=== PATIENT | male | born 1950 | race Caucasian/White ===

== ENCOUNTER 2018-12-14 21:25 | Emergency (ER) | payer OTHER, SELFPAY ==
[2018-12-14 21:40] VITALS: BP 168/83; PULSE 72; RESP 18; TEMP 35.9; O2SAT 98; BMI 36.2
--- NOTE | 2018-12-14 22:28 | ED_ITS ---
HPI - GI Bleed General Chief complaint: GI Bleed Stated complaint: pancreatitis,diarrhea,black stool Time Seen by Provider: 12/14/18 22:03 Source: patient Mode of arrival: ambulatory Limitations: no limitations History of Present Illness HPI Narrative: patient is a 68-year-old male who presents with left lower quad rant pain and black tarry stool. He was admitted this 5 days ago for 3 days with pancreatitis in [facility]. He was released in return home to [place]. Today he has had 1 episode of black tarry stool and some left lower quadrant. He feels shaky lightheaded and weak. Has no prior history of GI bleeding. He was likely on DVT prophylaxis during admission but is typically not on any anticoagulation or antiplatelet medication. Related Data Home Medications Medication Instructions Recorded Confirmed allopurinol Unknown #0 03/12/17 lisinopril Unknown #0 03/12/17 Allergies Allergy/AdvReac Type Severity Reaction Status Date / Time Sulfa (Sulfonamide Allergy Unknown Verified 12/14/18 21:40 Antibiotics) [SULFA (SULFONAMIDE ANTIBIOTICS)] Review of Systems Review of Systems GENERAL: Denies chills, fatigue, malaise, fever, sweats, travel HEENT: Denies sinus pain, ear pain, sore throat, difficulty swallowing, neck pain RESPIRATORY: Denies dyspnea, cough, wheezing, hemoptysis, sputum. CARDIOVASCULAR: Denies chest pain, palpitations, orthopnea, edema GASTROINTESTINAL: See HPI : Denies dysuria, frequency, incontinence, hematuria, urinary retention, flank pain. MUSCULOSKELETAL: Denies weakness, joint pain, or bony pain SKIN: No rash, no erythema, no pruritus NEUROLOGIC: Denies dizziness, headache, numbness, change in speech, confusion PSYCHIATRIC: No concerning psychosocial issues. 12 point review of systems is negative except for those stated above and HPI PFSH Social History Smoking Status: Never smoker Social History Smoking Status: Never smoker Exam Initial Vital Signs Initial Vital Signs: Vital Signs Temperature 96.6 F L 12/14/18 21:40 Pulse Rate 72 12/14/18 21:40 Respiratory Rate 18 12/14/18 21:40 Blood Pressure 168/83 H 12/14/18 21:40 Pulse Oximetry 98 12/14/18 21:40 GENERAL: overweight alert male no acute distress HEENT: Head atraumatic,EOMI, pupils reactive, CARDIOVASCULAR: Regular rate and rhythm without murmurs, rubs or gallops. RESPIRATORY: Breath sounds equal bilaterally, no wheezes rales or rhonchi. ABDOMEN: Soft, nontender. Normoactive bowel sounds all 4 quadrants. No guarding or rebound. [RECTAL:] guaiac negative on stool green not black : No CVA tenderness RECTAL: green dark stool guaiac negative EXTREMITIES: Normal range of motion, no clubbing or edema. Neurovascularly intact NEUROLOGICAL: Alert and oriented x4.Normal gait and speech. SKIN: Warm, dry, no laceration, no petechiae, no rashes or lesions. Course Orders Ordered: ED Orders 12/14/18 22:49 Complete Blood Count AUTO DIFF Stat Comprehensive Metabolic Panel Stat Lipase Stat Partial Thromboplastin Time Stat Prothrombin Time INR Stat Type and Screen Stat Discontinued Medications Ondansetron HCl (Zofran) 4 mg IV NOW ONE Stop: 12/14/18 22:37 Last Admin: 12/14/18 22:44 Dose: Not Given Ondansetron HCl (Zofran Odt) 4 mg SL NOW ONE Stop: 12/14/18 22:45 Last Admin: 12/14/18 22:45 Dose: 4 mg Pantoprazole Sodium (Protonix) 40 mg IV NOW ONE Stop: 12/14/18 22:37 Last Admin: 12/15/18 00:49 Dose: Not Given Vital Signs - 8 hr 12/14/18 21:40 12/14/18 22:30 12/14/18 23:37 Temperature 96.6 F L Pulse Rate 72 64 72 Respiratory Rate 18 21 18 Blood Pressure 168/83 H Blood Pressure [Right Wrist] 160/79 H 145/79 H Pulse Oximetry 98 97 98 12/15/18 00:39 Temperature Pulse Rate 74 Respiratory Rate 18 Blood Pressure 134/75 Blood Pressure [Right Wrist] Pulse Oximetry 98 MDM - GI Bleed Lab Data Attestation: I reviewed the patient's lab results. Result diagrams: 12/14/18 22:49 12/14/18 22:49 Lab Results 12/14/18 12/14/18 12/14/18 Range/Units 22:49 22:49 22:49 WBC 8.2 (4.5-11.0) X10^3/uL RBC 4.31 L (4.5-5.9) X10^6/uL Hgb 13.5 (13.5-17.5) g/dL Hct 40.0 L (41-53) % MCV 92.9 (80-100) fL MCH 31.4 (26-34) PG MCHC 33.8 (30-36) % RDW 15.1 H (11.6-14.8) % Plt Count 192 (150-400) X10^3/uL Neut % (Auto) 61.0 (50-75) % Lymph % (Auto) 21.9 L (25-40) % [place] % (Auto) 7.3 (3-14) % Eos % (Auto) 9.4 H (2-4) % Baso % (Auto) 0.4 (0-2) % Neut # (Auto) 5000 (9107-7180) /uL Lymph # (Auto) 1800 (7891-4662) /uL [place] # (Auto) 600 (0-900) /uL Eos # (Auto) 800 H (0-450) /uL Baso # (Auto) 0 (0-100) /uL PT 11.5 (10.1-12.7) SECONDS INR 1.0 (0.9-1.3) APTT 29 (26.4-36.2) SECONDS Sodium 138 (137-145) mmol/L Potassium 4.3 (3.4-5.1) mmol/L Chloride 105 (98-107) mmol/L Carbon Dioxide 26 (22-32) mmol/L BUN 20 (9-20) mg/dL Creatinine 1.30 H (0.66-1.25) mg/dL Estimated GFR 54.6 L (>60) mL/min BUN/Creatinine Ratio 15.4 (6-22) Glucose 102 (80-110) mg/dL Calcium 8.8 (8.4-10.2) mg/dL Total Bilirubin 0.7 (0.2-1.3) mg/dL AST 22 (17-59) IU/L ALT 40 (21-72) IU/L Alkaline Phosphatase 71 (38-126) U/L Total Protein 6.3 (6.3-8.2) g/dL Albumin 3.6 (3.5-5.0) g/dL Globulin 2.7 (1.7-4.1) g/dL Albumin/Globulin Ratio 1.3 (1.0-2.8) Lipase 42 (23-300) U/L Blood Type Antibody Screen 12/14/18 Range/Units 22:49 WBC (4.5-11.0) X10^3/uL RBC (4.5-5.9) X10^6/uL Hgb (13.5-17.5) g/dL Hct (41-53) % MCV (80-100) fL MCH (26-34) PG MCHC (30-36) % RDW (11.6-14.8) % Plt Count (150-400) X10^3/uL Neut % (Auto) (50-75) % Lymph % (Auto) (25-40) % [place] % (Auto) (3-14) % Eos % (Auto) (2-4) % Baso % (Auto) (0-2) % Neut # (Auto) (8408-1653) /uL Lymph # (Auto) (9793-6675) /uL [place] # (Auto) (0-900) /uL Eos # (Auto) (0-450) /uL Baso # (Auto) (0-100) /uL PT (10.1-12.7) SECONDS INR (0.9-1.3) APTT (26.4-36.2) SECONDS Sodium (137-145) mmol/L Potassium (3.4-5.1) mmol/L Chloride (98-107) mmol/L Carbon Dioxide (22-32) mmol/L BUN (9-20) mg/dL Creatinine (0.66-1.25) mg/dL Estimated GFR (>60) mL/min BUN/Creatinine Ratio (6-22) Glucose (80-110) mg/dL Calcium (8.4-10.2) mg/dL Total Bilirubin (0.2-1.3) mg/dL AST (17-59) IU/L ALT (21-72) IU/L Alkaline Phosphatase (38-126) U/L Total Protein (6.3-8.2) g/dL Albumin (3.5-5.0) g/dL Globulin (1.7-4.1) g/dL Albumin/Globulin Ratio (1.0-2.8) Lipase (23-300) U/L Blood Type O Positive Antibody Screen Negative [facility] Narrative Medical decision making narrative: patient is an extremely hard IV start. We were able to get blood work. He has mild tenderness in left lower quadrant without of guaiac-positive stool. He has only had 1 episode. His blood work is reassuring. I did discuss with him possibility of diverticulitis as no however he has no fever leukocytosis. At this time I do not want to give him antibiotics without a CT, Confirming diverticulitis. He says they did a CT in [place] he does not really want another 1 at this time. He is trying to set up an appointment with his PCP from his recent hospital visit. He agrees to return to the ED if you should have any new or worsening symptoms. is in the room and agrees with this plan. Discharge Plan Departure Patient Disposition: Home Clinical Impression: Abdominal pain Qualifiers: Abdominal location: left lower quadrant Qualified Code(s): R10.32 - Left lower quadrant pain Discharge Date/Time: 12/15/18 00:41 Interventions: ED Discharge Assessment Last Done: 12/15/18 00:39 Instructions: Diverticulitis, Acute Abdominal Pain Activity Restrictions/Additional Instructions: *You have been diagnosed with left lower quadrant pain *What to do: left lower quadrant pain. At this time your stool is not positive for bleeding all lab work is reassuring. It is possible that you have feedings of diverticulitis. This cannot be confirmed unless you have a CT scan. If your pain gets worse you may require this. *Continue to take medications as directed *Follow up with your primary care provider in 2-3 days *Return to ER if you should have Increasing left lower quadrant pain, persistent black stool or bright red stool dizziness, lightheadedness, passing out or any new, worsening or concerning symptoms Prescriptions: No Action allopurinol 100 MG tablet Unknown Qty: 0 RF: 0 lisinopril 2.5 MG tablet Unknown Qty: 0 RF: 0 Referrals: Sarahy Kebede MD [Non-Staff] -
[2018-12-14 22:30] VITALS: BP 160/79; PULSE 64; RESP 21; O2SAT 97
[2018-12-14] MEDS: ONDANSETRON 4 MG ODT SL (22:45)
[2018-12-14 23:01] LABS: Add Manual Diff / Slide Review NO; Basophils Absolute Auto 0 /uL (0-100); Basophils Percent Auto 0.4 % (0-2); Eosinophils Absolute Auto 800 /uL (0-450); Eosinophils Percent Auto 9.4 % (2-4); Hemoglobin 13.5 g/dL (13.5-17.5); Lymphocytes Absolute Auto 1800 /uL (1100-4500); Lymphocytes Percent Auto 21.9 % (25-40); Mean Corpuscular HGB Conc 33.8 % (30-36); Mean Corpuscular Hemoglobin 31.4 PG (26-34); Mean Corpuscular Volume 92.9 fL (80-100); Monocytes Absolute Auto 600 /uL (0-900); Monocytes Percent Auto 7.3 % (3-14); Neutrophils Absolute Auto 5000 /uL (1500-7000); Platelet Count 192 X10^3/uL (150-400); Red Blood Cell Count 4.31 X10^6/uL (4.5-5.9); Red Cell Distribution Width 15.1 % (11.6-14.8); White Blood Cell Count 8.2 X10^3/uL (4.5-11.0)
[2018-12-14 23:09] LABS: Prothrombin Time 11.5 SECONDS (10.1-12.7)
[2018-12-14 23:12] LABS: PTT Partial Thromboplastin Tim 29 SECONDS (26.4-36.2)
[2018-12-14 23:14] LABS: Alanine Aminotransferase 40 IU/L (21-72); Albumin 3.6 g/dL (3.5-5.0); Albumin Globulin Ratio 1.3 (1.0-2.8); Alkaline Phosphatase 71 U/L (38-126); Aspartate Aminotransferase 22 IU/L (17-59); BUN Creatinine Ratio 15.4 (6-22); Bilirubin Total 0.7 mg/dL (0.2-1.3); Blood Urea Nitrogen 20 mg/dL (9-20); Calcium 8.8 mg/dL (8.4-10.2); Carbon Dioxide 26 mmol/L (22-32); Chloride 105 mmol/L (98-107); Estimated Glomerular Filt Rate 54.6 mL/min (>60); Globulin 2.7 g/dL (1.7-4.1); Glucose 102 mg/dL (80-110); HEMOLYSIS < 15 (0-50); Lipase 42 U/L (23-300); Potassium 4.3 mmol/L (3.4-5.1); Sodium 138 mmol/L (137-145); Total Protein 6.3 g/dL (6.3-8.2)
[2018-12-14 23:37] VITALS: BP 145/79; PULSE 72; RESP 18; O2SAT 98
[2018-12-15 00:39] VITALS: BP 134/75; PULSE 74; RESP 18; O2SAT 98
== END 2018-12-15 00:41 | disposition home or self-care (01) ==
PROVIDERS: Emergency Provider Emergency Medicine
DX: R10.32 Left lower quadrant pain (principal)
CPT/HCPCS: 36415; 80053; 83690; 85025; 85610; 85730; 86850; 86900; 86901; 99282; 99283

== ENCOUNTER 2019-08-15 22:17 | Inpatient (IN) | payer OTHER, SELFPAY ==
[2019-08-15 22:20] VITALS: BP 99/51; PULSE 61; RESP 24; TEMP 36.3; O2SAT 100; BMI 35.6
--- NOTE | 2019-08-15 22:25 | ED_ITS ---
HPI - Abdominal Pain General Chief Complaint: Abdominal Pain Stated Complaint: Lower ABD Pain & Diarrhea Time Seen by Provider: 08/15/19 22:17 Source: patient, family and EMS Mode of arrival: EMS Limitations: no limitations History of Present Illness HPI narrative: Patient is a 68-year-old male who presents with sudden-onset abdominal pain left lower quadrant. He was feeling well earlier in the day however this came on suddenly he had multiple episodes of excessive diarrhea. He denies feeling nauseous, no vomiting. He did not pass out, but is very sweaty and hypotensive according to EMS. He still is having intense abdominal pain. He and his both ate the same thing for dinner she is not having any symptoms. He feel nauseous. No vomiting. MD complaint: abdominal pain Pain Consistency: constant Location: LLQ Severity: severe Quality: cramping Radiation: none Migration to: no migration Relieving factors: nothing Exacerbating factors: nothing Associated symptoms: nausea Related Data Home Medications Medication Instructions Recorded Confirmed allopurinol Unknown #0 03/12/17 lisinopril Unknown #0 03/12/17 duloxetine 60 mg PO BEDTIME 08/16/19 08/16/19 furosemide 20 mg PO DAILY 08/16/19 08/16/19 Allergies Allergy/AdvReac Type Severity Reaction Status Date / Time Sulfa (Sulfonamide Allergy Unknown Verified 08/15/19 22:31 Antibiotics) [SULFA (SULFONAMIDE ANTIBIOTICS)] Review of Systems Review of Systems Narrative: GENERAL: Denies chills, fatigue, malaise, fever, sweats, travel HEENT: Denies sinus pain, ear pain, sore throat, difficulty swallowing, neck pain RESPIRATORY: Denies dyspnea, cough, wheezing, hemoptysis, sputum. CARDIOVASCULAR: Denies chest pain, palpitations, orthopnea, edema GASTROINTESTINAL: See HPI : Denies dysuria, frequency, incontinence, hematuria, urinary retention, flank pain. MUSCULOSKELETAL: Denies weakness, joint pain, or bony pain SKIN: No rash, no erythema, no pruritus NEUROLOGIC: Denies weakness, dizziness, headache, numbness, change in speech, confusion PSYCHIATRIC: No concerning psychosocial issues. 12 point review of systems is negative except for those stated above and HPI Patient History Medical History Hypertension (Acute) Social History Smoking Status: Former smoker Social History household members: spouse Smoking Status: Former smoker alcohol intake frequency: holidays/special occasions only Substance Use Type: does not use Exam Initial Vital Signs Initial Vital Signs: Vital Signs Temperature 97.4 F L 08/15/19 22:20 Pulse Rate 61 08/15/19 22:20 Respiratory Rate 24 08/15/19 22:20 Blood Pressure 99/51 L 08/15/19 22:20 Pulse Oximetry 100 08/15/19 22:20 GENERAL: Alert overweight male, week responsive HEENT: Head atraumatic,EOMI, pupils reactive, face symmetric CARDIOVASCULAR: Regular rate and rhythm without murmurs, rubs or gallops. RESPIRATORY: Breath sounds equal bilaterally, no wheezes rales or rhonchi. ABDOMEN: Soft, obese, tender left lower quadrant ventral hernia noted umbilical hernia noted soft EXTREMITIES: Normal range of motion, no clubbing or edema. Neurovascularly intact NEUROLOGICAL: Alert and oriented x4.Normal gait and speech. Cranial nerves II through XII grossly intact. SKIN: Warm, dry, no laceration, no petechiae, no rashes or lesions. Procedures Central Line Placement Right IJ: Time Out Performed: Yes Patient Placed on Monitor/Pulse Ox: Yes MD Prep: mask, gown and gloves Central Line Prep: Chlorhexidine scrub Local Anesthetic: lidocaine 1% Amount of anesthesia used (mL): 4 Ultrasound Used for Placement: Yes Central Line Lumen Inserted: triple Post Procedure: sutured in place, good blood return, all ports aspirated, flushed, capped and sterile dressing applied Post Procedure X-Ray: tip of catheter in good position and no pneumothorax seen Patient Tolerated Procedure: Well Complications: none Course Orders Ordered: ED Orders 08/15/19 22:29 CT abdomen pelvis w con Stat 08/15/19 23:45 Complete Blood Count AUTO DIFF Stat Comprehensive Metabolic Panel Stat Lactate (Lactic Acid) Stat Lipase Stat 08/16/19 XR chest 1V Stat 08/16/19 02:05 Magnesium Stat 08/16/19 02:17 GI Panel (Film Array) Stat Heparin Sodium (Porcine) (Heparin) 5,000 unit SUBCUT BID MERA Hydromorphone HCl (Dilaudid) 0.5 mg IV Q4HR MERA Sodium Chloride (Normal Saline 0.9%) 1,000 mls @ 1,000 mls/hr IV CONT MERA Last Admin: 08/16/19 02:47 Dose: 1,000 mls/hr Documented by: Infusion: 08/16/19 01:28 Dose: 1,000 mls/hr Documented by: Admin: 08/16/19 00:28 Dose: 1,000 mls/hr Documented by: RODNEY Lactated Ringer's (Lactated Ringers) 1,000 mls @ 1,000 mls/hr IV BOLUS ONE Stop: 08/16/19 04:55 Lactated Ringer's (Lactated Ringers) 1,000 mls @ 150 mls/hr IV CONT MERA Naloxone HCl (Narcan) 0.2 mg IV Q2MIN PRN PRN Reason: Opiate Reversal Pantoprazole Sodium (Protonix) 40 mg IV DAILY MERA Discontinued Medications Hydromorphone HCl (Dilaudid) 1 mg IV NOW ONE Stop: 08/15/19 22:29 Last Admin: 08/16/19 02:51 Dose: Not Given Documented by: RODNEY Hydromorphone HCl (Dilaudid) 1 mg IM NOW ONE Stop: 08/16/19 00:13 Last Admin: 08/16/19 00:15 Dose: 1 mg Documented by: RODNEY Sodium Chloride (Normal Saline 0.9%) 1,000 mls @ 150 mls/hr IV CONT MERA Last Infusion: 08/16/19 03:26 Dose: 150 mls/hr Documented by: Admin: 08/16/19 03:25 Dose: 150 mls/hr Documented by: RODNEY Sodium Chloride (Normal Saline 0.9%) 1,000 mls @ 150 mls/hr IV CONT MERA Ondansetron HCl (Zofran) 4 mg IV NOW ONE Stop: 08/15/19 22:29 Last Admin: 08/16/19 00:29 Dose: 4 mg Documented by: RODNEY Vital Signs Vital signs: Vital Signs - 8 hr 08/15/19 22:20 08/16/19 00:08 08/16/19 01:08 Temperature 97.4 F L Pulse Rate 61 64 54 L Respiratory Rate 24 15 14 Blood Pressure 99/51 L Blood Pressure [Left Arm] 97/55 L 79/49 L Pulse Oximetry 100 98 92 08/16/19 01:56 08/16/19 02:25 08/16/19 02:41 Temperature Pulse Rate 57 L 58 L 62 Respiratory Rate 18 18 20 Blood Pressure Blood Pressure [Left Arm] 92/52 L 93/54 L 107/58 L Pulse Oximetry 92 95 94 MDM - Abdominal Pain Lab Data Attestation: I reviewed the patient's lab results. Result diagrams: 08/15/19 23:45 08/15/19 23:45 Labs: Lab Results 08/15/19 08/15/19 08/15/19 Range/Units 23:45 23:45 23:45 WBC 17.0 H (4.5-11.0) X10^3/uL RBC 4.51 (4.5-5.9) X10^6/uL Hgb 14.2 (13.5-17.5) g/dL Hct 42.5 (41-53) % MCV 94.2 (80-100) fL MCH 31.5 (26-34) PG MCHC 33.5 (30-36) % RDW 14.8 (11.6-14.8) % Plt Count 200 (150-400) X10^3/uL Neut % (Auto) 84.5 H (50-75) % Lymph % (Auto) 6.1 L (25-40) % [place] % (Auto) 8.2 (3-14) % Eos % (Auto) 0.7 L (2-4) % Baso % (Auto) 0.5 (0-2) % Neut # (Auto) 63935 H (5103-4696) /uL Lymph # (Auto) 1000 L (2942-5858) /uL [place] # (Auto) 1400 H (0-900) /uL Eos # (Auto) 100 (0-450) /uL Baso # (Auto) 100 (0-100) /uL Sodium 137 (137-145) mmol/L Potassium 4.7 (3.4-5.1) mmol/L Chloride 103 (98-107) mmol/L Carbon Dioxide 21 L (22-32) mmol/L BUN 31 H (9-20) mg/dL Creatinine 2.00 H (0.66-1.25) mg/dL Estimated GFR 33.2 L (>60) mL/min BUN/Creatinine Ratio 15.5 (6-22) Glucose 146 H (80-110) mg/dL Lactate 2.3 H (0.7-2.1) mmol/L Calcium 8.9 (8.4-10.2) mg/dL Magnesium (1.6-2.3) mg/dL Total Bilirubin 0.8 (0.2-1.3) mg/dL AST 23 (17-59) IU/L ALT 33 (21-72) IU/L Alkaline Phosphatase 87 (38-126) U/L Total Protein 6.8 (6.3-8.2) g/dL Albumin 4.1 (3.5-5.0) g/dL Globulin 2.7 (1.7-4.1) g/dL Albumin/Globulin Ratio 1.5 (1.0-2.8) Lipase 61 (23-300) U/L 08/16/19 08/16/19 Range/Units 02:05 02:05 WBC (4.5-11.0) X10^3/uL RBC (4.5-5.9) X10^6/uL Hgb (13.5-17.5) g/dL Hct (41-53) % MCV (80-100) fL MCH (26-34) PG MCHC (30-36) % RDW (11.6-14.8) % Plt Count (150-400) X10^3/uL Neut % (Auto) (50-75) % Lymph % (Auto) (25-40) % [place] % (Auto) (3-14) % Eos % (Auto) (2-4) % Baso % (Auto) (0-2) % Neut # (Auto) (5601-6676) /uL Lymph # (Auto) (9218-5086) /uL [place] # (Auto) (0-900) /uL Eos # (Auto) (0-450) /uL Baso # (Auto) (0-100) /uL Sodium (137-145) mmol/L Potassium (3.4-5.1) mmol/L Chloride (98-107) mmol/L Carbon Dioxide (22-32) mmol/L BUN (9-20) mg/dL Creatinine (0.66-1.25) mg/dL Estimated GFR (>60) mL/min BUN/Creatinine Ratio (6-22) Glucose (80-110) mg/dL Lactate 2.2 H (0.7-2.1) mmol/L Calcium (8.4-10.2) mg/dL Magnesium 2.3 (1.6-2.3) mg/dL Total Bilirubin (0.2-1.3) mg/dL AST (17-59) IU/L ALT (21-72) IU/L Alkaline Phosphatase (38-126) U/L Total Protein (6.3-8.2) g/dL Albumin (3.5-5.0) g/dL Globulin (1.7-4.1) g/dL Albumin/Globulin Ratio (1.0-2.8) Lipase (23-300) U/L Imaging Data Chest x-ray: Attestation: I personally reviewed and interpreted this imaging study as follows: My impression: Central line placed no pneumothorax CT scan - abdomen: Radiologist's impression: disulfurizer tender report: Mild holding descending colon likely infectious or inflammatory or possibly ischemic MDM Narrative Medical decision making narrative: Upon arrival patient had large bowel movement in the ED. He is extremely hard IV start. The patient did receive Dilaudid IM prior to IV start due to intense pain. I was able to start an IV in the right arm. Unfortunately when patient went to CT the IV blew, contrast did not get used in the CT scan, instead went peripheral. The patient returned back from CT his blood pressure was in the 70 an IV was no longer good. At that time decision for central line placement. Central line was placed by myself. He was started on IV fluids.l blood pressure returned easily. Patient is dehydrated based on increased creatinine and large excessive amounts of diarrhea. Patient does have leukocytosis is initially elevated lactic acid. Kush KOCH updated patient's symptoms test results. Agrees with admission. Critical Care Time Critical Care Time Critical Care Time: Yes Total Critical Care Time: 45 Attestation: The high probability of a clinically significant, sudden or life threatening deterioration of the [cardiovascular] system(s) required my full and direct attention, intervention and personal management. The aggregate critical care time was [45] minutes. This time is in addition to time spent performing reported procedures but includes the following: [x] Data Review and interpretation [x] Patient assessment and monitoring of vital signs [x] Documentation [x] Medication orders and management Discharge Plan Departure Patient Disposition: Admitted As Inpatient Clinical Impression: Acute hypotension, Acute dehydration, Acute kidney injury Discharge Date/Time: 08/16/19 03:10 Admit Date/Time: 08/16/19 02:52 Admit Provider: Bao Currie
--- NOTE | 2019-08-15 22:29 | DI.CT.S_ITS ---
PROCEDURE: CT ABDOMEN PELVIS W CON INDICATIONS: left lower quadrant pain TECHNIQUE: After the administration of intravenous contrast, 5 mm thick sections acquired from the diaphragm to the symphysis. 5 mm coronal and sagittal reformats were acquired. For radiation dose reduction, the following was used: automated exposure control, adjustment of mA and/or kV according to patient size. COMPARISON: None. FINDINGS: Image quality: Excellent. 125 mL of Optiray 320 was administered, and reportedly infiltrated. No contrast enhancement of abdominal structures is noted. ABDOMEN: Lung bases: Lung bases are clear. Heart size is normal. Solid organs: Liver is normal in size. Gallbladder is unremarkable. Biliary system is non dilated. Pancreas enhances normally. Spleen is normal in size. No adrenal nodules. No renal stones or hydronephrosis. Peritoneum and bowel: Moderate gastric distention without evidence of gastric outlet obstruction. Small bowel has normal caliber. There is a small lipoma in the jejunum measuring approximately 8 mm. Small bowel is otherwise unremarkable. Proximal colon is mildly prominent with fluid present within it. There is a short segment of descending colon with mild wall thickening and mild pericolonic stranding in the fat in an area which does not contain visible diverticula. This may potentially represent a focal area of infectious versus inflammatory versus ischemic colitis.. No free fluid or air. No abscess cavity. Nodes and vessels: No retroperitoneal or mesenteric adenopathy by size criteria. Aorta and inferior vena cava are normal in size. Miscellaneous: No ventral hernias. PELVIS: Genitourinary: Diffuse bladder wall thickening. Mild enlargement of the prostate. Miscellaneous: No inguinal hernias or adenopathy. Bones: No suspicious bony lesions. No vertebral body compression fractures. Canal stenosis at L3-4. IMPRESSION: 1. Extravasation of contrast into the arm. No contrast identified in the abdominal structures 2. Small focal area of thickened wall in the descending colon with mild inflammatory change in the adjacent fat. Differential includes focal infectious versus inflammatory versus ischemic colitis. 3. Diffuse thickening of the wall of the bladder. Dictated by: Denis Stewart M.D. on 08/16/2019 at 8:10 Approved by: Denis Stewart M.D. on 08/16/2019 at 8:18
--- NOTE | 2019-08-15 23:57 | PC.NURSE ---
Pt very difficult IV stick. Attempted by three separate nurses for a total of 6 times and attempted by doctor with ultrasound one time, but only got labwork.
[2019-08-16] VITALS (22 sets, daily range): BP systolic 79–129; BP diastolic 41–69; PULSE 54–86; RESP 13–20; TEMP 36.8–37.7; O2SAT 92–98; BMI 35.6
[2019-08-16] LABS: Add Manual Diff / Slide Review NO; Basophils Absolute Auto 100 /uL (0-100); Basophils Percent Auto 0.5 % (0-2); Eosinophils Absolute Auto 100 /uL (0-450); Eosinophils Percent Auto 0.7 % (2-4); Hematocrit 42.5 % (41-53); Hemoglobin 14.2 g/dL (13.5-17.5); Lymphocytes Absolute Auto 1000 /uL (1100-4500); Lymphocytes Percent Auto 6.1 % (25-40); Mean Corpuscular HGB Conc 33.5 % (30-36); Mean Corpuscular Hemoglobin 31.5 PG (26-34); Mean Corpuscular Volume 94.2 fL (80-100); Monocytes Absolute Auto 1400 /uL (0-900); Monocytes Percent Auto 8.2 % (3-14); Neutrophils Absolute Auto 14400 /uL (1500-7000); Neutrophils Percent Auto 84.5 % (50-75); Platelet Count 200 X10^3/uL (150-400); Red Blood Cell Count 4.51 X10^6/uL (4.5-5.9); Red Cell Distribution Width 14.8 % (11.6-14.8)
--- NOTE | 2019-08-16 | DI.RAD.S_ITS ---
PROCEDURE: XR CHEST 1V INDICATIONS: CENTRAL LINE PLACEMENT TECHNIQUE: One view of the chest was acquired. COMPARISON: Lung bases on CT abdomen and pelvis 08/15/2019. FINDINGS: Surgical changes and devices: Right-sided central venous line with the catheter tip at the middle third of the SVC. The tip has a slight angulation and may be directed towards the azygous vein. Lungs and pleura: No consolidation. Bibasilar hazy opacity most compatible with atelectasis. No pleural effusions or pneumothorax. Mediastinum: Mediastinal contours appear normal. Heart size is normal. Bones and chest wall: No suspicious bony lesions. Overlying soft tissues appear unremarkable. IMPRESSION: Right-sided central venous line at the catheter tip at the middle third of the SVC. The tip has slight angulation and may be directed towards the azygous vein. No pneumothorax. This report is concordant with the overnight preliminary interpretation. Dictated by: Bipin Groves M.D. on 08/16/2019 at 7:43 Approved by: Bipin Groves M.D. on 08/16/2019 at 7:46
[2019-08-16 00:07] LABS: Alanine Aminotransferase 33 IU/L (21-72); Albumin 4.1 g/dL (3.5-5.0); Albumin Globulin Ratio 1.5 (1.0-2.8); Alkaline Phosphatase 87 U/L (38-126); Aspartate Aminotransferase 23 IU/L (17-59); BUN Creatinine Ratio 15.5 (6-22); Bilirubin Total 0.8 mg/dL (0.2-1.3); Blood Urea Nitrogen 31 mg/dL (9-20); Calcium 8.9 mg/dL (8.4-10.2); Carbon Dioxide 21 mmol/L (22-32); Chloride 103 mmol/L (98-107); Estimated Glomerular Filt Rate 33.2 mL/min (>60); Globulin 2.7 g/dL (1.7-4.1); Glucose 146 mg/dL (80-110); HEMOLYSIS < 15 (0-50); Lipase 61 U/L (23-300); Potassium 4.7 mmol/L (3.4-5.1); Sodium 137 mmol/L (137-145); Total Protein 6.8 g/dL (6.3-8.2)
[2019-08-16 00:08] LABS: Lactate (Lactic Acid) 2.3 mmol/L (0.7-2.1)
[2019-08-16] MEDS: HYDROMORPHONE 1 MG INJ IM (00:15)
[2019-08-16] MEDS: SODIUM CHLORIDE 0.9% 1,000 ML 1000 ML IV ×2 (00:28→02:47)
[2019-08-16] MEDS: ONDANSETRON 4 MG/2 ML INJ IV (00:29)
[2019-08-16 01:53] LABS: Reflexed Lactate in 2 Hours Y
--- NOTE | 2019-08-16 01:58 | PC.NURSE ---
Addendum entered by Sandy Lopez R.N. 08/16/19 02:12: It is unknown how much iv contrast was infiltrated. Original Note: after ct scan done his r arm iv site appeared swollen,no blood return.He had good blood return and patent iv at that site before iv contrast give,DR Deutsch notified and site was iced per protocol 15 minutes at a time.
[2019-08-16 02:21] LABS: Lactate 2HR (Lactic Acid Rflx) 2.2 mmol/L (0.7-2.1)
[2019-08-16 02:29] LABS: Magnesium 2.3 mg/dL (1.6-2.3)
[2019-08-16] MEDS: SODIUM CHLORIDE 0.9% 1,000 ML 150 ML IV (03:25)
--- NOTE | 2019-08-16 03:27 | PC.NURSE ---
His right upper arm iv infiltrate site has less swelling since ice and elevation applied.his distal cms on right arm is intact.
--- NOTE | 2019-08-16 03:42 | PC.NURSE ---
He had a large liquid brown stool,unknown if it had urine in it,he did not urinate while in the ED.
--- NOTE | 2019-08-16 03:58 | PM.HP.1 ---
History of Present Illness History of Present Illness Date Patient Seen: 08/16/19 Time Patient Seen: 03:28 Chief complaint: Lower ABD Pain & Diarrhea Narrative: Mr. Jhoan Crespo a 68-year-old male patient with history significant for hypertension, gout, pancreatitis and neuropathy who presents to the ER with acute onset of abdominal pain nausea and diarrhea. Patient states he had an acute onset of symptoms at 8:00 p.m. with associated fevers and chills. He reports he felt like he was going to pass out thinks that he may have. There is no radiation of the pain and nothing appears to make it worse or better. He presented with a similar episode of less severity in March 2017. Reports no recent travel no sick contacts and no questionable foods. He ate dinner home tonight with his who ate the same meal and has no symptoms. He describes his abdominal pain is generalized and crampy in character. Per report of EMS the patient was sweaty and hypotensive upon arrival. He had no it antecedent symptoms and felt well today. He has had no headaches or dizziness. He now complains of sore throat. He reports no chest pain at present but has had intermittent episodes of chest pressure for which he has undergone cardiac evaluation. Reports no shortness of breath has had a dry nonproductive cough but no wheezing. He denies difficulty urinating and reports variable bowel habits. Upon arrival in the ER the patient is afebrile with a temperature of 97.4?, heart rate of 61, blood pressure 99/51, respiratory rate of 24 saturating 100% on room air. A CT of the abdomen is obtained which shows mild wall thickening involving the descending colon with pericolonic fat stranding, mild diverticulosis mostly sigmoid, moderate prostate enlargement mild diffuse bladder wall thickening small sliding hiatal hernia mild chronic aspiration posterior lower lobes, substantial L3-4 spinal stenosis. On the exam the contrast media infiltrated limiting the exam. On laboratories the patient has white count of 17.0 hemoglobin 14.2, hematocrit of forty two point five and platelets of two hundred. Electrolytes are within [place] slightly acidotic with a CO2 of twenty one. He has a BUN of thirty one and creatinine of 2.0. His nonfasting glucose is 146. His liver functions are all within normal range, he has an albumin of 4.1, magnesium of 2.3, lipase of 61 and lactic acid initially at 2.3 and on recheck was 2.2. While in the ER the patient became hypotensive pressure is to 79/49 necessitating placement of a central line right IJ. Patient also dropped to saturations are 92%. The patient is admitted to the ICU for sepsis with hypotension responsive to fluid resuscitation, acute dehydration with acute kidney injury. Patient History Medical History (Updated 08/16/19 @ 04:31 by ZEE Bass) Cardiac murmur (Acute) Gout (Acute) Hypertension (Acute) Neuropathy (Acute) Peripheral edema (Acute) Surgical History (Updated 08/16/19 @ 04:31 by ZEE Bass) History of arthroscopy of both knees (Acute) Social History household members: spouse Smoking Status: Former smoker Family & Social History Safety & Behavioral: Feels Safe in Current Yes Environment Tobacco & Substance use: Smoking Status Former smoker alcohol intake frequency holiday/special occasion Substance Use Type does not use Comment: The patient is for 38 years and lives in a single family home. He states his father at age 81 from heart disease, his mother at age 62 from colon cancer. Reports 3 siblings all of whom are on CPAP. He has 3 children who are all in good health. Smoking: The patient denies use of tobacco products. Alcohol: Patient will rarely consume alcohol. Substance use: The patient denies recreational pharmaceuticals herbal or cannabis products. Advanced directives: The patient has a formal living will and requests to be FULL CODE. He designates Leigh Ann to be surrogate decision maker Meds Home Medications and Allergies Home Medications Medication Instructions Recorded Confirmed Type allopurinol Unknown #0 03/12/17 History lisinopril Unknown #0 03/12/17 History duloxetine 60 mg PO BEDTIME 08/16/19 08/16/19 History furosemide 20 mg PO DAILY 08/16/19 08/16/19 History Allergies Allergy/AdvReac Type Severity Reaction Status Date / Time Sulfa (Sulfonamide Allergy Unknown Verified 08/15/19 22:31 Antibiotics) [SULFA (SULFONAMIDE ANTIBIOTICS)] Review of Systems Review of Systems ROS Unobtainable: All systems reviewed & are unremarkable except as noted in HPI and below Exam Vital Signs (past 8 hours): - 08/15/19 22:20 08/16/19 00:08 08/16/19 01:08 Temperature 97.4 F L Pulse Rate 61 64 54 L Respiratory Rate 24 15 14 Blood Pressure 99/51 L Blood Pressure [Left Arm] 97/55 L 79/49 L Pulse Oximetry 100 98 92 08/16/19 01:56 08/16/19 02:25 08/16/19 02:41 Temperature Pulse Rate 57 L 58 L 62 Respiratory Rate 18 18 20 Blood Pressure Blood Pressure [Left Arm] 92/52 L 93/54 L 107/58 L Pulse Oximetry 92 95 94 08/16/19 03:26 Temperature 98.2 F Pulse Rate 62 Respiratory Rate 20 Blood Pressure 110/41 L Blood Pressure [Left Arm] Pulse Oximetry 96 Oxygen Delivery Method Room Air Narrative Exam Narrative: GENERAL APPEARANCE: well developed, obese male with a BMI of 35.6, uncomfortable appearing HEAD: Normocephalic, atraumatic, no scalp lesions. EYES: pupils equal, round, reactive to light and accommodation, sclera non-icteric, extraocular movement intact without nystagmus. EARS: normal external structures, no ear pain NOSE: sinuses non tender to percussion, no rhinorrhea ORAL CAVITY: mucosa dry without lesions or exudate, tongue in midline. THROAT: posterior pharynx without erythema. NECK/THYROID: Short thick neck, supple, right internal jugular triple-lumen catheter, no carotid bruit, no thyromegaly, trachea midline. LYMPH NODES: no cervical or supraclavicular lymphadenopathy. SKIN: warm and dry, no suspicious lesions, no rashes. HEART: regular rate and rhythm, S1-S2 without murmur, no rubs or gallops, brisk capillary refill, no edema LUNGS: Breath sounds diminished in all l[place] without coarseness crackles or wheezing, no cough present CHEST: Symmetrical movement, no accessory muscle use, no pain to AP and lateral compression. ABDOMEN: Distended, round, attempting to percussion, generalized abdominal pain on palpation, no rebound or abdominal pain on heel strike, no organomegaly, no flank tenderness, very hypoactive bowel tones. EXTREMITIES: moves all extremities, strength is 5/5 and symmetrical, no deformities or joint effusions. NEUROLOGIC: AAO x4, no focal neurologic deficits, cranial nerves II-XII grossly intact , neuropathy BLE including feet and ankles PSYCH: alert, cognitive function intact, good eye contact, flat affect Objective Labs Result Diagrams: 08/15/19 23:45 08/15/19 23:45 Labs: Laboratory Results - last 24 hr 08/15/19 08/15/19 08/15/19 23:45 23:45 23:45 WBC 17.0 H RBC 4.51 Hgb 14.2 Hct 42.5 MCV 94.2 MCH 31.5 MCHC 33.5 RDW 14.8 Plt Count 200 Neut % (Auto) 84.5 H Lymph % (Auto) 6.1 L Gaines % (Auto) 8.2 Eos % (Auto) 0.7 L Baso % (Auto) 0.5 Neut # (Auto) 45040 H Lymph # (Auto) 1000 L Gaines # (Auto) 1400 H Eos # (Auto) 100 Baso # (Auto) 100 Sodium 137 Potassium 4.7 Chloride 103 Carbon Dioxide 21 L BUN 31 H Creatinine 2.00 H Estimated GFR 33.2 L BUN/Creatinine Ratio 15.5 Glucose 146 H Lactate 2.3 H Calcium 8.9 Magnesium Total Bilirubin 0.8 AST 23 ALT 33 Alkaline Phosphatase 87 Total Protein 6.8 Albumin 4.1 Globulin 2.7 Albumin/Globulin Ratio 1.5 Lipase 61 08/16/19 08/16/19 02:05 02:05 WBC RBC Hgb Hct MCV MCH MCHC RDW Plt Count Neut % (Auto) Lymph % (Auto) Gaines % (Auto) Eos % (Auto) Baso % (Auto) Neut # (Auto) Lymph # (Auto) Gaines # (Auto) Eos # (Auto) Baso # (Auto) Sodium Potassium Chloride Carbon Dioxide BUN Creatinine Estimated GFR BUN/Creatinine Ratio Glucose Lactate 2.2 H Calcium Magnesium 2.3 Total Bilirubin AST ALT Alkaline Phosphatase Total Protein Albumin Globulin Albumin/Globulin Ratio Lipase Assessment & Plan Assessment & Plan narrative: This is a 68-year-old male patient with an acute onset of abdominal pain at 8:00 p.m. tonight with associated symptoms of near-syncope pump possible syncope, nausea vomiting and diarrhea with hypotension. 1. Sepsis, acute, present on admission, active -patient with hypotension with pressures 79/49, respiratory compromise presenting with elevated respiratory rate at 24 and decrease oxygen saturation on 92% with creatinine of 2.0. -the patient received IV boluses of normal saline in the ER. He is given additional bolus of lactated Ringer's upon arrival in ICU starting 30 mL/kg. -blood cultures ordered stat, Zosyn 3.375 g IV every 8 hours for initial impaired therapy. 2. Hypotension, acute, present on admission, active -patient reported as hypotensive in the field by EMS with nausea, diarrhea and diaphoresis -patient fluid resuscitated with goal of map greater than 65. At time of exam patient's blood pressure is 110/41. -will closely monitor blood pressure. 3. Gastroenteritis, acute, present on admission, active -the patient continues to have general abdominal pain greatest in the left lower quadrant. -abdominal CT with mild wall thickening of the descending colon associated with mild pericolonic fat stranding, no bowel dilatation, mild diverticulosis sigmoid colon -the patient is NPO. -will treated initially empirically with Zosyn 3.375 g every 8 hours. -will follow CBC and procalcitonin. 4. Peripheral edema, chronic, stable. -patient without evidence of peripheral edema on exam. -will hold patient's daily Lasix. 5. Gout, chronic, stable -no complaints of joint pain or evidence of gouty flare. -patient takes allopurinol at home which is held at this time. 6. Obesity, BMI of 35.6, chronic, present on admission, active -will request dietary consult once patient is stabilized. The patient is admitted to the ICU for sepsis with hypotension responsive to fluid resuscitation. He is admitted to the unit for close monitoring and related to potential for complications adverse events. The patient is admitted as an inpatient with expected length stay to be greater than 2 midnights. Scores SOFA PaO2/FIO2: < 400 mmHg Platelets: >= 150 Bilirubin: < 1.2 mg/dL Hypotension: MAP >= 70 mmHg [place] Coma Scale: 15 Renal: Creatinine 2.0-3.4 mg/dL SOFA Score: 3
[2019-08-16] MEDS: HYDROMORPHONE 0.5 MG INJ IV (04:16)
[2019-08-16] MEDS: LACTATED RINGERS 1,000 ML 1000 ML IV (04:16)
[2019-08-16 04:27] LABS: Procalcitonin 0.98 ng/mL (<0.5)
[2019-08-16] MEDS: LACTATED RINGERS 1,000 ML 150 ML IV ×3 (05:30→22:38)
[2019-08-16] MEDS: PIPERACILLIN-TAZO 3.375 GM/50 ML FROZ.PIGGY IV (05:30)
--- NOTE | 2019-08-16 06:35 | PC.ADMIT ---
[id number] Admission Note: The patient,Jhoan Crespo,68 y/o, was given written information regarding hospital policies, unit procedures and contact persons. Patient's smoking status: Former smoker. Vital Signs - 8 hr 08/16/19 00:08 08/16/19 01:08 08/16/19 01:56 Temperature Pulse Rate 64 54 L 57 L Respiratory Rate 15 14 18 Blood Pressure Blood Pressure [Left Arm] 97/55 L 79/49 L 92/52 L Pulse Oximetry 98 92 92 08/16/19 02:25 08/16/19 02:41 08/16/19 03:26 Temperature 98.2 F Pulse Rate 58 L 62 62 Respiratory Rate 18 20 20 Blood Pressure 110/41 L Blood Pressure [Left Arm] 93/54 L 107/58 L Pulse Oximetry 95 94 96 08/16/19 04:01 08/16/19 05:00 08/16/19 06:00 Temperature Pulse Rate 60 58 L 61 Respiratory Rate 15 17 13 Blood Pressure 106/58 L 97/51 L 105/45 L Blood Pressure [Left Arm] Pulse Oximetry 94 92 93 Patient admitted to ICU at 0315, fatigued, oriented x3, forgetful. SB/SR, 1st AVB, BP stable, see vital trends, LR bolus infused, followed by infusion rate of 150ml, Zosyn started after Blood Cultures obtained, CL to Rt external jugular patent. IV Dilaudid given for abdominal pain, abdomen is mildly distended with hypoactive tympanic bowel sounds, intermittent nausea without emesis, no diarrhea or void since admit. Using hospital C-pap, Spo2 92-97%, breath sounds CTA, denies dyspnea. Intermittent ice pack to RUE at IV site where IV contrast infiltrated, firmness and edema, denies pain.
[2019-08-16 07:17] LABS: Add Manual Diff / Slide Review NO; Basophils Absolute Auto 0 /uL (0-100); Basophils Percent Auto 0.3 % (0-2); Eosinophils Absolute Auto 0 /uL (0-450); Eosinophils Percent Auto 0.1 % (2-4); Hematocrit 38.6 % (41-53); Lymphocytes Absolute Auto 500 /uL (1100-4500); Lymphocytes Percent Auto 3.9 % (25-40); Mean Corpuscular HGB Conc 33.6 % (30-36); Mean Corpuscular Hemoglobin 32.1 PG (26-34); Mean Corpuscular Volume 95.4 fL (80-100); Monocytes Absolute Auto 700 /uL (0-900); Monocytes Percent Auto 5.8 % (3-14); Neutrophils Absolute Auto 11000 /uL (1500-7000); Neutrophils Percent Auto 89.9 % (50-75); Platelet Count 185 X10^3/uL (150-400); Red Blood Cell Count 4.05 X10^6/uL (4.5-5.9); White Blood Cell Count 12.3 X10^3/uL (4.5-11.0)
[2019-08-16 07:29] LABS: BUN Creatinine Ratio 15.2 (6-22); Blood Urea Nitrogen 35 mg/dL (9-20); Calcium 8.4 mg/dL (8.4-10.2); Carbon Dioxide 24 mmol/L (22-32); Chloride 104 mmol/L (98-107); Estimated Glomerular Filt Rate 28.3 mL/min (>60); Glucose 153 mg/dL (80-110); HEMOLYSIS < 15 (0-50); Potassium 4.9 mmol/L (3.4-5.1); Sodium 137 mmol/L (137-145)
--- NOTE | 2019-08-16 08:30 | PC.NURSE ---
Spoke with , Chiquita, via telephone with patient's permission. Updated medications with .
--- NOTE | 2019-08-16 09:13 | DI.US.S_ITS ---
PROCEDURE: US RENAL COMPLETE INDICATIONS: ACUTE RENAL FAILURE/ RULE OUT OBSTRUCTION TECHNIQUE: Real-time scanning was performed of the kidneys and bladder, with image documentation. COMPARISON: None. FINDINGS: Kidneys: Kidneys are normal in size. Right kidney measures 12.2 cm long; left kidney measures 11.8 cm long. Right renal cortical thickness is 1.5 cm; left renal cortical thickness is 1.3 cm. Renal cortical echotexture is normal. No hydronephrosis or nephrolithiasis. No suspicious solid mass lesions. Bladder: Pre-void bladder volume is not calculated. Patient had to void. Post-void residual is 359 mL. Pre-void images demonstrate no intraluminal masses or stones. On pre-void images, no ureteral jets are noted with color Doppler interrogation. (Of note, ureteral jets may not be detectable in up to 25% of cases due to insufficient differences in specific gravity between ureteral and bladder urine). Miscellaneous: No free pelvic fluid. IMPRESSION: 1. Normal size kidneys with no evidence of hydronephrosis. 2. Post void residual measures 359 mL Dictated by: Denis Stewart M.D. on 08/16/2019 at 11:09 Approved by: Denis Stewart M.D. on 08/16/2019 at 11:15
[2019-08-16] MEDS: PANTOPRAZOLE 40 MG VIAL IV (10:06)
[2019-08-16 10:12] LABS: Bacteria Urine None Seen; RBC Urine None Seen (0-5/HPF)
[2019-08-16 10:22] LABS: Appearance Urine UA CLEAR; Bilirubin Urine UA NEGATIVE (NEGATIVE); Color Urine UA YELLOW; Glucose Urine UA NEGATIVE (Negative); Ketones Urine UA NEGATIVE (NEGATIVE); Leukocyte Esterase Urine UA TRACE (NEGATIVE); Nitrite Urine UA NEGATIVE (Negative); Occult Blood Urine UA NEGATIVE (Negative); Protein Urine UA TRACE (Negative); Urobilinogen Urine UA 0.2 E.U./dL (0.2)
--- NOTE | 2019-08-16 10:33 | P.EN_ITS ---
Event Note Date Patient Seen: 08/16/19 Event Note: Patient is a 68-year-old male who was admitted to the hospital for acute abdominal pain. Patient was found to be hypotensive in the emergency department. Patient was admitted with sepsis, confirmed by acute renal failure and hypotension. His hypotension responded nicely to IV fluids. He also was found to have acute renal failure. Patient had previously been on lisinopril and furosemide at home which likely contributed to his hypotension and acute kidney injury. His CT scan confirmed colitis. It is unclear whether this is ischemic, infectious, or inflammatory. Patient continues to have significant abdominal pain. He has had some stool which is Oswaldo colored/brown but guaiac positive. He has had no vomiting of blood or black stool. The patient does report a similar episode for which she was evaluated in the emergency department several months ago. He had pancreatitis when he was in [facility] several months ago. He is due for colonoscopy in 1 year. The patient has a strong family history of colorectal cancer. The patient does have some nausea which is related to the Dilaudid. At this time his pain medication will be switched from Dilaudid to morphine. In addition will continue him on antibiotics but switched to IV Levaquin and Flagyl. Will ask General surgery for evaluation. We are awaiting stool cultures and a GI panel as well. His lisinopril and furosemide will be held. Renal ultrasound was obtained which revealed 380 cc of urine in the bladder but no evidence of obstruction.
--- NOTE | 2019-08-16 10:36 | CM.DANOTE ---
DCP: Case received, EMR reviewed and met with patient. Introduced self and role. Was able to obtain baseline history and activity level from patient. DCP assessment/template, completed with information currently available. Patient s a 68 year old male who admitted early this morning to the care of the hospitalist team. PCP: Dr. Kebede. Payer: confirmed: [facility]. Patient came to the hospital via ambulance secondary to abdominal pain. Patient has history of pancreatitis. Patient holds diagnosis of sepsis.hypotension. Met with patient in his room, was laying in his bed. Alert and oriented, lives in [facility] with his , Chiquita. Patient is independent at baseline. He has been driving, and uses no DME supplies. p: DCP to continue to follow closely. Patient should be able to go home when he is medically stable. Christine Greer RN/Solution Coordinator
[2019-08-16] MEDS: MORPHINE 4 MG/ML INJ IV ×3 (10:47→20:12)
[2019-08-16] MEDS: HEPARIN 5,000 UNIT/ML VIAL 5000 UNIT SUBCUT ×2 (10:47→21:31)
[2019-08-16 11:15] LABS: Squamous Epithelial Cell Urine 5-10 /HPF (0-5/HPF); WBC Urine 5-10/HPF (0-5/HPF)
[2019-08-16 11:16] LABS: Culture Indicated Urine Cult Not Indicated
[2019-08-16] MEDS: levoFLOXacin 500 MG/100 ML PIGGYBACK 100 MG IV (11:20)
[2019-08-16 11:42] LABS: Adenovirus F 40/41 Not Detected (Not Detect); Astrovirus Not Detected (Not Detect); Campylobacter Not Detected (Not Detect); Clostridium difficile toxin AB Not Detected (Not Detect); Cryptosporidium Not Detected (Not Detect); Cyclospora cayetanensis Not Detected (Not Detect); Entamoeba histolytica Not Detected (Not Detect); Enteroaggregative E.coli Not Detected (Not Detect); Enteropathogenic E.coli Detected (Not Detect); Enterotoxigenic E.coli It/st Not Detected (Not Detect); Giardia lamblia Not Detected (Not Detect); Norovirus GI/GII Not Detected (Not Detect); Plesiomonsa shigelloides Not Detected (Not Detect); Rotavirus A Not Detected (Not Detect); Salmonella Not Detected (Not Detect); Shiga-like toxin-prod E.coli Not Detected (Not Detect); Shigella/Enteroinvasive E.coli Not Detected (Not Detect); Vibrio Not Detected (Not Detect); Vibrio cholerae Not Detected (Not Detect); Yersinia enterocolitica Not Detected (Not Detect)
[2019-08-16] MEDS: metroNIDAZOLE 500 MG/100 ML PIGGYBACK 100 MG IV ×2 (12:04→18:37)
--- NOTE | 2019-08-16 12:19 | P.CONS_ITS ---
History of Present Illness Consult details Date Patient Seen: 08/16/19 Time Patient Seen: 12:25 Chief complaint: Lower ABD Pain & Diarrhea Narrative: This is a 68-year-old male who presented to the emergency room with left lower quadrant abdominal pain diarrhea and hypotension for [address] abdomen pelvis demonstrates inflammation of the descending and sigmoid colon with diverticulosis no abscess free fluid or free air. Laboratory studies from admission creatinine 2.0, white blood cell count 17, hematocrit 43. He had an episode of hypotension with a systolic of 70 and has been fluid responsive. His currently in the intensive care unit hemodynamically stable, not ventilated not on pressors. He continues to have left lower quadrant pain which is slightly improved from admission and administration of levofloxacin and Flagyl. He has had at least 3 similar episodes of left lower quadrant abdominal pain which resolved with oral antibiotics. His last colonoscopy was 4 years ago and reportedly normal. No history of intestinal malignancy. [facility] Medical History Cardiac murmur (Acute) Gout (Acute) Hypertension (Acute) Neuropathy (Acute) Peripheral edema (Acute) Surgical History History of arthroscopy of both knees (Acute) Social History household members: spouse Smoking Status: Former smoker Social History household members: spouse Smoking Status: Former smoker Meds Home Medications and Allergies Home Medications Medication Instructions Recorded Confirmed Type allopurinol 200 mg PO DAILY #0 03/12/17 08/16/19 History lisinopril 20 mg PO DAILY #0 03/12/17 08/16/19 History aspirin 81 mg PO DAILY 08/16/19 08/16/19 History duloxetine 60 mg PO BEDTIME 08/16/19 08/16/19 History furosemide 20 mg PO DAILY 08/16/19 08/16/19 History Allergies Allergy/AdvReac Type Severity Reaction Status Date / Time Sulfa (Sulfonamide Allergy Unknown Verified 08/15/19 22:31 Antibiotics) [SULFA (SULFONAMIDE ANTIBIOTICS)] Exam Vital Signs (past 8 hours): - 08/16/19 05:00 08/16/19 06:00 08/16/19 07:00 Temperature 99.5 F Pulse Rate 58 L 61 70 Respiratory Rate 17 13 15 Blood Pressure 97/51 L 105/45 L 104/59 L Pulse Oximetry 92 93 93 08/16/19 08:00 08/16/19 09:00 08/16/19 10:00 Temperature Pulse Rate 74 77 86 Respiratory Rate 19 18 16 Blood Pressure 106/59 L 112/63 129/69 Pulse Oximetry 94 94 94 08/16/19 11:00 Temperature 99.4 F Pulse Rate 70 Respiratory Rate 13 Blood Pressure 106/57 L Pulse Oximetry 93 Oxygen Delivery Method Room Air,BiPAP Narrative Exam Narrative: General-no acute distress, well nourished HEENT-moist mucous membranes, no scleral icterus Neck-supple, no lymphadenopathy Chest- non labored respirations, clear to auscultation bilaterally Cardiac-regular rate no peripheral edema Abdomen-Tender LLQ no gaurding Neurological-alert and oriented, no focal deficits Objective Labs Result Diagrams: 08/16/19 06:30 08/16/19 06:30 Labs: Laboratory Results - last 24 hr 08/15/19 08/15/19 08/15/19 23:45 23:45 23:45 WBC 17.0 H RBC 4.51 Hgb 14.2 Hct 42.5 MCV 94.2 MCH 31.5 MCHC 33.5 RDW 14.8 Plt Count 200 Neut % (Auto) 84.5 H Lymph % (Auto) 6.1 L [place] % (Auto) 8.2 Eos % (Auto) 0.7 L Baso % (Auto) 0.5 Neut # (Auto) 26639 H Lymph # (Auto) 1000 L [place] # (Auto) 1400 H Eos # (Auto) 100 Baso # (Auto) 100 Sodium 137 Potassium 4.7 Chloride 103 Carbon Dioxide 21 L BUN 31 H Creatinine 2.00 H Estimated GFR 33.2 L BUN/Creatinine Ratio 15.5 Glucose 146 H Lactate 2.3 H Calcium 8.9 Magnesium Total Bilirubin 0.8 AST 23 ALT 33 Alkaline Phosphatase 87 Total Protein 6.8 Albumin 4.1 Globulin 2.7 Albumin/Globulin Ratio 1.5 Lipase 61 Procalcitonin Urine Color Urine Appearance Urine pH Ur Specific [place] Urine Protein Urine Glucose (UA) Urine Ketones Urine Occult Blood Urine Nitrate Urine Bilirubin Urine Urobilinogen Ur Leukocyte Esterase Urine RBC Urine WBC Ur Squamous Epith Cells Urine Bacteria Ur Culture Indicated? Nasal Screen MRSA (PCR) Stl C. cayetanensis PCR Stool Rotavirus (PCR) Stool Adenovirus (PCR) Stool Astrovirus (PCR) Stool Cryptosporidium PCR Stl E.coli Shiga Tox PCR St Sh/Enteroin Ecoli PCR Stool E coli O157 PCR Stl Enterotoxigenic E PCR Stool EPEC (PCR) Stl E. histolytica PCR Stool Giardia Lamblia PCR Stl P. shigelloides PCR St Y.enterocolitica PCR Stool Vibrio (PCR) Stl Vibrio cholerae PCR Stl Enteroaggr Ecoli PCR Stl Norovirus GI/GII PCR Campylobacter (PCR) C. difficile Tox (PCR) Salmonella (PCR) 08/16/19 08/16/19 08/16/19 02:05 02:05 02:05 WBC RBC Hgb Hct MCV MCH MCHC RDW Plt Count Neut % (Auto) Lymph % (Auto) [place] % (Auto) Eos % (Auto) Baso % (Auto) Neut # (Auto) Lymph # (Auto) [place] # (Auto) Eos # (Auto) Baso # (Auto) Sodium Potassium Chloride Carbon Dioxide BUN Creatinine Estimated GFR BUN/Creatinine Ratio Glucose Lactate 2.2 H Calcium Magnesium 2.3 Total Bilirubin AST ALT Alkaline Phosphatase Total Protein Albumin Globulin Albumin/Globulin Ratio Lipase Procalcitonin 0.98 H Urine Color Urine Appearance Urine pH Ur Specific [place] Urine Protein Urine Glucose (UA) Urine Ketones Urine Occult Blood Urine Nitrate Urine Bilirubin Urine Urobilinogen Ur Leukocyte Esterase Urine RBC Urine WBC Ur Squamous Epith Cells Urine Bacteria Ur Culture Indicated? Nasal Screen MRSA (PCR) Stl C. cayetanensis PCR Stool Rotavirus (PCR) Stool Adenovirus (PCR) Stool Astrovirus (PCR) Stool Cryptosporidium PCR Stl E.coli Shiga Tox PCR St Sh/Enteroin Ecoli PCR Stool E coli O157 PCR Stl Enterotoxigenic E PCR Stool EPEC (PCR) Stl E. histolytica PCR Stool Giardia Lamblia PCR Stl P. shigelloides PCR St Y.enterocolitica PCR Stool Vibrio (PCR) Stl Vibrio cholerae PCR Stl Enteroaggr Ecoli PCR Stl Norovirus GI/GII PCR Campylobacter (PCR) C. difficile Tox (PCR) Salmonella (PCR) 08/16/19 08/16/19 08/16/19 06:30 06:30 07:25 WBC 12.3 H RBC 4.05 L Hgb 13.0 L Hct 38.6 L MCV 95.4 MCH 32.1 MCHC 33.6 RDW 15.0 H Plt Count 185 Neut % (Auto) 89.9 H Lymph % (Auto) 3.9 L [place] % (Auto) 5.8 Eos % (Auto) 0.1 L Baso % (Auto) 0.3 Neut # (Auto) 28009 H Lymph # (Auto) 500 L [place] # (Auto) 700 Eos # (Auto) 0 Baso # (Auto) 0 Sodium 137 Potassium 4.9 Chloride 104 Carbon Dioxide 24 BUN 35 H Creatinine 2.30 H Estimated GFR 28.3 L BUN/Creatinine Ratio 15.2 Glucose 153 H Lactate Calcium 8.4 Magnesium Total Bilirubin AST ALT Alkaline Phosphatase Total Protein Albumin Globulin Albumin/Globulin Ratio Lipase Procalcitonin Urine Color Urine Appearance Urine pH Ur Specific [place] Urine Protein Urine Glucose (UA) Urine Ketones Urine Occult Blood Urine Nitrate Urine Bilirubin Urine Urobilinogen Ur Leukocyte Esterase Urine RBC Urine WBC Ur Squamous Epith Cells Urine Bacteria Ur Culture Indicated? Nasal Screen MRSA (PCR) Negative for mrsa Stl C. cayetanensis PCR Stool Rotavirus (PCR) Stool Adenovirus (PCR) Stool Astrovirus (PCR) Stool Cryptosporidium PCR Stl E.coli Shiga Tox PCR St Sh/Enteroin Ecoli PCR Stool E coli O157 PCR Stl Enterotoxigenic E PCR Stool EPEC (PCR) Stl E. histolytica PCR Stool Giardia Lamblia PCR Stl P. shigelloides PCR St Y.enterocolitica PCR Stool Vibrio (PCR) Stl Vibrio cholerae PCR Stl Enteroaggr Ecoli PCR Stl Norovirus GI/GII PCR Campylobacter (PCR) C. difficile Tox (PCR) Salmonella (PCR) 08/16/19 08/16/19 08/16/19 09:45 09:45 10:10 WBC RBC Hgb Hct MCV MCH MCHC RDW Plt Count Neut % (Auto) Lymph % (Auto) [place] % (Auto) Eos % (Auto) Baso % (Auto) Neut # (Auto) Lymph # (Auto) [place] # (Auto) Eos # (Auto) Baso # (Auto) Sodium Potassium Chloride Carbon Dioxide BUN Creatinine Estimated GFR BUN/Creatinine Ratio Glucose Lactate Calcium Magnesium Total Bilirubin AST ALT Alkaline Phosphatase Total Protein Albumin Globulin Albumin/Globulin Ratio Lipase Procalcitonin Urine Color Yellow Urine Appearance Clear Urine pH 5.0 Ur Specific [place] 1.010 Urine Protein Trace H Urine Glucose (UA) Negative Urine Ketones Negative Urine Occult Blood Negative Urine Nitrate Negative Urine Bilirubin Negative Urine Urobilinogen 0.2 Ur Leukocyte Esterase Trace H Urine RBC None seen Urine WBC 5-10/hpf H Ur Squamous Epith Cells 5-10 /hpf H Urine Bacteria None seen Ur Culture Indicated? Cult not indicated Nasal Screen MRSA (PCR) Stl C. cayetanensis PCR Not detected Stool Rotavirus (PCR) Not detected Stool Adenovirus (PCR) Not detected Stool Astrovirus (PCR) Not detected Stool Cryptosporidium PCR Not detected Stl E.coli Shiga Tox PCR Not detected St Sh/Enteroin Ecoli PCR Not detected Stool E coli O157 PCR Not detected Stl Enterotoxigenic E PCR Not detected Stool EPEC (PCR) Detected H Stl E. histolytica PCR Not detected Stool Giardia Lamblia PCR Not detected Stl P. shigelloides PCR Not detected St Y.enterocolitica PCR Not detected Stool Vibrio (PCR) Not detected Stl Vibrio cholerae PCR Not detected Stl Enteroaggr Ecoli PCR Not detected Stl Norovirus GI/GII PCR Not detected Campylobacter (PCR) Not detected C. difficile Tox (PCR) Not detected Cancelled Salmonella (PCR) Not detected Assessment & Plan Assessment & Plan narrative: 68-year-old male admitted with likely diverticulitis. He presented with left lower quadrant abdominal pain l eukocytosis hypotension and stranding along the descending colon. White count 17 hematocrit 43 creatinine 2.0 on admission responded to antibiotics and IV fluid, white blood cell count 12, Hct 39 this morning. I reviewed his CT which demonstrates some diverticulosis and stranding along the descending/sigmoid colon no abscess free fluid or evidence of perforation. He has had several previous episodes of similar abdominal pain which resolved with p.o. antibiotics. His last colonoscopy was 4 years ago and on have the results as far as he knows that was negative. He continues to be tender to palpation left lower quadrant no peritonitis. -NPO except for ice chips -IV fluid -continue Levaquin and Flagyl
[2019-08-16 13:05] LABS: Lactate (Lactic Acid) 2.4 mmol/L (0.7-2.1)
[2019-08-16 14:46] LABS: Reflexed Lactate in 2 Hours Y
[2019-08-16] MEDS: BENZOCAINE/MENTHOL 1 LOZ PKT 1 EACH PO ×2 (16:56→20:12)
[2019-08-16 17:09] LABS: Lactate 2HR (Lactic Acid Rflx) 1.6 mmol/L (0.7-2.1)
[2019-08-17] VITALS (8 sets, daily range): BP systolic 114–125; BP diastolic 57–74; PULSE 68–97; RESP 11–20; TEMP 36.7–37.8; O2SAT 95–97
[2019-08-17] MEDS: metroNIDAZOLE 500 MG/100 ML PIGGYBACK 100 MG IV ×3 (03:03→19:17)
[2019-08-17] MEDS: MORPHINE 4 MG/ML INJ IV ×4 (05:42→16:05)
[2019-08-17] MEDS: LACTATED RINGERS 1,000 ML 150 ML IV (05:43)
--- NOTE | 2019-08-17 06:58 | PC.NURSE ---
Patient slept throughout night with his own C-pap. SR, 1st AVB, PACs, VSS. IV morphine given once for LLQ pain, no nausea, no stools.
[2019-08-17 08:20] LABS: Add Manual Diff / Slide Review NO; Basophils Absolute Auto 0 /uL (0-100); Basophils Percent Auto 0.3 % (0-2); Eosinophils Absolute Auto 200 /uL (0-450); Eosinophils Percent Auto 1.5 % (2-4); Hematocrit 36.8 % (41-53); Hemoglobin 12.4 g/dL (13.5-17.5); Lymphocytes Absolute Auto 1100 /uL (1100-4500); Lymphocytes Percent Auto 8.9 % (25-40); Mean Corpuscular HGB Conc 33.6 % (30-36); Mean Corpuscular Hemoglobin 31.8 PG (26-34); Mean Corpuscular Volume 94.7 fL (80-100); Monocytes Absolute Auto 800 /uL (0-900); Monocytes Percent Auto 6.5 % (3-14); Neutrophils Absolute Auto 10200 /uL (1500-7000); Neutrophils Percent Auto 82.8 % (50-75); Platelet Count 160 X10^3/uL (150-400); Red Blood Cell Count 3.89 X10^6/uL (4.5-5.9); Red Cell Distribution Width 14.7 % (11.6-14.8); White Blood Cell Count 12.3 X10^3/uL (4.5-11.0)
[2019-08-17 08:25] LABS: BUN Creatinine Ratio 19.4 (6-22); Blood Urea Nitrogen 31 mg/dL (9-20); Calcium 8.3 mg/dL (8.4-10.2); Carbon Dioxide 25 mmol/L (22-32); Chloride 106 mmol/L (98-107); Estimated Glomerular Filt Rate 42.9 mL/min (>60); Glucose 121 mg/dL (80-110); HEMOLYSIS < 15 (0-50); Potassium 4.1 mmol/L (3.4-5.1); Sodium 136 mmol/L (137-145)
--- NOTE | 2019-08-17 08:30 | PM.PN.1 ---
Subjective Subjective Date Patient Seen: 08/17/19 Time Patient Seen: 08:30 Interval history: No acute overnight events. No fever nausea vomiting. Left lower quadrant abdominal pain improved from yesterday. Exam Vital Signs (past 8 hours): - 08/17/19 04:34 08/17/19 07:48 Temperature 98.1 F 98.3 F Pulse Rate 68 72 Respiratory Rate 13 12 Blood Pressure 115/57 L 114/59 L Pulse Oximetry 95 96 Oxygen Delivery Method Room Air,CPAP Oxygen Flow Rate 0 Narrative Exam Narrative: General-adult male no acute distress, well nourished Chest- non labored respirations, clear to auscultation bilaterally Cardiac-regular rate Abdomen-mildly tender LLQ improved from yesterday no peritonitis Extremities-warm, well perfused Objective Labs Result Diagrams: 08/17/19 07:50 08/16/19 06:30 Labs: Laboratory Results - last 24 hr 08/16/19 08/16/19 08/16/19 07:25 09:45 09:45 WBC RBC Hgb Hct MCV MCH MCHC RDW Plt Count Neut % (Auto) Lymph % (Auto) [place] % (Auto) Eos % (Auto) Baso % (Auto) Neut # (Auto) Lymph # (Auto) [place] # (Auto) Eos # (Auto) Baso # (Auto) Lactate Urine Color Yellow Urine Appearance Clear Urine pH 5.0 Ur Specific [place] 1.010 Urine Protein Trace H Urine Glucose (UA) Negative Urine Ketones Negative Urine Occult Blood Negative Urine Nitrate Negative Urine Bilirubin Negative Urine Urobilinogen 0.2 Ur Leukocyte Esterase Trace H Urine RBC None seen Urine WBC 5-10/hpf H Ur Squamous Epith Cells 5-10 /hpf H Urine Bacteria None seen Ur Culture Indicated? Cult not indicated Nasal Screen MRSA (PCR) Negative for mrsa Stl C. cayetanensis PCR Not detected Stool Rotavirus (PCR) Not detected Stool Adenovirus (PCR) Not detected Stool Astrovirus (PCR) Not detected Stool Cryptosporidium PCR Not detected Stl E.coli Shiga Tox PCR Not detected St Sh/Enteroin Ecoli PCR Not detected Stool E coli O157 PCR Not detected Stl Enterotoxigenic E PCR Not detected Stool EPEC (PCR) Detected H Stl E. histolytica PCR Not detected Stool Giardia Lamblia PCR Not detected Stl P. shigelloides PCR Not detected St Y.enterocolitica PCR Not detected Stool Vibrio (PCR) Not detected Stl Vibrio cholerae PCR Not detected Stl Enteroaggr Ecoli PCR Not detected Stl Norovirus GI/GII PCR Not detected Campylobacter (PCR) Not detected C. difficile Tox (PCR) Not detected Salmonella (PCR) Not detected 08/16/19 08/16/19 08/16/19 10:10 12:35 16:50 WBC RBC Hgb Hct MCV MCH MCHC RDW Plt Count Neut % (Auto) Lymph % (Auto) [place] % (Auto) Eos % (Auto) Baso % (Auto) Neut # (Auto) Lymph # (Auto) [place] # (Auto) Eos # (Auto) Baso # (Auto) Lactate 2.4 H 1.6 Urine Color Urine Appearance Urine pH Ur Specific [place] Urine Protein Urine Glucose (UA) Urine Ketones Urine Occult Blood Urine Nitrate Urine Bilirubin Urine Urobilinogen Ur Leukocyte Esterase Urine RBC Urine WBC Ur Squamous Epith Cells Urine Bacteria Ur Culture Indicated? Nasal Screen MRSA (PCR) Stl C. cayetanensis PCR Stool Rotavirus (PCR) Stool Adenovirus (PCR) Stool Astrovirus (PCR) Stool Cryptosporidium PCR Stl E.coli Shiga Tox PCR St Sh/Enteroin Ecoli PCR Stool E coli O157 PCR Stl Enterotoxigenic E PCR Stool EPEC (PCR) Stl E. histolytica PCR Stool Giardia Lamblia PCR Stl P. shigelloides PCR St Y.enterocolitica PCR Stool Vibrio (PCR) Stl Vibrio cholerae PCR Stl Enteroaggr Ecoli PCR Stl Norovirus GI/GII PCR Campylobacter (PCR) C. difficile Tox (PCR) Cancelled Salmonella (PCR) 08/17/19 07:50 WBC 12.3 H RBC 3.89 L Hgb 12.4 L Hct 36.8 L MCV 94.7 MCH 31.8 MCHC 33.6 RDW 14.7 Plt Count 160 Neut % (Auto) 82.8 H Lymph % (Auto) 8.9 L [place] % (Auto) 6.5 Eos % (Auto) 1.5 L Baso % (Auto) 0.3 Neut # (Auto) 71324 H Lymph # (Auto) 1100 [place] # (Auto) 800 Eos # (Auto) 200 Baso # (Auto) 0 Lactate Urine Color Urine Appearance Urine pH Ur Specific [place] Urine Protein Urine Glucose (UA) Urine Ketones Urine Occult Blood Urine Nitrate Urine Bilirubin Urine Urobilinogen Ur Leukocyte Esterase Urine RBC Urine WBC Ur Squamous Epith Cells Urine Bacteria Ur Culture Indicated? Nasal Screen MRSA (PCR) Stl C. cayetanensis PCR Stool Rotavirus (PCR) Stool Adenovirus (PCR) Stool Astrovirus (PCR) Stool Cryptosporidium PCR Stl E.coli Shiga Tox PCR St Sh/Enteroin Ecoli PCR Stool E coli O157 PCR Stl Enterotoxigenic E PCR Stool EPEC (PCR) Stl E. histolytica PCR Stool Giardia Lamblia PCR Stl P. shigelloides PCR St Y.enterocolitica PCR Stool Vibrio (PCR) Stl Vibrio cholerae PCR Stl Enteroaggr Ecoli PCR Stl Norovirus GI/GII PCR Campylobacter (PCR) C. difficile Tox (PCR) Salmonella (PCR) Assessment & Plan Assessment & Plan narrative: This is a 68-year-old male with improving acute uncomplicated diverticulitis. CT demonstrates descending/sigmoid colitis without abscess free fluid or free air. His abdominal pain has improved over the past 24 hours with Levofloxacin and Flagyl. -start clear liquid diet if abdominal pain worsens will need NPO. -continue levofloxacin and Flagyl -will need colonoscopy as an outpatient after complete resolution of diverticulitis in 6 weeks Quality VTE Deep Vein Thrombosis/Pulmonary Embolism Present on Admission: No
[2019-08-17] MEDS: HEPARIN 5,000 UNIT/ML VIAL 5000 UNIT SUBCUT ×2 (09:14→21:28)
[2019-08-17 09:45] LABS: Acinetobacter baumannii Not Detected (Not Detect); Candida albicans Not Detected (Not Detect); Candida glabrata Not Detected (Not Detect); Candida krusei Not Detected (Not Detect); Candida parapsilosis Not Detected (Not Detect); Candida tropicalis Not Detected (Not Detect); E. coli Not Detected (Not Detect); Enterobacter cloacae complex Not Detected (Not Detect); Enterobacteriaceae species Not Detected (Not Detect); Enterococcus species Not Detected (Not Detect); Haemophilus influenzae Not Detected (Not Detect); Listeria monocytogenes Not Detected (Not Detect); Methicillin-resistant gene Not Detected (Not Detect); Neisseria meningitidis Not Detected (Not Detect); Proteus species Not Detected (Not Detect); Pseudomonas aeruginosa Not Detected (Not Detect); Serratia marcescens Not Detected (Not Detect); Staphylococcus species Detected (Not Detect); Streptococcus agalactiae (Gr B Not Detected (Not Detect); Streptococcus pneumonia Not Detected (Not Detect); Streptococcus pyogenes (Gr A) Not Detected (Not Detect); Streptococcus species Not Detected (Not Detect)
[2019-08-17] MEDS: levoFLOXacin 250 MG/50 ML PIGGYBACK 100 MG IV (12:26)
--- NOTE | 2019-08-17 12:35 | PM.PN.1 ---
Subjective Subjective Date Patient Seen: 08/17/19 Interval history: The patient is a 68-year-old male who was admitted to the hospital yesterday for acute diverticulitis. The patient was placed on IV levofloxacin and Flagyl. He has had some improvement in his left lower quadrant pain. He has had no further bloody diarrhea. His diet has been advanced to a clear liquid diet which he is tolerating. Exam Vital Signs (past 8 hours): - 08/17/19 07:48 08/17/19 11:00 08/17/19 12:00 Temperature 98.3 F 98.7 F Pulse Rate 72 83 97 H Respiratory Rate 12 16 18 Blood Pressure 114/59 L 118/57 L Pulse Oximetry 96 97 97 Oxygen Delivery Method Room Air,CPAP Oxygen Flow Rate 0 Narrative Exam Narrative: Pleasant male sitting in a chair in no obvious distress Lungs: Clear to auscultation Cardiac exam: Regular rate and rhythm normal S1-S2 Abdomen: Distended, tender in the left lower quadrant, hypoactive bowel tones no rebound tenderness no board-like rigidity, no palpable masses Extremities: Trace edema Objective Labs Result Diagrams: 08/17/19 07:50 08/17/19 07:50 Labs: Laboratory Results - last 24 hr 08/16/19 08/16/19 08/16/19 04:30 12:35 16:50 WBC RBC Hgb Hct MCV MCH MCHC RDW Plt Count Neut % (Auto) Lymph % (Auto) [place] % (Auto) Eos % (Auto) Baso % (Auto) Neut # (Auto) Lymph # (Auto) [place] # (Auto) Eos # (Auto) Baso # (Auto) Sodium Potassium Chloride Carbon Dioxide BUN Creatinine Estimated GFR BUN/Creatinine Ratio Glucose Lactate 2.4 H 1.6 Calcium A. baumannii (PCR) Not detected Ivana albicans (PCR) Not detected C. glabrata (PCR) Not detected C. krusei (PCR) Not detected C. parapsilosis (PCR) Not detected C. tropicalis (PCR) Not detected Enterobacteriac sp PCR Not detected E. cloacae complex PCR Not detected Enterococcus sp PCR Not detected E. coli (PCR) Not detected H. influenzae (PCR) Not detected Klebsiella oxytoca PCR Not detected Klebsiella pneumoniae Not detected List. monocytogenes PCR Not detected N. meningitidis (PCR) Not detected Proteus species (PCR) Not detected Serratia marcescens PCR Not detected Staphylococcus sp PCR Detected H Staph aureus (PCR) Not detected mecA-Methicil Res Gene Not detected Streptococcus sp PCR Not detected Group A Strep (PCR) Not detected Strep agalactiae (PCR) Not detected Strep pneumoniae (PCR) Not detected P. aeruginosa (PCR) Not detected Valeriano/B-Vanco Res Genes Not Reportable KPC-Carbap Res Gene PCR Not Reportable 08/17/19 08/17/19 07:50 07:50 WBC 12.3 H RBC 3.89 L Hgb 12.4 L Hct 36.8 L MCV 94.7 MCH 31.8 MCHC 33.6 RDW 14.7 Plt Count 160 Neut % (Auto) 82.8 H Lymph % (Auto) 8.9 L [place] % (Auto) 6.5 Eos % (Auto) 1.5 L Baso % (Auto) 0.3 Neut # (Auto) 69781 H Lymph # (Auto) 1100 [place] # (Auto) 800 Eos # (Auto) 200 Baso # (Auto) 0 Sodium 136 L Potassium 4.1 Chloride 106 Carbon Dioxide 25 BUN 31 H Creatinine 1.60 H Estimated GFR 42.9 L BUN/Creatinine Ratio 19.4 Glucose 121 H Lactate Calcium 8.3 L A. baumannii (PCR) Ivana albicans (PCR) C. glabrata (PCR) C. krusei (PCR) C. parapsilosis (PCR) C. tropicalis (PCR) Enterobacteriac sp PCR E. cloacae complex PCR Enterococcus sp PCR E. coli (PCR) H. influenzae (PCR) Klebsiella oxytoca PCR Klebsiella pneumoniae List. monocytogenes PCR N. meningitidis (PCR) Proteus species (PCR) Serratia marcescens PCR Staphylococcus sp PCR Staph aureus (PCR) mecA-Methicil Res Gene Streptococcus sp PCR Group A Strep (PCR) Strep agalactiae (PCR) Strep pneumoniae (PCR) P. aeruginosa (PCR) Valeriano/B-Vanco Res Genes KPC-Carbap Res Gene PCR Assessment & Plan Assessment & Plan narrative: Impression 1. 68-year-old male admitted to the hospital with severe sepsis, this was manifested as hypotension, abdominal infection, and acute renal failure. The patient received early goal-directed therapy, with IV hydration his acute renal failure has improved. His initial procalcitonin was 0.98, initial lactate was 2.3, repeat lactate is now 1.6. 2. Acute diverticulitis, present on admission, patient presented with left lower quadrant pain, CT scan confirmed colitis, patient placed on IV Levaquin and Flagyl with improvement of his symptoms. He did have some bloody diarrhea yesterday which has since resolved. Patient's diet has been advanced to clear liquid and he is improving accordingly. 3. Acute renal failure, present on admission, improving with IV hydration. Creatinine initially 2.3 now down to 1.6. Will continue to hold lisinopril and Lasix, will follow laboratory studies accordingly. Will continue IV hydration. 4. Gout, allopurinol on hold 5. Obesity, Plan continue IV antibiotics until abdominal pain improved. Patient should be able to go home on oral antibiotics within 1-2 days. Quality VTE Deep Vein Thrombosis/Pulmonary Embolism Present on Admission: No
[2019-08-17] MEDS: LACTATED RINGERS 1,000 ML 84 ML IV (15:45)
[2019-08-18] VITALS (13 sets, daily range): BP systolic 109–129; BP diastolic 59–65; PULSE 64–83; RESP 17–22; TEMP 36.4–38.6; O2SAT 94–99
[2019-08-18] MEDS: MORPHINE 4 MG/ML INJ IV ×4 (01:54→17:07)
[2019-08-18] MEDS: ACETAMINOPHEN 325 MG TABLET 650 MG PO ×2 (02:07→18:10)
[2019-08-18] MEDS: metroNIDAZOLE 500 MG/100 ML PIGGYBACK 100 MG IV (03:13)
[2019-08-18] MEDS: LACTATED RINGERS 1,000 ML 84 ML IV ×2 (06:02→18:01)
[2019-08-18 06:21] LABS: Add Manual Diff / Slide Review NO; Basophils Absolute Auto 0 /uL (0-100); Basophils Percent Auto 0.4 % (0-2); Eosinophils Absolute Auto 400 /uL (0-450); Eosinophils Percent Auto 3.2 % (2-4); Hematocrit 33.8 % (41-53); Hemoglobin 11.6 g/dL (13.5-17.5); Lymphocytes Absolute Auto 1300 /uL (1100-4500); Lymphocytes Percent Auto 10.5 % (25-40); Mean Corpuscular HGB Conc 34.3 % (30-36); Mean Corpuscular Hemoglobin 32.2 PG (26-34); Monocytes Absolute Auto 1000 /uL (0-900); Monocytes Percent Auto 7.6 % (3-14); Neutrophils Absolute Auto 9900 /uL (1500-7000); Neutrophils Percent Auto 78.3 % (50-75); Platelet Count 156 X10^3/uL (150-400); White Blood Cell Count 12.6 X10^3/uL (4.5-11.0)
[2019-08-18 06:35] LABS: BUN Creatinine Ratio 16.4 (6-22); Blood Urea Nitrogen 23 mg/dL (9-20); Carbon Dioxide 26 mmol/L (22-32); Chloride 103 mmol/L (98-107); Estimated Glomerular Filt Rate 50.1 mL/min (>60); Glucose 107 mg/dL (80-110); HEMOLYSIS 33 (0-50); Potassium 4.2 mmol/L (3.4-5.1); Sodium 135 mmol/L (137-145)
[2019-08-18 06:50] LABS: Procalcitonin 0.65 ng/mL (<0.5)
--- NOTE | 2019-08-18 09:23 | PM.PN.1 ---
Subjective Subjective Date Patient Seen: 08/18/19 Time Patient Seen: 09:23 Interval history: Began clear liquid diet yesterday and today has worsened left lower quadrant pain. No fever, no emesis. Exam Vital Signs (past 8 hours): - 08/18/19 05:59 08/18/19 08:43 Temperature 98.6 F 97.5 F L Pulse Rate 66 64 Respiratory Rate 17 22 Blood Pressure 109/60 114/59 L Pulse Oximetry 97 99 Oxygen Delivery Method CPAP Oxygen Flow Rate 0 Narrative Exam Narrative: General adult male alert uncomfortable Chest nonlabored respirations Abdomen tender left lower quadrant more so than yesterday, no generalized peritonitis Objective Labs Result Diagrams: 08/18/19 05:55 08/18/19 05:55 Labs: Laboratory Results - last 24 hr 08/16/19 08/18/19 08/18/19 04:30 05:55 05:55 WBC 12.6 H RBC 3.60 L Hgb 11.6 L Hct 33.8 L MCV 94.0 MCH 32.2 MCHC 34.3 RDW 15.0 H Plt Count 156 Neut % (Auto) 78.3 H Lymph % (Auto) 10.5 L [place] % (Auto) 7.6 Eos % (Auto) 3.2 Baso % (Auto) 0.4 Neut # (Auto) 9900 H Lymph # (Auto) 1300 [place] # (Auto) 1000 H Eos # (Auto) 400 Baso # (Auto) 0 Sodium 135 L Potassium 4.2 Chloride 103 Carbon Dioxide 26 BUN 23 H Creatinine 1.40 H Estimated GFR 50.1 L BUN/Creatinine Ratio 16.4 Glucose 107 Calcium 8.0 L Procalcitonin A. baumannii (PCR) Not detected Ivana albicans (PCR) Not detected C. glabrata (PCR) Not detected C. krusei (PCR) Not detected C. parapsilosis (PCR) Not detected C. tropicalis (PCR) Not detected Enterobacteriac sp PCR Not detected E. cloacae complex PCR Not detected Enterococcus sp PCR Not detected E. coli (PCR) Not detected H. influenzae (PCR) Not detected Klebsiella oxytoca PCR Not detected Klebsiella pneumoniae Not detected List. monocytogenes PCR Not detected N. meningitidis (PCR) Not detected Proteus species (PCR) Not detected Serratia marcescens PCR Not detected Staphylococcus sp PCR Detected H Staph aureus (PCR) Not detected mecA-Methicil Res Gene Not detected Streptococcus sp PCR Not detected Group A Strep (PCR) Not detected Strep agalactiae (PCR) Not detected Strep pneumoniae (PCR) Not detected P. aeruginosa (PCR) Not detected Valeriano/B-Vanco Res Genes Not Reportable KPC-Carbap Res Gene PCR Not Reportable 08/18/19 05:55 WBC RBC Hgb Hct MCV MCH MCHC RDW Plt Count Neut % (Auto) Lymph % (Auto) [place] % (Auto) Eos % (Auto) Baso % (Auto) Neut # (Auto) Lymph # (Auto) [place] # (Auto) Eos # (Auto) Baso # (Auto) Sodium Potassium Chloride Carbon Dioxide BUN Creatinine Estimated GFR BUN/Creatinine Ratio Glucose Calcium Procalcitonin 0.65 H A. baumannii (PCR) Ivana albicans (PCR) C. glabrata (PCR) C. krusei (PCR) C. parapsilosis (PCR) C. tropicalis (PCR) Enterobacteriac sp PCR E. cloacae complex PCR Enterococcus sp PCR E. coli (PCR) H. influenzae (PCR) Klebsiella oxytoca PCR Klebsiella pneumoniae List. monocytogenes PCR N. meningitidis (PCR) Proteus species (PCR) Serratia marcescens PCR Staphylococcus sp PCR Staph aureus (PCR) mecA-Methicil Res Gene Streptococcus sp PCR Group A Strep (PCR) Strep agalactiae (PCR) Strep pneumoniae (PCR) P. aeruginosa (PCR) Valeriano/B-Vanco Res Genes KPC-Carbap Res Gene PCR Assessment & Plan Assessment & Plan narrative: 68-year-old male with uncomplicated diverticulitis. Began clear liquid diet yesterday abdominal pain was worse today than yesterday. No fever white count remained stable at 13, neutrophils and procalcitonin down trending from admission. Clinically stable no systemic toxicity. -NPO IV fluids -Continue Levaquin and Flagyl -Restart clear liquid diet with abdominal pain improves Quality VTE Deep Vein Thrombosis/Pulmonary Embolism Present on Admission: No
[2019-08-18] MEDS: HEPARIN 5,000 UNIT/ML VIAL 5000 UNIT SUBCUT ×2 (10:14→21:59)
--- NOTE | 2019-08-18 11:50 | P.PN_ITS ---
Subjective Subjective Date Patient Seen: 08/18/19 Time Patient Seen: 11:50 Interval history: He is seen today to follow-up his diverticulitis, acute kidney injury and gout. His abdominal pain as of this morning seemed to be improving and he was changed to oral antibiotics but as the day went on his abdominal pain worsened. A repeat CT is pending. Surgery is following him. His white blood count is 12.6 with a hemoglobin of 11.6 and a normal BMP with a creatinine of 1.4. Exam Vital Signs (past 8 hours): - 08/18/19 05:59 08/18/19 08:00 08/18/19 08:43 Temperature 98.6 F 97.5 F L Pulse Rate 66 64 Respiratory Rate 17 22 Blood Pressure 109/60 114/59 L Pulse Oximetry 97 94 99 Oxygen Delivery Method Room Air Oxygen Flow Rate 0 Narrative Exam Narrative: He is alert and oriented x3. He appears to be in an at least a moderate level of distress from abdominal pain, mentioning that he had a miserable night last night with pain. Heart is regular rate and rhythm without murmur. Lungs are clear to auscultation bilaterally. Extremities are no ankle edema. Abdomen is soft bowel sounds positive without organomegaly but with significant left lower quadrant tenderness. Objective Labs Result Diagrams: 08/18/19 05:55 08/18/19 05:55 Labs: Laboratory Results - last 24 hr 08/18/19 08/18/19 08/18/19 05:55 05:55 05:55 WBC 12.6 H RBC 3.60 L Hgb 11.6 L Hct 33.8 L MCV 94.0 MCH 32.2 MCHC 34.3 RDW 15.0 H Plt Count 156 Neut % (Auto) 78.3 H Lymph % (Auto) 10.5 L [place] % (Auto) 7.6 Eos % (Auto) 3.2 Baso % (Auto) 0.4 Neut # (Auto) 9900 H Lymph # (Auto) 1300 [place] # (Auto) 1000 H Eos # (Auto) 400 Baso # (Auto) 0 Sodium 135 L Potassium 4.2 Chloride 103 Carbon Dioxide 26 BUN 23 H Creatinine 1.40 H Estimated GFR 50.1 L BUN/Creatinine Ratio 16.4 Glucose 107 Calcium 8.0 L Procalcitonin 0.65 H Assessment & Plan Assessment & Plan narrative: 1. 68-year-old male admitted to the hospital with severe sepsis, this was manifested as hypotension, abdominal infection, and acute renal failure. The patient received early goal-directed therapy, with IV hydration his acute renal failure has improved. His initial procalcitonin was 0.98, initial lactate was 2.3, repeat lactate was down to 1.6. 2. Acute diverticulitis, present on admission, patient presented with left lower quadrant pain, CT scan confirmed colitis, patient placed on IV Levaquin and Flagyl with improvement of his symptoms. He did have some bloody diarrhea which has since resolved. Patient's diet has been advanced to to a soft diet initially this morning and then back to NPO as his pain worsened. He is now pending a repeat CT. Surgery is following. 3. Acute renal failure, present on admission, improving with IV hydration. Creatinine initially 2.3 now down to 1.4. Will continue to hold lisinopril and Lasix, will follow laboratory studies accordingly. Will continue IV hydration. 4. Gout, allopurinol on hold 5. Obesity Quality VTE Deep Vein Thrombosis/Pulmonary Embolism Present on Admission: No
[2019-08-18] MEDS: metroNIDAZOLE 500 MG TABLET PO ×2 (12:36→17:08)
[2019-08-18] MEDS: levoFLOXacin 500 MG TABLET PO (12:38)
--- NOTE | 2019-08-18 17:19 | DI.CT.S_ITS ---
PROCEDURE: CT ABDOMEN PELVIS W CON INDICATIONS: Increased abdominal pain TECHNIQUE: After the administration of intravenous contrast, 5 mm thick sections acquired from the diaphragm to the symphysis. 5 mm coronal and sagittal reformats were acquired. For radiation dose reduction, the following was used: automated exposure control, adjustment of mA and/or kV according to patient size. COMPARISON: [facility], CT, CT ABDOMEN PELVIS W CON, 08/15/2019, 22:41. FINDINGS: Image quality: Excellent. ABDOMEN: Lung bases: Mild atelectasis is present at the bilateral lung bases. There is a trace low-density left pleural effusion. Solid organs: Liver is normal in size and diffusely hypodense suggesting fatty infiltration. Gallbladder is unremarkable. Biliary system is non dilated. Pancreas enhances normally. Spleen is normal in size and enhancement. No adrenal nodules. Kidneys demonstrate normal size and enhancement, without hydronephrosis. Peritoneum and bowel: Bowel loops demonstrate normal wall thickness and caliber. The appendix is not visualized; however there is no discrete right lower quadrant fluid or fat stranding to suggest acute appendicitis. Areas circumferential wall thickening of the descending colon with perienteric fat stranding (series 2, images 21-49). This finding is increased in extent when compared with the prior CT dated 08/15/19. There are scattered sigmoid diverticula. No evidence for diverticulitis. No free fluid or air. Nodes and vessels: No retroperitoneal or mesenteric adenopathy by size criteria. Aorta and inferior vena cava are normal in size. Trace atheromatous calcifications are noted within the abdominal aorta. Miscellaneous: There is a fat containing umbilical hernia. PELVIS: Genitourinary: Bladder wall is circumferentially thickened, as before. Miscellaneous: No inguinal adenopathy. There is a fat containing right inguinal hernia. Bones: No suspicious bony lesions. No vertebral body compression fractures. IMPRESSION: 1. Colitis of the descending colon. These findings have increased in severity when compared with the prior CT dated 08/15/19. Given the lack of atheromatous calcifications throughout the vasculature, infectious or inflammatory etiologies are considered more likely than ischemic colitis. These findings were discussed with Dr. Vitale at 6:16 PM on 08/18/19. 2. Diverticulosis. No acute diverticulitis. 3. Circumferential, moderate bladder wall thickening which may be associated with cystitis. Dictated by: Carrie Courtney M.D. on 08/18/2019 at 18:09 Approved by: Carrie Courtney M.D. on 08/18/2019 at 18:17
[2019-08-18] MEDS: PIPERACILLIN-TAZO 4.5 GM/100 ML FROZ.PIGGY IV ×2 (18:03→23:32)
--- NOTE | 2019-08-18 19:15 | PC.NURSE ---
Addendum entered by Lanny Cooper R.N. 08/18/19 20:50: 2030- Surgeon called to discuss lab result. No surgery planned for tonight. Patient remains NPO. Original Note: 1899- Condition update- Patient has increasing abdominal pain. Medicated per order. Patient abdomen is distended and he has increasing pain to the lower quadrants. Temperature is up to 101.5. Dr. Vitale aware. CT of abdomen was done. Dr. Monk here to see patient. Labs obtained per order and awaiting results. Patient hemodynamically stable. is at bedside.
[2019-08-18 19:17] LABS: Add Manual Diff / Slide Review NO; Basophils Absolute Auto 100 /uL (0-100); Basophils Percent Auto 0.4 % (0-2); Eosinophils Absolute Auto 400 /uL (0-450); Eosinophils Percent Auto 3.1 % (2-4); Hematocrit 34.6 % (41-53); Hemoglobin 11.9 g/dL (13.5-17.5); Lymphocytes Absolute Auto 1000 /uL (1100-4500); Lymphocytes Percent Auto 8.2 % (25-40); Mean Corpuscular HGB Conc 34.3 % (30-36); Mean Corpuscular Hemoglobin 32.2 PG (26-34); Mean Corpuscular Volume 93.7 fL (80-100); Monocytes Absolute Auto 900 /uL (0-900); Monocytes Percent Auto 7.6 % (3-14); Neutrophils Absolute Auto 9800 /uL (1500-7000); Neutrophils Percent Auto 80.7 % (50-75); Platelet Count 159 X10^3/uL (150-400); Red Blood Cell Count 3.69 X10^6/uL (4.5-5.9); Red Cell Distribution Width 14.7 % (11.6-14.8); White Blood Cell Count 12.1 X10^3/uL (4.5-11.0)
[2019-08-18 19:35] LABS: Lactate (Lactic Acid) 0.9 mmol/L (0.7-2.1)
[2019-08-18 19:55] LABS: Procalcitonin 0.48 ng/mL (<0.5)
--- NOTE | 2019-08-18 20:00 | PM.PN.1 ---
Subjective Subjective Date Patient Seen: 08/18/19 Time Patient Seen: 19:30 Interval history: I was called to see this patient because of worsening pain, fever, and worsening CT scan. The patient states that his pain has worsened today. The pain he is having is more severe than his prior episodes. Exam Vital Signs (past 8 hours): - 08/18/19 12:14 08/18/19 15:45 08/18/19 16:00 Temperature 99.6 F 99.0 F Pulse Rate 66 74 Respiratory Rate 18 18 Blood Pressure 117/61 129/63 Pulse Oximetry 99 99 96 08/18/19 18:10 08/18/19 19:20 08/18/19 19:40 Temperature 101.5 F H 100.7 F H 100.7 F H Pulse Rate Respiratory Rate Blood Pressure Pulse Oximetry Oxygen Delivery Method Room Air Oxygen Flow Rate 0 Narrative Exam Narrative: alert, oriented, in mild distress normal respiration, slightly labored abdomen obese, rounded, focal TTP in left mid and lower abdomen Objective Labs Result Diagrams: 08/18/19 19:10 08/18/19 05:55 Labs: Laboratory Results - last 24 hr 08/18/19 08/18/19 08/18/19 05:55 05:55 05:55 WBC 12.6 H RBC 3.60 L Hgb 11.6 L Hct 33.8 L MCV 94.0 MCH 32.2 MCHC 34.3 RDW 15.0 H Plt Count 156 Neut % (Auto) 78.3 H Lymph % (Auto) 10.5 L [place] % (Auto) 7.6 Eos % (Auto) 3.2 Baso % (Auto) 0.4 Neut # (Auto) 9900 H Lymph # (Auto) 1300 [place] # (Auto) 1000 H Eos # (Auto) 400 Baso # (Auto) 0 Sodium 135 L Potassium 4.2 Chloride 103 Carbon Dioxide 26 BUN 23 H Creatinine 1.40 H Estimated GFR 50.1 L BUN/Creatinine Ratio 16.4 Glucose 107 Lactate Calcium 8.0 L Procalcitonin 0.65 H 08/18/19 08/18/19 08/18/19 19:10 19:10 19:10 WBC 12.1 H RBC 3.69 L Hgb 11.9 L Hct 34.6 L MCV 93.7 MCH 32.2 MCHC 34.3 RDW 14.7 Plt Count 159 Neut % (Auto) 80.7 H Lymph % (Auto) 8.2 L [place] % (Auto) 7.6 Eos % (Auto) 3.1 Baso % (Auto) 0.4 Neut # (Auto) 9800 H Lymph # (Auto) 1000 L [place] # (Auto) 900 Eos # (Auto) 400 Baso # (Auto) 100 Sodium Potassium Chloride Carbon Dioxide BUN Creatinine Estimated GFR BUN/Creatinine Ratio Glucose Lactate 0.9 Calcium Procalcitonin 0.48 Assessment & Plan Assessment and plan (1) Colitis: Problem details: I had a long discussion with the patient and his in the presence of Dr. Vitale. I am concerned that his CT scan shows a longer segment of thickened colon, he spiked a fever, and his pain is reportedly worse. We will check CBC, lactate, and procalcitonin. If worsening, we will consider OR emergently tonight. However, it will be quite a difficult and morbid operation given his severe obesity, very thick abdominal wall, and likely need for a colostomy or diverting ileostomy. Continue NPO, IV zosyn, daily labs, close observation Hold Heparin until labs return Stat CBC, lactate, procalcitonin Addendum: labs improving; given risk of high morbidity surgery and improvement of inflammatory/infectious indicators, we will continue IV zosyn, Strict NPO except for ice chips and meds, and follow his clinical signs closely. Current visit: Yes Status: Acute (2) Morbid obesity: Current visit: Yes Status: Acute Quality VTE Deep Vein Thrombosis/Pulmonary Embolism Present on Admission: No
[2019-08-18] MEDS: ONDANSETRON 4 MG/2 ML INJ (23:32)
[2019-08-18] MEDS: HYDROMORPHONE 2 MG INJ IV (23:34)
[2019-08-19] VITALS (12 sets, daily range): BP systolic 100–130; BP diastolic 63–76; PULSE 60–76; RESP 16–20; TEMP 36.4–38.2; O2SAT 93–98
[2019-08-19] MEDS: LACTATED RINGERS 1,000 ML 125 ML IV ×3 (04:06→22:29)
[2019-08-19 05:06] LABS: Add Manual Diff / Slide Review NO; Basophils Absolute Auto 0 /uL (0-100); Basophils Percent Auto 0.5 % (0-2); Eosinophils Absolute Auto 500 /uL (0-450); Eosinophils Percent Auto 4.4 % (2-4); Hematocrit 34.6 % (41-53); Hemoglobin 11.9 g/dL (13.5-17.5); Lymphocytes Absolute Auto 1000 /uL (1100-4500); Lymphocytes Percent Auto 9.4 % (25-40); Mean Corpuscular HGB Conc 34.4 % (30-36); Mean Corpuscular Hemoglobin 32.1 PG (26-34); Mean Corpuscular Volume 93.5 fL (80-100); Monocytes Absolute Auto 800 /uL (0-900); Monocytes Percent Auto 7.8 % (3-14); Neutrophils Absolute Auto 8300 /uL (1500-7000); Neutrophils Percent Auto 77.9 % (50-75); Platelet Count 166 X10^3/uL (150-400); Red Cell Distribution Width 14.7 % (11.6-14.8); White Blood Cell Count 10.7 X10^3/uL (4.5-11.0)
[2019-08-19] MEDS: ONDANSETRON 4 MG/2 ML INJ IV (05:11)
[2019-08-19 05:13] LABS: BUN Creatinine Ratio 13.6 (6-22); Blood Urea Nitrogen 19 mg/dL (9-20); Calcium 8.3 mg/dL (8.4-10.2); Carbon Dioxide 24 mmol/L (22-32); Chloride 103 mmol/L (98-107); Estimated Glomerular Filt Rate 50.1 mL/min (>60); Glucose 114 mg/dL (80-110); HEMOLYSIS < 15 (0-50); Potassium 3.9 mmol/L (3.4-5.1); Sodium 135 mmol/L (137-145)
[2019-08-19] MEDS: PIPERACILLIN-TAZO 4.5 GM/100 ML FROZ.PIGGY IV ×4 (06:28→23:40)
[2019-08-19] MEDS: HEPARIN 5,000 UNIT/ML VIAL 5000 UNIT SUBCUT ×3 (06:29→21:19)
--- NOTE | 2019-08-19 11:23 | P.PN_ITS ---
Subjective <H Roosevelt Vitale MD - Last Filed: 08/19/19 11:37> Subjective Date Patient Seen: 08/19/19 Time Patient Seen: 11:24 Exam <H Roosevelt Vitale MD - Last Filed: 08/19/19 11:37> Vital Signs (past 8 hours): - 08/19/19 04:28 08/19/19 07:40 08/19/19 09:28 Temperature 97.5 F L 97.6 F Pulse Rate 76 60 Respiratory Rate 20 17 Blood Pressure 124/72 100/66 Pulse Oximetry 93 96 96 Oxygen Delivery Method Room Air Oxygen Flow Rate 0 Objective <H Roosevelt Vitale MD - Last Filed: 08/19/19 11:37> Labs Result Diagrams: 08/19/19 04:39 08/19/19 04:39 Labs: Laboratory Results - last 24 hr 08/18/19 08/18/19 08/18/19 19:10 19:10 19:10 WBC 12.1 H RBC 3.69 L Hgb 11.9 L Hct 34.6 L MCV 93.7 MCH 32.2 MCHC 34.3 RDW 14.7 Plt Count 159 Neut % (Auto) 80.7 H Lymph % (Auto) 8.2 L [place] % (Auto) 7.6 Eos % (Auto) 3.1 Baso % (Auto) 0.4 Neut # (Auto) 9800 H Lymph # (Auto) 1000 L [place] # (Auto) 900 Eos # (Auto) 400 Baso # (Auto) 100 Sodium Potassium Chloride Carbon Dioxide BUN Creatinine Estimated GFR BUN/Creatinine Ratio Glucose Lactate 0.9 Calcium Procalcitonin 0.48 08/19/19 08/19/19 04:39 04:39 WBC 10.7 RBC 3.70 L Hgb 11.9 L Hct 34.6 L MCV 93.5 MCH 32.1 MCHC 34.4 RDW 14.7 Plt Count 166 Neut % (Auto) 77.9 H Lymph % (Auto) 9.4 L [place] % (Auto) 7.8 Eos % (Auto) 4.4 H Baso % (Auto) 0.5 Neut # (Auto) 8300 H Lymph # (Auto) 1000 L [place] # (Auto) 800 Eos # (Auto) 500 H Baso # (Auto) 0 Sodium 135 L Potassium 3.9 Chloride 103 Carbon Dioxide 24 BUN 19 Creatinine 1.40 H Estimated GFR 50.1 L BUN/Creatinine Ratio 13.6 Glucose 114 H Lactate Calcium 8.3 L Procalcitonin Assessment & Plan <H Roosevelt Vitale MD - Last Filed: 08/19/19 11:37> Assessment & Plan narrative: 1. 68-year-old male admitted to the hospital with severe sepsis, this was man ifested as hypotension, abdominal infection, and acute renal failure. The patient received early goal-directed therapy, with IV hydration his acute renal failure has improved. His initial procalcitonin was 0.98, initial lactate was 2.3, repeat lactate was down to 1.6. 2. Acute diverticulitis, present on admission, patient presented with left lower quadrant pain, CT scan confirmed colitis, patient placed on IV Levaquin and Flagyl with improvement of his symptoms. He did have some bloody diarrhea which has since resolved. Patient's diet has been advanced to to a soft diet initially this morning and then back to NPO as his pain worsened. He is now pending a repeat CT. Surgery is following. 3. Acute renal failure, present on admission, improving with IV hydration. Creatinine initially 2.3 now down to 1.4. Will continue to hold lisinopril and Lasix, will follow laboratory studies accordingly. Will continue IV hydration. 4. Gout, allopurinol on hold 5. Obesity Quality <H Roosevelt Vitale MD - Last Filed: 08/19/19 11:37> VTE Deep Vein Thrombosis/Pulmonary Embolism Present on Admission: No
--- NOTE | 2019-08-19 14:30 | P.PN_ITS ---
Subjective Subjective Date Patient Seen: 08/19/19 Time Patient Seen: 10:23 Interval history: Patient under treatment for inflammation of left colon. Possible acute diverticulitis versus ischemic colitis. He is presently on a clear liquid diet. He feels a lot of rumbling. He has had a bowel movement and passed some flatus. Exam Vital Signs (past 8 hours): - 08/19/19 07:40 08/19/19 09:28 08/19/19 12:00 Temperature 97.6 F 97.6 F Pulse Rate 60 64 Respiratory Rate 17 16 Blood Pressure 100/66 113/63 Pulse Oximetry 96 96 98 Oxygen Delivery Method Room Air Oxygen Flow Rate 0 Narrative Exam Narrative: Cooperative pleasant gentleman. Appears somewhat ill. Not however in distress from pain. His lungs are clear to auscultation. Decreased in the bases. No rales or rhonchi. Heart regular rate and rhythm without murmur gallop. Abdomen is quite distended and protuberant. Soft. Minimal tenderness left lower quadrant. No guarding. Hyperactive bowel sounds. Objective Labs Result Diagrams: 08/19/19 04:39 08/19/19 04:39 Labs: Laboratory Results - last 24 hr 08/18/19 08/18/19 08/18/19 19:10 19:10 19:10 WBC 12.1 H RBC 3.69 L Hgb 11.9 L Hct 34.6 L MCV 93.7 MCH 32.2 MCHC 34.3 RDW 14.7 Plt Count 159 Neut % (Auto) 80.7 H Lymph % (Auto) 8.2 L [place] % (Auto) 7.6 Eos % (Auto) 3.1 Baso % (Auto) 0.4 Neut # (Auto) 9800 H Lymph # (Auto) 1000 L [place] # (Auto) 900 Eos # (Auto) 400 Baso # (Auto) 100 Sodium Potassium Chloride Carbon Dioxide BUN Creatinine Estimated GFR BUN/Creatinine Ratio Glucose Lactate 0.9 Calcium Procalcitonin 0.48 08/19/19 08/19/19 04:39 04:39 WBC 10.7 RBC 3.70 L Hgb 11.9 L Hct 34.6 L MCV 93.5 MCH 32.1 MCHC 34.4 RDW 14.7 Plt Count 166 Neut % (Auto) 77.9 H Lymph % (Auto) 9.4 L [place] % (Auto) 7.8 Eos % (Auto) 4.4 H Baso % (Auto) 0.5 Neut # (Auto) 8300 H Lymph # (Auto) 1000 L [place] # (Auto) 800 Eos # (Auto) 500 H Baso # (Auto) 0 Sodium 135 L Potassium 3.9 Chloride 103 Carbon Dioxide 24 BUN 19 Creatinine 1.40 H Estimated GFR 50.1 L BUN/Creatinine Ratio 13.6 Glucose 114 H Lactate Calcium 8.3 L Procalcitonin Assessment & Plan Assessment & Plan narrative: Patient with an inflamed colon. Given his history consider ischemic colitis as a probable source. Clinically improving. White blood cell count has come down to 10 but he still has a left shift with 77 segs. I would continue clear liquids for now. This patient is not the best operative candidate for an emergency procedure. He would probably tolerate an elective colon resection quite well but his size would make placing an ostomy (which is highly likely in an emergent setting) quite challenging. It is my impression from his exam that he is clinically improving but I would go very slowly with his diet. Will allow him to have ice chips. Labs in the a.m.. Continue broad- spectrum antibiotics. Quality VTE Deep Vein Thrombosis/Pulmonary Embolism Present on Admission: No
[2019-08-19] MEDS: ACETAMINOPHEN 325 MG TABLET 650 MG PO (15:40)
--- NOTE | 2019-08-19 17:06 | P.PN_ITS ---
Subjective Subjective Date Patient Seen: 08/19/19 Interval history: He is seen today to follow-up his ischemic colitis, renal failure and gout. He is doing considerably better than he was yesterday. Dilaudid really helped him last night and this morning his abdomen is ?barely tender? on my exam. He is smiling more and his voice is stronger. His procalcitonin last night was 0.48 with a lactic acid level of 0.9 and a white count of 10.7. His creatinine is down 1.4 and potassium is 3.9. Surgery is following. Exam Vital Signs (past 8 hours): - 08/19/19 09:28 08/19/19 12:00 08/19/19 15:30 Temperature 97.6 F 100.7 F H Pulse Rate 64 69 Respiratory Rate 16 18 Blood Pressure 113/63 121/70 Pulse Oximetry 96 98 97 08/19/19 15:40 08/19/19 16:57 Temperature 100.7 F H 98.4 F Pulse Rate Respiratory Rate Blood Pressure Pulse Oximetry Oxygen Delivery Method Room Air Oxygen Flow Rate 0 Narrative Exam Narrative: He is alert and oriented, in no apparent distress, feeling better and smiling today. Heart is regular rate and rhythm without murmur. Lungs are clear to auscultation bilaterally Abdomen is soft, left lower quadrant is ?barely tender?. Extremities no ankle edema. Objective Labs Result Diagrams: 08/19/19 04:39 08/19/19 04:39 Labs: Laboratory Results - last 24 hr 08/18/19 08/18/19 08/18/19 19:10 19:10 19:10 WBC 12.1 H RBC 3.69 L Hgb 11.9 L Hct 34.6 L MCV 93.7 MCH 32.2 MCHC 34.3 RDW 14.7 Plt Count 159 Neut % (Auto) 80.7 H Lymph % (Auto) 8.2 L [place] % (Auto) 7.6 Eos % (Auto) 3.1 Baso % (Auto) 0.4 Neut # (Auto) 9800 H Lymph # (Auto) 1000 L [place] # (Auto) 900 Eos # (Auto) 400 Baso # (Auto) 100 Sodium Potassium Chloride Carbon Dioxide BUN Creatinine Estimated GFR BUN/Creatinine Ratio Glucose Lactate 0.9 Calcium Procalcitonin 0.48 10/19/19 10/19/19 04:39 04:39 WBC 10.7 RBC 3.70 L Hgb 11.9 L Hct 34.6 L MCV 93.5 MCH 32.1 MCHC 34.4 RDW 14.7 Plt Count 166 Neut % (Auto) 77.9 H Lymph % (Auto) 9.4 L [place] % (Auto) 7.8 Eos % (Auto) 4.4 H Baso % (Auto) 0.5 Neut # (Auto) 8300 H Lymph # (Auto) 1000 L [place] # (Auto) 800 Eos # (Auto) 500 H Baso # (Auto) 0 Sodium 135 L Potassium 3.9 Chloride 103 Carbon Dioxide 24 BUN 19 Creatinine 1.40 H Estimated GFR 50.1 L BUN/Creatinine Ratio 13.6 Glucose 114 H Lactate Calcium 8.3 L Procalcitonin Assessment & Plan Assessment & Plan narrative: 1. 68-year-old male admitted to the hospital with severe sepsis, this was manifested as hypotension, abdominal infection, and acute renal failure. The patient received early goal-directed therapy, with IV hydration his acute renal failure has improved. His initial procalcitonin was 0.98, initial lactate was 2.3, repeat lactate was down to 1.6 and then 0.9 on 08/18. 2. Acute Ischemic colitis, present on admission, patient presented with left lower quadrant pain, CT scan confirmed colitis, patient placed on IV Levaquin and Flagyl with improvement of his symptoms initially and then a relapse y esterday. He was then changed to Zosyn and repeat CT showed worsening colitis. His laboratory workup however was improving and this morning his physical symptoms seem to have caught up with the laboratory findings. He is on a clear liquid diet being managed by surgery. 3. Acute renal failure, present on admission, improving with IV hydration. Creatinine initially 2.3 now down to 1.4. Will continue to hold lisinopril and Lasix, will follow laboratory studies accordingly. Will continue IV hydration. 4. Gout, allopurinol on hold 5. Obesity Quality VTE Deep Vein Thrombosis/Pulmonary Embolism Present on Admission: No
--- NOTE | 2019-08-19 20:48 | PC.NURSE ---
At 1945 pt stated he had 3 bowel movements in the past two hours - all liquid consistency and brown. Pt also stated there was blood on the toilet paper when he wiped.
--- NOTE | 2019-08-19 23:16 | PC.NURSE ---
RN requested Q6 BS due to pt being NPO. BS was 90 at 1800 on 08/19/19.
[2019-08-19] MEDS: HYDROMORPHONE 2 MG INJ IV (23:45)
[2019-08-20] VITALS (8 sets, daily range): BP systolic 114–128; BP diastolic 68–76; PULSE 60–104; RESP 15–23; TEMP 36.6–37.2; O2SAT 91–99
[2019-08-20] MEDS: HEPARIN 5,000 UNIT/ML VIAL 5000 UNIT SUBCUT ×3 (05:29→21:48)
[2019-08-20] MEDS: PIPERACILLIN-TAZO 4.5 GM/100 ML FROZ.PIGGY IV ×3 (05:30→18:10)
[2019-08-20] MEDS: LACTATED RINGERS 1,000 ML 125 ML IV ×2 (07:45→15:57)
--- NOTE | 2019-08-20 11:50 | PT.IIE ---
Current Diagnoses Sepsis, unspecified organism (08/16/19) Morbid (severe) obesity due to excess calories (08/16/19) Noninfective gastroenteritis and colitis, unspecified (08/16/19) Surgical History (Last Reviewed 08/16/19 @ 12:25 by Norris Byrnes MD) History of arthroscopy of both knees (Acute) Medical History (Last Reviewed 08/16/19 @ 12:25 by Norris Byrnes MD) Cardiac murmur (Acute) Gout (Acute) Hypertension (Acute) Neuropathy (Acute) Peripheral edema (Acute) Physical Therapy Inpatient Evaluation/Re-Eval M1 PT/OT-IP Prior Functional Status Start: 08/20/19 10:26 Freq: NEEDED Status: Active Protocol: Document 08/20/19 11:16 AW (Rec: 08/20/19 11:50 AW [email or web address]) Medical Review Prior Functional Status Medical History Reviewed Yes Diet/Fluid Consistency Regular Communication No known deficits Mobility and Gait Pt uses bilateral supramalleolar orthoses due to neuropathy which affects sensation and dorsiflexion. With SMO's, he was able to walk ~1 block and/or a flight of stairs with a rest break due to poor activity tolerance . He reports sparing use of a SPC. Activities of Daily Living and IADL's Independent Social History Household Members spouse Living Arrangements House Number of Floors (Floors) Two Floors Number of Stairs To Enter/Railing? 0 stairs to enter. Pt is able to live on main level, but does access the basement for activities/hobbies. The basement is accessible via 15- 20 stairs with left rail ascending Home Environment High Toilet,Walk in Shower Home Equipment Straight Cane,Crutches,Hand Held Shower Employment Status Retired Additional Social History Comment Pt lives with spouse who is available 24/05 and has no limitation in her ability to assist. M2 PT-IP Current Condition Start: 08/20/19 10:26 Freq: NEEDED Status: Active Protocol: Document 08/20/19 11:16 AW (Rec: 08/20/19 11:50 AW [email or web address]) Physical Therapy Current Condition Current Condition Evaluation Date 08/20/19 Treatment Diagnosis sepsis, acute colitis, impaired mobility and balance. Precautions Brace bilataral SMO's Weight Bearing Status Weight Bearing Status Full Weight Bearing M3 PT-IP Subjective Start: 08/20/19 10:26 Freq: NEEDED Status: Active Protocol: Document 08/20/19 11:16 AW (Rec: 08/20/19 11:50 AW [email or web address]) Subjective Physical Therapy Visit Type Type Initial Evaluation Visit Start Time 10:36 Visit Stop Time 11:13 Total Visit Minutes 37 Number of LIFE SKILLS COORDINATOR Visits 0 Physical Therapy Visit Comments Patient Comments Pt sitting up in chair, willing to participate in PT Patient Goals Pt hopes to discharge home with spouse assist Therapy Pain Assessment Pain When Pain Assessed During Mobility Pain Present Pain Present Denied Pain M4 PT-IP Mobility and Gait Start: 08/20/19 10:26 Freq: NEEDED Status: Active Protocol: Document 08/20/19 11:16 AW (Rec: 08/20/19 11:50 AW [email or web address]) PT-Bed Mobility Assessment Sit to Supine Sit to Supine Minimal Assistance Scooting Scooting to Edge of Bed Standby Assistance Scooting Up and Down in Bed Standby Assistance PT-Transfer Assessment Sit to and From Stand Sit to and from Stand Contact Guard Assistance Equipment Transfer Assistive Device Gait Belt Orthotic/Prosthetic Devices or Brace: No Transfers Transfer Destination Bed Transfer Technique pt ambulated using FWW Transfer Ability Level of Assist Contact Guard Assistance Comments Mobility Comments Pt did not have SMO's available today. Sit to stand from chair was completed with pt using momentum to propel himself, requiring CGA and no AD. Transfer to bed was completed CGA. Sit to supine transfer required min assist to move the right leg further into the bed due to RLE weakness. Gait Assessment Gait Gait Assistance Required: Contact Guard Assist Distance (Feet) 100 Able to Maintain Weight Bearing Status Yes During Gait Assistive Devices Assistive Device Gait Belt Orthotic/Prosthetic Devices or Brace: No Gait Deviations General Gait Pattern Antalgic,Decreased Stride Length,Decreased Feet Clearance,Wide Based Gait Factors Limiting Gait Function Factors Limiting Gait Function Decreased Activity Tolerance, Decreased Sensation,Decreased Strength,Poor Balance Comments Gait Comments Pt ambulated ~100 feet with support of IV pole CGA. Trialed ambulation without support, but pt was noted to reach for nearby furniture and azar frequently. Pt makes flat foot to forefoot contact with each step, demonstrating poor foot clearance bilaterally (R more affected than left). He is unsteady on his feet with and without support. PT-Balance Assessment Sitting Balance and Reactions Static Sitting Balance Ability Normal Dynamic Sitting Balance Ability Normal Standing Balance and Reactions Static Standing Balance Ability Fair Dynamic Standing Balance Ability Fair Device Used none Comments Other Balance Tests/Deviations/Treatment In static standing, pt was : able to turn his head right and left with minimal increased sway. Head nods provoked pain response and markedly increased sway. M5 PT-IP Objective Assessments Start: 08/20/19 10:26 Freq: NEEDED Status: Active Protocol: Document 08/20/19 11:16 AW (Rec: 08/20/19 11:50 AW [email or web address]) Orientation Orientation/Cognition Level of Alertness Alert Orientation Name,Day of Week,Place, Situation Language Function Ability No Deficits Noted Safety Awareness Decreased Safety Awareness Memory Description No Deficits Noted Comments Pt and spouse seem unconcerned with pt's degree of unsteadiness. Gross Range of Motion Upper Extremity ROM Assessment Within Functional Limits Lower Extremity ROM Assessment Bilaterally Impaired Impairments Pt unable to actively dorsiflex ankle. Possible atrophy of bilateral anterior tib Strength Upper Extremity Strength Assessment Bilaterally Impaired Lower Extremity Strength Assessment Bilaterally Impaired Hip 3/5 Knee 4/5 Ankle 3-/5 Coordination Assessment Gross Coordination Gross Coordination WNL Sensation Assessment Sensation Gross Sensation Right LE Impaired,Left LE Impaired Light Touch Impaired Sensation Description Numbness Comments Sensation Comments Pt presents with history of neuropathy affecting bilateral feet in stocking distribution to distal calf. Pt reports sensation of pressure, but not sensitive to light touch. M6 PT-IP Treatment Start: 08/20/19 10:26 Freq: NEEDED Status: Active Protocol: Document 08/20/19 11:16 AW (Rec: 08/20/19 11:50 AW [email or web address]) Physical Therapy Treatment Education Education Provided Safety Other Treatments Other Treatment Performed Discussed recommendation for assistive device with pt and spouse. They state he is more stable when using his SMO's. Pt is reluctant to use AD, but may be willing to trial. M7 PT-IP Assessment and Plan Start: 08/20/19 10:26 Freq: NEEDED Status: Active Protocol: Document 08/20/19 11:16 AW (Rec: 08/20/19 11:50 AW [email or web address]) PT Summary Assessment and Plan Potential Rehabilitation Potential Good Status of Condition at Evaluation Evolving Summary Impairments ROM,Strength,Balance,Sensation ,Bed Mobility,Transfers,Gait, Activity Tolerance Assessment Summary Kehinde is a 68 yo man with history of neuropathy who was seen for PT eval followint admission on 08/15 with sepsis and acute colitis. PLOF: Pt was limited in his activity tolerance. He sustained a right Achilles injury last summer for which he had PT. He was able to walk without assistive device up to a block or up a flight of stairs but with a rest break care home for either. He uses bilateral SMO' s for foot drop associated with neuropathy. He and his report independence with all ADL's. CLOF: Pt required close CGA for all mobility and min assist for sit to supine transfer due to RLE weakness. Gait was slow and unsteady both with IV pole support and without. He would benefit from use of assistive device which PT will continue to assess and discuss with the pt. He would also benefit from outpatient PT to address balance concerns. PT recommending discharge to home with spouse assist once medically cleared and outpatient PT. Goals Bed Mobility Goal Standby Assistance Transfer Goal Standby Assistance Gait Goal Standby Assistance,Cane,Front Wheel Walker Gait Distance 150 Days to Meet Goals 5 Frequency of Treatment Frequency Of Treatment Once a Day Treatment Plan Physical Therapy Treatment Plan Bed Mobility Training,Transfer Training,Gait Training, Therapeutic Exercise,Balance Retraining,Discharge Planning, Hot or Cold Pack,Neuromuscular Re-ed,Manual Therapy Other Recommendations and Next Treatment trial least restrictive Focus assistive device; to bring SMO's Recommendations To Nursing Amount of Assist Needed 1 Person Assist Discharge Recommendations PT Discharge Recommendations Home with Assistance, Outpatient PT Other Discharge Recommendations possible need for assistive device Equipment Needed for Home Before possible need for assistive Discharge device
--- NOTE | 2019-08-20 12:05 | PM.PN.1 ---
Subjective Subjective Date Patient Seen: 08/20/19 Time Patient Seen: 12:05 Interval history: Patient feeling better. Having small loose stools. Very little flatus. Exam Vital Signs (past 8 hours): - 08/20/19 05:25 08/20/19 08:00 08/20/19 08:15 Temperature 97.9 F 98.3 F Pulse Rate 67 104 H Respiratory Rate 18 16 Blood Pressure 119/70 126/76 Pulse Oximetry 99 91 99 08/20/19 11:53 Temperature 98.9 F Pulse Rate 64 Respiratory Rate 15 Blood Pressure 114/68 Pulse Oximetry 96 Oxygen Delivery Method Room Air,CPAP Oxygen Flow Rate 0 Narrative Exam Narrative: Lungs are clear. No rales or rhonchi. Heart regular rate and rhythm without murmur gallop. Abdomen with hyperactive normal pitched bowel sounds. Distended. Nontender. Objective Labs Result Diagrams: 08/19/19 04:39 08/19/19 04:39 Assessment & Plan Assessment & Plan narrative: Advance his diet to clear liquids in the hopes that I could stimulate is intestine to especially is large intestine to work better. Also ordered a Dulcolax suppository. I would not advance his diet further at this time. Order some plain films of the abdomen for tomorrow morning to see what is gas pattern looks like. Repeat labs as well. Quality VTE Deep Vein Thrombosis/Pulmonary Embolism Present on Admission: No
[2019-08-20] MEDS: BISACODYL 10 MG SUPP PR (12:16)
--- NOTE | 2019-08-20 12:33 | PM.PN.1 ---
Subjective Subjective Date Patient Seen: 08/20/19 Time Patient Seen: 12:34 Interval history: He is seen today to follow-up his ischemic colitis and renal failure/gout. He continues to improve and tolerated ice chips well yesterday. His diet will be advanced again today. Last evening he received 1 dose of Dilaudid and continued to have bloody bowel movements as would be expected from ischemic colitis. Exam Vital Signs (past 8 hours): - 08/20/19 05:25 08/20/19 08:00 08/20/19 08:15 Temperature 97.9 F 98.3 F Pulse Rate 67 104 H Respiratory Rate 18 16 Blood Pressure 119/70 126/76 Pulse Oximetry 99 91 99 08/20/19 11:53 Temperature 98.9 F Pulse Rate 64 Respiratory Rate 15 Blood Pressure 114/68 Pulse Oximetry 96 Oxygen Delivery Method Room Air,CPAP Oxygen Flow Rate 0 Narrative Exam Narrative: He is alert and oriented. No apparent distress. Heart is regular rate and rhythm without murmur. Lungs are clear to auscultation Extremities have no ankle edema Abdomen is mildly tender in the left lower quadrant. Bowel sounds are active. There is no organomegaly. Objective Labs Result Diagrams: 08/19/19 04:39 08/19/19 04:39 Assessment & Plan Assessment & Plan narrative: 1. 68-year-old male admitted to the hospital with ischemic colitis and severe sepsis, this was manifested as hypotension, abdominal infection, and acute renal failure. The patient received early goal-directed therapy, with IV hydration his acute renal failure has improved. His initial procalcitonin was 0.98, initial lactate was 2.3, repeat lactate was down to 1.6 and then 0.9 on 08/18. 2. Acute Ischemic colitis, present on admission, patient presented with left lower quadrant pain, CT scan confirmed colitis, patient placed on IV Levaquin and Flagyl with improvement of his symptoms initially and then a relapse yesterday. He was then changed to Zosyn and repeat CT showed worsening colitis. His diet is being advanced and watch carefully by General surgery. His recent laboratory testing has shown positive improvements and his symptoms are certainly improved. 3. Acute renal failure, present on admission, improving with IV hydration. Creatinine initially 2.3 now down to 1.4. Will continue to hold lisinopril and Lasix, will follow laboratory studies accordingly. Will continue IV hydration. 4. Gout, allopurinol on hold 5. Obesity Quality VTE Deep Vein Thrombosis/Pulmonary Embolism Present on Admission: No
--- NOTE | 2019-08-20 16:04 | CM.DPC ---
DCP: continued: case discussed in Team Rounds. Dr. Vitale noted that pt is advancing to clears today. PT was ordered and Sara is seeing pt today. DCP team will continue to follow: at this point pt is expected to be able to d/c to home setting when stable for same.
[2019-08-21 00:20] VITALS: O2SAT 97
[2019-08-21] MEDS: LACTATED RINGERS 1,000 ML 125 ML IV (00:25)
[2019-08-21] MEDS: PIPERACILLIN-TAZO 4.5 GM/100 ML FROZ.PIGGY IV ×3 (00:25→13:16)
[2019-08-21 03:46] VITALS: BP 130/71; PULSE 71; RESP 18; TEMP 37.6; O2SAT 94
[2019-08-21 04:58] LABS: Add Manual Diff / Slide Review NO; Basophils Absolute Auto 0 /uL (0-100); Basophils Percent Auto 0.5 % (0-2); Eosinophils Absolute Auto 400 /uL (0-450); Eosinophils Percent Auto 6.4 % (2-4); Hematocrit 31.1 % (41-53); Hemoglobin 10.9 g/dL (13.5-17.5); Lymphocytes Absolute Auto 1200 /uL (1100-4500); Lymphocytes Percent Auto 17.8 % (25-40); Mean Corpuscular Hemoglobin 32.6 PG (26-34); Mean Corpuscular Volume 93.2 fL (80-100); Monocytes Absolute Auto 700 /uL (0-900); Monocytes Percent Auto 10.8 % (3-14); Neutrophils Absolute Auto 4400 /uL (1500-7000); Neutrophils Percent Auto 64.5 % (50-75); Platelet Count 179 X10^3/uL (150-400); Red Blood Cell Count 3.34 X10^6/uL (4.5-5.9); Red Cell Distribution Width 14.2 % (11.6-14.8); White Blood Cell Count 6.9 X10^3/uL (4.5-11.0)
[2019-08-21 05:06] LABS: BUN Creatinine Ratio 12.1 (6-22); Blood Urea Nitrogen 17 mg/dL (9-20); Calcium 8.3 mg/dL (8.4-10.2); Carbon Dioxide 27 mmol/L (22-32); Chloride 104 mmol/L (98-107); Estimated Glomerular Filt Rate 50.1 mL/min (>60); Glucose 87 mg/dL (80-110); HEMOLYSIS < 15 (0-50); Potassium 3.7 mmol/L (3.4-5.1); Sodium 136 mmol/L (137-145)
--- NOTE | 2019-08-21 06:09 | DI.RAD.S_ITS ---
PROCEDURE: XR ACUTE ABDOMEN SERIES INDICATIONS: F/u patient with colon inflammation/obstructive symptoms TECHNIQUE: One view chest and two views of the abdomen were acquired. COMPARISON: [facility], CR, XR CHEST 1V, 08/16/2019, 1:35. FINDINGS: Surgical changes and devices: None. Chest: Slight interval decrease in left lung volume with associated left basilar atelectasis. No focal consolidation. No pneumothorax. Heart size is normal. No pleural effusions. No pneumoperitoneum. Abdomen: Bowel gas pattern is nonspecific with moderate gaseous distention of the colon. There is some air noted within the colon. No evidence for small bowel dilatation or differential air fluid levels within small bowel. No suspicious calcifications. Visualized solid organ contours appear normal. Bones: No suspicious bony lesions. IMPRESSION: 1. Distended loops of colon most pronounced in the region of the splenic flexure with some gas noted in the rectum. Otherwise, no small bowel dilatation or differential air-fluid level. 2. Mild left basilar atelectasis. Dictated by: Baldomero Aviles M.D. on 08/21/2019 at 9:11 Approved by: Baldomero Aviles M.D. on 08/21/2019 at 9:18
[2019-08-21] MEDS: HEPARIN 5,000 UNIT/ML VIAL 5000 UNIT SUBCUT ×2 (06:10→13:16)
--- NOTE | 2019-08-21 06:30 | PC.NURSE ---
Patient is tolerating clear liquid diet without abdominal pain or nausea. Continues to receive IV fluids and IV abx as ordered, VSS. Uses own C-pap at night. Ambulates to with SBA.
[2019-08-21 08:00] VITALS: BP 118/65; PULSE 62; RESP 17; TEMP 37.1; O2SAT 96
--- NOTE | 2019-08-21 08:13 | PM.PN.1 ---
Subjective Subjective Date Patient Seen: 08/21/19 Time Patient Seen: 08:13 Interval history: Tolerate clear liquid diet yesterday without nausea of vomiting recurrence of abdominal pain. Left lower quadrant pain is nearly resolved. Passing flatus and stool. Exam Vital Signs (past 8 hours): - 08/21/19 00:20 08/21/19 03:46 Temperature 99.7 F H Pulse Rate 71 Respiratory Rate 18 Blood Pressure 130/71 Pulse Oximetry 97 94 Oxygen Delivery Method Room Air,CPAP Oxygen Flow Rate 0 Narrative Exam Narrative: General adult male alert oriented no acute distress Abdomen soft nontender left lower no peritonitis Objective Labs Result Diagrams: 08/21/19 04:37 08/21/19 04:37 Labs: Laboratory Results - last 24 hr 08/21/19 08/21/19 04:37 04:37 WBC 6.9 RBC 3.34 L Hgb 10.9 L Hct 31.1 L MCV 93.2 MCH 32.6 MCHC 35.0 RDW 14.2 Plt Count 179 Neut % (Auto) 64.5 Lymph % (Auto) 17.8 L [place] % (Auto) 10.8 Eos % (Auto) 6.4 H Baso % (Auto) 0.5 Neut # (Auto) 4400 Lymph # (Auto) 1200 [place] # (Auto) 700 Eos # (Auto) 400 Baso # (Auto) 0 Sodium 136 L Potassium 3.7 Chloride 104 Carbon Dioxide 27 BUN 17 Creatinine 1.40 H Estimated GFR 50.1 L BUN/Creatinine Ratio 12.1 Glucose 87 Calcium 8.3 L Magnesium 2.0 Assessment & Plan Assessment and plan (1) Colitis: Problem details: 68 y.o male with left colitis improving with antibiotic therapy. CT reviewed no evidence of abscess, free fluid or perforation, WBC downtrending, afrebrile, resolution of left abdominal pain tolerating clear liquid diet with return of bowel function. -Regular diet -DC IVF -Transition to Augementin from Zosyn -Will need colonoscopy in 6 weeks from now as outpatient Current visit: Yes Status: Acute Quality VTE Deep Vein Thrombosis/Pulmonary Embolism Present on Admission: No
[2019-08-21 12:30] VITALS: BP 133/76; PULSE 59; RESP 18; TEMP 36.8; O2SAT 99
--- NOTE | 2019-08-21 13:10 | OT.IP.EVAL ---
Current Diagnoses Sepsis, unspecified organism (08/16/19) Morbid (severe) obesity due to excess calories (08/16/19) Noninfective gastroenteritis and colitis, unspecified (08/16/19) Past Medical History (Last Reviewed 08/16/19 @ 12:25 by Norris Byrnes MD) Cardiac murmur (Acute) Gout (Acute) Hypertension (Acute) Neuropathy (Acute) Peripheral edema (Acute) Surgical History (Last Reviewed 08/16/19 @ 12:25 by Norris Byrnes MD) History of arthroscopy of both knees (Acute) Occupational Therapy Inpatient Evaluation/Re-Eval M1 PT/OT-IP Prior Functional Status Start: 08/20/19 10:26 Freq: NEEDED Status: Active Protocol: Document 08/21/19 15:42 CGR (Rec: 08/21/19 15:51 CGR [id number]) Medical Review Prior Functional Status Medical History Reviewed Yes Diet/Fluid Consistency Regular Communication No known deficits Mobility and Gait Pt uses bilateral supramalleolar orthoses due to neuropathy which affects sensation and dorsiflexion. With SMO's, he was able to walk ~1 block and/or a flight of stairs with a rest break due to poor activity tolerance . He reports sparing use of a SPC. Activities of Daily Living and IADL's Independent Social History Household Members spouse Living Arrangements House Number of Floors (Floors) Two Floors Number of Stairs To Enter/Railing? 0 stairs to enter. Pt is able to live on main level, but does access the basement for activities/hobbies. The basement is accessible via 15- 20 stairs with left rail ascending Home Environment High Toilet,Walk in Shower Home Equipment Straight Cane,Crutches,Hand Held Shower Employment Status Retired Additional Social History Comment Pt lives with spouse who is available 24/05 and has no limitation in her ability to assist. M2 OT-IP Current Condition Start: 08/21/19 15:55 Freq: Status: Active Protocol: Document 08/21/19 15:42 CGR (Rec: 08/21/19 15:51 CGR [id number]) Occupational Therapy Current Condition Current Condition Evaluation Date 08/21/19 Treatment Diagnosis acute onset sepsis, acute colitis Diagnosis Onset Date 08/15/19 M3 OT- IP Subjective and Pain Start: 08/21/19 15:55 Freq: Status: Active Protocol: Document 08/21/19 15:42 CGR (Rec: 08/21/19 15:51 CGR [id number]) OT- Subjective Occupational Therapy Visit Type Type Initial Evaluation Visit Start Time 12:47 Visit Stop Time 13:10 Total Visit Minutes 23 Notes Pt's present throughout session. OT Pain Assessment Pain When Pain Assessed At Rest Pain Present Pain Present Denied Pain M4 OT- IP ADL's Start: 08/21/19 15:55 Freq: Status: Active Protocol: Document 08/21/19 15:42 CGR (Rec: 08/21/19 15:51 CGR [id number]) OT [id number] General Evaluation Self-Feeding Ability Independent OT ADL-Grooming General Evaluation Grooming Ability Independent OT ADL-Oral Care General Eval Oral Care Ability Independent OT ADL-Dressing General Eval Upper Body Dressing Ability Independent Lower Body Dressing Ability Independent Areas Needing Assistance Socks OT ADL-Toileting General Evaluation Toileting Ability Independent OT ADL-Bathing Comments OT Bathing Comments Not assessed formally but simulated for shower stall and pt able to perform without assist. M5 OT- IP IADL's Start: 08/21/19 15:55 Freq: Status: Active Protocol: Document 08/21/19 15:42 CGR (Rec: 08/21/19 15:51 CGR [id number]) OT-Instrumental Activities of Daily Living Deficits IADL Deficits Identified No Deficits Home Safety Awareness Awareness of Need for Assistance at Home Good Awareness Ability to Problem Solve Emergency Able to Problem Solve Situations Medication Management Medication Management No Deficits Identified Money Management Money Management No Deficits Identified Meal Preparation Meal Preparation No Deficits Identified Transportation Project Manager Transportation Project Manager No Deficits Identified M6 OT- IP Functional Cognition Start: 08/21/19 15:55 Freq: Status: Active Protocol: Document 08/21/19 15:42 CGR (Rec: 08/21/19 15:51 CGR [id number]) Cognitive Factors Limiting Selfcare Function Cognitive Ability Level of Alertness Alert Patient Orientation Name,Age,Birthday,Month,Date, Year,Day of Week,Place, Situation Attention Span Ability Capable of Focused Attention, Capable of Sustained Attention Ability to Follow Commands Able to Follow Multi-Step Commands Memory Description No Deficits Noted Safety Awareness No Deficits Noted Problem Solving Ability No deficits Noted Executive Function Ability No Deficits Noted Abstract Thinking Ability No Deficits Noted OT- Vision and Hearing OT- Hearing Assessment OT- Hearing Assessment WFL OT- Vision Assessment Visual Acuity WFL Visual Attentiveness WFL Occular Pursuits WFL Visual Convergence WFL Visual [place] WFL Diplopia Absent M7 OT- IP Mobility and Balance Start: 08/21/19 15:55 Freq: Status: Active Protocol: Document 08/21/19 15:42 CGR (Rec: 08/21/19 15:51 CGR [id number]) OT- Bed Mobility Assessment Supine to Sit Supine to Sit Assist Independent Scooting Scooting to Edge of Bed Independent OT-Transfer Assessment Sit to and From Stand Sit to and from Stand Independent Transfers Transfer Ability Independent Technique Transfer Destination Bed,Chair,Toilet Transfer Technique Stand Step Pivot Devices Transfer Assistive Devices None OT- Gait Assessment Gait Gait Assistance Required: Independent Comments Gait Ability Comments Mobility around the room without assist. OT- Balance Assessment Sitting Balance and Reactions Static Sitting Balance Ability Normal Dynamic Sitting Balance Ability Normal Standing Balance and Reactions Static Standing Balance Ability Normal Dynamic Standing Balance Ability Normal M8 OT- IP Objective Assessments Start: 08/21/19 15:55 Freq: Status: Active Protocol: Document 08/21/19 15:42 CGR (Rec: 08/21/19 15:51 CGR [id number]) OT Gross Range of Motion Upper Extremity Range of Motion Assessment Within Functional Limits OT Strength Upper Extremity Strength Assessment Within Functional Limits Comments Strength Comments 5/5 throughout OT- Coordination Assessment Upper Extremity Finger to Nose Test Within Functional Limits Finger Tapping Test Within Functional Limits OT-Muscle Tone Assessment Muscle Tone WNL Yes OT Sensation Assessment Edema Edema Absent M9 OT- IP Assessment and Plan Start: 08/21/19 15:55 Freq: Status: Active Protocol: Document 08/21/19 15:42 CGR (Rec: 08/21/19 15:51 CGR [id number]) OT Summary Assessment and Plan Potential Rehabilitation Potential Excellent Analytic Complexity at Evaluation Low Summary Progress Towards Goals Goals Met Assessment Summary Pt presents as a low complexity evaluation. Pt is IND at time of eval. No further OT needs. Frequency of Treatment Frequency Of Treatment Discharge Discharge Recommendations OT Discharge Recommendations Home
--- NOTE | 2019-08-21 15:39 | PC.NURSE ---
Discharge note 1539 - Patient discharged home with . Went over all discharge instructions and paperwork with patient and including new antibiotic. Given instructions for colits. Patient aware that he is to followup outpatient for colonoscopy. Patient left building with all discharge instructions and belongings. Denies any further questions. Taken out of building in wheelchair by nursing staff.
--- NOTE | 2019-08-22 21:55 | P.DS_ITS ---
History of Present Illness History of Present Illness Date Patient Seen: 08/21/19 Time Patient Seen: 09:00 Chief complaint: Lower ABD Pain & Diarrhea Narrative: As per ZEE Bass: Mr. Jhoan Crespo a 68-year-old male patient with history significant for hypertension, gout, pancreatitis and neuropathy who presents to the ER with acute onset of abdominal pain nausea and diarrhea. Patient states he had an acute onset of symptoms at 8:00 p.m. with associated fevers and chills. He reports he felt like he was going to pass out thinks that he may have. There is no radiation of the pain and nothing appears to make it worse or better. He pr esented with a similar episode of less severity in March 2017. Reports no recent travel no sick contacts and no questionable foods. He ate dinner home tonight with his who ate the same meal and has no symptoms. He describes his abdominal pain is generalized and crampy in character. Per report of EMS the patient was sweaty and hypotensive upon arrival. He had no it antecedent symptoms and felt well today. He has had no headaches or dizziness. He now complains of sore throat. He reports no chest pain at present but has had intermittent episodes of chest pressure for which he has undergone cardiac evaluation. Reports no shortness of breath has had a dry nonproductive cough but no wheezing. He denies difficulty urinating and reports variable bowel habits. Upon arrival in the ER the patient is afebrile with a temperature of 97.4?, heart rate of 61, blood pressure 99/51, respiratory rate of 24 saturating 100% on room air. A CT of the abdomen is obtained which shows mild wall thickening involving the descending colon with pericolonic fat stranding, mild diverticulosis mostly sigmoid, moderate prostate enlargement mild diffuse bladder wall thickening small sliding hiatal hernia mild chronic aspiration posterior lower lobes, substantial L3-4 spinal stenosis. On the exam the contrast media infiltrated limiting the exam. On laboratories the patient has white count of 17.0 hemoglobin 14.2, hematocrit of forty two point five and platelets of two hundred. Electrolytes are within [place] slightly acidotic with a CO2 of twenty one. He has a BUN of thirty one and creatinine of 2.0. His nonfasting glucose is 146. His liver functions are all within normal range, he has an albumin of 4.1, magnesium of 2.3, lipase of 61 and lactic acid initially at 2.3 and on recheck was 2.2. While in the ER the patient became hypotensive pressure is to 79/49 necessitating placement of a central line right IJ. Patient also dropped to saturations are 92%. The patient is admitted to the ICU for sepsis with hypotension responsive to fluid resuscitation, acute dehydration with acute kidney injury. Discharge Providers Provider Date of admission: 08/16/19 02:52 Discharge Date: 08/21/19 Primary care physician: Sarahy Kebede MD Consults: 08/16/19 05:21 Consult to Respiratory Therapy Evaluate & Treat Comment: Sleep apnea, CPAP per protocol Physician Instructions: Evaluate and treat 08/19/19 11:46 Consult to Occupational Therapy Evaluate & Treat Comment: Physician Instructions: Evaluate and treat Consult to Physical Therapy Evaluate & Treat Comment: Physician Instructions: Evaluate and Treat Discharge provider: Bao Ibarra DO Summary Hospital Course Discharge Diagnosis: 1. Sepsis, present on admission, resolved 2. Acute colitis, present on admission, improved 3. Acute renal failure, improved, present on admission 4. gout, chronic 5. Obesity, chronic, BMI 37-38. Hospital Course: 1. 68-year-old male admitted to the hospital with colitis resulting in sepsis, this was manifested as hypotension, abdominal infection, and acute renal failure. The patient received early goal-directed therapy, with IV hydration his acute renal failure has improved. His initial procalcitonin was 0.98, initial lactate was 2.3, repeat lactate was down to 1.6 and then 0.9 on 08/18. His colitis may be secondary to ischemia or possible diverticulitis. He will need a colonoscopy in about 6-8 weeks as an outpatient. 2. Acute colitis, present on admission, patient presented with left lower quadrant pain, CT scan confirmed colitis, patient placed on IV Levaquin and Flagyl with improvement of his symptoms initially and then a relapse. He was then changed to Zosyn and repeat CT showed worsening colitis. With zosyn he improved and he was ultimately able to tolerate a diet and was stable for discharge home. His bowel movements reportedly returned to normal. As per recommendations from his surgeon, he will be discharged with a week of augmentin. It is unclear whther this was secondary to ischemia or possible diverticular disease. He should have an endoscopy as note above. 3. Acute renal failure, present on admission, secondary to above sepsis. Now resolved after fluid resuscitation and antibiotic therapy outlined above. 4. Gout, allopurinol on hold 5. Obesity, chronic, present on admission. BMI 37.4 Patient was discharged home in stable condition. Able to resume his prior medications from home. Exam Vital Signs (past 8 hours): Oxygen Delivery Method Room Air Oxygen Flow Rate 0 Narrative Exam Narrative: NAD, axO x3, obese Abd soft, with mild distension, minimal tenderness in LLQ RRR no m/r/g no edema or cyanosis Objective Labs Result Diagrams: 08/21/19 04:37 08/21/19 04:37 Discharge Plan Discharge Plan Patient Disposition: Home Discharge comment: You were admitted to the hospital for inflammation in your large bowel. It is unclear if this is due to infection or decreased blood flow. The surgeons recommend an outpatient colonoscopy in approximately 6 weeks to help determine the etiology. For now you should continue antibiotics for 7 more days at home. You were tolerating a diet without abdominal pain upon discharge. Discharge Med Rec/Prescriptions Prescriptions: New amoxicillin-pot clavulanate [Augmentin] 875-125 mg tablet 1 tab PO BID 7 Days Qty: 14 RF: 0 Continued allopurinol 100 MG tablet 200 mg PO DAILY Qty: 0 RF: 0 lisinopril 2.5 MG tablet 20 mg PO DAILY Qty: 0 RF: 0 duloxetine 60 mg Capsule,Delayed Release(Dr/Ec) 60 mg PO BEDTIME RF: 0 furosemide 20 mg Tablet 20 mg PO DAILY RF: 0 aspirin 81 mg Tablet,Delayed Release (Dr/Ec) 81 mg PO DAILY RF: 0 Follow up/Referrals: Sarahy Kebede MD [Primary Care Provider] - Provider Discharge Instructions Diet: Diet as Tolerated Activity: As tolerated Visit Report/Discharge Packet Instructions: DI for Colitis, Amoxicillin/Clavulanate Potassium (By mouth) Discharge Data Primary Care Provider: Sarahy Kebede Discharges patient from system. Discharge Date/Time: 08/21/19 15:40 Quality VTE Deep Vein Thrombosis/Pulmonary Embolism Present on Admission: No
== END 2019-08-21 15:40 | disposition home or self-care (01) | DRG 871 ==
LOC: ED 08-16 02:19 → AC 08-16 02:53 → ICU 08-16 08:28
PROVIDERS: Family Medicine; Internal Medicine; Specialist; Surgery; Admitting Provider Nurse Practitioner Adult Health; Emergency Provider Emergency Medicine; Family Provider Family Medicine; PCP Family Medicine; Visit Provider Nurse Practitioner Adult Health
DX: A41.9 Sepsis, unspecified organism (principal); K55.039 Acute (reversible) ischemia of large intestine, extent unspecified; N17.9 Acute kidney failure, unspecified; R65.20 Severe sepsis without septic shock; I95.9 Hypotension, unspecified; E86.0 Dehydration; E66.9 Obesity, unspecified; Z68.35 Body mass index [BMI] 35.0-35.9, adult; M10.9 Gout, unspecified; R60.0 Localized edema; Z87.891 Personal history of nicotine dependence
CPT/HCPCS: 36415; 36592; 71045; 74022; 74177; 76770; 80048; 80053; 81001; 83605; 83690; 83735; 84145; 85025; 87040; 87150; 87205; 87507; 87797; 94660; 94762; 96361; 96374; 96375; 96376; 97162; 97165; 97530; 97535; 99283; 99291; C9113; J1170; J1642; J1644; J1956; J2270; J2405; J2543; Q9967

== ENCOUNTER 2019-10-23 07:41 | Day surgery (SDC) | payer OTHER, SELFPAY ==
[2019-08-16 03:15] VITALS: BMI 35.6
[2019-10-23] MEDS: SODIUM CHLORIDE 0.9% 1,000 ML 200 ML IV (08:00)
[2019-10-23 08:05] VITALS: BP 119/76; PULSE 94; RESP 17; TEMP 36.1; O2SAT 96; BMI 33.3
[2019-10-23] MEDS: FLEETS ENEMA 1 EACH PR (08:18)
--- NOTE | 2019-10-23 08:47 | P.HP_ITS ---
History of Present Illness History of Present Illness Date Patient Seen: 10/23/19 Time Patient Seen: 08:47 Chief complaint: [id number] Narrative: Patient presents for colorectal screening. He had an episode of uncomplicated diverticulosis 2 months ago and last colonoscopy was approximately 5 years and negative. No personal or family history of colon cancer. On further history denies any recent gastrointestinal symptoms. No nausea, vomiting, abdominal pain, loss of appetite, unexplained weight loss, change in bowel habits, diarrhea, constipation, melena, hematochezia, or bright red blood per rectum. Patient History Medical History Cardiac murmur (Acute) Gout (Acute) Hypertension (Acute) Neuropathy (Acute) Peripheral edema (Acute) Surgical History History of arthroscopy of both knees (Acute) Family & Social History Social History: household members spouse Tobacco & Substance use: Smoking Status Former smoker alcohol intake frequency holiday/special occasion Substance Use Type does not use Meds Home Medications and Allergies Home Medications Medication Instructions Recorded Confirmed Type allopurinol 200 mg PO DAILY #0 03/12/17 10/23/19 History lisinopril 20 mg PO DAILY #0 03/12/17 10/23/19 History aspirin 81 mg PO DAILY 08/16/19 10/23/19 History duloxetine 60 mg PO BEDTIME 08/16/19 10/23/19 History furosemide 20 mg PO DAILY 08/16/19 10/23/19 History Allergies Allergy/AdvReac Type Severity Reaction Status Date / Time Sulfa (Sulfonamide Allergy Unknown Rash Verified 10/23/19 08:04 Antibiotics) [SULFA (SULFONAMIDE ANTIBIOTICS)] Review of Systems Review of Systems Narrative: A complete review of systems is negative except as noted in the HPI Exam Vital Signs (past 8 hours): - 10/23/19 08:05 Temperature 97 F L Pulse Rate 94 H Respiratory Rate 17 Blood Pressure 119/76 Pulse Oximetry 96 Oxygen Delivery Method Room Air Narrative Exam Narrative: General-no acute distress, well nourished HEENT-moist mucous membranes, no scleral icterus Neck-supple, no lymphadenopathy Chest- non labored respirations, clear to auscultation bilaterally Cardiac-regular rate no peripheral edema Abdomen-soft, nontender, non distended Extremities-warm, well perfused Neurological-alert and oriented, no focal deficits Assessment & Plan Assessment and plan (1) Screening for colon cancer: Current visit: Yes Status: Acute Assessment & Plan narrative: The patient requires colorectal screening this he had episode of uncomplicated diverticulitis 2 month ago and colonoscopy is recommended. Technical details were discussed. Risks, benefits, alternatives explained. Risks including but not limited to myocardial infarction, aspir ation, bleeding, pain, missed lesion, incomplete examination, need for further radiographic studies, colonic perforation, and need for major abdominal surgery were discussed. All questions were answered to their satisfaction, and they are in agreement with this plan.
[2019-10-23] MEDS: fentaNYL 250 MCG/5 ML INJ IV (08:59)
[2019-10-23] MEDS: MIDAZOLAM 5 MG/5 ML VIAL IV (08:59)
--- NOTE | 2019-10-23 09:25 | PM.OP.ENDO ---
Operative Date/Time/Diagnoses Date of procedure: 10/23/19 Time of procedure: 09:25 Pre-op diagnosis: Screening colonoscopy Post-op diagnosis: same Procedure & Clinicians Study performed: Colonoscopy Same procedure as scheduled: Yes Indications: This is a 68-year-old male with episode of uncomplicated diverticulitis 2 months ago presents for a screening colonoscopy. Surgeon: Norris Byrnes Procedure Notes SCOAP/Timeout: Performed Procedure in detail: Patient placed in left lateral decubitus position. Time out was performed. Procedural sedation was administered with Versed and Fentanyl. A rectal exam demonstrated no external hemorrhoids no internal masses. Colonoscopy scope was placed into the rectum and advanced through the colon to the cecum. The ileocecal valve was identified. The scope was then slowly withdrawn examining colon thoroughly in all directions. The colonoscopy was notable for the following 1. Sigmoid diverticulosis extensive 2. Grade 1 internal hemorrhoids 3. Quality of prep fair Scope withdrawal time: 6 Sedation minutes: 18 Findings: diverticulosis Specimen(s): none sent Complications: none Impression: Is diverticulosis Post-procedure Recommendations: Colonscopy in 10 years Follow up: weeks (2) Disposition: same day surgery
[2019-10-23 09:31] VITALS: PULSE 72; RESP 10; TEMP 35.9; O2SAT 95
[2019-10-23 09:35] VITALS: BP 105/63; PULSE 73; RESP 13; O2SAT 97
[2019-10-23 09:38] VITALS: BP 105/63; PULSE 71; RESP 11; O2SAT 97
[2019-10-23 09:50] VITALS: BP 110/71; PULSE 71; RESP 24; TEMP 35.9; O2SAT 97
== END 2019-10-23 10:02 | disposition home or self-care (01) ==
PROVIDERS: PCP Family Medicine; Visit Provider Surgery
PROC: 0DJD8ZZ Inspection of Lower Intestinal Tract, Via Natural or Artificial Opening Endoscopic (ICD-10-PCS; CPT 45378; principal; 2019-10-23 09:15)
DX: Z12.11 Encounter for screening for malignant neoplasm of colon (principal); I10 Essential (primary) hypertension; K57.30 Diverticulosis of large intestine without perforation or abscess without bleeding; K64.0 First degree hemorrhoids
CPT/HCPCS: G0121; 99152; J2250; J3010

== ENCOUNTER → 2020-04-20 12:48 | Outpatient (ROUT) | payer OTHER, SELFPAY ==
[2019-08-16 03:15] VITALS: BMI 35.6
[2020-04-21 01:14] LABS: COVID19 Sendout Not Detected (Not Detect)
== END ==
PROVIDERS: PCP Family Medicine; Visit Provider Physician Assistant
DX: Z01.812 Encounter for preprocedural laboratory examination (principal)
CPT/HCPCS: 87635

== ENCOUNTER 2020-04-23 06:31 | Inpatient (IN) | payer OTHER, SELFPAY ==
[2019-08-16 03:15] VITALS: BMI 35.6
[2020-04-10 08:06] VITALS: BMI 34.3
[2020-04-23] VITALS (34 sets, daily range): BP systolic 56–145; BP diastolic 26–95; PULSE 60–89; RESP 7–20; TEMP 35.8–37.3; O2SAT 92–99; BMI 33.6
--- NOTE | 2020-04-23 | PATH_ITS ---
[facility] Accession Number: [id number] . 01 Material submitted: . PART A: colon - SIGMOID COLON PART B: anastomosis - ANASTAMOTIC DONUT . 02 Diagnosis: A. Sigmoid Colon, Resection: 1. Diverticulosis. 2. Mild ischemia-type changes along one unoriented margin of the shorter resection segment, including denuded epithelium and mild crypt atrophy. 3. All margins appear viable. 4. Negative for dysplasia and malignancy. . B. Anastomotic Donut: 1. Portion of colon with patchy mild acute ischemia-type changes including crypt atrophy and denuded epithelium. 2. Serositis. 3. Negative for dysplasia and malignancy. [facility] 04/25/2020 1600 Local . 02 Electronically signed: . Andressa Devi MD, Pathologist NPI- [id number] . 01 Gross description: . Specimen A is received in formalin, labeled with patient identification and sigmoid colon. It consists of two previously opened colonic segments. The longest segment is 13.5 cm in length and 2.8 cm in diameter. Both ends are stapled shut and randomly assigned as margin A and margin B. The serosa is pink-avendaño, dull, and grossly unremarkable. Sectioning reveals multiple scattering outpouchings filling with fecalith. The mucosa is otherwise yellow-avendaño with normal folding. No lymph nodes are grossly identified. . The shorter segment is 6.8 cm in length and 2.7 cm in diameter. Both ends are stapled shut and randomly assigned as margin A and margin B. The serosa is pink-avendaño, dull, and grossly unremarkable. Sectioning reveals no grossly identified outpouching and yellow-avendaño mucosa with normal folding. No lymph nodes are grossly identified. . [employer] sections are submitted in nine cassettes. . Summary of sections: A1: Margin A, long segment, two pieces. A2: Margin B, long segment, two pieces. A3-A4: [employer] And [employer] Coach outpouchings, long segment, one piece each. A5: Margin A, short segment, two pieces. A6: Margin B, short segment, one piece. A7-A9: [employer] And [employer] Coach sections of mucosa, short segment, one piece each. . Specimen B is received in formalin, labeled with patient identification and anastomotic donut. It consists of two undesignated rings of wrinkled, yellow-avendaño, and focally hemorrhagic mucosa measuring 1.2 cm in length by 1.7 cm in diameter, and 1.5 cm in length by 1.7 cm in diameter. The sutures are removed and treasury representative sections are submitted with closest sutured surface face faced down. [employer] Coach sections are submitted in two cassettes. . Summary of sections: B1: Smaller ring, one piece. B2: Larger ring, one piece. ([id number]) /MRV 04/24/2020 0958 Local . 02 Pathologist provided ICD-10: K57.92 . 02 CPT . 724498, [id number] Performed at: 01 [facility] [address] [place] [address] [id number] MD Merlin Breen MD Phone: [phone] Performed at: 02 [facility] [address] [place] [address] [id number] MD Andressa Devi MD Phone: [phone]
--- NOTE | 2020-04-23 07:25 | PM.HP.1 ---
History of Present Illness History of Present Illness Date Patient Seen: 04/23/20 Time Patient Seen: 07:25 Chief complaint: [id number] W/SAIGE & [id number] W/KEVTOBY Narrative: Jhoan is a 69-year-old male with numerous episodes of uncomplicated diverticulitis who presents today for elective laparoscopic sigmoid colectomy. Please see the H and P from November 2019 for further detail. There has been no significant interval change in his medical history. He is feeling well today without fever nausea vomiting abdominal pain Patient History Medical History Cardiac murmur (Acute) CKD (chronic kidney disease), stage III (Acute) Diverticulosis (Inactive) GERD (gastroesophageal reflux disease) (Acute) Gout (Acute) Hypertension (Acute) Neuropathy (Acute) GERALD on CPAP (Acute) Peripheral edema (Acute) Sepsis (Acute 08/2019) Tinnitus (Acute) Surgical History History of arthroscopy of both knees (Acute) Hx of bilateral cataract extraction (Acute) Family & Social History Social History: household members spouse Prior Living Arrangements House Safety & Behavioral: Feels Safe in Current Yes Environment Been Physically Hurt or No Threatened By a Person Suicidal Ideation Description None Suicide Plan Description No Plan Tobacco & Substance use: Smoking Status Former smoker alcohol intake current alcohol intake frequency holiday/special occasion Substance Use Type does not use Meds Home Medications and Allergies Home Medications Medication Instructions Recorded Confirmed Type allopurinol 200 mg PO DAILY #0 03/12/17 04/23/20 History aspirin 81 mg PO DAILY 08/16/19 04/23/20 History duloxetine 60 mg PO BEDTIME 08/16/19 04/23/20 History furosemide 20 mg PO DAILY 08/16/19 04/23/20 History erythromycin 500 mg tablet 1,000 mg PO TID #6 tab 11/09/19 04/23/20 Rx neomycin 500 mg tablet 1 gram PO TID #6 tab 11/09/19 04/23/20 Rx loratadine 10 mg PO DAILY PRN 01/16/20 04/23/20 History lisinopril 20 mg PO DAILY 04/23/20 04/23/20 History Allergies Allergy/AdvReac Type Severity Reaction Status Date / Time Sulfa (Sulfonamide Allergy Intermediate Rash Verified 04/23/20 07:19 Antibiotics) [SULFA (SULFONAMIDE ANTIBIOTICS)] Review of Systems Review of Systems Narrative: A 10 point review of systems is negative except as noted in the HPI Exam Narrative Exam Narrative: General-no acute distress, well nourished adult male HEENT-moist mucous membranes, no scleral icterus Neck-supple, no lymphadenopathy Chest- non labored respirations, clear to auscultation bilaterally Cardiac-regular rate no peripheral edema Abdomen-soft, nontender, non distended Extremities-warm, well perfused Neurological-alert and oriented, no focal deficits Assessment & Plan Assessment & Plan narrative: 69-year-old male with recurrent episodes of uncomplicated diverticulitis. He is frustrated by these recurring episodes and their associated hospitalizations and laparoscopic sigmoid colectomy is indicated. I performed a colonoscopy on him in the spring which confirms diagnosis of extensive diverticulosis of the sigmoid colon no evidence of malignancy. I described the technical nature of the operation to him the expected postoperative recovery and we again discussed the operative risks including , myocardial infarction, stroke, anastomotic leak, damage to the surrounding structures including urinary tract, intestine, spleen, pancreas, infection, hemorrhage. His questions have been answered he is in agreement with plan will proceed to the operating room. COVID-19 Result date/Date tested (Pos, Neg/Pending): 04/20/20
[2020-04-23] MEDS: LACTATED RINGERS 1,000 ML 42 ML IV ×2 (07:38→10:08)
--- NOTE | 2020-04-23 07:40 | PM.PREOP ---
Pre-operative Note Interval Note History & Physical reviewed/Exam performed by Physician: Yes Changes to H&P: No
[2020-04-23] MEDS: PIPERACILLIN-TAZO 3.375 GM/50 ML FROZ.PIGGY IV ×3 (07:51→21:02)
--- NOTE | 2020-04-23 09:03 | PM.OP.1 ---
Operative Date/Time/Diagnoses Date of procedure: 04/23/20 Time of procedure: 09:03 Pre-op diagnosis: 1. Recurrent diverticulitis Post-op diagnosis: same Procedure & Clinicians Procedure: 1. Cystoscopy and placement bilateral localizing ureteral stents. Same procedure as scheduled: Yes Indications: 1. Recurrent diverticulitis. Surgeon: Ama Ahmadi Click Yes if Unassisted: Yes Anesthesia Type: General Operative Notes Findings: Urethra-multifocal annular stricture disease, perhaps 6 or 7 in bulbar and proximal penile segment. All were gently dilated with the blunt tip of the 25 Wolof panendoscope upon passage. External sphincter-coapted. Prostate-4+ cm length with moderate obstructing lateral lobes and elevated median bar. Bladder-1 to 2+ trabeculation, normal orifices bilaterally Closure Type: not applicable Specimen(s): none sent Applied: other (Bilateral illuminating ureteral stents.) Estimated Blood Loss (mL): 0 Blood products transfused: none Tourniquet time (min): 0 Procedure in detail: The patient was positioned supine administered general anesthesia. The 25 Wolof panendoscope was gently placed lower urinary tract and advanced with the findings as described above. A 0.35 glide wire was then advanced through the outer sheath of 1 of the illuminating ureteral stents it was then advanced into the left ureteral orifice and then proximally the illuminating ureteral stent sheath was then advanced over the wire and then the wire was backloaded out. The same steps of maneuvers were performed to position a limited ureteral sheath on the right side. Next the panendoscope was backloaded off the illuminating sheath. Now laser fibers were inserted and each of the lumen and advanced proximally. A 16 Wolof Schroeder catheter was inserted into the lower urinary tract, the balloon inflated to 10 cc, and was then attached to gravity drainage. the illuminating ureteral stents were then advanced to 1 another and to the catheter with op site dressings. Complications: none Post-operative Condition: stable Disposition: PACU Plan for aftercare: Admit to acute care per Dr. Byrnes.
--- NOTE | 2020-04-23 09:57 | SUR.OPER ---
Lithotomy on padded OR bed. [place] Pad Positioner under torso. Head on pillow, Right arm padded and tucked at side. Left arm on padded armboard <90 degrees of abduction. Legs secured in padded yellow fins stirrups.
[2020-04-23] MEDS: BUPIVACAINE 0.25% (PF) VIAL 30 ML INJ (10:54)
[2020-04-23] MEDS: MINERAL OIL LIGHT TOPICAL 25 ML 10 ML TOP (10:57)
[2020-04-23] MEDS: LACTATED RINGERS 1,000 ML 999 ML IV ×2 (13:20→14:25)
--- NOTE | 2020-04-23 13:20 | PM.OP.1 ---
Operative Date/Time/Diagnoses Date of procedure: 04/23/20 Time of procedure: 13:21 Pre-op diagnosis: Recurrent diverticulitis Post-op diagnosis: same Procedure & Clinicians Procedure: Laparoscopic assisted sigmoid colectomy Same procedure as scheduled: Yes Indications: 69-year-old male with numerous episodes of recurrence diverticulitis presents for elective sigmoid colectomy Surgeon: Norris Byrnes Assistant Account Manager: Terry Nevarez Anesthesia Type: General Operative Notes Findings: Negative for leak test Specimen(s): other (Sigmoid colon) Estimated Blood Loss (mL): 100 Procedure in detail: The patient was brought to the operating room and placed supine on the table. Bilateral lower extremity compression devices were applied. General anesthesia was induced and they were intubated with an endotracheal tube. They were placed in the lithotomy position and prepped and draped in sterile fashion. A rizzo catheter was placed under sterile condition. Urology placed bilateral ureteral stents, please see their note for further detail. They received 3.375 g of Zosyn prior to skin incision. Time-out was performed. An infraumbilical 1 cm incision was made, the umbilical stalk was elevated, the fascia was sharply incised and the abdomen was entered atraumatically. Pneumoperitoneum was established. The laparoscope was inserted into the abdomen, inspection was made there was no evidence of injury upon entry. 5 mm ports were placed right upper quadrant, left lower quadrant and a 12 mm trocar in the right lower quadrant. There were adhesions between the the sigmoid colon and the left pelvic sidewall and omentum was adherent to the sigmoid colon consistent with a history of multiple episodes of diverticulitis. The attachments between the sigmoid colon and the side wall were taken with electrocautery and dissection was carried along the white line of Toldt towards the splenic flexure. The sigmoid colon was elevated towards the abdominal wall to put the mesocolon on stretch and identify the distal JENNYFER and sigmoidal vessels. The mesocolon to the sigmoid colon was skeletonized and the left ureter with the retroperitoneal structures was swept posteriorly. The ureter was identified in the retroperitoneal structures by its fluorescence with the lighted stent. He had very fatty mesentery the flashing light of the ureteral stent was not able to be visualized however with darkening the lighting the floresence within the stent was observed. The sigmoidal vessels were then divided using electrocautery close to the bowel wall with the ureter swept posteriorly out of harm's way. I made an incision on the abdominal wall in the midline the subcutaneous tissues were divided and the fascia was divided as well. The bowel was grasped and the bowel was then palpated. Identified the point of soft pliable tissue at the proximal sigmoid colon and as well as the fibrotic tissue of the sigmoid colon. The rectosigmoid junction was identified by the convergence of the tenia and it was soft and pliable. A window within the upper rectal mesentery was made in the mesentery was divided using the LigaSure device. The bowel was then transected at the rectosigmoid junction using the BASSEM stapler with blue load 75 mm. The bowel was then transected at the proximal sigmoid colon again with the Endo-BASSEM blue load. The staple line of the proximal colon was then resected and 2 0 Prolene was used to create a pursestring. The 31 mm anvil was selected. The EEA stapler was then advanced through the anus into the rectum. Here the stapler was unable to pass to the full extent of the rectum as there was an internal obstruction here consistent with a stricture. I resected the rectal stump back approximately 4 cm using the BASSEM stapler blue load. Opening of this specimen demonstrated an internal stricture in within the very upper rectum. Now advancing the EEA stapler it passed easily to the end of the staple line without issue. Under direct visualization the spike of the stapler was deployed anterior to the rectal stump staple line and then the anvil and spike were joined together. I ensured that the proximal colon was without torsion and there was no structures between our anastomosis. The stapler was then closed and fired. Retrieval of the stapler demonstrated 2 anastomotic donuts intact. An intraoperative leak test was performed by filling the pelvis with fluid and air was insufflated via the rectum and there was no evidence of leak. The abdomen was then copiously lavaged with several L of sterile saline hemostasis was observed. The fascia was then closed with a looped PDS suture. Subcutaneous tissues were reapproximated using a a 3 0 Vicryl and the skin closed with andrea as well as the port sites. Patient emerged from anesthesia was transferred to recovery room in stable condition. Complications: none Post-operative Condition: stable Disposition: Acute Care
--- NOTE | 2020-04-23 14:13 | SUR.PHASEI ---
late entry - Dr. Elder was aware of BP and medicating patient upon arrival to PACU. medication repeated by her a 1330 with verbal order which she reviewed: For MAP <65, give 100 mcg phenylephrine IV (1ml) & If HR < 60 at the same time, give 10 mg ephedrine q5-10 minutes. Take at least 2 blood pressures between, then ordered BP q2min until stabelized. Pt was given phenylephrine 100 mcg at 1335, 1343, and 1352 Written on anesthesia record and initialed to avoid addition charges (already has been charged for the medication.) 1410 Pt complains of discomfort from the rizzo but denies any other pain. Maintaining adequate sat on room air with cpap 1423 Rx Phenylephrine 100 mcg IV given. 1425 Dr. Byrnes here, asked him to assess patients belly for distension, He feels that it is the patients normal roundness. Dressing remains CDI. Only complaints continues to be from the rizzo. Explained to the patient that once he is awake 1430 Discussed patient status with Dr. Byrnes, nearly 4L IV fluid in, 150 urine output, medicating for BP, no pain med, and pt c/o rizzo discomfort. No orders given. Discussed possibility of putting pt in ICU for BP status.
--- NOTE | 2020-04-23 14:34 | SUR.PHASEI ---
Dr. Elder here, discussed his status. BP cuff changed to long cuff.
--- NOTE | 2020-04-23 15:07 | SUR.PHASEI ---
Addendum entered by Zoila Kebede R.N. 04/23/20 15:07: Lab drawn attempted, they will send someone else Original Note: Notified floor that patient is ready to transfer.
--- NOTE | 2020-04-23 15:17 | SUR.PHASEI ---
Update given to over the phone. Pt continues to deny abdominal pain, on c/o rizzo discomfort.
[2020-04-23 15:40] LABS: Add Manual Diff / Slide Review NO; Basophils Absolute Auto 0 /uL (0-100); Basophils Percent Auto 0.1 % (0-2); Eosinophils Absolute Auto 0 /uL (0-450); Eosinophils Percent Auto 0.1 % (2-4); Hematocrit 38.7 % (41-53); Hemoglobin 13.2 g/dL (13.5-17.5); Lymphocytes Absolute Auto 400 /uL (1100-4500); Lymphocytes Percent Auto 3.3 % (25-40); Mean Corpuscular HGB Conc 34.2 % (30-36); Mean Corpuscular Hemoglobin 32.2 PG (26-34); Mean Corpuscular Volume 94.1 fL (80-100); Monocytes Absolute Auto 700 /uL (0-900); Monocytes Percent Auto 5.5 % (3-14); Neutrophils Absolute Auto 11700 /uL (1500-7000); Platelet Count 181 X10^3/uL (150-400); Red Blood Cell Count 4.11 X10^6/uL (4.5-5.9); Red Cell Distribution Width 14.8 % (11.6-14.8); White Blood Cell Count 12.9 X10^3/uL (4.5-11.0)
--- NOTE | 2020-04-23 15:47 | SUR.PHASEI ---
1533 to room 222, bed down and locked, call light within reach, SCD's and CPAP on. Clothing bag to closet. Urine clearing to clear, watermelon color. Pt awake, oriented, appropriate, states that pain not bad. Abd dressing remains CDI. Abdomen unchanged and shown to RN for baseline. Resp unlabored, even and regular throughout pacu stay. No questions from acute care staff. Stable.
--- NOTE | 2020-04-23 15:52 | SUR.PHASEI ---
1533 delay was in waiting to transfer patient during shift change and waiting for another tapper shank to draw stat labs.
[2020-04-23] MEDS: SODIUM CHLORIDE 0.9% 1,000 ML 100 ML IV (15:58)
[2020-04-23 15:59] LABS: BUN Creatinine Ratio 17.1 (6-22); Blood Urea Nitrogen 26 mg/dL (9-20); Calcium 8.2 mg/dL (8.4-10.2); Carbon Dioxide 24 mmol/L (22-32); Chloride 102 mmol/L (98-107); Estimated Glomerular Filt Rate 45.4 mL/min (>60); Glucose 156 mg/dL (80-110); HEMOLYSIS < 15 (0-50); Potassium 4.5 mmol/L (3.4-5.1); Sodium 134 mmol/L (137-145)
[2020-04-23] MEDS: DULOXETINE 30 MG CAPSULE 60 MG PO (20:37)
[2020-04-23] MEDS: OXYCODONE IR 10 MG TABLET PO (23:54)
[2020-04-24] VITALS (12 sets, daily range): BP systolic 99–140; BP diastolic 52–73; PULSE 73–97; RESP 12–20; TEMP 36.3–38; O2SAT 94–99
[2020-04-24] MEDS: SODIUM CHLORIDE 0.9% 1,000 ML 100 ML IV (03:02)
[2020-04-24] MEDS: MORPHINE 4 MG/ML INJ IV (03:02)
--- NOTE | 2020-04-24 03:08 | PC.NURSE ---
Pt. reported the pill you gave me earlier not helping much @ all, I can't get any sleep. Pain level now up to 7/10, 4 mg. of Morphine IVP admin. Will cont. POC & monitor.
[2020-04-24] MEDS: PIPERACILLIN-TAZO 3.375 GM/50 ML FROZ.PIGGY IV ×3 (05:43→21:52)
[2020-04-24 06:01] LABS: Magnesium 2.3 mg/dL (1.6-2.3); Phosphorous 2.9 mg/dL (2.3-3.7)
[2020-04-24 06:02] LABS: Alanine Aminotransferase 26 IU/L (<50); Albumin 3.4 g/dL (3.5-5.0); Albumin Globulin Ratio 1.4 (1.0-2.8); Alkaline Phosphatase 61 U/L (38-126); Aspartate Aminotransferase 37 IU/L (17-59); BUN Creatinine Ratio 18.6 (6-22); Bilirubin Total 0.6 mg/dL (0.2-1.3); Blood Urea Nitrogen 26 mg/dL (9-20); Calcium 8.1 mg/dL (8.4-10.2); Carbon Dioxide 22 mmol/L (22-32); Chloride 103 mmol/L (98-107); Globulin 2.4 g/dL (1.7-4.1); Glucose 156 mg/dL (80-110); HEMOLYSIS < 15 (0-50); Potassium 4.4 mmol/L (3.4-5.1); Sodium 133 mmol/L (137-145); Total Protein 5.8 g/dL (6.3-8.2)
--- NOTE | 2020-04-24 08:28 | PM.PNPO.1 ---
Subjective Subjective Date Patient Seen: 04/24/20 Time Patient Seen: 08:28 Interval history: Postop day 1 status post lap sigmoid colectomy. Doing well no acute overnight events. Mild abdominal pain discomfort with the Schroeder catheter. Tolerated full liquids yesterday without nausea or vomiting. Feels moderately distended is burping no flatus. Exam Vital Signs (past 8 hours): - 04/24/20 00:46 04/24/20 01:18 04/24/20 03:11 Temperature 100.4 F H 99.3 F Pulse Rate 90 Respiratory Rate 20 Blood Pressure 140/70 Pulse Oximetry 99 98 04/24/20 05:00 04/24/20 07:50 Temperature 99.5 F 97.6 F Pulse Rate 73 88 Respiratory Rate 18 16 Blood Pressure 107/60 110/63 Pulse Oximetry 97 97 Oxygen Delivery Method CPAP Oxygen Flow Rate 0 Narrative Exam Narrative: General adult male alert oriented no acute distress Chest nonlabored respirations Abdomen and appropriately tender to palpation dressings clean dry intact. Mildly distended. Objective Labs Result Diagrams: 04/23/20 15:30 04/24/20 05:05 Labs: Laboratory Results - last 24 hr 04/23/20 04/23/20 04/24/20 15:30 15:30 05:05 WBC 12.9 H RBC 4.11 L Hgb 13.2 L Hct 38.7 L MCV 94.1 MCH 32.2 MCHC 34.2 RDW 14.8 Plt Count 181 Neut % (Auto) 91.0 H Lymph % (Auto) 3.3 L [place] % (Auto) 5.5 Eos % (Auto) 0.1 L Baso % (Auto) 0.1 Neut # (Auto) 07519 H Lymph # (Auto) 400 L [place] # (Auto) 700 Eos # (Auto) 0 Baso # (Auto) 0 Sodium 134 L Potassium 4.5 Chloride 102 Carbon Dioxide 24 BUN 26 H Creatinine 1.52 H Estimated GFR 45.4 L BUN/Creatinine Ratio 17.1 Glucose 156 H Calcium 8.2 L Phosphorus 2.9 Magnesium 2.3 Total Bilirubin AST ALT Alkaline Phosphatase Total Protein Albumin Globulin Albumin/Globulin Ratio 04/24/20 05:05 WBC RBC Hgb Hct MCV MCH MCHC RDW Plt Count Neut % (Auto) Lymph % (Auto) [place] % (Auto) Eos % (Auto) Baso % (Auto) Neut # (Auto) Lymph # (Auto) [place] # (Auto) Eos # (Auto) Baso # (Auto) Sodium 133 L Potassium 4.4 Chloride 103 Carbon Dioxide 22 BUN 26 H Creatinine 1.40 H Estimated GFR 50.0 L BUN/Creatinine Ratio 18.6 Glucose 156 H Calcium 8.1 L Phosphorus Magnesium Total Bilirubin 0.6 AST 37 ALT 26 Alkaline Phosphatase 61 Total Protein 5.8 L Albumin 3.4 L Globulin 2.4 Albumin/Globulin Ratio 1.4 Assessment & Plan Post-op Postoperative Procedures: Procedures Operation Date: 04/23/20 07:45 Actual Procedures Side Surgeon p Laparoscopically Assisted Colectomy poss. open Not Applicable Norris Byrnes MD s Cystoscopy w/ Procedure Placement of Ureteral Stent Bilateral Ama Ahmadi MD Postoperative status narrative: 69-year-old male postoperative day 1 status post laparoscopic assisted sigmoid colectomy with ureteral stent placement. Doing well. -continue full liquid diet wait to advanced until flatus and less distended. -decrease IV fluids to 50 mL/hr -remove Schroeder catheter -out of bed to chair ambulate -PT consult -SCDs and subcutaneous heparin for VT prophylaxis
[2020-04-24] MEDS: HEPARIN 5,000 UNIT/ML VIAL 5000 UNIT SUBCUT ×2 (08:31→21:53)
[2020-04-24] MEDS: lisinopriL 20 MG TABLET PO (08:32)
--- NOTE | 2020-04-24 10:22 | PC.NURSE ---
Addendum entered by Aster Miller R.N. 04/24/20 14:35: Patient voided 25cc of yellow urine at 1430, he is using the urinal at bedside and sitting up in the chair. His is visit, patient is steady on his feet and is going to take him for another walk. Addendum entered by Aster Miller R.N. 04/24/20 11:16: Patients rizzo catheter taken out at 1115, he tolerated well. Working with physical therapy now. Original Note: Patient states that he is having a mild amount of pain but does not want any pain medication at this time. He did have some oxycodone earlier on adapted physical education specialist and some iv morphine but states that it didnt really help him. is aware and is going to work on patients pain management. Jhoan has a bulky dressing to his lower abdomen, and his bt are hypoactive x4. He is burping but not passing gas at this time. Patients rizzo catheter is going to be taken out shortly and he will work with physical therapy.
--- NOTE | 2020-04-24 10:40 | PT.IIE ---
Current Diagnoses Diverticulitis of intestine, part unspecified, without perforation or abscess without bleeding (04/23/20) Surgery Performed Operation Date: 04/23/20 07:45 Actual Procedures p Laparoscopically Assisted Colectomy poss. open(Not Applicable) - Norris Byrnes MD s Cystoscopy w/ Procedure Placement of Ureteral Stent(Bilateral) - Ama Ahmadi MD Surgical History (Last Reviewed 04/23/20 @ 07:25 by Norris Byrnes MD) History of arthroscopy of both knees (Acute) Hx of bilateral cataract extraction (Acute) Medical History (Last Updated 04/23/20 @ 07:35 by Zoila Kebede RN) Cardiac murmur (Acute) CKD (chronic kidney disease), stage III (Acute) Constipation (Acute) Diverticulosis (Inactive) GERD (gastroesophageal reflux disease) (Acute) Gout (Acute) Hypertension (Acute) Neuropathy (Acute) GERALD on CPAP (Acute) Peripheral edema (Acute) Sepsis (Acute 08/2019) Tinnitus (Acute) Physical Therapy Inpatient Evaluation/Re-Eval M1 PT/OT-IP Prior Functional Status Start: 04/24/20 11:32 Freq: NEEDED Status: Active Protocol: Document 04/24/20 10:40 AB (Rec: 04/24/20 11:53 AB [id number]) Medical Review Prior Functional Status Medical History Reviewed Yes Communication able to make needs known Mobility and Gait pt stated that he is independent with all mobilities and ambulation without AD but occasionally uses SPC for uneven surfaces; pt also uses bilateral AFOs but able to ambulate short distances without AFO Social History Household Members spouse Living Arrangements House Number of Floors (Floors) Two Floors Number of Stairs To Enter/Railing? no steps to enter; pt stays on main floor Home Environment High Toilet,Walk in Shower Employment Status Retired M2 PT-IP Current Condition Start: 04/24/20 11:32 Freq: NEEDED Status: Active Protocol: Document 04/24/20 10:40 AB (Rec: 04/24/20 11:53 AB [id number]) Physical Therapy Current Condition Current Condition Evaluation Date 04/24/20 Treatment Diagnosis diverticulitis s/p colectomy; difficulty in walking Onset Date 04/23/20 Precautions Abdominal Surgery Precautions Log Roll,Lifting Restrictions, Gait Belt above Incisional Area M3 PT-IP Subjective Start: 04/24/20 11:32 Freq: NEEDED Status: Active Protocol: Document 04/24/20 10:40 AB (Rec: 04/24/20 11:53 AB [id number]) Subjective Physical Therapy Visit Type Type Initial Evaluation Visit Start Time 10:40 Visit Stop Time 11:20 Total Visit Minutes 40 Number of DIVISION CONTROLLER Visits 0 Physical Therapy Visit Comments Patient Comments pt agreeable to do PT Therapy Pain Assessment Pain When Pain Assessed At Rest Pain Present Pain Present Pain Reported Location penis/bladder Intensity 6 Scale Used Numeric (0 - 10) Pain Management Techniques Timing of Activity with Medications M4 PT-IP Mobility and Gait Start: 04/24/20 11:32 Freq: NEEDED Status: Active Protocol: Document 04/24/20 10:40 AB (Rec: 04/24/20 11:53 AB [id number]) PT-Bed Mobility Assessment Rolling Type of Rolling Log Rolling Level of Assist Minimal Assistance Supine to Sit Supine to Sit Minimal Assistance PT-Transfer Assessment Sit to and From Stand Sit to and from Stand Minimal Assistance,1 Person Assistance,Use of Upper Extremities Equipment Transfer Assistive Device Front Wheeled Walker Orthotic/Prosthetic Devices or Brace: No Transfers Transfer Destination Chair Transfer Technique ambulated using FWW Transfer Ability Level of Assist Minimal Assistance,1 Person Assistance,Use of Upper Extremities Comments Mobility Comments educated on abdominal precautions and log roll bed mobility. pt completed supine to sit min A and cues. pt was able to sit on EOB SBA. BP: 133/78. completed sit to stand min A and ambulated in room ~ 30 ft using FWW min A. pt agreed to sit up on chair. call light and table placed within reach. informed pt regarding getting a FWW and agreed to get one from the hospital when appropriate. Pt will need a tall walker. Gait Assessment Gait Gait Assistance Required: Minimum Assistance,1 Person Assist Distance (Feet) 30 Able to Maintain Weight Bearing Status Yes During Gait Assistive Devices Assistive Device Gait Belt,Front Wheeled Walker Orthotic/Prosthetic Devices or Brace: No Gait Deviations General Gait Pattern Decreased Stride Length, Decreased Feet Clearance Factors Limiting Gait Function Factors Limiting Gait Function Decreased Activity Tolerance, Decreased Sensation,Decreased Strength,Limited Range of Motion,Pain,Poor Balance PT-Balance Assessment Sitting Balance and Reactions Static Sitting Balance Ability Good Dynamic Sitting Balance Ability Good Standing Balance and Reactions Static Standing Balance Ability Fair Dynamic Standing Balance Ability Fair Device Used FWW M5 PT-IP Objective Assessments Start: 06/24/20 11:32 Freq: NEEDED Status: Active Protocol: Document 04/24/20 10:40 AB (Rec: 04/24/20 11:53 AB [id number]) Orientation Orientation/Cognition Level of Alertness Alert Orientation Name,Age,Birthday,Month,Date, Year,Day of Week,Place, Situation Language Function Ability No Deficits Noted Safety Awareness Understands Safety Issues Memory Description No Deficits Noted Gross Range of Motion Lower Extremity ROM Assessment Within Functional Limits Strength Lower Extremity Strength Assessment Left Impaired Hip 4-/5 Knee 3+/5 Coordination Assessment Gross Coordination Gross Coordination WNL Sensation Assessment Sensation Gross Sensation Right LE Impaired,Left LE Impaired Light Touch Impaired Proprioception (Position) Impaired Sensation Description Numbness Comments Sensation Comments numbness from midcalf down to B feet M6 PT-IP Treatment Start: 04/24/20 11:32 Freq: NEEDED Status: Active Protocol: Document 04/24/20 10:40 AB (Rec: 04/24/20 11:53 AB [id number]) Physical Therapy Treatment Education Education Provided Precautions,Weight Bearing Status,Post-Op Packet,Safety M7 PT-IP Assessment and Plan Start: 04/24/20 11:32 Freq: NEEDED Status: Active Protocol: Document 04/24/20 10:40 AB (Rec: 04/24/20 11:53 AB [id number]) PT Summary Assessment and Plan Potential Rehabilitation Potential Good Status of Condition at Evaluation Stable Summary Impairments Pain,ROM,Strength,Balance, Sensation,Bed Mobility, Transfers,Gait,Activity Tolerance Assessment Summary pt requiring min A with mobility and ambulation using FWW. pt plans to go home and spouse to assist him. at this time, pt will need a FWW for home use and will ask for MD order and dispense on to pt on d/c. Goals Bed Mobility Goal Independent Transfer Goal Independent,Front Wheeled Walker Gait Goal Independent,Front Wheel Walker Gait Distance 200 Other Goals ambulation without AD 150 ft SBA Days to Meet Goals 10 Frequency of Treatment Frequency Of Treatment Once a Day Treatment Plan Physical Therapy Treatment Plan Bed Mobility Training,Transfer Training,Gait Training, Therapeutic Exercise,Balance Retraining,Post Op Education, Discharge Planning,Hot or Cold Pack,Neuromuscular Re-ed, Coordination Retraining,Manual Therapy Other Recommendations and Next Treatment bed mobility, ambulation Focus Recommendations To Nursing Amount of Assist Needed 1 Person Assist Discharge Recommendations PT Discharge Recommendations Home with Assistance Equipment Needed for Home Before FWW Discharge Transportation Needs at Discharge Private Vehicle
--- NOTE | 2020-04-24 11:45 | PM.PN.1 ---
Subjective Subjective Date Patient Seen: 04/24/20 Time Patient Seen: 11:45 Interval history: He is visiting with his and reports feeling overall improved since removal of the Schroeder catheter earlier this a.m. He had several questions pertaining to the catheter. I explained the intraoperative findings of elevated prostates median lobe and multiple annular urethral strictures. I discussed with them the rationale for follow-up at [facility] with PSA and PVR. Exam Vital Signs (past 8 hours): - 04/24/20 05:00 04/24/20 07:50 04/24/20 10:21 Temperature 99.5 F 97.6 F Pulse Rate 73 88 Respiratory Rate 18 16 Blood Pressure 107/60 110/63 Pulse Oximetry 97 97 94 Oxygen Delivery Method Room Air Oxygen Flow Rate 0 Objective Labs Result Diagrams: 04/23/20 15:30 04/24/20 05:05 Labs: Laboratory Results - last 24 hr 04/23/20 04/23/20 04/24/20 15:30 15:30 05:05 WBC 12.9 H RBC 4.11 L Hgb 13.2 L Hct 38.7 L MCV 94.1 MCH 32.2 MCHC 34.2 RDW 14.8 Plt Count 181 Neut % (Auto) 91.0 H Lymph % (Auto) 3.3 L [place] % (Auto) 5.5 Eos % (Auto) 0.1 L Baso % (Auto) 0.1 Neut # (Auto) 00278 H Lymph # (Auto) 400 L [place] # (Auto) 700 Eos # (Auto) 0 Baso # (Auto) 0 Sodium 134 L Potassium 4.5 Chloride 102 Carbon Dioxide 24 BUN 26 H Creatinine 1.52 H Estimated GFR 45.4 L BUN/Creatinine Ratio 17.1 Glucose 156 H Calcium 8.2 L Phosphorus 2.9 Magnesium 2.3 Total Bilirubin AST ALT Alkaline Phosphatase Total Protein Albumin Globulin Albumin/Globulin Ratio 04/24/20 05:05 WBC RBC Hgb Hct MCV MCH MCHC RDW Plt Count Neut % (Auto) Lymph % (Auto) [place] % (Auto) Eos % (Auto) Baso % (Auto) Neut # (Auto) Lymph # (Auto) [place] # (Auto) Eos # (Auto) Baso # (Auto) Sodium 133 L Potassium 4.4 Chloride 103 Carbon Dioxide 22 BUN 26 H Creatinine 1.40 H Estimated GFR 50.0 L BUN/Creatinine Ratio 18.6 Glucose 156 H Calcium 8.1 L Phosphorus Magnesium Total Bilirubin 0.6 AST 37 ALT 26 Alkaline Phosphatase 61 Total Protein 5.8 L Albumin 3.4 L Globulin 2.4 Albumin/Globulin Ratio 1.4 Assessment & Plan Assessment & Plan narrative: Assessment: 1. Stable postoperative day 1. Status post laparoscopic assisted sigmoid colectomy. 2. BPH and multiple annular urethral strictures. Plan: 1. Please schedule outpatient follow-up visit in 6-8 weeks with PSA and PVR at [facility].
--- NOTE | 2020-04-24 11:47 | CM.DANOTE ---
DCP: Case received, EMR reviewed and met with patient. , Chiquita, was also present. Introduced self and role. Was able to meet with patient and obtain information regarding his baseline activity level prior to his surgery. DCP assessment completed with information currently available. Patient is a 69 year old male who admitted yesterday morning to the care of the surgical team. PCP: Dr. Kebede. Payer: confirmed: [facility]. Patient came to the hospital for surgical procedures. He had laparoscopic sigmoid colectomy, and bilateral uretal stents. His rizzo was removed this morning. Patient has history of diverticulitis. According to patient, he had episodes of syncope in the past secondary to loose stools. He had been here in August for diverticulitis symptoms. Met with patient in his room, and , who was present. He had worked with P.T. He has used no DME supplies at baseline, but he mentioned that P.T. may want him to go home with a walker. Have not yet seen therapy notes. They have a one level home with a daylight basement, so patient and are not concerned. He mentioned that he was just a little weaker after having surgery. Patient resides in [place], [place] with his spouse. P: DCP to be available for any needs. He should be able to go home when he is medically stable. Christine Greer RN/[employer]
[2020-04-24] MEDS: OXYCODONE IR 10 MG TABLET PO ×2 (12:01→18:08)
[2020-04-24] MEDS: LORATADINE 10 MG TABLET PO (14:44)
[2020-04-24] MEDS: SODIUM CHLORIDE 0.9% 1,000 ML 50 ML IV (18:01)
[2020-04-24] MEDS: DULOXETINE 30 MG CAPSULE 60 MG PO (21:52)
[2020-04-25] VITALS (9 sets, daily range): BP systolic 94–112; BP diastolic 55–61; PULSE 64–76; RESP 12–20; TEMP 36.3–36.5; O2SAT 95–98
[2020-04-25] MEDS: OXYCODONE IR 10 MG TABLET PO ×3 (01:21→20:22)
[2020-04-25 05:25] LABS: Add Manual Diff / Slide Review NO; Basophils Absolute Auto 0 /uL (0-100); Basophils Percent Auto 0.3 % (0-2); Eosinophils Absolute Auto 400 /uL (0-450); Eosinophils Percent Auto 4.1 % (2-4); Hematocrit 32.7 % (41-53); Hemoglobin 11.4 g/dL (13.5-17.5); Lymphocytes Absolute Auto 1200 /uL (1100-4500); Lymphocytes Percent Auto 13.1 % (25-40); Mean Corpuscular HGB Conc 34.9 % (30-36); Mean Corpuscular Volume 94.5 fL (80-100); Monocytes Absolute Auto 700 /uL (0-900); Monocytes Percent Auto 7.1 % (3-14); Neutrophils Absolute Auto 7100 /uL (1500-7000); Neutrophils Percent Auto 75.4 % (50-75); Platelet Count 167 X10^3/uL (150-400); Red Blood Cell Count 3.46 X10^6/uL (4.5-5.9); Red Cell Distribution Width 14.8 % (11.6-14.8); White Blood Cell Count 9.4 X10^3/uL (4.5-11.0)
[2020-04-25] MEDS: PIPERACILLIN-TAZO 3.375 GM/50 ML FROZ.PIGGY IV (05:27)
[2020-04-25 05:34] LABS: Blood Urea Nitrogen 27 mg/dL (9-20); Carbon Dioxide 25 mmol/L (22-32); Chloride 103 mmol/L (98-107); Estimated Glomerular Filt Rate 49.1 mL/min (>60); Glucose 110 mg/dL (80-110); HEMOLYSIS < 15 (0-50); Magnesium 2.7 mg/dL (1.6-2.3); Phosphorous 3.1 mg/dL (2.3-3.7); Potassium 4.1 mmol/L (3.4-5.1); Sodium 132 mmol/L (137-145)
--- NOTE | 2020-04-25 09:38 | PT.IPTN ---
Current Diagnoses Diverticulitis of intestine, part unspecified, without perforation or abscess without bleeding (04/23/20) Surgery Performed Operation Date: 04/23/20 07:45 Actual Procedures p Laparoscopically Assisted Colectomy poss. open(Not Applicable) - Norris Byrnes MD s Cystoscopy w/ Procedure Placement of Ureteral Stent(Bilateral) - Ama Ahmadi MD Physical Therapy Treatment Note M2 PT-IP Current Condition Start: 04/24/20 11:32 Freq: NEEDED Status: Active Protocol: Document 04/24/20 10:40 AB (Rec: 04/24/20 11:53 AB [id number]) Physical Therapy Current Condition Current Condition Evaluation Date 04/24/20 Treatment Diagnosis diverticulitis s/p colectomy; difficulty in walking Onset Date 04/23/20 Precautions Abdominal Surgery Precautions Log Roll,Lifting Restrictions, Gait Belt above Incisional Area M3 PT-IP Subjective Start: 04/24/20 11:32 Freq: NEEDED Status: Active Protocol: Document 04/25/20 09:38 AB (Rec: 04/25/20 10:41 AB [id number]) Subjective Physical Therapy Visit Type Type Treatment Note Visit Start Time 09:38 Visit Stop Time 10:03 Total Visit Minutes 25 Number of [employer] ANALYST Visits 0 Physical Therapy Visit Comments Patient Comments seen pt ambulating by himself in the hallway pushing IV pole . M4 PT-IP Mobility and Gait Start: 04/24/20 11:32 Freq: NEEDED Status: Active Protocol: Document 04/25/20 09:38 AB (Rec: 04/25/20 10:41 AB [id number]) PT-Bed Mobility Assessment Rolling Type of Rolling Log Rolling Level of Assist Standby Assistance Supine to Sit Supine to Sit Standby Assistance Sit to Supine Sit to Supine Standby Assistance PT-Transfer Assessment Sit to and From Stand Sit to and from Stand Standby Assistance Equipment Transfer Assistive Device None,Gait Belt,Front Wheeled Walker Transfers Transfer Destination Bed,Chair Transfer Technique Stand Step Pivot Transfer Ability Level of Assist Standby Assistance Comments Mobility Comments pt seen ambulating in the hallway pushing IV pole by himself. pt agreed to do PT. ambulated pt in hallway without AD. pt presents with unsteady gait with LOB requiring min A. pt stated that he is tentative with his walking. ambulated pt back to his room. educated on safety and use of FWW. pt agreed. informed nurse and NAC that pt is not independent with ambulation and recommended to use a FWW for safety. pt completed ambulation using FWW SBA ~ 200 ft. (+) SOB . O2 sat at room air 97%. pt also completed bed mobility supine <>sit log roll SBA. pt wants to stay up on chair. completed trnasfer using FWW SBA. positioned pt on chair. call light and table placed within reach. Gait Assessment Gait Gait Assistance Required: Standby Assistance,Contact Guard Assist Distance (Feet) 200 Able to Maintain Weight Bearing Status Yes During Gait Assistive Devices Assistive Device None,Gait Belt,Front Wheeled Walker Orthotic/Prosthetic Devices or Brace: No Gait Deviations General Gait Pattern Decreased Stride Length, Decreased Feet Clearance Factors Limiting Gait Function Factors Limiting Gait Function Decreased Activity Tolerance, Decreased Strength,Poor Balance,Poor Safety Awareness M5 PT-IP Objective Assessments Start: 04/24/20 11:32 Freq: NEEDED Status: Active Protocol: Document 04/24/20 10:40 AB (Rec: 04/24/20 11:53 AB [id number]) Orientation Orientation/Cognition Level of Alertness Alert Orientation Name,Age,Birthday,Month,Date, Year,Day of Week,Place, Situation Language Function Ability No Deficits Noted Safety Awareness Understands Safety Issues Memory Description No Deficits Noted Gross Range of Motion Lower Extremity ROM Assessment Within Functional Limits Strength Lower Extremity Strength Assessment Left Impaired Hip 4-/5 Knee 3+/5 Coordination Assessment Gross Coordination Gross Coordination WNL Sensation Assessment Sensation Gross Sensation Right LE Impaired,Left LE Impaired Light Touch Impaired Proprioception (Position) Impaired Sensation Description Numbness Comments Sensation Comments numbness from midcalf down to B feet M6 PT-IP Treatment Start: 04/24/20 11:32 Freq: NEEDED Status: Active Protocol: Document 04/25/20 09:38 AB (Rec: 04/25/20 10:41 AB [id number]) Physical Therapy Treatment Education Education Provided Precautions,Safety M7 PT-IP Assessment and Plan Start: 04/24/20 11:32 Freq: NEEDED Status: Active Protocol: Document 04/25/20 09:38 AB (Rec: 04/25/20 10:41 AB [id number]) PT Summary Assessment and Plan Potential Rehabilitation Potential Good Summary Impairments Pain,ROM,Strength,Balance, Coordination,Sensation,Tone, Cognition,Bed Mobility, Transfers,Gait,Activity Tolerance Progress Towards Goals Progressing Toward Goals Assessment Summary pt is progressing with mobility requiring SBA to CGA. pt with LOB with ambulation without AD with long distance ambulation. recommending use of FWW for ambulation at this time for safety. pt agreed. will dispense FWW on d/c. Goals Bed Mobility Goal Independent Transfer Goal Independent,Front Wheeled Walker Gait Goal Independent,Front Wheel Walker Gait Distance 200 Other Goals ambulation without AD 150 ft SBA Days to Meet Goals 10 Frequency of Treatment Frequency Of Treatment Once a Day Treatment Plan Physical Therapy Treatment Plan Bed Mobility Training,Transfer Training,Gait Training, Therapeutic Exercise,Balance Retraining,Post Op Education, Discharge Planning,Hot or Cold Pack,Neuromuscular Re-ed, Coordination Retraining,Manual Therapy Other Recommendations and Next Treatment bed mobility, ambulation Focus Recommendations To Nursing Amount of Assist Needed 1 Person Assist Discharge Recommendations PT Discharge Recommendations Home with Assistance Equipment Needed for Home Before FWW Discharge Transportation Needs at Discharge Private Vehicle
[2020-04-25] MEDS: lisinopriL 20 MG TABLET PO (09:46)
[2020-04-25] MEDS: HEPARIN 5,000 UNIT/ML VIAL 5000 UNIT SUBCUT ×2 (09:46→20:22)
[2020-04-25] MEDS: FUROSEMIDE 20 MG TABLET PO ×2 (09:50)
--- NOTE | 2020-04-25 10:52 | PM.PNPO.1 ---
Subjective Subjective Date Patient Seen: 04/25/20 Time Patient Seen: 10:52 Interval history: No acute overnight events. Schroeder catheter was removed yesterday is voiding spontaneously without issue. Tolerating full liquid diet no nausea vomiting feels less distended than yesterday his pain is just at the incision. He worked with physical therapy he has been ambulating around the unit without assistance. Exam Vital Signs (past 8 hours): - 04/25/20 03:31 04/25/20 04:00 04/25/20 07:25 Temperature 97.4 F L 97.6 F Pulse Rate 67 65 Respiratory Rate 12 18 Blood Pressure 97/55 L 94/59 L Pulse Oximetry 98 98 98 Oxygen Delivery Method CPAP Oxygen Flow Rate 0 Narrative Exam Narrative: General adult male alert oriented no acute distress Chest nonlabored respirations Abdomen I had the distended compressible appropriately to palpation incisions clean dry intact. Objective Labs Result Diagrams: 04/25/20 04:50 04/25/20 04:50 Labs: Laboratory Results - last 24 hr 04/25/20 04/25/20 04:50 04:50 WBC 9.4 RBC 3.46 L Hgb 11.4 L Hct 32.7 L MCV 94.5 MCH 33.0 MCHC 34.9 RDW 14.8 Plt Count 167 Neut % (Auto) 75.4 H Lymph % (Auto) 13.1 L [place] % (Auto) 7.1 Eos % (Auto) 4.1 H Baso % (Auto) 0.3 Neut # (Auto) 7100 H Lymph # (Auto) 1200 [place] # (Auto) 700 Eos # (Auto) 400 Baso # (Auto) 0 Sodium 132 L Potassium 4.1 Chloride 103 Carbon Dioxide 25 BUN 27 H Creatinine 1.42 H Estimated GFR 49.1 L BUN/Creatinine Ratio 19.0 Glucose 110 Calcium 8.0 L Phosphorus 3.1 Magnesium 2.7 H Assessment & Plan Post-op Postoperative Procedures: Procedures Operation Date: 04/23/20 07:45 Actual Procedures Side Surgeon p Laparoscopically Assisted Colectomy poss. open Not Applicable Norris Byrnes MD s Cystoscopy w/ Procedure Placement of Ureteral Stent Bilateral Ama Ahmadi MD Postoperative status narrative: 69-year-old male postoperative day 2 status post laparoscopic sigmoid colectomy doing well. He is recovering from the operation appropriately without issue. -regular diet -DC IV fluids -resume home Lasix -out of bed ambulating -SCDs and subcutaneous heparin for DVT prophylaxis -potentially discharge home tomorrow.
[2020-04-25] MEDS: LORATADINE 10 MG TABLET PO (11:22)
[2020-04-25] MEDS: DULOXETINE 30 MG CAPSULE 60 MG PO (20:22)
[2020-04-26] VITALS: BP 106/54; PULSE 75; RESP 18; TEMP 37.4; O2SAT 96
[2020-04-26 01:00] VITALS: O2SAT 96
[2020-04-26 04:00] VITALS: BP 118/68; PULSE 79; RESP 20; TEMP 37; O2SAT 98
[2020-04-26 05:00] VITALS: O2SAT 98
[2020-04-26 05:26] LABS: Add Manual Diff / Slide Review NO; Basophils Absolute Auto 0 /uL (0-100); Basophils Percent Auto 0.5 % (0-2); Eosinophils Absolute Auto 600 /uL (0-450); Eosinophils Percent Auto 7.1 % (2-4); Hematocrit 34.1 % (41-53); Hemoglobin 11.8 g/dL (13.5-17.5); Lymphocytes Absolute Auto 1700 /uL (1100-4500); Lymphocytes Percent Auto 21.2 % (25-40); Mean Corpuscular HGB Conc 34.5 % (30-36); Mean Corpuscular Hemoglobin 32.6 PG (26-34); Mean Corpuscular Volume 94.4 fL (80-100); Monocytes Absolute Auto 600 /uL (0-900); Monocytes Percent Auto 7.3 % (3-14); Neutrophils Absolute Auto 5000 /uL (1500-7000); Neutrophils Percent Auto 63.9 % (50-75); Platelet Count 175 X10^3/uL (150-400); Red Blood Cell Count 3.62 X10^6/uL (4.5-5.9); Red Cell Distribution Width 14.9 % (11.6-14.8); White Blood Cell Count 7.9 X10^3/uL (4.5-11.0)
[2020-04-26 05:41] LABS: BUN Creatinine Ratio 20.9 (6-22); Blood Urea Nitrogen 29 mg/dL (9-20); Calcium 8.3 mg/dL (8.4-10.2); Carbon Dioxide 25 mmol/L (22-32); Chloride 104 mmol/L (98-107); Estimated Glomerular Filt Rate 50.4 mL/min (>60); Glucose 96 mg/dL (80-110); HEMOLYSIS < 15 (0-50); Magnesium 2.6 mg/dL (1.6-2.3); Phosphorous 2.8 mg/dL (2.3-3.7); Sodium 135 mmol/L (137-145)
[2020-04-26 07:45] VITALS: O2SAT 99
[2020-04-26] MEDS: HEPARIN 5,000 UNIT/ML VIAL 5000 UNIT SUBCUT (08:43)
[2020-04-26] MEDS: FUROSEMIDE 20 MG TABLET PO (08:43)
[2020-04-26] MEDS: lisinopriL 20 MG TABLET PO (08:43)
[2020-04-26] MEDS: SODIUM CHLORIDE 0.9% FLUSH 10 ML IV (08:44)
[2020-04-26 09:52] VITALS: BP 122/65; PULSE 77; RESP 16; TEMP 36.4; O2SAT 96
--- NOTE | 2020-04-26 11:21 | PM.DS.1 ---
History of Present Illness History of Present Illness Date Patient Seen: 04/26/20 Time Patient Seen: 15:00 Chief complaint: [id number] W/SAIGE & [id number] W/KEVWITCH Narrative: This is a patient with history of sigmoid diverticulitis who had a laparoscopic assisted sigmoid colectomy on April 23. Discharge Providers Provider Date of admission: 04/23/20 06:31 Discharge Date: 04/26/20 Primary care physician: Sarahy Kebede MD Consults: 04/23/20 07:33 Consult to Respiratory Therapy Evaluate & Treat Comment: Physician Instructions: Evaluate and treat 04/24/20 08:26 Consult to Physical Therapy Evaluate & Treat Comment: Physician Instructions: Evaluate and Treat 04/25/20 12:47 Consult to Physical Therapy Evaluate & Treat Comment: Physician Instructions: Tall FWW For Home Use Discharge provider: Sherri Monk MD Summary Hospital Course Discharge Diagnosis: Sigmoid diverticulitis status post colectomy Hospital Course: Patient had sigmoid colectomy on the , he had gradual return of bowel function and advancement of his diet. He passed a bowel movement last evening, and is tolerating regular diet today. His pain is controlled with p.o. pain medication, and his labs and exam are consistent with appropriate postop recovery. Status at Discharge Cognitive/behavioral status at discharge: at baseline, oriented Functional status at discharge: uses cane/walker Overall status at discharge: patient is progressing back to baseline Time Spent with Patient Time spent: Greater than 30 minutes Exam Vital Signs (past 8 hours): - 04/26/20 04:00 04/26/20 05:00 04/26/20 07:45 Temperature 98.6 F Pulse Rate 79 Respiratory Rate 20 Blood Pressure 118/68 Pulse Oximetry 98 98 99 04/26/20 09:52 Temperature 97.6 F Pulse Rate 77 Respiratory Rate 16 Blood Pressure 122/65 Pulse Oximetry 96 Oxygen Delivery Method Room Air Oxygen Flow Rate 0 Narrative Exam Narrative: GENERAL: Alert, comfortable CARDIOVASCULAR: Regular rate. No pedal edema. RESPIRATORY: Non-tachypneic, breathing comfortably on room air. GASTROINTESTINAL: Abdomen soft, obese; incisions, clean dry and intact, without erythema or drainage, dressings removed replaced during exam GENITALURINARY: No flank tenderness. MUSCULOSKELETAL: Equal tone and mass bilaterally. SKIN: Warm, dry, soft, appropriate color for ethnicity. No other lesions, rashes, or wounds. Objective Labs Result Diagrams: 04/26/20 05:00 04/26/20 05:00 Labs: Laboratory Results - last 24 hr 04/26/20 04/26/20 05:00 05:00 WBC 7.9 RBC 3.62 L Hgb 11.8 L Hct 34.1 L MCV 94.4 MCH 32.6 MCHC 34.5 RDW 14.9 H Plt Count 175 Neut % (Auto) 63.9 Lymph % (Auto) 21.2 L [place] % (Auto) 7.3 Eos % (Auto) 7.1 H Baso % (Auto) 0.5 Neut # (Auto) 5000 Lymph # (Auto) 1700 [place] # (Auto) 600 Eos # (Auto) 600 H Baso # (Auto) 0 Sodium 135 L Potassium 4.0 Chloride 104 Carbon Dioxide 25 BUN 29 H Creatinine 1.39 H Estimated GFR 50.4 L BUN/Creatinine Ratio 20.9 Glucose 96 Calcium 8.3 L Phosphorus 2.8 Magnesium 2.6 H Discharge Plan Discharge Plan Patient Disposition: Home Discharge orders & Medications Prescriptions: New oxycodone 5 mg tablet 5 mg PO Q4-6H PRN (Reason: post operative pain) Qty: 30 RF: 0 Continued allopurinol 100 MG tablet 200 mg PO DAILY Qty: 0 RF: 0 neomycin 500 mg tablet 1 gram PO TID Qty: 6 RF: 0 erythromycin 500 mg tablet 1,000 mg PO TID Qty: 6 RF: 0 duloxetine 60 mg Capsule,Delayed Release(Dr/Ec) 60 mg PO BEDTIME RF: 0 furosemide 20 mg Tablet 20 mg PO DAILY RF: 0 aspirin 81 mg Tablet,Delayed Release (Dr/Ec) 81 mg PO DAILY RF: 0 loratadine 10 mg Capsule 10 mg PO DAILY PRN (Reason: Seasonal allergies, itching) RF: 0 lisinopril 20 mg Tablet 20 mg PO DAILY RF: 0 Follow up/Referrals: Sarahy Kebede MD [Primary Care Provider] - Norris Byrnes MD [Physician] - (Call on Wednesday to make a follow up appointment to be seen about two weeks after the date of your surgery. ) Diet/Activity/Treatments Diet: Diet as Tolerated Activity: Avoid lifting/pushing/pulling more than 10 lbs for six weeks; avoid straining Skin/Wound/Dressing Care Report to your healthcare provider any signs of infection, such as:: chills, fever, night sweats, increased pain, unusual drainage and unusual redness Visit Report/Discharge Packet Instructions: DI for Cystoscopy, DI for Colectomy, DI for Laparoscopy, DI for Prescription Opioid Use, [facility]: Wound Care Stand Alone Forms: Surgery Discharge Visit Report Forms: Patient Portal/API, Stroke Signs & Symptoms Discharge Data Primary Care Provider: Sarahy Kebede Discharges patient from system. Discharge Date/Time: 04/26/20 13:50 Quality VTE Deep Vein Thrombosis/Pulmonary Embolism Present on Admission: No
--- NOTE | 2020-04-26 12:01 | PT.IPTN ---
Current Diagnoses Diverticulitis of intestine, part unspecified, without perforation or abscess without bleeding (04/23/20) Acquired absence of other specified parts of digestive tract (04/23/20) Surgery Performed Operation Date: 04/23/20 07:45 Actual Procedures p Laparoscopically Assisted Colectomy poss. open(Not Applicable) - Norris Byrnes MD s Cystoscopy w/ Procedure Placement of Ureteral Stent(Bilateral) - Ama Ahmadi MD Physical Therapy Treatment Note M2 PT-IP Current Condition Start: 04/24/20 11:32 Freq: NEEDED Status: Active Protocol: Document 04/24/20 10:40 AB (Rec: 04/24/20 11:53 AB [id number]) Physical Therapy Current Condition Current Condition Evaluation Date 04/24/20 Treatment Diagnosis diverticulitis s/p colectomy; difficulty in walking Onset Date 04/23/20 Precautions Abdominal Surgery Precautions Log Roll,Lifting Restrictions, Gait Belt above Incisional Area M3 PT-IP Subjective Start: 04/24/20 11:32 Freq: NEEDED Status: Active Protocol: Document 04/26/20 11:43 KS (Rec: 04/26/20 14:03 KS [id number]) Subjective Physical Therapy Visit Type Type Treatment Note Visit Start Time 11:43 Visit Stop Time 12:01 Total Visit Minutes 18 Number of [employer] Visits 1 Physical Therapy Visit Comments Patient Comments Pt agreeable to work w/ therapy. M4 PT-IP Mobility and Gait Start: 04/24/20 11:32 Freq: NEEDED Status: Active Protocol: Document 04/26/20 11:43 KS (Rec: 04/26/20 14:03 KS [id number]) PT-Bed Mobility Assessment Rolling Type of Rolling Log Rolling Level of Assist Standby Assistance Supine to Sit Supine to Sit Standby Assistance Sit to Supine Sit to Supine Standby Assistance Scooting Scooting to Edge of Bed Standby Assistance PT-Transfer Assessment Sit to and From Stand Sit to and from Stand Standby Assistance Equipment Transfer Assistive Device None,Gait Belt,Front Wheeled Walker Transfers Transfer Destination Bed Transfer Technique Pt ambulated w/ FWW Transfer Ability Level of Assist Standby Assistance Comments Mobility Comments Pt was exiting bathroom upon arrival from therapy w/ FWW(nursing notified of bowel movement.) Pt performed stand<>sit and logroll into and out of bed SBA, w/ no cues needed. Pt demonstrated good logroll technique and was able to maintain alignment. Pt then SBA for scooting to EOB and sit<>stand. Pt then ambulated ~210 ft w/ FWW and SBA to CGA. Pts arrived during ambulation. FWW dispensed for at home use. Pt left in room w/ all needs in reach. Gait Assessment Gait Gait Assistance Required: Standby Assistance,Contact Guard Assist Distance (Feet) 210 Able to Maintain Weight Bearing Status Yes During Gait Assistive Devices Assistive Device None,Gait Belt,Front Wheeled Walker Orthotic/Prosthetic Devices or Brace: No Gait Deviations General Gait Pattern Decreased Stride Length, Decreased Feet Clearance Factors Limiting Gait Function Factors Limiting Gait Function Decreased Activity Tolerance, Decreased Strength,Poor Balance,Poor Safety Awareness Comments Gait Comments Pt ambulated ~210 ft w/ FWW and SBA to CGA. Pt demonstrated proper use of FWW and stated he will wear AFOs when ambulating at home. PT-Balance Assessment Sitting Balance and Reactions Static Sitting Balance Ability Good Dynamic Sitting Balance Ability Good Standing Balance and Reactions Static Standing Balance Ability Good Dynamic Standing Balance Ability Good Device Used FWW M5 PT-IP Objective Assessments Start: 04/24/20 11:32 Freq: NEEDED Status: Active Protocol: Document 04/24/20 10:40 AB (Rec: 04/24/20 11:53 AB [id number]) Orientation Orientation/Cognition Level of Alertness Alert Orientation Name,Age,Birthday,Month,Date, Year,Day of Week,Place, Situation Language Function Ability No Deficits Noted Safety Awareness Understands Safety Issues Memory Description No Deficits Noted Gross Range of Motion Lower Extremity ROM Assessment Within Functional Limits Strength Lower Extremity Strength Assessment Left Impaired Hip 4-/5 Knee 3+/5 Coordination Assessment Gross Coordination Gross Coordination WNL Sensation Assessment Sensation Gross Sensation Right LE Impaired,Left LE Impaired Light Touch Impaired Proprioception (Position) Impaired Sensation Description Numbness Comments Sensation Comments numbness from midcalf down to B feet M6 PT-IP Treatment Start: 04/24/20 11:32 Freq: NEEDED Status: Active Protocol: Document 04/26/20 11:43 KS (Rec: 04/26/20 14:03 KS [id number]) Physical Therapy Treatment Education Education Provided Precautions,Safety M7 PT-IP Assessment and Plan Start: 04/24/20 11:32 Freq: NEEDED Status: Active Protocol: Document 04/26/20 11:43 KS (Rec: 04/26/20 14:03 KS [id number]) PT Summary Assessment and Plan Potential Rehabilitation Potential Good Summary Impairments Pain,ROM,Strength,Balance, Coordination,Sensation,Tone, Cognition,Bed Mobility, Transfers,Gait,Activity Tolerance Progress Towards Goals Progressing Toward Goals Assessment Summary Pt SBA for all bed mobility, does not require cues for logroll or use of FWW. Pt ambulated ~210 ft w/ FWW and SBA to CGA. FWW dispensed for pt at home use. Pt agrees to use FWW and AFOs when ambulating at home. Goals Bed Mobility Goal Independent Transfer Goal Independent,Front Wheeled Walker Gait Goal Independent,Front Wheel Walker Gait Distance 200 Other Goals ambulation without AD 150 ft SBA Days to Meet Goals 10 Frequency of Treatment Frequency Of Treatment Once a Day Treatment Plan Physical Therapy Treatment Plan Bed Mobility Training,Transfer Training,Gait Training, Therapeutic Exercise,Balance Retraining,Post Op Education, Discharge Planning,Hot or Cold Pack,Neuromuscular Re-ed, Coordination Retraining,Manual Therapy Other Recommendations and Next Treatment bed mobility, ambulation Focus Recommendations To Nursing Amount of Assist Needed 1 Person Assist Discharge Recommendations PT Discharge Recommendations Home with Assistance Equipment Needed for Home Before FWW Discharge Transportation Needs at Discharge Private Vehicle
[2020-04-26] MEDS: OXYCODONE IR 10 MG TABLET PO (13:37)
--- NOTE | 2020-04-26 14:04 | PC.NURSE ---
Discharge: Pt feels ready to d/c home. MD here and gave d/c instructions and changed dressing, wound care instructions given. Spouse present at time of teaching. Reviewed d/c instruction packet. Given rx, questions answered. Pt d/c home via auto w/spouse.
--- NOTE | 2020-04-26 14:35 | CM.DPC ---
DCP: continued: Case received and discussed in Team Rounds. DC today was expected. A check in now shows that pt did d/c to home this afternoon with his spouse. An order for a FWW to be dispensed at d/c was obtained by [facility] yesterday and do see that PT did issue this from their consignment closet as per their process.
== END 2020-04-26 13:50 | disposition home or self-care (01) | DRG 331 ==
PROVIDERS: Specialist; Admitting Provider Surgery; PCP Family Medicine; Referring Provider Surgery; Visit Provider Surgery
PROC: 0DTE0ZZ Resection of Large Intestine, Open Approach (ICD-10-PCS; principal; 2020-04-23 07:45)
PROC: 0T9880Z Drainage of Bilateral Ureters with Drainage Device, Via Natural or Artificial Opening Endoscopic (ICD-10-PCS; 2020-04-23 07:45)
DX: K57.32 Diverticulitis of large intestine without perforation or abscess without bleeding (principal); K62.4 Stenosis of anus and rectum; N35.919 Unspecified urethral stricture, male, unspecified site; I12.9 Hypertensive chronic kidney disease with stage 1 through stage 4 chronic kidney disease, or unspecified chronic kidney disease; N18.3 Chronic kidney disease, stage 3 (moderate); N40.1 Benign prostatic hyperplasia with lower urinary tract symptoms; G47.33 Obstructive sleep apnea (adult) (pediatric); M10.9 Gout, unspecified; G62.9 Polyneuropathy, unspecified; Z87.891 Personal history of nicotine dependence; Z01.812 Encounter for preprocedural laboratory examination; Z11.59 Encounter for screening for other viral diseases
CPT/HCPCS: 36415; 44204; 52332; 80048; 80053; 83735; 84100; 85025; 87635; 94762; 97116; 97161; 97530; 99213; J0330; J1170; J1644; J2250; J2270; J2543; J2704; J3010

== ENCOUNTER 2021-09-08 11:52 | Emergency (ER) | payer OTHER, SELFPAY ==
[2020-04-23 16:00] VITALS: BMI 33.6
[2021-09-08 12:14] VITALS: BP 141/81; PULSE 104; RESP 18; TEMP 36.8; O2SAT 96; BMI 34.9
[2021-09-08 12:27] LABS: Bilirubin Urine UA NEGATIVE (NEGATIVE); Color Urine UA YELLOW; Glucose Urine UA NEGATIVE (Negative); Ketones Urine UA NEGATIVE (NEGATIVE); Leukocyte Esterase Urine UA TRACE (NEGATIVE); Nitrite Urine UA NEGATIVE (Negative); Occult Blood Urine UA 3+ (Negative); Protein Urine UA NEGATIVE (Negative); Specific Gravity Urine UA 1.015 (1.000-1.035); Urobilinogen Urine UA 0.2 E.U./dL (0.2)
[2021-09-08 12:37] LABS: Appearance Urine UA Slightly Cloudy; RBC Urine 30-100/HPF (0-5/HPF); WBC Urine 1-5/HPF (0-5/HPF)
[2021-09-08 12:38] LABS: Bacteria Urine Occasional (0-1); Culture Indicated Urine Specimen Cultured; Squamous Epithelial Cell Urine 5-10 /HPF (0-5/HPF)
--- NOTE | 2021-09-08 13:09 | ED.MALEGU ---
HPI - Male Genitourinary General Chief complaint: Urogenital-Male Stated complaint: Pain and Blood with Urination Time Seen by Provider: 09/08/21 12:57 Source: patient Mode of arrival: Ambulatory Limitations: no limitations History of Present Illness HPI Narrative: The patient presents with hematuria. He complains of pain at the tip of his penis. He has had his penis felt abnormal at that time, the discomfort is now resolved. He had no significant pain with hematuria, he has no testicular pain. He denies back pain or abdominal pain. He has no history of kidney stones. He has previously undergone CT evaluation here, this covering diverticulitis. He has since then undergone resection of his distal colon. He has no GI symptoms with the complaints of hematuria. He denies fever chills. When the patient underwent bowel resection, he apparently needed a Schroeder. The urologist told him he had scar tissue and should be seen in follow-up. He has not been seen in follow-up. Related Data Home Medications Medication Instructions Recorded Confirmed allopurinol 100 mg tablet 200 mg PO DAILY #0 03/12/17 05/22/20 aspirin 81 mg tablet,delayed 81 mg PO DAILY 08/16/19 05/22/20 release duloxetine 60 mg capsule,delayed 60 mg PO BEDTIME 08/16/19 05/22/20 release furosemide 20 mg tablet 20 mg PO DAILY 08/16/19 05/22/20 loratadine 10 mg capsule 10 mg PO DAILY PRN 01/16/20 05/22/20 lisinopril 20 mg tablet 20 mg PO DAILY 04/23/20 05/22/20 Previous Rx's Medication Instructions Recorded erythromycin 500 mg tablet 1,000 mg PO TID #6 tab 11/09/19 neomycin 500 mg tablet 1 gram PO TID #6 tab 11/09/19 oxycodone 5 mg tablet 5 mg PO Q4-6H PRN #30 tab 04/26/20 Allergies Allergy/AdvReac Type Severity Reaction Status Date / Time Sulfa (Sulfonamide Allergy Intermediate Rash Verified 05/22/20 09:02 Antibiotics) [SULFA (SULFONAMIDE ANTIBIOTICS)] Review of Systems Constitutional Constitutional: Denies body ache(s), Denies chills, Denies fever(s) and Denies headache(s) ENT Ears, Nose, Mouth, and Throat: Denies headache(s) Cardiovascular Cardiovascular: Denies chest pain, Denies rapid heart rate and Denies dyspnea Respiratory Respiratory: Denies cough and Denies dyspnea Gastrointestinal Gastrointestinal: Denies abdominal pain, Denies constipation and Denies nausea Genitourinary Genitourinary: Reports as per HPI, Reports hematuria, Denies dysuria, Denies genital lesions, Reports genital pain, Denies penile discharge and Denies testicular pain Musculoskeletal Musculoskeletal: Denies back pain Neurologic Neurologic: Denies headache(s) Patient History Medical History Cardiac murmur CKD (chronic kidney disease), stage III Constipation Diverticulosis GERD (gastroesophageal reflux disease) Gout Hypertension Neuropathy GERALD on CPAP Peripheral edema Sepsis (08/2019) Tinnitus Surgical History History of arthroscopy of both knees Hx of bilateral cataract extraction Social History household members: spouse Smoking Status: Former smoker alcohol intake: current Smoking Status: Former smoker alcohol intake frequency: holidays/special occasions only Substance Use Type: does not use Exam Initial Vital Signs Initial Vital Signs: Vital Signs Temperature 98.3 F 09/08/21 12:14 Pulse Rate 104 H 09/08/21 12:14 Respiratory Rate 18 09/08/21 12:14 Blood Pressure 141/81 H 09/08/21 12:14 Pulse Oximetry 96 09/08/21 12:14 Const General: cooperative, healthy appearing and comfortable [facility] Head: normocephalic and atraumatic Resp Auscultation: clear to auscultation bilaterally Cardio Rate: regular rate Rhythm: regular rhythm Heart Sounds: S1 normal, S2 normal and no murmurs GI Palpation: soft, No mass and No tender Auscultation: normal bowel sounds Scrotum: scrotum normal Other: There appears to be scar tissue at the meatus. His phallus is otherwise normal. Course Course Course Narrative: The patient has painless hematuria, other than the penile discomfort is noted HPI. KUB CT is normal. He is directed to follow up with Urology for ongoing evaluation. I think there is a bit of scar tissue at the urethral meatus that may be part of his issue. Orders Ordered: ED Orders 09/08/21 12:22 Urinalysis and Microscopic Stat Urine Culture Stat 09/08/21 13:14 CT kidney ureter bladder (KUB) Stat Vital Signs Vital signs: Vital Signs - 8 hr 09/08/21 12:14 09/08/21 14:07 Temperature 98.3 F Pulse Rate 104 H 88 Respiratory Rate 18 Blood Pressure 141/81 H 130/77 Pulse Oximetry 96 96 MDM - Male Genitourinary Lab Data Labs: Lab Results 09/08/21 Range/Units 12:22 Urine Color Yellow Urine Appearance Slightly cloudy Urine pH 5.0 (4.5-8.0) Ur Specific [place] 1.015 (1.000-1.035) Urine Protein Negative (Negative) Urine Glucose (UA) Negative (Negative) g/dL Urine Ketones Negative (NEGATIVE) Urine Occult Blood 3+ H (Negative) Urine Nitrate Negative (Negative) Urine Bilirubin Negative (NEGATIVE) Urine Urobilinogen 0.2 (0.2) E.U./dL Ur Leukocyte Esterase Trace H (NEGATIVE) Urine RBC 30-100/hpf H (0-5/HPF) Urine WBC 1-5/hpf (0-5/HPF) Ur Squamous Epith Cells 5-10 /hpf H (0-5/HPF) Urine Bacteria Occasional (0-1) (None) Ur Culture Indicated? Specimen cultured Imaging Data KUB CT:: Radiologist's Impression: No obvious etiology for hematuria. Discharge Plan Departure Patient Disposition: Home Clinical Impression: Hematuria Qualifiers: Hematuria type: gross Qualified Code(s): R31.0 - Gross hematuria Instructions: DI for Hematuria Activity Restrictions/Additional Instructions: Be sure you are drinking plenty of fluids. No clear etiology still blood was noted on the CT. The problem may be in your penis, from your presentation. Follow-up with Urology, I will give you contact information for Dr. Ahmadi. He is a urologist at this hospital. Prescriptions: No Action allopurinol 100 MG tablet 200 mg PO DAILY Qty: 0 RF: 0 neomycin 500 mg tablet 1 gram PO TID Qty: 6 RF: 0 erythromycin 500 mg tablet 1,000 mg PO TID Qty: 6 RF: 0 duloxetine 60 mg Capsule,Delayed Release(Dr/Ec) 60 mg PO BEDTIME RF: 0 furosemide 20 mg Tablet 20 mg PO DAILY RF: 0 aspirin 81 mg Tablet,Delayed Release (Dr/Ec) 81 mg PO DAILY RF: 0 loratadine 10 mg Capsule 10 mg PO DAILY PRN (Reason: Seasonal allergies, itching) RF: 0 lisinopril 20 mg Tablet 20 mg PO DAILY RF: 0 oxycodone 5 mg tablet 5 mg PO Q4-6H PRN (Reason: post operative pain) Qty: 30 RF: 0 Referrals: Sarahy Kebede MD [Primary Care Provider] - Ama Ahmadi MD [Physician] -
--- NOTE | 2021-09-08 13:14 | DI.CT.S_ITS ---
PROCEDURE: CT KIDNEY URETER BLADDER (KUB) INDICATIONS: Hematuria TECHNIQUE: Axial sections were acquired from the lung bases to the pubic symphysis. Coronal and sagittal reformats were performed. For radiation dose reduction, the following was used: automated exposure control, adjustment of mA and/or kV according to patient size. COMPARISON: [facility], CT, CT ABDOMEN PELVIS W CON, 08/18/2019, 17:34. FINDINGS: Image quality: Excellent. Lung bases: Clear. Small hiatal hernia. Heart: No significant findings. URINARY: Right Kidney: No stones or hydronephrosis.There is perinephric stranding. Right Ureter: No hydroureter. Left Kidney: No stones or hydronephrosis.There is perinephric stranding. Left Ureter: No hydroureter. Bladder: Normal wall thickness. No stones. Prostate is enlarged. ABDOMEN: Liver: Normal in size. Hepatic steatosis. Gallbladder: Unremarkable. Biliary ducts: Unremarkable. Pancreas: Unremarkable. Spleen: Unremarkable. Adrenal Glands: Unremarkable. Stomach and Bowel: Stomach, small bowel loops, and colon are normal in caliber. There are postsurgical changes in sigmoid colon. Moderate amount of stool in colon. Peritoneum: No abnormal intraperitoneal fluid. No free air. Ventral Wall: Small fat containing periumbilical hernia. Abdominal Nodes: No enlarged retroperitoneal or mesenteric lymph nodes. Vessels: Aorta and inferior vena cava are normal in size. PELVIS: Pelvic Organs: Unremarkable. Pelvic Nodes: Unremarkable. Miscellaneous: No inguinal hernias are seen. Bones: Degenerative changes in lower lumbar spine. There is moderate central canal stenosis at L3-L4 and mild central canal stenosis at L4-L5 and L5-S1. IMPRESSION: 1. No renal stones or hydronephrosis. There is bilateral perinephric stranding. A cause for hematuria is not identified. 2. Enlarged prostate. 3. Hepatic steatosis. Dictated by: Jose L Steve M.D. on 09/08/2021 at 13:31 Approved by: Jose L Steve M.D. on 09/08/2021 at 13:50
[2021-09-08 14:07] VITALS: BP 130/77; PULSE 88; O2SAT 96
== END 2021-09-08 14:37 | disposition home or self-care (01) ==
PROVIDERS: Emergency Provider Emergency Medicine; PCP Family Medicine
DX: R31.0 Gross hematuria (principal); N48.89 Other specified disorders of penis
CPT/HCPCS: 74176; 81001; 87086; 99283; 99284

== ENCOUNTER 2021-10-10 10:13 | Emergency (ER) | payer OTHER, SELFPAY ==
[2020-04-23 16:00] VITALS: BMI 33.6
[2021-10-10 10:25] VITALS: BP 147/70; PULSE 82; RESP 18; TEMP 36.4; O2SAT 98; BMI 322.4
--- NOTE | 2021-10-10 11:12 | ED_ITS ---
HPI - Male Genitourinary General Chief complaint: Urogenital-Male Stated complaint: pain in kidney/bladder area Time Seen by Provider: 10/10/21 11:02 Source: patient and family Mode of arrival: Ambulatory History of Present Illness HPI Narrative: The patient developed right flank pain radiating to his right lower back while walking through a store yesterday. Pain persists. He has no associated abdominal pain, no genitalia pain. He denies dysuria hematuria. He was seen here September 2020 with hematuria. He required a Schroeder during prior abdominal operation for colon resection. CT September 2020 revealed stranding, no obvious acute urologic process. There is no evidence of kidney stones. With his current pain he denies fever chills. He has no numbness or weakness in the lower extremities. He denies incontinence. There is no obvious, acute injury. Related Data Home Medications Medication Instructions Recorded Confirmed allopurinol 100 mg tablet 200 mg PO DAILY #0 03/12/17 05/22/20 aspirin 81 mg tablet,delayed 81 mg PO DAILY 08/16/19 05/22/20 release duloxetine 60 mg capsule,delayed 60 mg PO BEDTIME 08/16/19 05/22/20 release furosemide 20 mg tablet 20 mg PO DAILY 08/16/19 05/22/20 loratadine 10 mg capsule 10 mg PO DAILY PRN 01/16/20 05/22/20 lisinopril 20 mg tablet 20 mg PO DAILY 04/23/20 05/22/20 Previous Rx's Medication Instructions Recorded erythromycin 500 mg tablet 1,000 mg PO TID #6 tab 11/09/19 neomycin 500 mg tablet 1 gram PO TID #6 tab 11/09/19 oxycodone 5 mg tablet 5 mg PO Q4-6H PRN #30 tab 04/26/20 methocarbamol 750 mg tablet 750 mg PO Q6H PRN #40 tab 10/10/21 Allergies Allergy/AdvReac Type Severity Reaction Status Date / Time Sulfa (Sulfonamide Allergy Intermediate Rash Verified 05/22/20 09:02 Antibiotics) [SULFA (SULFONAMIDE ANTIBIOTICS)] Review of Systems Constitutional Constitutional: Reports as per HPI, Denies chills, Denies fatigue and Denies fever(s) ENT Ears, Nose, Mouth, and Throat: Denies vertigo and Denies dizziness Cardiovascular Cardiovascular: Denies chest pain, Denies rapid heart rate, Denies pedal edema and Denies dyspnea Respiratory Respiratory: Denies chest congestion, Denies cough and Denies dyspnea Gastrointestinal Gastrointestinal: Denies abdominal pain, Denies change in bowel habits, Denies cramping and Denies nausea Genitourinary Genitourinary: Denies hematuria, Denies dysuria, Denies dysuria, Reports flank pain and Denies testicular pain Musculoskeletal Musculoskeletal: Denies arthralgias, Denies deformity and Denies arthralgias Integumentary/Breasts Skin/Breast: Denies lesions and Denies rash Neurologic Neurologic: Denies confusion, Denies vertigo and Denies dizziness Psychiatric Psychiatric: Denies anxiety and Denies confusion Endocrine Endocrine: Denies fatigue Hematologic/Lymphatic On Anticoagulants: No Patient History Medical History Cardiac murmur CKD (chronic kidney disease), stage III Constipation Diverticulosis GERD (gastroesophageal reflux disease) Gout Hypertension Neuropathy GERALD on CPAP Peripheral edema Sepsis (08/2019) Tinnitus Surgical History History of arthroscopy of both knees Hx of bilateral cataract extraction Social History household members: spouse Smoking Status: Former smoker alcohol intake: current Smoking Status: Former smoker alcohol intake frequency: holidays/special occasions only Substance Use Type: does not use Exam Initial Vital Signs Initial Vital Signs: Vital Signs Temperature 97.5 F L 10/10/21 10:25 Pulse Rate 82 10/10/21 10:25 Respiratory Rate 18 10/10/21 10:25 Blood Pressure 147/70 H 10/10/21 10:25 Pulse Oximetry 98 10/10/21 10:25 Const General: cooperative, healthy appearing and comfortable [facility] Head: normocephalic and atraumatic Resp Auscultation: clear to auscultation bilaterally Cardio Rate: regular rate Rhythm: regular rhythm Heart Sounds: S1 normal, S2 normal and no murmurs GI Palpation: soft, No mass and No tender Auscultation: normal bowel sounds Back/Spine/Pelvis Other: No tenderness along the thoracic or lumbar spine. Pelvic tenderness in the right paralumbar region, radiating to the right lower back. No SI tenderness. Spasm is present. Skin General: no rashes or lesions noted Neuro General: patient alert, patient awake, patient oriented x3 and no focal motor deficits Extrem General: full ROM and no pedal edema Psych Mental Status: mental status grossly normal Course Course Course Narrative: The urine sample reveals no hematuria. Labs are otherwise reassuring. He is worried about urologic etiologies to his back pain. His past medical records reviewed. He appears to have musculoskeletal low back pain. Orders Ordered: ED Orders 10/10/21 11:36 CBC Auto Diff [Complete Blood Count AUTO DIFF] Stat CMP [Comprehensive Metabolic Panel] Stat Discontinued Medications Acetaminophen (Acetaminophen 325 Mg Tablet) 650 mg PO NOW ONE Stop: 10/10/21 11:15 Last Admin: 10/10/21 11:25 Dose: 650 mg Documented by: SHAYLA Methocarbamol (Methocarbamol 500 Mg Tablet) 750 mg PO NOW ONE Stop: 10/10/21 11:15 Last Admin: 10/10/21 11:25 Dose: 750 mg Documented by: SHAYLA Vital Signs Vital signs: Vital Signs - 8 hr 10/10/21 10:25 10/10/21 12:00 Temperature 97.5 F L Pulse Rate 82 72 Respiratory Rate 18 18 Blood Pressure 147/70 H 125/62 Pulse Oximetry 98 98 MDM - Male Genitourinary Lab Data Result diagrams: 10/10/21 11:36 10/10/21 11:36 Labs: Lab Results 10/10/21 10/10/21 Range/Units 11:36 11:36 WBC 6.6 (4.5-11.0) X10^3/uL RBC 4.31 L (4.5-5.9) X10^6/uL Hgb 13.9 (13.5-17.5) g/dL Hct 40.3 L (41-53) % MCV 93.6 (80-100) fL MCH 32.3 (26-34) PG MCHC 34.5 (30-36) % RDW 14.9 H (11.6-14.8) % Plt Count 217 (150-400) X10^3/uL Neut % (Auto) 62.4 (50-75) % Lymph % (Auto) 22.2 L (25-40) % [place] % (Auto) 9.0 (3-14) % Eos % (Auto) 4.9 H (2-4) % Baso % (Auto) 1.5 (0-2) % Neut # (Auto) 4100 (4709-9768) /uL Lymph # (Auto) 1500 (5856-2353) /uL [place] # (Auto) 600 (0-900) /uL Eos # (Auto) 300 (0-450) /uL Baso # (Auto) 100 (0-100) /uL Sodium 137 (137-145) mmol/L Potassium 4.2 (3.4-5.1) mmol/L Chloride 104 (98-107) mmol/L Carbon Dioxide 23 (22-32) mmol/L BUN 25 H (9-20) mg/dL Creatinine 1.39 H (0.66-1.25) mg/dL Estimated GFR 50.2 L (>60) mL/min BUN/Creatinine Ratio 18.0 (6-22) Glucose 127 H (80-110) mg/dL Calcium 9.2 (8.4-10.2) mg/dL Total Bilirubin 0.4 (0.2-1.3) mg/dL AST 23 (17-59) IU/L ALT 23 (<50) IU/L Alkaline Phosphatase 82 (38-126) U/L Total Protein 6.9 (6.3-8.2) g/dL Albumin 4.2 (3.5-5.0) g/dL Globulin 2.7 (1.7-4.1) g/dL Albumin/Globulin Ratio 1.6 (1.0-2.8) Urine Dip Bedside Urine Glucose Negative Bedside Urine Bilirubin - Negative Bedside Urine Ketone - Negative Urine Specific [place] 1.020 Bedside Urine Occult Blood - Negative Bedside Urine pH 6 Bedside Urine Protein - Negative Bedside Urine Urobilinogen - Negative Bedside Urine Nitrite - Negative Bedside Urine Leukocytes - Negative Esterase Discharge Plan Departure Patient Disposition: Home Clinical Impression: Acute lumbar myofascial strain Instructions: DI for Low Back Pain Activity Restrictions/Additional Instructions: Advil 3 tablets every 6 hours as needed for back pain. Robaxin 750 mg every 6 hours for spasm. I recommend taking the medications at the same time. The prescription has been electronically forwarded to [facility]. Walk and stretch frequently. Follow-up with your doctor if not improved within 1 week. If you develop significant increase in pain, or if you develop a rash at the scene, return to the ER. Prescriptions: New methocarbamol 750 mg tablet 750 mg PO Q6H PRN (Reason: spasms) Qty: 40 0RF No Action allopurinol 100 MG tablet 200 mg PO DAILY Qty: 0 0RF neomycin 500 mg tablet 1 gram PO TID Qty: 6 0RF Rx Instructions: administer at 2 PM, 4 PM, and 10 PM the day prior to surgery erythromycin 500 mg tablet 1,000 mg PO TID Qty: 6 0RF Rx Instructions: Take 2 tablets by mouth at 2 pm, 4 pm, 10pm day prior to surgery duloxetine 60 mg Capsule,Delayed Release(Dr/Ec) 60 mg PO BEDTIME 0RF furosemide 20 mg Tablet 20 mg PO DAILY 0RF aspirin 81 mg Tablet,Delayed Release (Dr/Ec) 81 mg PO DAILY 0RF loratadine 10 mg Capsule 10 mg PO DAILY PRN (Reason: Seasonal allergies, itching) 0RF lisinopril 20 mg Tablet 20 mg PO DAILY 0RF oxycodone 5 mg tablet 5 mg PO Q4-6H PRN (Reason: post operative pain) Qty: 30 0RF Rx Instructions: wean off within 1-2 weeks after surgery Referrals: Sarahy Kebede MD [Primary Care Provider] -
[2021-10-10] MEDS: methocarbamoL 500 MG TABLET 750 MG PO (11:25)
[2021-10-10] MEDS: ACETAMINOPHEN 325 MG TABLET 650 MG PO (11:25)
[2021-10-10 11:43] LABS: Add Manual Diff / Slide Review NO; Basophils Absolute Auto 100 /uL (0-100); Basophils Percent Auto 1.5 % (0-2); Eosinophils Absolute Auto 300 /uL (0-450); Eosinophils Percent Auto 4.9 % (2-4); Hematocrit 40.3 % (41-53); Hemoglobin 13.9 g/dL (13.5-17.5); Lymphocytes Absolute Auto 1500 /uL (1100-4500); Lymphocytes Percent Auto 22.2 % (25-40); Mean Corpuscular HGB Conc 34.5 % (30-36); Mean Corpuscular Hemoglobin 32.3 PG (26-34); Mean Corpuscular Volume 93.6 fL (80-100); Monocytes Absolute Auto 600 /uL (0-900); Neutrophils Absolute Auto 4100 /uL (1500-7000); Neutrophils Percent Auto 62.4 % (50-75); Platelet Count 217 X10^3/uL (150-400); Red Blood Cell Count 4.31 X10^6/uL (4.5-5.9); Red Cell Distribution Width 14.9 % (11.6-14.8); White Blood Cell Count 6.6 X10^3/uL (4.5-11.0)
[2021-10-10 11:51] LABS: Alanine Aminotransferase 23 IU/L (<50); Albumin 4.2 g/dL (3.5-5.0); Albumin Globulin Ratio 1.6 (1.0-2.8); Alkaline Phosphatase 82 U/L (38-126); Aspartate Aminotransferase 23 IU/L (17-59); Bilirubin Total 0.4 mg/dL (0.2-1.3); Blood Urea Nitrogen 25 mg/dL (9-20); Calcium 9.2 mg/dL (8.4-10.2); Carbon Dioxide 23 mmol/L (22-32); Chloride 104 mmol/L (98-107); Estimated Glomerular Filt Rate 50.2 mL/min (>60); Globulin 2.7 g/dL (1.7-4.1); Glucose 127 mg/dL (80-110); HEMOLYSIS < 15 (0-50); Potassium 4.2 mmol/L (3.4-5.1); Sodium 137 mmol/L (137-145); Total Protein 6.9 g/dL (6.3-8.2)
[2021-10-10 12:00] VITALS: BP 125/62; PULSE 72; RESP 18; O2SAT 98
== END 2021-10-10 12:55 | disposition home or self-care (01) ==
PROVIDERS: Emergency Provider Emergency Medicine; PCP Family Medicine
DX: S39.012A Strain of muscle, fascia and tendon of lower back, initial encounter (principal); Z87.891 Personal history of nicotine dependence; X58.XXXA Exposure to other specified factors, initial encounter; Y93.01 Activity, walking, marching and hiking; Y92.512 Supermarket, store or market as the place of occurrence of the external cause
CPT/HCPCS: 80053; 81003; 85025; 99283

== ENCOUNTER → 2021-12-17 06:53 | Outpatient (CLI) | payer OTHER, SELFPAY ==
[2020-04-23 16:00] VITALS: BMI 33.6
[2021-12-17 09:44] LABS: BUN Creatinine Ratio 17.1 (6-22); Blood Urea Nitrogen 24 mg/dL (9-20); Calcium 9.1 mg/dL (8.4-10.2); Carbon Dioxide 23 mmol/L (22-32); Chloride 106 mmol/L (98-107); Estimated Glomerular Filt Rate 49.7 mL/min (>60); Glucose 106 mg/dL (80-110); HEMOLYSIS < 15 (0-50); Potassium 4.2 mmol/L (3.4-5.1); Sodium 137 mmol/L (137-145)
[2021-12-17 10:08] LABS: Prostate Specific Antigen 2.22 ng/mL (0.10-4.00)
== END ==
PROVIDERS: PCP Family Medicine; Referring Provider Specialist; Visit Provider Specialist
DX: R97.20 Elevated prostate specific antigen [PSA] (principal); Z01.812 Encounter for preprocedural laboratory examination
CPT/HCPCS: 36415; 80048; 84153

== ENCOUNTER → 2023-01-20 09:39 | Outpatient (CLI) | payer OTHER, SELFPAY ==
[2020-04-23 16:00] VITALS: BMI 33.6
[2023-01-20 11:01] LABS: Prostate Specific Antigen 2.66 ng/mL (0.10-4.00)
== END ==
PROVIDERS: PCP Family Medicine; Referring Provider Specialist; Visit Provider Specialist
DX: N40.1 Benign prostatic hyperplasia with lower urinary tract symptoms (principal); N13.8 Other obstructive and reflux uropathy
CPT/HCPCS: 36415; 84153

== ENCOUNTER 2023-05-09 18:14 | Inpatient (IN) | payer OTHER, SELFPAY ==
[2020-04-23 16:00] VITALS: BMI 33.6
[2023-05-09] VITALS (202 sets, daily range): BP systolic 71–149; BP diastolic 39–104; PULSE 61–127; RESP 13–34; TEMP 36.3–36.6; O2SAT 75–100
--- NOTE | 2023-05-09 18:19 | DI.CT.S_ITS ---
PROCEDURE: CT ABDOMEN PELVIS W CON INDICATIONS: Generalized abdominal pain TECHNIQUE: After the administration of IV contrast, axial sections were acquired from the lung bases to the pubic symphysis. Coronal and sagittal reformats were performed. For radiation dose reduction, the following was used: automated exposure control, adjustment of mA and/or kV according to patient size. COMPARISON: [facility], CT, CT KIDNEY URETER BLADDER (KUB), 09/08/2021, 1:16. [facility], CT, CT ABDOMEN PELVIS W CON, 08/18/2019, 17:34. FINDINGS: Image quality: Excellent. Lung bases: There is mild dependent atelectasis bilaterally. Heart: Heart is normal in size. There is a small hiatal hernia. ABDOMEN: Liver: There is diffuse hypoattenuation of the liver consistent with fatty infiltration. Gallbladder: Within normal limits without calcified gallstones. Biliary ducts: No biliary ductal dilatation. Pancreas: Unremarkable. Spleen: Normal in size. Adrenal Glands: No adrenal nodules. Kidneys and Ureters: No hydronephrosis. Stomach and Bowel: Stomach and small bowel are normal in caliber and wall thickness. There is a thick-walled distended blind ending tubular structure extending inferomedially from the cecum measuring up to 2.1 cm in overall diameter. The findings are suggestive of a markedly enlarged and thick-walled appendix. There are postsurgical changes consistent with prior partial sigmoid colon resection with an end to side anastomosis. Mild segmental wall thickening is demonstrated within the descending colon as well as within the rectum with mild pericolonic fat stranding consistent with an infectious or inflammatory colitis. Peritoneum: No abnormal intraperitoneal fluid. No free air. Ventral Wall: No hernia. Abdominal Nodes: No retroperitoneal or mesenteric adenopathy by size criteria. Vessels: Aorta and inferior vena cava are normal in size. PELVIS: Pelvic Organs: There is mild enlargement of the prostate. Bladder: Unremarkable. Pelvic Nodes: No enlarged lymph nodes. Miscellaneous: No inguinal hernias are seen. Bones: Visualized osseous structures demonstrate no suspicious focal lesions. IMPRESSION: 1. Mild segmental wall thickening of the descending colon as well as the rectum with associated mild fat stranding consistent with a colitis. 2. Thick-walled blind-ending tubular structure arising from the cecum is suggestive of a markedly thick-walled appendix. Although there is enhancement, there is a paucity of associated fat stranding and fluid. The findings may reflect appendicitis but an appendiceal mass cannot be excluded. Consider follow-up evaluation with oral contrast. The findings discussed with Dr. Castillo on 05/09/2023 at 10:02 p.m.. Dictated by: Merlin Cedeño M.D. on 05/09/2023 at 21:58 Approved by: Merlin Cedeño M.D. on 05/09/2023 at 22:10
[2023-05-09] MEDS: SODIUM CHLORIDE 0.9% 1,000 ML 1000 ML IV (18:23)
--- NOTE | 2023-05-09 18:25 | ED.GENADULT ---
HPI - General Adult General Chief complaint: Syncope Stated complaint: Syncopal episode Time Seen by Provider: 05/09/23 18:17 Source: patient and EMS Mode of arrival: EMS Limitations: no limitations History of Present Illness HPI narrative: 72-year-old male. History of diverticulitis with a bowel resection. That was 2 years ago. Is also on Lovenox for a DVT which was just started within the past week or so. Was brought in by EMS for evaluation of a syncopal episode. Patient is somewhat unsure as to what happened. Per EMS report he was sitting on the toilet having a bowel movement when he passed out. The patient states that he does not remember the event. He does not remember the events leading up to passing out. His complete here in the emergency department is that he is having quite a bit of abdominal pain. He was covered with vomitus. He denies headache. No chest pain. No shortness of breath. He denies any urinary symptoms. No fevers. EMS reports that he had a systolic blood pressure of 40 upon their arrival they have started an IV. Patient was given fluids. Upon arrival his systolic blood pressure was 70. Related Data Home Medications Medication Instructions Recorded Confirmed allopurinol 100 mg tablet 200 mg PO DAILY ##0 03/12/17 01/26/23 aspirin 81 mg tablet,delayed 81 mg PO DAILY 08/16/19 01/26/23 release duloxetine 60 mg capsule,delayed 60 mg PO BEDTIME 08/16/19 01/26/23 release furosemide 20 mg tablet 20 mg PO DAILY 08/16/19 01/26/23 loratadine 10 mg capsule 10 mg PO DAILY PRN Seasonal 01/16/20 01/26/23 allergies, itching lisinopril 20 mg tablet 20 mg PO DAILY 04/23/20 01/26/23 Previous Rx's Medication Instructions Recorded methocarbamol 750 mg tablet 750 mg PO Q6H PRN spasms #40 tabs 10/10/21 tamsulosin 0.4 mg capsule See Rx Instructions .Route 10/21/22 .COMPLEX #90 caps Allergies Allergy/AdvReac Type Severity Reaction Status Date / Time Sulfa (Sulfonamide Allergy Intermediate Rash Verified 01/26/23 07:50 Antibiotics) [SULFA (SULFONAMIDE ANTIBIOTICS)] Review of Systems Review of Systems ROS Unobtainable: All systems reviewed & are unremarkable except as noted in HPI and below Patient History Medical History BPH w urinary obs/LUTS Cardiac murmur CKD (chronic kidney disease), stage III Constipation Diverticulosis GERD (gastroesophageal reflux disease) Gout Hypertension Neuropathy GERALD on CPAP Peripheral edema Sepsis (08/2019) Tinnitus Urethral stricture in male Surgical History History of arthroscopy of both knees Hx of bilateral cataract extraction Social History household members: spouse Smoking Status: Former smoker alcohol intake: current Smoking Status: Former smoker alcohol intake frequency: holidays/special occasions only Substance Use Type: does not use Exam Initial Vital Signs Initial Vital Signs: Vital Signs Pulse Rate 81 05/09/23 18:13 Respiratory Rate 20 05/09/23 18:13 Blood Pressure 75/45 L 05/09/23 18:13 Pulse Oximetry 96 05/09/23 18:13 Oxygen Delivery Method Room Air 05/09/23 18:13 Const General: cooperative, acute distress and ill appearing [facility] Head: normal to inspection and normocephalic Face and sinus: normal facial exam Mouth: moist mucous membranes Chest Chest: No crepitus and No tenderness Resp Effort & Inspection: normal respiratory effort and tachypneic Auscultation: clear to auscultation bilaterally Cardio Rate: regular rate Rhythm: regular rhythm GI Inspection: non-distended Palpation: No guarding, No rigid and tender Skin General: no rashes or lesions noted Neuro General: patient alert, patient awake and moves all extremities Speech: speech normal Extrem General: capillary refill normal and No edema Psych Appearance: grossly normal Procedures Central Line Placement Right IJ: Time Out Performed: Yes Patient Placed on Monitor/Pulse Ox: Yes MD Prep: gown and gloves Central Line Prep: Povidone-Iodine 1% Local Anesthetic: lidocaine 1% Amount of anesthesia used (mL): 10 Ultrasound Used for Placement: Yes Central Line Lumen Inserted: triple Post Procedure: good blood return, sterile dressing applied and line stabilization device Post Procedure X-Ray: tip of catheter in good position Patient Tolerated Procedure: Well Scores GCS Koppel coma scale eye opening: Spontaneous Koppel coma scale verbal response: Orientated John coma scale motor response: Obey commands Koppel coma scale total score: 15 Course Orders Ordered: ED Orders 05/09/23 18:19 CT abdomen pelvis w con Stat EKG-12 Lead Stat 05/09/23 18:59 Chest [XR chest 1V] Stat 05/09/23 19:19 Complete Blood Count AUTO DIFF Stat Comprehensive Metabolic Panel Stat Lactate (Lactic Acid) Stat Lipase Stat PTT Partial Thromboplastin Sammy Stat Procalcitonin Stat Prothrombin Time INR Stat 05/09/23 19:20 Blood Culture Stat 05/09/23 19:34 GI Panel (Film Array) Stat 05/09/23 21:11 Urinalysis and Microscopic Stat Urine Culture Stat 05/09/23 21:31 Basic Metabolic Panel Stat Complete Blood Count AUTO DIFF Stat Lactate (Lactic Acid) Stat 05/09/23 22:42 Consult to General Surgery Stat 05/09/23 23:21 Education, smoking cessation ONGOING Acetaminophen (Acetaminophen 325 Mg Tablet) 650 mg PO Q6H PRN PRN Reason: Fever/Mild Pain (1-3) Sodium Chloride (Normal Saline 0.9%) 1,000 mls @ 150 mls/hr IV CONT MERA Last Admin: 05/09/23 19:35 Dose: 150 mls/hr Documented By: Infusion: 05/09/23 19:28 Dose: 0 mls/hr Documented By: Infusion: 05/09/23 19:00 Dose: 1,000 mls/hr Documented By: Admin: 05/09/23 18:40 Dose: 150 mls/hr Documented By: NOREPINEPHRINE BITARTRATE/D5W (Levophed) 4 mg in 250 mls @ 48.478 mls/hr IV TITRATE MERA; Protocol Last Titration: 05/09/23 22:58 Dose: 0.03 mcg/kg/min, 15 mls/hr Documented By: Titration: 05/09/23 21:25 Dose: 0.04 mcg/kg/min, 19.391 mls/hr Documented By: Titration: 05/09/23 19:57 Dose: 0.06 mcg/kg/min, 30 mls/hr Documented By: Admin: 05/09/23 19:24 Dose: 0.1 mcg/kg/min, 48.478 mls/hr Documented By: Sodium Chloride (Normal Saline 0.9%) 1,000 mls @ 150 mls/hr IV CONT MERA Last Admin: 05/09/23 21:04 Dose: Not Given Documented By: Piperacillin Sod/Tazobactam (Sod 3.375 gm/ Sodium Chloride) 100 mls @ 25 mls/hr IV Q8H MERA Last Admin: 05/10/23 00:44 Dose: 25 mls/hr Documented By: MS Sodium Chloride (Normal Saline 0.9%) 1,000 mls @ 100 mls/hr IV CONT MERA Morphine Sulfate (Morphine 4 Mg/Ml Inj) 3 mg IV Q4HR PRN PRN Reason: Pain, Severe (7-10) Naloxone HCl (Naloxone 0.4 Mg/Ml Vial) 0.2 mg IV Q2MIN PRN PRN Reason: Opiate Reversal Ondansetron HCl (Ondansetron 4 Mg/2 Ml Inj) 4 mg IV Q4HR PRN PRN Reason: Nausea And Vomiting Last Admin: 05/10/23 00:12 Dose: 4 mg Documented By: MS Oxycodone HCl (Oxycodone Ir 5 Mg Tablet) 5 mg PO Q3H PRN PRN Reason: Pain, Moderate (4-6) Pantoprazole Sodium (Pantoprazole 40 Mg Vial) 20 mg IV BID MERA Discontinued Medications Sodium Chloride (Normal Saline 0.9%) 1,000 mls @ 1,000 mls/hr IV BOLUS ONE Stop: 05/09/23 19:17 Last Infusion: 05/09/23 18:46 Dose: 0 mls/hr Documented By: Admin: 05/09/23 18:23 Dose: 1,000 mls/hr Documented By: ST Ceftriaxone Sodium 1,000 mg/ (Sodium Chloride) 100 mls @ 200 mls/hr IV NOW ONE Stop: 05/09/23 19:42 Last Infusion: 05/09/23 21:05 Dose: 0 mls/hr Documented By: Admin: 05/09/23 20:10 Dose: 200 mls/hr Documented By: Morphine Sulfate (Morphine 4 Mg/Ml Inj) 4 mg IV NOW ONE Stop: 05/09/23 18:45 Last Admin: 05/09/23 18:47 Dose: 4 mg Documented By: ST Morphine Sulfate (Morphine 4 Mg/Ml Inj) 4 mg IV NOW ONE Stop: 05/09/23 21:56 Last Admin: 05/09/23 22:00 Dose: 4 mg Documented By: Ondansetron HCl (Ondansetron 4 Mg/2 Ml Inj) 4 mg IV NOW ONE Stop: 05/09/23 18:19 Last Admin: 05/09/23 18:37 Dose: 4 mg Documented By: ST Ondansetron HCl (Ondansetron 4 Mg/2 Ml Inj) 4 mg IV NOW ONE Stop: 05/09/23 21:36 Last Admin: 05/09/23 21:37 Dose: 4 mg Documented By: Pantoprazole Sodium (Pantoprazole 40 Mg Vial) 40 mg IV NOW ONE Stop: 05/09/23 20:03 Last Admin: 05/09/23 20:10 Dose: 40 mg Documented By: Vital Signs Vital signs: Vital Signs - 8 hr 05/09/23 18:18 05/09/23 18:23 05/09/23 18:23 Temperature Pulse Rate 80 77 Respiratory Rate 20 18 Blood Pressure 71/46 L Pulse Oximetry 90 L 95 Oxygen Delivery Method Oxygen Flow Rate 05/09/23 18:24 05/09/23 18:24 05/09/23 18:27 Temperature Pulse Rate 78 73 Respiratory Rate 19 17 Blood Pressure 71/48 L Pulse Oximetry 96 97 Oxygen Delivery Method Oxygen Flow Rate 05/09/23 18:27 05/09/23 18:30 05/09/23 18:30 Temperature Pulse Rate 74 Respiratory Rate 26 H Blood Pressure 77/50 L 88/54 L Pulse Oximetry 97 Oxygen Delivery Method Oxygen Flow Rate 05/09/23 18:41 05/09/23 18:41 05/09/23 18:42 Temperature Pulse Rate 69 Respiratory Rate 20 Blood Pressure 103/58 L 97/54 L Pulse Oximetry 99 Oxygen Delivery Method Oxygen Flow Rate 05/09/23 18:42 05/09/23 18:45 05/09/23 18:45 Temperature Pulse Rate 65 63 Respiratory Rate 18 18 Blood Pressure 100/53 L Pulse Oximetry 99 99 Oxygen Delivery Method Oxygen Flow Rate 05/09/23 18:15 05/09/23 18:46 05/09/23 18:48 Temperature Pulse Rate 81 63 Respiratory Rate 20 18 Blood Pressure 75/45 L 93/54 L Pulse Oximetry 100 Oxygen Delivery Method Oxygen Flow Rate 05/09/23 18:48 05/09/23 18:20 05/09/23 18:25 Temperature Pulse Rate 61 77 Respiratory Rate 22 22 Blood Pressure 74/39 L 71/48 L Pulse Oximetry 95 96 Oxygen Delivery Method Room Air Room Air Oxygen Flow Rate 05/09/23 18:35 05/09/23 18:52 05/09/23 18:50 Temperature Pulse Rate 75 74 62 Respiratory Rate 18 20 20 Blood Pressure 88/54 L 103/58 L Pulse Oximetry 96 98 Oxygen Delivery Method Room Air Oxygen Flow Rate 05/09/23 18:51 05/09/23 18:51 05/09/23 18:52 Temperature Pulse Rate 63 61 Respiratory Rate 22 19 Blood Pressure 93/51 L Pulse Oximetry 95 96 Oxygen Delivery Method Oxygen Flow Rate 05/09/23 18:53 05/09/23 18:54 05/09/23 18:54 Temperature Pulse Rate 62 63 Respiratory Rate 19 18 Blood Pressure 96/52 L Pulse Oximetry 93 93 Oxygen Delivery Method Oxygen Flow Rate 05/09/23 18:56 05/09/23 18:57 05/09/23 18:57 Temperature Pulse Rate 63 64 Respiratory Rate 17 19 Blood Pressure 98/53 L Pulse Oximetry 94 95 Oxygen Delivery Method Oxygen Flow Rate 05/09/23 18:58 05/09/23 19:00 05/09/23 19:02 Temperature Pulse Rate 65 64 62 Respiratory Rate 21 17 14 Blood Pressure Pulse Oximetry 90 L 94 97 Oxygen Delivery Method Oxygen Flow Rate 05/09/23 19:04 05/09/23 19:04 05/09/23 19:06 Temperature Pulse Rate 66 Respiratory Rate 19 Blood Pressure 94/51 L 78/43 L Pulse Oximetry 98 Oxygen Delivery Method Oxygen Flow Rate 05/09/23 19:06 05/09/23 19:08 05/09/23 19:08 Temperature Pulse Rate 65 62 Respiratory Rate 20 20 Blood Pressure 87/52 L Pulse Oximetry 94 90 L Oxygen Delivery Method Oxygen Flow Rate 05/09/23 19:09 05/09/23 19:09 05/09/23 19:10 Temperature Pulse Rate 64 64 Respiratory Rate 20 20 Blood Pressure 100/53 L Pulse Oximetry 97 96 Oxygen Delivery Method Oxygen Flow Rate 05/09/23 19:12 05/09/23 19:12 05/09/23 19:14 Temperature Pulse Rate 63 64 Respiratory Rate 21 17 Blood Pressure 120/51 L Pulse Oximetry 96 98 Oxygen Delivery Method Oxygen Flow Rate 05/09/23 19:15 05/09/23 19:15 05/09/23 19:16 Temperature Pulse Rate 64 66 Respiratory Rate 16 17 Blood Pressure 100/55 L Pulse Oximetry 94 96 Oxygen Delivery Method Oxygen Flow Rate 05/09/23 19:18 05/09/23 19:18 05/09/23 19:20 Temperature Pulse Rate 66 68 Respiratory Rate 20 21 Blood Pressure 92/50 L Pulse Oximetry Oxygen Delivery Method Oxygen Flow Rate 05/09/23 19:21 05/09/23 19:21 05/09/23 19:22 Temperature 97.4 F L Pulse Rate 70 68 Respiratory Rate 21 18 Blood Pressure 96/54 L Pulse Oximetry 94 99 Oxygen Delivery Method Oxygen Flow Rate 05/09/23 19:24 05/09/23 19:24 05/09/23 19:26 Temperature Pulse Rate 68 69 Respiratory Rate 17 18 Blood Pressure 97/53 L Pulse Oximetry 77 L 83 L Oxygen Delivery Method Oxygen Flow Rate 05/09/23 19:27 05/09/23 19:27 05/09/23 19:28 Temperature Pulse Rate 69 69 Respiratory Rate 17 16 Blood Pressure 87/52 L Pulse Oximetry 78 L 83 L Oxygen Delivery Method Oxygen Flow Rate 05/09/23 19:30 05/09/23 19:30 05/09/23 19:32 Temperature Pulse Rate 67 70 Respiratory Rate 18 23 Blood Pressure 103/56 L Pulse Oximetry 75 L 100 Oxygen Delivery Method Oxygen Flow Rate 05/09/23 19:33 05/09/23 19:33 05/09/23 19:34 Temperature Pulse Rate 71 71 Respiratory Rate 24 23 Blood Pressure 114/59 L Pulse Oximetry 100 100 Oxygen Delivery Method Oxygen Flow Rate 05/09/23 19:36 05/09/23 19:36 05/09/23 19:38 Temperature Pulse Rate 72 71 Respiratory Rate 22 27 H Blood Pressure 120/59 L Pulse Oximetry 100 97 Oxygen Delivery Method Oxygen Flow Rate 05/09/23 19:39 05/09/23 19:39 05/09/23 19:40 Temperature Pulse Rate 70 70 Respiratory Rate 27 H 25 H Blood Pressure 124/63 Pulse Oximetry 98 97 Oxygen Delivery Method Nasal Cannula Oxygen Flow Rate 2 05/09/23 19:42 05/09/23 19:42 05/09/23 19:44 Temperature Pulse Rate 73 74 Respiratory Rate 24 22 Blood Pressure 129/76 Pulse Oximetry 100 100 Oxygen Delivery Method Oxygen Flow Rate 05/09/23 19:46 05/09/23 19:46 05/09/23 19:48 Temperature Pulse Rate 73 71 Respiratory Rate 27 H 24 Blood Pressure 117/76 Pulse Oximetry 98 100 Oxygen Delivery Method Oxygen Flow Rate 05/09/23 19:50 05/09/23 19:52 05/09/23 19:52 Temperature Pulse Rate 79 82 Respiratory Rate 29 H 28 H Blood Pressure 134/104 H Pulse Oximetry 97 99 Oxygen Delivery Method Oxygen Flow Rate 05/09/23 19:54 05/09/23 19:55 05/09/23 19:55 Temperature Pulse Rate 77 74 Respiratory Rate 26 H 25 H Blood Pressure 141/63 H Pulse Oximetry 100 100 Oxygen Delivery Method Oxygen Flow Rate 05/09/23 19:56 05/09/23 19:57 05/09/23 19:57 Temperature Pulse Rate 113 H 75 Respiratory Rate 27 H 20 Blood Pressure 115/56 L Pulse Oximetry 100 100 Oxygen Delivery Method Oxygen Flow Rate 05/09/23 19:58 05/09/23 19:30 05/09/23 21:03 Temperature 97.4 F L 98 F Pulse Rate 95 H Respiratory Rate 28 H Blood Pressure Pulse Oximetry 100 Oxygen Delivery Method Oxygen Flow Rate 05/09/23 20:00 05/09/23 20:02 05/09/23 20:03 Temperature Pulse Rate 127 H 76 72 Respiratory Rate 26 H 25 H 25 H Blood Pressure Pulse Oximetry 100 99 99 Oxygen Delivery Method Nasal Cannula Oxygen Flow Rate 2 05/09/23 20:03 05/09/23 20:04 05/09/23 20:06 Temperature Pulse Rate 72 Respiratory Rate 21 Blood Pressure 125/60 129/56 L Pulse Oximetry 100 Oxygen Delivery Method Oxygen Flow Rate 05/09/23 20:06 05/09/23 20:08 05/09/23 20:09 Temperature Pulse Rate 73 79 74 Respiratory Rate 16 34 H 24 Blood Pressure Pulse Oximetry 100 96 98 Oxygen Delivery Method Oxygen Flow Rate 05/09/23 20:09 05/09/23 20:10 05/09/23 20:12 Temperature Pulse Rate 73 71 Respiratory Rate 22 15 Blood Pressure 138/62 Pulse Oximetry 99 98 Oxygen Delivery Method Oxygen Flow Rate 05/09/23 20:13 05/09/23 20:13 05/09/23 20:14 Temperature Pulse Rate 72 72 Respiratory Rate 23 21 Blood Pressure 118/58 L Pulse Oximetry 98 98 Oxygen Delivery Method Oxygen Flow Rate 05/09/23 20:16 05/09/23 20:16 05/09/23 20:18 Temperature Pulse Rate 72 Respiratory Rate 20 Blood Pressure 123/57 L 106/57 L Pulse Oximetry 98 Oxygen Delivery Method Oxygen Flow Rate 05/09/23 20:18 05/09/23 20:20 05/09/23 20:21 Temperature Pulse Rate 71 71 Respiratory Rate 18 19 Blood Pressure 115/58 L Pulse Oximetry 98 98 Oxygen Delivery Method Oxygen Flow Rate 05/09/23 20:21 05/09/23 20:22 05/09/23 20:24 Temperature Pulse Rate 71 70 Respiratory Rate 17 14 Blood Pressure 115/59 L Pulse Oximetry 99 100 Oxygen Delivery Method Oxygen Flow Rate 05/09/23 20:24 05/09/23 20:26 05/09/23 20:27 Temperature Pulse Rate 70 70 71 Respiratory Rate 16 19 18 Blood Pressure Pulse Oximetry 99 100 100 Oxygen Delivery Method Oxygen Flow Rate 05/09/23 20:27 05/09/23 20:28 05/09/23 20:30 Temperature Pulse Rate 74 72 Respiratory Rate 16 27 H Blood Pressure 115/57 L Pulse Oximetry 99 93 Oxygen Delivery Method Oxygen Flow Rate 05/09/23 20:34 05/09/23 20:36 05/09/23 20:38 Temperature Pulse Rate 74 75 75 Respiratory Rate 20 Blood Pressure Pulse Oximetry 100 100 Oxygen Delivery Method Oxygen Flow Rate 05/09/23 20:40 05/09/23 20:42 05/09/23 20:44 Temperature Pulse Rate 75 74 74 Respiratory Rate 19 16 17 Blood Pressure Pulse Oximetry 95 95 95 Oxygen Delivery Method Oxygen Flow Rate 05/09/23 20:46 05/09/23 20:48 05/09/23 20:50 Temperature Pulse Rate 73 79 82 Respiratory Rate 16 18 18 Blood Pressure Pulse Oximetry 94 91 89 L Oxygen Delivery Method Oxygen Flow Rate 05/09/23 20:52 05/09/23 20:53 05/09/23 20:53 Temperature Pulse Rate 81 81 Respiratory Rate 21 21 Blood Pressure 116/58 L Pulse Oximetry Oxygen Delivery Method Oxygen Flow Rate 05/09/23 20:54 05/09/23 20:54 05/09/23 20:55 Temperature Pulse Rate 82 Respiratory Rate 20 Blood Pressure 116/58 L 121/53 L Pulse Oximetry Oxygen Delivery Method Oxygen Flow Rate 05/09/23 20:55 05/09/23 20:56 05/09/23 20:58 Temperature Pulse Rate 82 82 80 Respiratory Rate 17 19 19 Blood Pressure Pulse Oximetry Oxygen Delivery Method Oxygen Flow Rate 05/09/23 21:00 05/09/23 21:00 05/09/23 21:02 Temperature Pulse Rate 79 79 Respiratory Rate 20 13 Blood Pressure 124/58 L Pulse Oximetry 99 99 Oxygen Delivery Method Oxygen Flow Rate 05/09/23 21:04 05/09/23 21:05 05/09/23 21:05 Temperature Pulse Rate 77 77 Respiratory Rate 16 17 Blood Pressure 117/56 L Pulse Oximetry 99 99 Oxygen Delivery Method Oxygen Flow Rate 05/09/23 21:06 05/09/23 21:08 05/09/23 21:10 Temperature Pulse Rate 77 78 Respiratory Rate 17 22 Blood Pressure 115/57 L Pulse Oximetry 99 99 Oxygen Delivery Method Oxygen Flow Rate 05/09/23 21:10 05/09/23 21:12 05/09/23 21:14 Temperature Pulse Rate 80 79 77 Respiratory Rate 19 18 17 Blood Pressure Pulse Oximetry 99 100 100 Oxygen Delivery Method Nasal Cannula Oxygen Flow Rate 2 05/09/23 21:15 05/09/23 21:15 05/09/23 21:16 Temperature Pulse Rate 77 76 Respiratory Rate 19 19 Blood Pressure 126/60 Pulse Oximetry 100 99 Oxygen Delivery Method Oxygen Flow Rate 05/09/23 21:18 05/09/23 21:20 05/09/23 21:20 Temperature Pulse Rate 75 75 Respiratory Rate 19 18 Blood Pressure 124/58 L Pulse Oximetry 100 100 Oxygen Delivery Method Oxygen Flow Rate 05/09/23 21:22 05/09/23 21:24 05/09/23 21:25 Temperature Pulse Rate 77 77 Respiratory Rate 19 17 Blood Pressure 121/59 L Pulse Oximetry 100 100 Oxygen Delivery Method Oxygen Flow Rate 05/09/23 21:25 05/09/23 21:26 05/09/23 21:28 Temperature Pulse Rate 76 78 96 H Respiratory Rate 19 17 22 Blood Pressure Pulse Oximetry 100 100 99 Oxygen Delivery Method Oxygen Flow Rate 05/09/23 21:30 05/09/23 21:30 05/09/23 21:32 Temperature Pulse Rate 97 H 92 H Respiratory Rate 20 20 Blood Pressure 149/68 H Pulse Oximetry 100 100 Oxygen Delivery Method Oxygen Flow Rate 05/09/23 21:34 05/09/23 21:35 05/09/23 21:35 Temperature Pulse Rate 90 87 Respiratory Rate 22 20 Blood Pressure 134/66 Pulse Oximetry 100 100 Oxygen Delivery Method Oxygen Flow Rate 05/09/23 21:36 05/09/23 21:38 05/09/23 21:40 Temperature Pulse Rate 85 83 Respiratory Rate 20 20 Blood Pressure 105/55 L Pulse Oximetry 100 100 Oxygen Delivery Method Oxygen Flow Rate 05/09/23 21:40 05/09/23 21:42 05/09/23 21:44 Temperature Pulse Rate 80 79 77 Respiratory Rate 20 18 18 Blood Pressure Pulse Oximetry 100 100 100 Oxygen Delivery Method Oxygen Flow Rate 05/09/23 21:45 05/09/23 21:45 05/09/23 21:46 Temperature Pulse Rate 76 76 Respiratory Rate 19 18 Blood Pressure 103/56 L Pulse Oximetry 100 100 Oxygen Delivery Method Oxygen Flow Rate 05/09/23 21:48 05/09/23 21:50 05/09/23 21:51 Temperature Pulse Rate 74 77 77 Respiratory Rate 18 23 26 H Blood Pressure Pulse Oximetry 99 100 100 Oxygen Delivery Method Oxygen Flow Rate 05/09/23 21:51 05/09/23 21:52 05/09/23 21:54 Temperature Pulse Rate 80 80 Respiratory Rate 19 17 Blood Pressure 102/57 L Pulse Oximetry 100 100 Oxygen Delivery Method Nasal Cannula Oxygen Flow Rate 2 05/09/23 21:55 05/09/23 22:00 05/09/23 21:55 Temperature 98 F Pulse Rate 80 Respiratory Rate 16 Blood Pressure 99/54 L Pulse Oximetry 100 Oxygen Delivery Method Oxygen Flow Rate 05/09/23 21:56 05/09/23 21:58 05/09/23 22:00 Temperature Pulse Rate 81 80 Respiratory Rate 19 22 Blood Pressure 106/56 L Pulse Oximetry 100 100 Oxygen Delivery Method Oxygen Flow Rate 05/09/23 22:00 05/09/23 22:02 05/09/23 22:04 Temperature Pulse Rate 80 76 75 Respiratory Rate 16 14 14 Blood Pressure Pulse Oximetry 100 100 100 Oxygen Delivery Method Oxygen Flow Rate 05/09/23 22:05 05/09/23 22:05 05/09/23 22:06 Temperature Pulse Rate 74 76 Respiratory Rate Blood Pressure 89/50 L Pulse Oximetry 100 100 Oxygen Delivery Method Oxygen Flow Rate 05/09/23 22:08 05/09/23 22:09 05/09/23 22:10 Temperature Pulse Rate 76 77 Respiratory Rate 14 13 Blood Pressure 90/55 L Pulse Oximetry 100 100 Oxygen Delivery Method Nasal Cannula Oxygen Flow Rate 2 05/09/23 22:10 05/09/23 22:12 05/09/23 22:14 Temperature Pulse Rate 76 79 77 Respiratory Rate 18 22 Blood Pressure Pulse Oximetry 100 100 100 Oxygen Delivery Method Oxygen Flow Rate 05/09/23 22:15 05/09/23 22:15 05/09/23 22:16 Temperature Pulse Rate 78 78 Respiratory Rate Blood Pressure 94/50 L Pulse Oximetry 100 100 Oxygen Delivery Method Oxygen Flow Rate 05/09/23 22:18 05/09/23 22:19 05/09/23 22:20 Temperature Pulse Rate 79 79 Respiratory Rate 17 15 Blood Pressure 90/54 L Pulse Oximetry 100 100 Oxygen Delivery Method Oxygen Flow Rate 05/09/23 22:20 05/09/23 22:22 05/09/23 22:24 Temperature Pulse Rate 79 79 76 Respiratory Rate 18 18 19 Blood Pressure Pulse Oximetry 100 100 100 Oxygen Delivery Method Oxygen Flow Rate 05/09/23 22:25 05/09/23 22:25 05/09/23 22:26 Temperature Pulse Rate 76 76 Respiratory Rate 17 18 Blood Pressure 95/50 L Pulse Oximetry 100 100 Oxygen Delivery Method Oxygen Flow Rate 05/09/23 22:28 05/09/23 22:30 05/09/23 22:30 Temperature Pulse Rate 76 77 Respiratory Rate 15 20 Blood Pressure 99/51 L Pulse Oximetry 100 100 Oxygen Delivery Method Oxygen Flow Rate 05/09/23 22:32 05/09/23 22:34 05/09/23 22:35 Temperature Pulse Rate 77 77 76 Respiratory Rate 18 17 15 Blood Pressure Pulse Oximetry 100 100 100 Oxygen Delivery Method Oxygen Flow Rate 05/09/23 22:35 05/09/23 22:36 05/09/23 22:38 Temperature Pulse Rate 76 77 Respiratory Rate 20 21 Blood Pressure 100/57 L Pulse Oximetry 100 100 Oxygen Delivery Method Oxygen Flow Rate 05/09/23 22:40 05/09/23 22:40 05/09/23 22:42 Temperature Pulse Rate 78 74 Respiratory Rate Blood Pressure 104/59 L Pulse Oximetry 97 98 Oxygen Delivery Method Nasal Cannula Oxygen Flow Rate 2 05/09/23 22:44 05/09/23 22:45 05/09/23 22:45 Temperature Pulse Rate 74 73 Respiratory Rate 21 21 Blood Pressure 106/56 L Pulse Oximetry 98 98 Oxygen Delivery Method Oxygen Flow Rate 05/09/23 22:46 05/09/23 22:49 05/09/23 22:50 Temperature Pulse Rate 75 80 Respiratory Rate 22 24 Blood Pressure 115/54 L Pulse Oximetry 98 99 Oxygen Delivery Method Oxygen Flow Rate 05/09/23 22:50 05/09/23 22:52 05/09/23 22:54 Temperature Pulse Rate 77 75 76 Respiratory Rate 19 20 21 Blood Pressure Pulse Oximetry 98 99 99 Oxygen Delivery Method Oxygen Flow Rate 05/09/23 22:55 05/09/23 22:55 05/09/23 22:56 Temperature Pulse Rate 75 75 Respiratory Rate 20 21 Blood Pressure 121/59 L Pulse Oximetry 99 99 Oxygen Delivery Method Oxygen Flow Rate 05/09/23 22:58 05/09/23 23:00 05/09/23 23:00 Temperature Pulse Rate 77 77 Respiratory Rate 21 21 Blood Pressure 107/56 L Pulse Oximetry 99 99 Oxygen Delivery Method Oxygen Flow Rate 05/09/23 23:02 05/09/23 23:04 05/09/23 23:05 Temperature Pulse Rate 77 78 Respiratory Rate 21 21 Blood Pressure 114/57 L Pulse Oximetry 99 99 Oxygen Delivery Method Nasal Cannula Oxygen Flow Rate 2 05/09/23 23:05 05/09/23 23:06 05/09/23 23:08 Temperature Pulse Rate 79 79 79 Respiratory Rate 21 21 15 Blood Pressure Pulse Oximetry 99 100 100 Oxygen Delivery Method Oxygen Flow Rate 05/09/23 23:10 05/09/23 23:10 05/09/23 23:12 Temperature Pulse Rate 78 78 Respiratory Rate 22 23 Blood Pressure 108/53 L Pulse Oximetry 100 100 Oxygen Delivery Method Oxygen Flow Rate 05/09/23 23:14 05/09/23 23:15 05/09/23 23:15 Temperature Pulse Rate 77 79 Respiratory Rate 22 21 Blood Pressure 112/53 L Pulse Oximetry 100 100 Oxygen Delivery Method Oxygen Flow Rate 05/09/23 23:16 05/09/23 23:18 05/09/23 23:20 Temperature Pulse Rate 79 79 Respiratory Rate 14 Blood Pressure 117/56 L Pulse Oximetry 100 100 Oxygen Delivery Method Nasal Cannula Oxygen Flow Rate 2 05/09/23 23:20 05/09/23 23:22 Temperature Pulse Rate 80 83 Respiratory Rate Blood Pressure Pulse Oximetry 100 98 Oxygen Delivery Method Oxygen Flow Rate Medical Decision Making Medical Records Medical records reviewed: Yes I reviewed the patient's medical records. Lab Data Lab results reviewed: Yes I reviewed the patient's lab results. 05/10/23 01:44 05/09/23 21:31 Labs: Lab Results 05/09/23 05/09/23 05/09/23 Range/Units 19:19 19:19 19:19 WBC 18.0 H (4.5-11.0) X10^3/uL RBC 4.12 L (4.5-5.9) X10^6/uL Hgb 12.7 L (13.5-17.5) g/dL Hct 38.8 L (41-53) % MCV 94.2 (80-100) fL MCH 30.9 (26-34) PG MCHC 32.8 (30-36) % RDW 15.2 H (11.6-14.8) % Plt Count 164 (150-400) X10^3/uL Neut % (Auto) 85.5 H (50-75) % Lymph % (Auto) 8.0 L (25-40) % Dickinson % (Auto) 4.7 (3-14) % Eos % (Auto) 1.3 L (2-4) % Baso % (Auto) 0.5 (0-2) % Neut # (Auto) 49988 H (2744-2151) /uL Lymph # (Auto) 1400 (2464-3464) /uL Dickinson # (Auto) 900 (0-900) /uL Eos # (Auto) 200 (0-450) /uL Baso # (Auto) 100 (0-100) /uL PT (10.1-12.7) SECONDS INR (0.9-1.3) APTT (26-36) SECONDS Sodium 138 (137-145) mmol/L Potassium 3.7 (3.4-5.1) mmol/L Chloride 109 H (98-107) mmol/L Carbon Dioxide 20 L (22-32) mmol/L BUN 29 H (9-20) mg/dL Creatinine 1.72 H (0.66-1.25) mg/dL Estimated GFR 41 L (>60) mL/min BUN/Creatinine Ratio 16.9 (6-22) Glucose 122 H (80-110) mg/dL Lactate 3.0 H (0.7-2.1) mmol/L Calcium 8.0 L (8.4-10.2) mg/dL Magnesium (1.6-2.3) mg/dL Total Bilirubin 0.7 (0.2-1.3) mg/dL AST 22 (17-59) IU/L ALT 25 (<50) IU/L Alkaline Phosphatase 114 (38-126) U/L C-Reactive Protein (<1.0) mg/dL Total Protein 5.8 L (6.3-8.2) g/dL Albumin 3.3 L (3.5-5.0) g/dL Globulin 2.5 (1.7-4.1) g/dL Albumin/Globulin Ratio 1.3 (1.0-2.8) Lipase 749 H (23-300) U/L Procalcitonin (<0.5) ng/mL Urine Color Urine Appearance Urine pH (4.5-8.0) Ur Specific [place] (1.000-1.035) Urine Protein (Negative) Urine Glucose (UA) (Negative) g/dL Urine Ketones (NEGATIVE) Urine Occult Blood (Negative) Urine Nitrate (Negative) Urine Bilirubin (NEGATIVE) Urine Urobilinogen (0.2) E.U./dL Ur Leukocyte Esterase (NEGATIVE) Urine RBC (0-5/HPF) Urine WBC (0-5/HPF) Ur Squamous Epith Cells (0-5/HPF) Ur Transition Epith Cell (0-5/HPF) Urine Bacteria (None) Hyaline Casts (None) Urine Mucus (Negative) Urine Sperm Stl C. cayetanensis PCR (Not Detect) Stool Rotavirus (PCR) (Not Detect) Stool Adenovirus (PCR) (Not Detect) Stool Astrovirus (PCR) (Not Detect) Stool Cryptosporidium PCR (Not Detect) Stl E.coli Shiga Tox PCR (Not Detect) St Sh/Enteroin Ecoli PCR (Not Detect) Stool E coli O157 PCR Stl Enterotoxigenic E PCR (Not Detect) Stool EPEC (PCR) (Not Detect) Stl E. histolytica PCR (Not Detect) Stool Giardia Lamblia PCR (Not Detect) Stool Sapovirus (PCR) (Not Detect) Stl P. shigelloides PCR (Not Detect) St Y.enterocolitica PCR (Not Detect) Stool Vibrio (PCR) (Not Detect) Stl Vibrio cholerae PCR (Not Detect) Stl Enteroaggr Ecoli PCR (Not Detect) Stl Norovirus GI/GII PCR (Not Detect) Campylobacter (PCR) (Not Detect) C. difficile Tox (PCR) (Not Detect) Salmonella (PCR) (Not Detect) 05/09/23 05/09/23 05/09/23 Range/Units 19:19 19:19 19:34 WBC (4.5-11.0) X10^3/uL RBC (4.5-5.9) X10^6/uL Hgb (13.5-17.5) g/dL Hct (41-53) % MCV (80-100) fL MCH (26-34) PG MCHC (30-36) % RDW (11.6-14.8) % Plt Count (150-400) X10^3/uL Neut % (Auto) (50-75) % Lymph % (Auto) (25-40) % Dickinson % (Auto) (3-14) % Eos % (Auto) (2-4) % Baso % (Auto) (0-2) % Neut # (Auto) (5808-4449) /uL Lymph # (Auto) (9318-5089) /uL Dickinson # (Auto) (0-900) /uL Eos # (Auto) (0-450) /uL Baso # (Auto) (0-100) /uL PT 12.0 (10.1-12.7) SECONDS INR 1.0 (0.9-1.3) APTT 27 (26-36) SECONDS Sodium (137-145) mmol/L Potassium (3.4-5.1) mmol/L Chloride (98-107) mmol/L Carbon Dioxide (22-32) mmol/L BUN (9-20) mg/dL Creatinine (0.66-1.25) mg/dL Estimated GFR (>60) mL/min BUN/Creatinine Ratio (6-22) Glucose (80-110) mg/dL Lactate (0.7-2.1) mmol/L Calcium (8.4-10.2) mg/dL Magnesium (1.6-2.3) mg/dL Total Bilirubin (0.2-1.3) mg/dL AST (17-59) IU/L ALT (<50) IU/L Alkaline Phosphatase (38-126) U/L C-Reactive Protein (<1.0) mg/dL Total Protein (6.3-8.2) g/dL Albumin (3.5-5.0) g/dL Globulin (1.7-4.1) g/dL Albumin/Globulin Ratio (1.0-2.8) Lipase (23-300) U/L Procalcitonin 0.16 (<0.5) ng/mL Urine Color Urine Appearance Urine pH (4.5-8.0) Ur Specific [place] (1.000-1.035) Urine Protein (Negative) Urine Glucose (UA) (Negative) g/dL Urine Ketones (NEGATIVE) Urine Occult Blood (Negative) Urine Nitrate (Negative) Urine Bilirubin (NEGATIVE) Urine Urobilinogen (0.2) E.U./dL Ur Leukocyte Esterase (NEGATIVE) Urine RBC (0-5/HPF) Urine WBC (0-5/HPF) Ur Squamous Epith Cells (0-5/HPF) Ur Transition Epith Cell (0-5/HPF) Urine Bacteria (None) Hyaline Casts (None) Urine Mucus (Negative) Urine Sperm Stl C. cayetanensis PCR Not detected (Not Detect) Stool Rotavirus (PCR) Not detected (Not Detect) Stool Adenovirus (PCR) Not detected (Not Detect) Stool Astrovirus (PCR) Not detected (Not Detect) Stool Cryptosporidium PCR Not detected (Not Detect) Stl E.coli Shiga Tox PCR Not detected (Not Detect) St Sh/Enteroin Ecoli PCR Not detected (Not Detect) Stool E coli O157 PCR Not Reportable Stl Enterotoxigenic E PCR Not detected (Not Detect) Stool EPEC (PCR) Not detected (Not Detect) Stl E. histolytica PCR Not detected (Not Detect) Stool Giardia Lamblia PCR Not detected (Not Detect) Stool Sapovirus (PCR) Not detected (Not Detect) Stl P. shigelloides PCR Not detected (Not Detect) St Y.enterocolitica PCR Not detected (Not Detect) Stool Vibrio (PCR) Not detected (Not Detect) Stl Vibrio cholerae PCR Not detected (Not Detect) Stl Enteroaggr Ecoli PCR Not detected (Not Detect) Stl Norovirus GI/GII PCR Not detected (Not Detect) Campylobacter (PCR) Not detected (Not Detect) C. difficile Tox (PCR) Not detected (Not Detect) Salmonella (PCR) Not detected (Not Detect) 05/09/23 05/09/23 05/09/23 Range/Units 21:11 21:31 21:31 WBC 17.1 H (4.5-11.0) X10^3/uL RBC 4.03 L (4.5-5.9) X10^6/uL Hgb 12.8 L (13.5-17.5) g/dL Hct 38.0 L (41-53) % MCV 94.3 (80-100) fL MCH 31.8 (26-34) PG MCHC 33.7 (30-36) % RDW 15.1 H (11.6-14.8) % Plt Count 185 (150-400) X10^3/uL Neut % (Auto) 88.6 H (50-75) % Lymph % (Auto) 5.0 L (25-40) % Dickinson % (Auto) 5.8 (3-14) % Eos % (Auto) 0.2 L (2-4) % Baso % (Auto) 0.4 (0-2) % Neut # (Auto) 06308 H (4597-8198) /uL Lymph # (Auto) 900 L (9928-3819) /uL Dickinson # (Auto) 1000 H (0-900) /uL Eos # (Auto) 0 (0-450) /uL Baso # (Auto) 100 (0-100) /uL PT (10.1-12.7) SECONDS INR (0.9-1.3) APTT (26-36) SECONDS Sodium 137 (137-145) mmol/L Potassium 4.1 (3.4-5.1) mmol/L Chloride 107 (98-107) mmol/L Carbon Dioxide 21 L (22-32) mmol/L BUN 31 H (9-20) mg/dL Creatinine 1.73 H (0.66-1.25) mg/dL Estimated GFR 41 L (>60) mL/min BUN/Creatinine Ratio 17.9 (6-22) Glucose 157 H (80-110) mg/dL Lactate (0.7-2.1) mmol/L Calcium 7.9 L (8.4-10.2) mg/dL Magnesium (1.6-2.3) mg/dL Total Bilirubin (0.2-1.3) mg/dL AST (17-59) IU/L ALT (<50) IU/L Alkaline Phosphatase (38-126) U/L C-Reactive Protein (<1.0) mg/dL Total Protein (6.3-8.2) g/dL Albumin (3.5-5.0) g/dL Globulin (1.7-4.1) g/dL Albumin/Globulin Ratio (1.0-2.8) Lipase (23-300) U/L Procalcitonin (<0.5) ng/mL Urine Color Yellow Urine Appearance Clear Urine pH 5.5 (4.5-8.0) Ur Specific [place] 1.010 (1.000-1.035) Urine Protein 1+ H (Negative) Urine Glucose (UA) Negative (Negative) g/dL Urine Ketones Negative (NEGATIVE) Urine Occult Blood Negative (Negative) Urine Nitrate Negative (Negative) Urine Bilirubin Negative (NEGATIVE) Urine Urobilinogen 1.0 (0.2) E.U./dL Ur Leukocyte Esterase Negative (NEGATIVE) Urine RBC 0-1/hpf D (0-5/HPF) Urine WBC None seen (0-5/HPF) Ur Squamous Epith Cells 0-1 /hpf (0-5/HPF) Ur Transition Epith Cell 1-5/hpf (0-5/HPF) Urine Bacteria None seen (None) Hyaline Casts 1-5/lpf (None) Urine Mucus 1+ H (Negative) Urine Sperm . Stl C. cayetanensis PCR (Not Detect) Stool Rotavirus (PCR) (Not Detect) Stool Adenovirus (PCR) (Not Detect) Stool Astrovirus (PCR) (Not Detect) Stool Cryptosporidium PCR (Not Detect) Stl E.coli Shiga Tox PCR (Not Detect) St Sh/Enteroin Ecoli PCR (Not Detect) Stool E coli O157 PCR Stl Enterotoxigenic E PCR (Not Detect) Stool EPEC (PCR) (Not Detect) Stl E. histolytica PCR (Not Detect) Stool Giardia Lamblia PCR (Not Detect) Stool Sapovirus (PCR) (Not Detect) Stl P. shigelloides PCR (Not Detect) St Y.enterocolitica PCR (Not Detect) Stool Vibrio (PCR) (Not Detect) Stl Vibrio cholerae PCR (Not Detect) Stl Enteroaggr Ecoli PCR (Not Detect) Stl Norovirus GI/GII PCR (Not Detect) Campylobacter (PCR) (Not Detect) C. difficile Tox (PCR) (Not Detect) Salmonella (PCR) (Not Detect) 05/09/23 05/09/23 05/09/23 Range/Units 21:31 21:31 21:31 WBC (4.5-11.0) X10^3/uL RBC (4.5-5.9) X10^6/uL Hgb (13.5-17.5) g/dL Hct (41-53) % MCV (80-100) fL MCH (26-34) PG MCHC (30-36) % RDW (11.6-14.8) % Plt Count (150-400) X10^3/uL Neut % (Auto) (50-75) % Lymph % (Auto) (25-40) % Dickinson % (Auto) (3-14) % Eos % (Auto) (2-4) % Baso % (Auto) (0-2) % Neut # (Auto) (6753-2739) /uL Lymph # (Auto) (0390-9607) /uL Dickinson # (Auto) (0-900) /uL Eos # (Auto) (0-450) /uL Baso # (Auto) (0-100) /uL PT (10.1-12.7) SECONDS INR (0.9-1.3) APTT (26-36) SECONDS Sodium (137-145) mmol/L Potassium (3.4-5.1) mmol/L Chloride (98-107) mmol/L Carbon Dioxide (22-32) mmol/L BUN (9-20) mg/dL Creatinine (0.66-1.25) mg/dL Estimated GFR (>60) mL/min BUN/Creatinine Ratio (6-22) Glucose (80-110) mg/dL Lactate 2.5 H (0.7-2.1) mmol/L Calcium (8.4-10.2) mg/dL Magnesium 2.1 (1.6-2.3) mg/dL Total Bilirubin (0.2-1.3) mg/dL AST (17-59) IU/L ALT (<50) IU/L Alkaline Phosphatase (38-126) U/L C-Reactive Protein 1.1 H (<1.0) mg/dL Total Protein (6.3-8.2) g/dL Albumin (3.5-5.0) g/dL Globulin (1.7-4.1) g/dL Albumin/Globulin Ratio (1.0-2.8) Lipase (23-300) U/L Procalcitonin (<0.5) ng/mL Urine Color Urine Appearance Urine pH (4.5-8.0) Ur Specific [place] (1.000-1.035) Urine Protein (Negative) Urine Glucose (UA) (Negative) g/dL Urine Ketones (NEGATIVE) Urine Occult Blood (Negative) Urine Nitrate (Negative) Urine Bilirubin (NEGATIVE) Urine Urobilinogen (0.2) E.U./dL Ur Leukocyte Esterase (NEGATIVE) Urine RBC (0-5/HPF) Urine WBC (0-5/HPF) Ur Squamous Epith Cells (0-5/HPF) Ur Transition Epith Cell (0-5/HPF) Urine Bacteria (None) Hyaline Casts (None) Urine Mucus (Negative) Urine Sperm Stl C. cayetanensis PCR (Not Detect) Stool Rotavirus (PCR) (Not Detect) Stool Adenovirus (PCR) (Not Detect) Stool Astrovirus (PCR) (Not Detect) Stool Cryptosporidium PCR (Not Detect) Stl E.coli Shiga Tox PCR (Not Detect) St Sh/Enteroin Ecoli PCR (Not Detect) Stool E coli O157 PCR Stl Enterotoxigenic E PCR (Not Detect) Stool EPEC (PCR) (Not Detect) Stl E. histolytica PCR (Not Detect) Stool Giardia Lamblia PCR (Not Detect) Stool Sapovirus (PCR) (Not Detect) Stl P. shigelloides PCR (Not Detect) St Y.enterocolitica PCR (Not Detect) Stool Vibrio (PCR) (Not Detect) Stl Vibrio cholerae PCR (Not Detect) Stl Enteroaggr Ecoli PCR (Not Detect) Stl Norovirus GI/GII PCR (Not Detect) Campylobacter (PCR) (Not Detect) C. difficile Tox (PCR) (Not Detect) Salmonella (PCR) (Not Detect) Point of Care Testing Stool Occult Blood Positive Point of care testing: Point of Care Testing Stool Occult Blood Positive Imaging Data CT scan - abdomen/pelvis: Radiologist's Impression: PROCEDURE:? CT ABDOMEN PELVIS W CON ? INDICATIONS:? Generalized abdominal pain ? TECHNIQUE:? After the administration of IV contrast, axial sections were acquired from the lung bases to the pubic symphysis.? Coronal and sagittal reformats were performed.? For radiation dose reduction, the following was used:? automated exposure control, adjustment of mA and/or kV according to patient size. ? COMPARISON:? Merged With [facility], CT, CT KIDNEY URETER BLADDER (KUB), 09/08/2021, 1:16.? Merged With [facility], CT, CT ABDOMEN PELVIS W CON, 08/18/2019, 17:34. ? FINDINGS:? Image quality:? Excellent.? ? Lung bases:? There is mild dependent atelectasis bilaterally.? ? Heart:? Heart is normal in size.? There is a small hiatal hernia. ? ? ABDOMEN: Liver:? There is diffuse hypoattenuation of the liver consistent with fatty infiltration. Gallbladder:? Within normal limits without calcified gallstones.? ? Biliary ducts:? No biliary ductal dilatation.? ? Pancreas:? Unremarkable.? ? Spleen:? Normal in size.? ? Adrenal Glands:? No adrenal nodules.? ? Kidneys and Ureters:? No hydronephrosis.? ? ? Stomach and Bowel:? Stomach and small bowel are normal in caliber and wall thickness.? There is a thick-walled distended blind ending tubular structure extending inferomedially from the cecum measuring up to 2.1 cm in overall diameter.? The findings are suggestive of a markedly enlarged and thick-walled appendix.? There are postsurgical changes consistent with prior partial sigmoid colon resection with an end to side anastomosis.? Mild segmental wall thickening is demonstrated within the descending colon as well as within the rectum with mild pericolonic fat stranding consistent with an infectious or inflammatory colitis. Peritoneum:? No abnormal intraperitoneal fluid.? No free air.? ? Ventral Wall: ? No hernia.? Abdominal Nodes:? No retroperitoneal or mesenteric adenopathy by size criteria.? Vessels:? Aorta and inferior vena cava are normal in size.? ? PELVIS: Pelvic Organs:? There is mild enlargement of the prostate.? ? Bladder:? Unremarkable.? ? Pelvic Nodes: No enlarged lymph nodes.? Miscellaneous: No inguinal hernias are seen. ? ? ? Bones:? Visualized osseous structures demonstrate no suspicious focal lesions. ? IMPRESSION:? ? 1. Mild segmental wall thickening of the descending colon as well as the rectum with associated mild fat stranding consistent with a colitis. ? 2. Thick-walled blind-ending tubular structure arising from the cecum is suggestive of a markedly thick-walled appendix.? Although there is enhancement, there is a paucity of associated fat stranding and fluid.? The findings may reflect appendicitis but an appendiceal mass cannot be excluded.? Consider follow-up evaluation with oral contrast. ? The findings discussed with Dr. Castillo on 05/09/2023 at 10:02 p.m.. Chest x-ray: Radiologist's Impression: PROCEDURE:? XR CHEST 1V ? INDICATIONS:? post central line ? TECHNIQUE:? One view of the chest was acquired.? ? COMPARISON:? Merged With [facility], , XR CHEST 1V, 08/16/2019, 1:35. ? FINDINGS:? ? Surgical changes and devices:? Right central line is well positioned with the tip in the upper SVC. ? Lungs and pleura:? Lungs are clear.? No pleural effusions or pneumothorax.? ? Mediastinum:? Mediastinal contours appear normal.? Heart size is normal.? ? Bones and chest wall:? No suspicious bony lesions.? Overlying soft tissues appear unremarkable.? ? IMPRESSION:? Interval placement of a right central line with the tip in the upper SVC. ECG Data Attestation: I personally reviewed and interpreted this ECG as follows: Interpretation: Sinus rhythm Ventricular rate 83 Normal axis Normal QRS Occasional PACs Normal QTC No ST T wave changes MDM Narrative Medical decision making narrative: Patient has been alert oriented since arrival here to the emergency department. He has had multiple loose bowel movements that are Hemoccult positive. He is generalized abdominal tenderness. Has colitis on the CT scan and some findings concerning for either acute appendicitis or a mass around the appendix. This was discussed with Dr. Mckinney on-call for General surgery who evaluated the patient here in the emergency department. She recommended admission to the hospital for continued observation and no emergent surgical interventions. Upon arrival patient continued to be hypotensive despite fluids. A right IJ was placed. Patient was started on Levophed we were able to wean this somewhat however unable to completely remove him from the blood pressure support. Initial blood work shows a leukocytosis. Shows kidney disease that is stable for him. Lactate of 3.0. Blood cultures were obtained. Patient was given antibiotics. Repeat labs showed no change in his H&H. His lactate is improving. Kidney function is remaining stable. GI panel was negative. Discussed the case with SAPNA Cottrell the night hospitalist who will admit for further evaluation and treatment. Critical Care Time Critical Care Time Critical Care Time: Yes Total Critical Care Time: 45 Attestation: The high probability of a clinically significant, sudden or life threatening deterioration of the [hemodynamic gastrointestinal] system(s) required my full and direct attention, intervention and personal management. The aggregate critical care time was [45] minutes. This time is in addition to time spent performing reported procedures but includes the following: [x] Data Review and interpretation [x] Patient assessment and monitoring of vital signs [x] Documentation [x] Medication orders and management Discharge Plan Departure Patient Disposition: Admitted As Inpatient Clinical Impression: Colitis, Melena, Hypotension, Abdominal pain Admit Date/Time: 05/09/23 23:23 Admit Provider: Rin Cottrell
[2023-05-09] MEDS: ONDANSETRON 4 MG/2 ML INJ IV ×2 (18:37→21:37)
[2023-05-09] MEDS: SODIUM CHLORIDE 0.9% 1,000 ML 150 ML IV ×2 (18:40→19:35)
[2023-05-09] MEDS: MORPHINE 4 MG/ML INJ IV ×2 (18:47→22:00)
--- NOTE | 2023-05-09 18:59 | DI.RAD.S_ITS ---
PROCEDURE: XR CHEST 1V INDICATIONS: post central line TECHNIQUE: One view of the chest was acquired. COMPARISON: [facility], CR, XR CHEST 1V, 08/16/2019, 1:35. FINDINGS: Surgical changes and devices: Right central line is well positioned with the tip in the upper SVC. Lungs and pleura: Lungs are clear. No pleural effusions or pneumothorax. Mediastinum: Mediastinal contours appear normal. Heart size is normal. Bones and chest wall: No suspicious bony lesions. Overlying soft tissues appear unremarkable. IMPRESSION: Interval placement of a right central line with the tip in the upper SVC. Dictated by: Denis Wilcox M.D. on 05/09/2023 at 18:16 Approved by: Denis Wilcox M.D. on 05/09/2023 at 18:16
--- NOTE | 2023-05-09 19:00 | PC.NURSE ---
NS rate increased to 1000 ml/hr per Jonathan EVANS verbal at bedside
[2023-05-09] MEDS: NOREPINEPHRINE BITARTRATE/D5W 4 MG/250 ML PLAST..BAG 48.478 MG IV (19:24)
[2023-05-09 19:34] LABS: Add Manual Diff / Slide Review NO; Basophils Absolute Auto 100 /uL (0-100); Basophils Percent Auto 0.5 % (0-2); Eosinophils Absolute Auto 200 /uL (0-450); Eosinophils Percent Auto 1.3 % (2-4); Hematocrit 38.8 % (41-53); Hemoglobin 12.7 g/dL (13.5-17.5); Lymphocytes Absolute Auto 1400 /uL (1100-4500); Mean Corpuscular HGB Conc 32.8 % (30-36); Mean Corpuscular Hemoglobin 30.9 PG (26-34); Mean Corpuscular Volume 94.2 fL (80-100); Monocytes Absolute Auto 900 /uL (0-900); Monocytes Percent Auto 4.7 % (3-14); Neutrophils Absolute Auto 15400 /uL (1500-7000); Neutrophils Percent Auto 85.5 % (50-75); Platelet Count 164 X10^3/uL (150-400); Red Blood Cell Count 4.12 X10^6/uL (4.5-5.9); Red Cell Distribution Width 15.2 % (11.6-14.8)
[2023-05-09 19:41] LABS: PTT Partial Thromboplastin Tim 27 SECONDS (26-36)
[2023-05-09 20:03] LABS: Procalcitonin 0.16 ng/mL (<0.5)
[2023-05-09] MEDS: PANTOPRAZOLE 40 MG VIAL IV (20:10)
[2023-05-09] MEDS: cefTRIAXone 1,000 MG in SODIUM CHLORIDE 0.9% 100 ML 200 MG IV (20:10)
[2023-05-09 20:20] LABS: Alanine Aminotransferase 25 IU/L (<50); Albumin 3.3 g/dL (3.5-5.0); Albumin Globulin Ratio 1.3 (1.0-2.8); Alkaline Phosphatase 114 U/L (38-126); Aspartate Aminotransferase 22 IU/L (17-59); BUN Creatinine Ratio 16.9 (6-22); Bilirubin Total 0.7 mg/dL (0.2-1.3); Blood Urea Nitrogen 29 mg/dL (9-20); Carbon Dioxide 20 mmol/L (22-32); Chloride 109 mmol/L (98-107); Estimated Glomerular Filt Rate 41 mL/min (>60); Globulin 2.5 g/dL (1.7-4.1); Glucose 122 mg/dL (80-110); HEMOLYSIS < 15 (0-50); Lipase 749 U/L (23-300); Potassium 3.7 mmol/L (3.4-5.1); Sodium 138 mmol/L (137-145); Total Protein 5.8 g/dL (6.3-8.2)
[2023-05-09 21:15] LABS: Adenovirus F 40/41 Not Detected (Not Detect); Astrovirus Not Detected (Not Detect); Clostridium difficile toxin AB Not Detected (Not Detect); Cryptosporidium Not Detected (Not Detect); Cyclospora cayetanensis Not Detected (Not Detect); Entamoeba histolytica Not Detected (Not Detect); Enteroaggregative E.coli Not Detected (Not Detect); Enteropathogenic E.coli Not Detected (Not Detect); Enterotoxigenic E.coli It/st Not Detected (Not Detect); Giardia lamblia Not Detected (Not Detect); Norovirus GI/GII Not Detected (Not Detect); Plesiomonsa shigelloides Not Detected (Not Detect); Rotavirus A Not Detected (Not Detect); Salmonella Not Detected (Not Detect); Sapovirus Not Detected (Not Detect); Shiga-like toxin-prod E.coli Not Detected (Not Detect); Shigella/Enteroinvasive E.coli Not Detected (Not Detect); Vibrio Not Detected (Not Detect); Vibrio cholerae Not Detected (Not Detect); Yersinia enterocolitica Not Detected (Not Detect)
[2023-05-09 21:28] LABS: Appearance Urine UA CLEAR; Bilirubin Urine UA NEGATIVE (NEGATIVE); Color Urine UA YELLOW; Glucose Urine UA NEGATIVE (Negative); Ketones Urine UA NEGATIVE (NEGATIVE); Leukocyte Esterase Urine UA NEGATIVE (NEGATIVE); Nitrite Urine UA NEGATIVE (Negative); Occult Blood Urine UA NEGATIVE (Negative); Protein Urine UA 1+ (Negative); pH Urine UA 5.5 (4.5-8.0)
[2023-05-09 21:30] LABS: Reflexed Lactate in 2 Hours Y
[2023-05-09 21:38] LABS: Bacteria Urine None Seen; RBC Urine 0-1/HPF (0-5/HPF); Squamous Epithelial Cell Urine 0-1 /HPF (0-5/HPF); Transitional Epi Cells Urine 1-5/HPF (0-5/HPF); WBC Urine None Seen (0-5/HPF)
[2023-05-09 21:39] LABS: Hyaline Casts Urine 1-5/LPF; Mucus Urine 1+ (Negative)
[2023-05-09 21:59] LABS: Add Manual Diff / Slide Review NO; Basophils Absolute Auto 100 /uL (0-100); Basophils Percent Auto 0.4 % (0-2); Eosinophils Absolute Auto 0 /uL (0-450); Eosinophils Percent Auto 0.2 % (2-4); Hemoglobin 12.8 g/dL (13.5-17.5); Lymphocytes Absolute Auto 900 /uL (1100-4500); Mean Corpuscular HGB Conc 33.7 % (30-36); Mean Corpuscular Hemoglobin 31.8 PG (26-34); Mean Corpuscular Volume 94.3 fL (80-100); Monocytes Absolute Auto 1000 /uL (0-900); Monocytes Percent Auto 5.8 % (3-14); Neutrophils Absolute Auto 15200 /uL (1500-7000); Neutrophils Percent Auto 88.6 % (50-75); Platelet Count 185 X10^3/uL (150-400); Red Blood Cell Count 4.03 X10^6/uL (4.5-5.9); Red Cell Distribution Width 15.1 % (11.6-14.8); White Blood Cell Count 17.1 X10^3/uL (4.5-11.0)
[2023-05-09 22:05] LABS: BUN Creatinine Ratio 17.9 (6-22); Blood Urea Nitrogen 31 mg/dL (9-20); Calcium 7.9 mg/dL (8.4-10.2); Carbon Dioxide 21 mmol/L (22-32); Chloride 107 mmol/L (98-107); Estimated Glomerular Filt Rate 41 mL/min (>60); Glucose 157 mg/dL (80-110); HEMOLYSIS 17 (0-50); Potassium 4.1 mmol/L (3.4-5.1); Sodium 137 mmol/L (137-145)
[2023-05-09 22:06] LABS: Lactate (Lactic Acid) 2.5 mmol/L (0.7-2.1)
[2023-05-09 22:07] LABS: Campylobacter Not Detected (Not Detect)
--- NOTE | 2023-05-09 22:55 | PM.CN ---
History of Present Illness Consult details Date Patient Seen: 05/09/23 Time Patient Seen: 22:55 Chief complaint: Syncopal episode Reason for consult: GI bleed/appendiceal mass Requesting provider: Thomas Castillo Narrative: Mr. Crespo is a patient known to Dr. Byrnes who underwent a lap assisted sigmoid colectomy few years ago. He presented to the emergency room today after a syncopal episode which was sustained in the restroom. The patient does not remember much of even entering the restroom or thereafter. He really is not aware of any prodromal symptoms. He was found to be hypotensive in the emergency room and had some abdominal tenderness on exam. Therefore a CT scan was obtained and his stool was noted to be loose and diarrheal and had the appearance of a GI bleed. In addition it was Hemoccult positive. 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 There was also colitis in the descending colon and rectum. There is evidence of normal postsurgical anastomosis. The patient states that he has had a colonoscopy in the past but can not remember the last time he certainly has not had any colonoscopy since his surgery. Additionally his hemoglobin is 12.8 which is down from baseline of 14 and his creatinine today is 1.73 from a baseline previous level of 1.4. Lactic acid is 2.5 Meds Home Medications and Allergies Home Medications Medication Instructions Recorded Confirmed Type allopurinol 100 mg tablet 200 mg PO DAILY ##0 03/12/17 01/26/23 History aspirin 81 mg tablet,delayed 81 mg PO DAILY 08/16/19 01/26/23 History release duloxetine 60 mg capsule,delayed 60 mg PO BEDTIME 08/16/19 01/26/23 History release furosemide 20 mg tablet 20 mg PO DAILY 08/16/19 01/26/23 History loratadine 10 mg capsule 10 mg PO DAILY PRN Seasonal 01/16/20 01/26/23 History allergies, itching lisinopril 20 mg tablet 20 mg PO DAILY 04/23/20 01/26/23 History methocarbamol 750 mg tablet 750 mg PO Q6H PRN spasms #40 tabs 10/10/21 01/26/23 Rx tamsulosin 0.4 mg capsule See Rx Instructions .Route 10/21/22 01/26/23 Rx .COMPLEX #90 caps Allergies Allergy/AdvReac Type Severity Reaction Status Date / Time Sulfa (Sulfonamide Allergy Intermediate Rash Verified 01/26/23 07:50 Antibiotics) [SULFA (SULFONAMIDE ANTIBIOTICS)] Exam Vital Signs (past 8 hours): - 05/09/23 18:13 05/09/23 18:18 05/09/23 18:23 Temperature Pulse Rate 81 80 Respiratory Rate 20 20 Blood Pressure 75/45 L 71/46 L Pulse Oximetry 96 90 L Oxygen Delivery Method Room Air Oxygen Flow Rate 05/09/23 18:23 05/09/23 18:24 05/09/23 18:24 Temperature Pulse Rate 77 78 Respiratory Rate 18 19 Blood Pressure 71/48 L Pulse Oximetry 95 96 Oxygen Delivery Method Oxygen Flow Rate 05/09/23 18:27 05/09/23 18:27 05/09/23 18:30 Temperature Pulse Rate 73 Respiratory Rate 17 Blood Pressure 77/50 L 88/54 L Pulse Oximetry 97 Oxygen Delivery Method Oxygen Flow Rate 05/09/23 18:30 05/09/23 18:41 05/09/23 18:41 Temperature Pulse Rate 74 69 Respiratory Rate 26 H 20 Blood Pressure 103/58 L Pulse Oximetry 97 99 Oxygen Delivery Method Oxygen Flow Rate 05/09/23 18:42 05/09/23 18:42 05/09/23 18:45 Temperature Pulse Rate 65 Respiratory Rate 18 Blood Pressure 97/54 L 100/53 L Pulse Oximetry 99 Oxygen Delivery Method Oxygen Flow Rate 05/09/23 18:45 05/09/23 18:15 05/09/23 18:46 Temperature Pulse Rate 63 81 63 Respiratory Rate 18 20 18 Blood Pressure 75/45 L Pulse Oximetry 99 100 Oxygen Delivery Method Oxygen Flow Rate 05/09/23 18:48 05/09/23 18:48 05/09/23 18:20 Temperature Pulse Rate 61 Respiratory Rate 22 Blood Pressure 93/54 L 74/39 L Pulse Oximetry 95 Oxygen Delivery Method Room Air Oxygen Flow Rate 05/09/23 18:25 05/09/23 18:35 05/09/23 18:52 Temperature Pulse Rate 77 75 74 Respiratory Rate 22 18 20 Blood Pressure 71/48 L 88/54 L 103/58 L Pulse Oximetry 96 96 Oxygen Delivery Method Room Air Room Air Oxygen Flow Rate 05/09/23 18:50 05/09/23 18:51 05/09/23 18:51 Temperature Pulse Rate 62 63 Respiratory Rate 20 22 Blood Pressure 93/51 L Pulse Oximetry 98 95 Oxygen Delivery Method Oxygen Flow Rate 05/09/23 18:52 05/09/23 18:53 05/09/23 18:54 Temperature Pulse Rate 61 62 Respiratory Rate 19 19 Blood Pressure 96/52 L Pulse Oximetry 96 93 Oxygen Delivery Method Oxygen Flow Rate 05/09/23 18:54 05/09/23 18:56 05/09/23 18:57 Temperature Pulse Rate 63 63 64 Respiratory Rate 18 17 19 Blood Pressure Pulse Oximetry 93 94 95 Oxygen Delivery Method Oxygen Flow Rate 05/09/23 18:57 05/09/23 18:58 05/09/23 19:00 Temperature Pulse Rate 65 64 Respiratory Rate 21 17 Blood Pressure 98/53 L Pulse Oximetry 90 L 94 Oxygen Delivery Method Oxygen Flow Rate 05/09/23 19:02 05/09/23 19:04 05/09/23 19:04 Temperature Pulse Rate 62 66 Respiratory Rate 14 19 Blood Pressure 94/51 L Pulse Oximetry 97 98 Oxygen Delivery Method Oxygen Flow Rate 05/09/23 19:06 05/09/23 19:06 05/09/23 19:08 Temperature Pulse Rate 65 Respiratory Rate 20 Blood Pressure 78/43 L 87/52 L Pulse Oximetry 94 Oxygen Delivery Method Oxygen Flow Rate 05/09/23 19:08 05/09/23 19:09 05/09/23 19:09 Temperature Pulse Rate 62 64 Respiratory Rate 20 20 Blood Pressure 100/53 L Pulse Oximetry 90 L 97 Oxygen Delivery Method Oxygen Flow Rate 05/09/23 19:10 05/09/23 19:12 05/09/23 19:12 Temperature Pulse Rate 64 63 Respiratory Rate 20 21 Blood Pressure 120/51 L Pulse Oximetry 96 96 Oxygen Delivery Method Oxygen Flow Rate 05/09/23 19:14 05/09/23 19:15 05/09/23 19:15 Temperature Pulse Rate 64 64 Respiratory Rate 17 16 Blood Pressure 100/55 L Pulse Oximetry 98 94 Oxygen Delivery Method Oxygen Flow Rate 05/09/23 19:16 05/09/23 19:18 05/09/23 19:18 Temperature Pulse Rate 66 66 Respiratory Rate 17 20 Blood Pressure 92/50 L Pulse Oximetry 96 Oxygen Delivery Method Oxygen Flow Rate 05/09/23 19:20 05/09/23 19:21 05/09/23 19:21 Temperature 97.4 F L Pulse Rate 68 70 Respiratory Rate 21 21 Blood Pressure 96/54 L Pulse Oximetry 94 Oxygen Delivery Method Oxygen Flow Rate 05/09/23 19:22 05/09/23 19:24 05/09/23 19:24 Temperature Pulse Rate 68 68 Respiratory Rate 18 17 Blood Pressure 97/53 L Pulse Oximetry 99 77 L Oxygen Delivery Method Oxygen Flow Rate 05/09/23 19:26 05/09/23 19:27 05/09/23 19:27 Temperature Pulse Rate 69 69 Respiratory Rate 18 17 Blood Pressure 87/52 L Pulse Oximetry 83 L 78 L Oxygen Delivery Method Oxygen Flow Rate 05/09/23 19:28 05/09/23 19:30 05/09/23 19:30 Temperature Pulse Rate 69 67 Respiratory Rate 16 18 Blood Pressure 103/56 L Pulse Oximetry 83 L 75 L Oxygen Delivery Method Oxygen Flow Rate 05/09/23 19:32 05/09/23 19:33 05/09/23 19:33 Temperature Pulse Rate 70 71 Respiratory Rate 23 24 Blood Pressure 114/59 L Pulse Oximetry 100 100 Oxygen Delivery Method Oxygen Flow Rate 05/09/23 19:34 05/09/23 19:36 05/09/23 19:36 Temperature Pulse Rate 71 72 Respiratory Rate 23 22 Blood Pressure 120/59 L Pulse Oximetry 100 100 Oxygen Delivery Method Oxygen Flow Rate 05/09/23 19:38 05/09/23 19:39 05/09/23 19:39 Temperature Pulse Rate 71 70 Respiratory Rate 27 H 27 H Blood Pressure 124/63 Pulse Oximetry 97 98 Oxygen Delivery Method Oxygen Flow Rate 05/09/23 19:40 05/09/23 19:42 05/09/23 19:42 Temperature Pulse Rate 70 73 Respiratory Rate 25 H 24 Blood Pressure 129/76 Pulse Oximetry 97 100 Oxygen Delivery Method Nasal Cannula Oxygen Flow Rate 2 05/09/23 19:44 05/09/23 19:46 05/09/23 19:46 Temperature Pulse Rate 74 73 Respiratory Rate 22 27 H Blood Pressure 117/76 Pulse Oximetry 100 98 Oxygen Delivery Method Oxygen Flow Rate 05/09/23 19:48 05/09/23 19:50 05/09/23 19:52 Temperature Pulse Rate 71 79 Respiratory Rate 24 29 H Blood Pressure 134/104 H Pulse Oximetry 100 97 Oxygen Delivery Method Oxygen Flow Rate 05/09/23 19:52 05/09/23 19:54 05/09/23 19:55 Temperature Pulse Rate 82 77 74 Respiratory Rate 28 H 26 H 25 H Blood Pressure Pulse Oximetry 99 100 100 Oxygen Delivery Method Oxygen Flow Rate 05/09/23 19:55 05/09/23 19:56 05/09/23 19:57 Temperature Pulse Rate 113 H Respiratory Rate 27 H Blood Pressure 141/63 H 115/56 L Pulse Oximetry 100 Oxygen Delivery Method Oxygen Flow Rate 05/09/23 19:57 05/09/23 19:58 05/09/23 19:30 Temperature 97.4 F L Pulse Rate 75 95 H Respiratory Rate 20 28 H Blood Pressure Pulse Oximetry 100 100 Oxygen Delivery Method Oxygen Flow Rate 05/09/23 21:03 05/09/23 20:00 05/09/23 20:02 Temperature 98 F Pulse Rate 127 H 76 Respiratory Rate 26 H 25 H Blood Pressure Pulse Oximetry 100 99 Oxygen Delivery Method Oxygen Flow Rate 05/09/23 20:03 05/09/23 20:03 05/09/23 20:04 Temperature Pulse Rate 72 72 Respiratory Rate 25 H 21 Blood Pressure 125/60 Pulse Oximetry 99 100 Oxygen Delivery Method Nasal Cannula Oxygen Flow Rate 2 05/09/23 20:06 05/09/23 20:06 05/09/23 20:08 Temperature Pulse Rate 73 79 Respiratory Rate 16 34 H Blood Pressure 129/56 L Pulse Oximetry 100 96 Oxygen Delivery Method Oxygen Flow Rate 05/09/23 20:09 05/09/23 20:09 05/09/23 20:10 Temperature Pulse Rate 74 73 Respiratory Rate 24 22 Blood Pressure 138/62 Pulse Oximetry 98 99 Oxygen Delivery Method Oxygen Flow Rate 05/09/23 20:12 05/09/23 20:13 05/09/23 20:13 Temperature Pulse Rate 71 72 Respiratory Rate 15 23 Blood Pressure 118/58 L Pulse Oximetry 98 98 Oxygen Delivery Method Oxygen Flow Rate 05/09/23 20:14 05/09/23 20:16 05/09/23 20:16 Temperature Pulse Rate 72 72 Respiratory Rate 21 20 Blood Pressure 123/57 L Pulse Oximetry 98 98 Oxygen Delivery Method Oxygen Flow Rate 05/09/23 20:18 05/09/23 20:18 05/09/23 20:20 Temperature Pulse Rate 71 71 Respiratory Rate 18 19 Blood Pressure 106/57 L Pulse Oximetry 98 98 Oxygen Delivery Method Oxygen Flow Rate 05/09/23 20:21 05/09/23 20:21 05/09/23 20:22 Temperature Pulse Rate 71 70 Respiratory Rate 17 14 Blood Pressure 115/58 L Pulse Oximetry 99 100 Oxygen Delivery Method Oxygen Flow Rate 05/09/23 20:24 05/09/23 20:24 05/09/23 20:26 Temperature Pulse Rate 70 70 Respiratory Rate 16 19 Blood Pressure 115/59 L Pulse Oximetry 99 100 Oxygen Delivery Method Oxygen Flow Rate 05/09/23 20:27 05/09/23 20:27 05/09/23 20:28 Temperature Pulse Rate 71 74 Respiratory Rate 18 16 Blood Pressure 115/57 L Pulse Oximetry 100 99 Oxygen Delivery Method Oxygen Flow Rate 05/09/23 20:30 05/09/23 20:34 05/09/23 20:36 Temperature Pulse Rate 72 74 75 Respiratory Rate 27 H Blood Pressure Pulse Oximetry 93 100 100 Oxygen Delivery Method Oxygen Flow Rate 05/09/23 20:38 05/09/23 20:40 05/09/23 20:42 Temperature Pulse Rate 75 75 74 Respiratory Rate 20 19 16 Blood Pressure Pulse Oximetry 95 95 Oxygen Delivery Method Oxygen Flow Rate 05/09/23 20:44 05/09/23 20:46 05/09/23 20:48 Temperature Pulse Rate 74 73 79 Respiratory Rate 17 16 18 Blood Pressure Pulse Oximetry 95 94 91 Oxygen Delivery Method Oxygen Flow Rate 05/09/23 20:50 05/09/23 20:52 05/09/23 20:53 Temperature Pulse Rate 82 81 81 Respiratory Rate 18 21 21 Blood Pressure Pulse Oximetry 89 L Oxygen Delivery Method Oxygen Flow Rate 05/09/23 20:53 05/09/23 20:54 05/09/23 20:54 Temperature Pulse Rate 82 Respiratory Rate 20 Blood Pressure 116/58 L 116/58 L Pulse Oximetry Oxygen Delivery Method Oxygen Flow Rate 05/09/23 20:55 05/09/23 20:55 05/09/23 20:56 Temperature Pulse Rate 82 82 Respiratory Rate 17 19 Blood Pressure 121/53 L Pulse Oximetry Oxygen Delivery Method Oxygen Flow Rate 05/09/23 20:58 05/09/23 21:00 05/09/23 21:00 Temperature Pulse Rate 80 79 Respiratory Rate 19 20 Blood Pressure 124/58 L Pulse Oximetry 99 Oxygen Delivery Method Oxygen Flow Rate 05/09/23 21:02 05/09/23 21:04 05/09/23 21:05 Temperature Pulse Rate 79 77 77 Respiratory Rate 13 16 17 Blood Pressure Pulse Oximetry 99 99 99 Oxygen Delivery Method Oxygen Flow Rate 05/09/23 21:05 05/09/23 21:06 05/09/23 21:08 Temperature Pulse Rate 77 78 Respiratory Rate 17 22 Blood Pressure 117/56 L Pulse Oximetry 99 99 Oxygen Delivery Method Oxygen Flow Rate 05/09/23 21:10 05/09/23 21:10 05/09/23 21:12 Temperature Pulse Rate 80 79 Respiratory Rate 19 18 Blood Pressure 115/57 L Pulse Oximetry 99 100 Oxygen Delivery Method Oxygen Flow Rate 05/09/23 21:14 05/09/23 21:15 05/09/23 21:15 Temperature Pulse Rate 77 77 Respiratory Rate 17 19 Blood Pressure 126/60 Pulse Oximetry 100 100 Oxygen Delivery Method Nasal Cannula Oxygen Flow Rate 2 05/09/23 21:16 05/09/23 21:18 05/09/23 21:20 Temperature Pulse Rate 76 75 Respiratory Rate 19 19 Blood Pressure 124/58 L Pulse Oximetry 99 100 Oxygen Delivery Method Oxygen Flow Rate 05/09/23 21:20 05/09/23 21:22 05/09/23 21:24 Temperature Pulse Rate 75 77 77 Respiratory Rate 18 19 17 Blood Pressure Pulse Oximetry 100 100 100 Oxygen Delivery Method Oxygen Flow Rate 05/09/23 21:25 05/09/23 21:25 05/09/23 21:26 Temperature Pulse Rate 76 78 Respiratory Rate 19 17 Blood Pressure 121/59 L Pulse Oximetry 100 100 Oxygen Delivery Method Oxygen Flow Rate 05/09/23 21:28 05/09/23 21:30 05/09/23 21:30 Temperature Pulse Rate 96 H 97 H Respiratory Rate 22 20 Blood Pressure 149/68 H Pulse Oximetry 99 100 Oxygen Delivery Method Oxygen Flow Rate 05/09/23 21:32 05/09/23 21:34 05/09/23 21:35 Temperature Pulse Rate 92 H 90 Respiratory Rate 20 22 Blood Pressure 134/66 Pulse Oximetry 100 100 Oxygen Delivery Method Oxygen Flow Rate 05/09/23 21:35 05/09/23 21:36 05/09/23 21:38 Temperature Pulse Rate 87 85 83 Respiratory Rate 20 20 20 Blood Pressure Pulse Oximetry 100 100 100 Oxygen Delivery Method Oxygen Flow Rate 05/09/23 21:40 05/09/23 21:40 05/09/23 21:42 Temperature Pulse Rate 80 79 Respiratory Rate 20 18 Blood Pressure 105/55 L Pulse Oximetry 100 100 Oxygen Delivery Method Oxygen Flow Rate 05/09/23 21:44 05/09/23 21:45 05/09/23 21:45 Temperature Pulse Rate 77 76 Respiratory Rate 18 19 Blood Pressure 103/56 L Pulse Oximetry 100 100 Oxygen Delivery Method Oxygen Flow Rate 05/09/23 21:46 05/09/23 21:48 05/09/23 21:50 Temperature Pulse Rate 76 74 77 Respiratory Rate 18 18 23 Blood Pressure Pulse Oximetry 100 99 100 Oxygen Delivery Method Oxygen Flow Rate 05/09/23 21:51 05/09/23 21:51 05/09/23 21:52 Temperature Pulse Rate 77 80 Respiratory Rate 26 H 19 Blood Pressure 102/57 L Pulse Oximetry 100 100 Oxygen Delivery Method Oxygen Flow Rate 05/09/23 21:54 05/09/23 21:55 05/09/23 22:00 Temperature 98 F Pulse Rate 80 Respiratory Rate 17 Blood Pressure 99/54 L Pulse Oximetry 100 Oxygen Delivery Method Nasal Cannula Oxygen Flow Rate 2 05/09/23 21:55 05/09/23 21:56 05/09/23 21:58 Temperature Pulse Rate 80 81 80 Respiratory Rate 16 19 22 Blood Pressure Pulse Oximetry 100 100 100 Oxygen Delivery Method Oxygen Flow Rate 05/09/23 22:00 05/09/23 22:00 05/09/23 22:02 Temperature Pulse Rate 80 76 Respiratory Rate 16 14 Blood Pressure 106/56 L Pulse Oximetry 100 100 Oxygen Delivery Method Oxygen Flow Rate 05/09/23 22:04 05/09/23 22:05 05/09/23 22:05 Temperature Pulse Rate 75 74 Respiratory Rate 14 Blood Pressure 89/50 L Pulse Oximetry 100 100 Oxygen Delivery Method Oxygen Flow Rate 05/09/23 22:06 05/09/23 22:08 05/09/23 22:09 Temperature Pulse Rate 76 76 77 Respiratory Rate 14 13 Blood Pressure Pulse Oximetry 100 100 100 Oxygen Delivery Method Nasal Cannula Oxygen Flow Rate 2 05/09/23 22:10 05/09/23 22:10 05/09/23 22:12 Temperature Pulse Rate 76 79 Respiratory Rate 18 22 Blood Pressure 90/55 L Pulse Oximetry 100 100 Oxygen Delivery Method Oxygen Flow Rate 05/09/23 22:14 05/09/23 22:15 05/09/23 22:15 Temperature Pulse Rate 77 78 Respiratory Rate Blood Pressure 94/50 L Pulse Oximetry 100 100 Oxygen Delivery Method Oxygen Flow Rate 05/09/23 22:16 05/09/23 22:18 05/09/23 22:19 Temperature Pulse Rate 78 79 79 Respiratory Rate 17 15 Blood Pressure Pulse Oximetry 100 100 100 Oxygen Delivery Method Oxygen Flow Rate 05/09/23 22:20 05/09/23 22:20 05/09/23 22:22 Temperature Pulse Rate 79 79 Respiratory Rate 18 18 Blood Pressure 90/54 L Pulse Oximetry 100 100 Oxygen Delivery Method Oxygen Flow Rate 05/09/23 22:24 05/09/23 22:25 05/09/23 22:25 Temperature Pulse Rate 76 76 Respiratory Rate 19 17 Blood Pressure 95/50 L Pulse Oximetry 100 100 Oxygen Delivery Method Oxygen Flow Rate 05/09/23 22:26 05/09/23 22:28 05/09/23 22:30 Temperature Pulse Rate 76 76 Respiratory Rate 18 15 Blood Pressure 99/51 L Pulse Oximetry 100 100 Oxygen Delivery Method Oxygen Flow Rate 05/09/23 22:30 05/09/23 22:32 05/09/23 22:34 Temperature Pulse Rate 77 77 77 Respiratory Rate 20 18 17 Blood Pressure Pulse Oximetry 100 100 100 Oxygen Delivery Method Oxygen Flow Rate 05/09/23 22:35 05/09/23 22:35 05/09/23 22:36 Temperature Pulse Rate 76 76 Respiratory Rate 15 20 Blood Pressure 100/57 L Pulse Oximetry 100 100 Oxygen Delivery Method Oxygen Flow Rate 05/09/23 22:38 05/09/23 22:40 05/09/23 22:40 Temperature Pulse Rate 77 78 Respiratory Rate 21 Blood Pressure 104/59 L Pulse Oximetry 100 97 Oxygen Delivery Method Oxygen Flow Rate 05/09/23 22:42 Temperature Pulse Rate 74 Respiratory Rate Blood Pressure Pulse Oximetry 98 Oxygen Delivery Method Nasal Cannula Oxygen Flow Rate 2 Oxygen Delivery Method Nasal Cannula Oxygen Flow Rate 2 Const General: cooperative, No acute distress and lethargic Nutritional Appearance: obese Orientation: awake, oriented to person, oriented to place and oriented to time HENMT Mouth: mucous membranes abnormal (Dry) Eyes General: appearance normal, both eyes and all related structures Resp Effort & Inspection: normal respiratory effort and able to speak in complete sentences GI Palpation: soft, hernia (Small umbilical hernia located above the surgical incision below) and tender (Mild tenderness bilateral lower quadrants and suprapubic. No peritoneal si) Extrem Other: Bilateral lower extremities with mild bilateral edema no tenderness. Objective Labs 05/09/23 21:31 05/09/23 21:31 Labs: Laboratory Results - last 24 hr 05/09/23 05/09/23 05/09/23 19:19 19:19 19:19 WBC 18.0 H RBC 4.12 L Hgb 12.7 L Hct 38.8 L MCV 94.2 MCH 30.9 MCHC 32.8 RDW 15.2 H Plt Count 164 Neut % (Auto) 85.5 H Lymph % (Auto) 8.0 L [place] % (Auto) 4.7 Eos % (Auto) 1.3 L Baso % (Auto) 0.5 Neut # (Auto) 11246 H Lymph # (Auto) 1400 [place] # (Auto) 900 Eos # (Auto) 200 Baso # (Auto) 100 PT INR APTT Sodium 138 Potassium 3.7 Chloride 109 H Carbon Dioxide 20 L BUN 29 H Creatinine 1.72 H Estimated GFR 41 L BUN/Creatinine Ratio 16.9 Glucose 122 H Lactate 3.0 H Calcium 8.0 L Total Bilirubin 0.7 AST 22 ALT 25 Alkaline Phosphatase 114 Total Protein 5.8 L Albumin 3.3 L Globulin 2.5 Albumin/Globulin Ratio 1.3 Lipase 749 H Procalcitonin Urine Color Urine Appearance Urine pH Ur Specific [place] Urine Protein Urine Glucose (UA) Urine Ketones Urine Occult Blood Urine Nitrate Urine Bilirubin Urine Urobilinogen Ur Leukocyte Esterase Urine RBC Urine WBC Ur Squamous Epith Cells Ur Transition Epith Cell Urine Bacteria Hyaline Casts Urine Mucus Urine Sperm Stl C. cayetanensis PCR Stool Rotavirus (PCR) Stool Adenovirus (PCR) Stool Astrovirus (PCR) Stool Cryptosporidium PCR Stl E.coli Shiga Tox PCR St Sh/Enteroin Ecoli PCR Stool E coli O157 PCR Stl Enterotoxigenic E PCR Stool EPEC (PCR) Stl E. histolytica PCR Stool Giardia Lamblia PCR Stool Sapovirus (PCR) Stl P. shigelloides PCR St Y.enterocolitica PCR Stool Vibrio (PCR) Stl Vibrio cholerae PCR Stl Enteroaggr Ecoli PCR Stl Norovirus GI/GII PCR Campylobacter (PCR) C. difficile Tox (PCR) Salmonella (PCR) 05/09/23 05/09/23 05/09/23 19:19 19:19 19:34 WBC RBC Hgb Hct MCV MCH MCHC RDW Plt Count Neut % (Auto) Lymph % (Auto) [place] % (Auto) Eos % (Auto) Baso % (Auto) Neut # (Auto) Lymph # (Auto) [place] # (Auto) Eos # (Auto) Baso # (Auto) PT 12.0 INR 1.0 APTT 27 Sodium Potassium Chloride Carbon Dioxide BUN Creatinine Estimated GFR BUN/Creatinine Ratio Glucose Lactate Calcium Total Bilirubin AST ALT Alkaline Phosphatase Total Protein Albumin Globulin Albumin/Globulin Ratio Lipase Procalcitonin 0.16 Urine Color Urine Appearance Urine pH Ur Specific [place] Urine Protein Urine Glucose (UA) Urine Ketones Urine Occult Blood Urine Nitrate Urine Bilirubin Urine Urobilinogen Ur Leukocyte Esterase Urine RBC Urine WBC Ur Squamous Epith Cells Ur Transition Epith Cell Urine Bacteria Hyaline Casts Urine Mucus Urine Sperm Stl C. cayetanensis PCR Not detected Stool Rotavirus (PCR) Not detected Stool Adenovirus (PCR) Not detected Stool Astrovirus (PCR) Not detected Stool Cryptosporidium PCR Not detected Stl E.coli Shiga Tox PCR Not detected St Sh/Enteroin Ecoli PCR Not detected Stool E coli O157 PCR Not Reportable Stl Enterotoxigenic E PCR Not detected Stool EPEC (PCR) Not detected Stl E. histolytica PCR Not detected Stool Giardia Lamblia PCR Not detected Stool Sapovirus (PCR) Not detected Stl P. shigelloides PCR Not detected St Y.enterocolitica PCR Not detected Stool Vibrio (PCR) Not detected Stl Vibrio cholerae PCR Not detected Stl Enteroaggr Ecoli PCR Not detected Stl Norovirus GI/GII PCR Not detected Campylobacter (PCR) Not detected C. difficile Tox (PCR) Not detected Salmonella (PCR) Not detected 05/09/23 05/09/23 05/09/23 21:11 21:31 21:31 WBC 17.1 H RBC 4.03 L Hgb 12.8 L Hct 38.0 L MCV 94.3 MCH 31.8 MCHC 33.7 RDW 15.1 H Plt Count 185 Neut % (Auto) 88.6 H Lymph % (Auto) 5.0 L [place] % (Auto) 5.8 Eos % (Auto) 0.2 L Baso % (Auto) 0.4 Neut # (Auto) 50433 H Lymph # (Auto) 900 L [place] # (Auto) 1000 H Eos # (Auto) 0 Baso # (Auto) 100 PT INR APTT Sodium 137 Potassium 4.1 Chloride 107 Carbon Dioxide 21 L BUN 31 H Creatinine 1.73 H Estimated GFR 41 L BUN/Creatinine Ratio 17.9 Glucose 157 H Lactate Calcium 7.9 L Total Bilirubin AST ALT Alkaline Phosphatase Total Protein Albumin Globulin Albumin/Globulin Ratio Lipase Procalcitonin Urine Color Yellow Urine Appearance Clear Urine pH 5.5 Ur Specific [place] 1.010 Urine Protein 1+ H Urine Glucose (UA) Negative Urine Ketones Negative Urine Occult Blood Negative Urine Nitrate Negative Urine Bilirubin Negative Urine Urobilinogen 1.0 Ur Leukocyte Esterase Negative Urine RBC 0-1/hpf D Urine WBC None seen Ur Squamous Epith Cells 0-1 /hpf Ur Transition Epith Cell 1-5/hpf Urine Bacteria None seen Hyaline Casts 1-5/lpf Urine Mucus 1+ H Urine Sperm . Stl C. cayetanensis PCR Stool Rotavirus (PCR) Stool Adenovirus (PCR) Stool Astrovirus (PCR) Stool Cryptosporidium PCR Stl E.coli Shiga Tox PCR St Sh/Enteroin Ecoli PCR Stool E coli O157 PCR Stl Enterotoxigenic E PCR Stool EPEC (PCR) Stl E. histolytica PCR Stool Giardia Lamblia PCR Stool Sapovirus (PCR) Stl P. shigelloides PCR St Y.enterocolitica PCR Stool Vibrio (PCR) Stl Vibrio cholerae PCR Stl Enteroaggr Ecoli PCR Stl Norovirus GI/GII PCR Campylobacter (PCR) C. difficile Tox (PCR) Salmonella (PCR) 05/09/23 21:31 WBC RBC Hgb Hct MCV MCH MCHC RDW Plt Count Neut % (Auto) Lymph % (Auto) [place] % (Auto) Eos % (Auto) Baso % (Auto) Neut # (Auto) Lymph # (Auto) [place] # (Auto) Eos # (Auto) Baso # (Auto) PT INR APTT Sodium Potassium Chloride Carbon Dioxide BUN Creatinine Estimated GFR BUN/Creatinine Ratio Glucose Lactate 2.5 H Calcium Total Bilirubin AST ALT Alkaline Phosphatase Total Protein Albumin Globulin Albumin/Globulin Ratio Lipase Procalcitonin Urine Color Urine Appearance Urine pH Ur Specific [place] Urine Protein Urine Glucose (UA) Urine Ketones Urine Occult Blood Urine Nitrate Urine Bilirubin Urine Urobilinogen Ur Leukocyte Esterase Urine RBC Urine WBC Ur Squamous Epith Cells Ur Transition Epith Cell Urine Bacteria Hyaline Casts Urine Mucus Urine Sperm Stl C. cayetanensis PCR Stool Rotavirus (PCR) Stool Adenovirus (PCR) Stool Astrovirus (PCR) Stool Cryptosporidium PCR Stl E.coli Shiga Tox PCR St Sh/Enteroin Ecoli PCR Stool E coli O157 PCR Stl Enterotoxigenic E PCR Stool EPEC (PCR) Stl E. histolytica PCR Stool Giardia Lamblia PCR Stool Sapovirus (PCR) Stl P. shigelloides PCR St Y.enterocolitica PCR Stool Vibrio (PCR) Stl Vibrio cholerae PCR Stl Enteroaggr Ecoli PCR Stl Norovirus GI/GII PCR Campylobacter (PCR) C. difficile Tox (PCR) Salmonella (PCR) [facility] Medical History (Updated 05/09/23 @ 23:40 by Rhonda Mckinney MD) BPH w urinary obs/LUTS Cardiac murmur CKD (chronic kidney disease), stage III Constipation Diverticulosis GERD (gastroesophageal reflux disease) Gout Hypertension Neuropathy GERALD on CPAP Peripheral edema Sepsis (08/2019) Tinnitus Urethral stricture in male Surgical History History of arthroscopy of both knees Hx of bilateral cataract extraction Social History household members: spouse Tobacco & Substance Use Smoking Status: Former smoker alcohol intake: current Assessment & Plan Assessment and plan (1) Melena: Status: Acute (2) Hypotension: Status: Acute (3) Abdominal pain: Status: Acute (4) Mass of appendix: Status: Acute Assessment & Plan narrative: This patient has colitis and a suspicious mass in his appendix. He should have a colonoscopy. When he is able to tolerate a prep I think we can add him to schedule generally I find it to be difficult to do an unprepped colonoscopy in the setting of GI bleeding. Something about this presentation seems little bit atypical and I am not sure if that appendiceal mass does represent colon cancer perhaps he has an inflammatory bowel disease that puts him at risk such as ulcerative colitis? In either case the surgical services happy to follow along please do not hesitate to call us with any questions or concerns otherwise we will help with arranging a colonoscopy when the time seems right.
--- NOTE | 2023-05-09 23:43 | P.HP_ITS ---
History of Present Illness History of Present Illness Date Patient Seen: 05/09/23 Time Patient Seen: 23:43 Chief complaint: Sepsis w/shock, upper GI Bleed, Colitis Narrative: Jhoan Ch is a 72-year-old male with a past medical history HTN, gout, pancreatitis, CKD stage 3, GERALD with CPAP, neuropathy, peripheral edema, BPH with lower tract involvement and multiple vulvar urethral strictures, history of diverticulitis and colon resection, DVT x2 1-2 weeks ago on Lovenox. Patient brought into the ED today via EMS following a syncopal episode while on the commode. Patient had no recall of the events prior to arrival. Patient was hypotensive in the field systolics in the 40s, in ED systolics in the 70s, temp 97.4?, HR 70, 21, 94% on 2L NC. B/P did not improve with fluid resuscitation patient was subsequently placed on Levophed via Central line placed. Patient had multiple large melena bowel movements in ED, hemoccult was positive, on- going Nausea & vomiting,complains of generalized abdominal tenderness on exam. He denies any prodromal symptoms. CT scan was obtained and his stool was noted to be loose and diarrheal and had the appearance of a GI bleed, relatively large 2.1 cm blind ending pouch coming off the cecum at the location where you would expect the appendix.? There was also colitis in the descending colon and rectum.? There is evidence of normal postsurgical anastomosis. Dr. Mckinney general surgery was called to consult in ED. On admit patient reports that he was DX with DVT x2 at [facility] in [place] proximally 1- 2 weeks ago and is currently on Lovenox 120 mg b.i.d.. He has also had WISEMAN on & off for the past 2 weeks His hematuria, nausea vomiting and melena with diarrhea started today he is unable to recall how many large bloody bowel movements he is had. At the time of admit he had a 100cc bright red bloody BM, his diffuse abd pain with distention continues, sensative to very mild palpation. He is alert & orientated x3. He denies chest pain, shortness in breath, changes in vision, difficulty swallowing, speech impairment, weakness, numbness, tingling, difficulty with ambulation, recent falls, head injury, feve r, body aches, chills, cough, recent exposure to illness, urinary incontinence/retention, dysuria, frequency, urgency, hematuria, rashes, recent changes to medication, illness, injury, or trauma. Initial vitals at time of admit: Temp 98?, 107/56 Levophed 4 mcg, 77, 21, 99% on 2 L. initial labs prior to fluid resuscitation & levaphed: WBC 18,neut 15,400, H&H 12/38 lactate 3, chloride 109, CO2 20, BUN 29, creatinine 1.72, GFR 41. CXR: Negative for acute process, central line in place. I personally reviewed imaging and EKG: NS at a rate of 83 with PACs, low-voltage QRS. Patient admitted with sepsis with septic shock secondary to blood loss from GI bleed, colitis. [facility] Medical History BPH w urinary obs/LUTS Cardiac murmur CKD (chronic kidney disease), stage III Constipation Diverticulosis GERD (gastroesophageal reflux disease) Gout Hypertension Neuropathy GERALD on CPAP Peripheral edema Sepsis (08/2019) Tinnitus Urethral stricture in male Surgical History History of arthroscopy of both knees Hx of bilateral cataract extraction Social History household members: spouse Smoking Status: Former smoker alcohol intake: current Meds Home Medications and Allergies Home Medications Medication Instructions Recorded Confirmed Type allopurinol 100 mg tablet 200 mg PO DAILY ##0 03/12/17 05/10/23 History duloxetine 60 mg capsule,delayed 60 mg PO BEDTIME 08/16/19 05/10/23 History release furosemide 20 mg tablet 20 mg PO DAILY 08/16/19 05/10/23 History loratadine 10 mg capsule 10 mg PO DAILY PRN Seasonal 01/16/20 05/10/23 History allergies, itching lisinopril 20 mg tablet 20 mg PO DAILY 04/23/20 05/10/23 History methocarbamol 750 mg tablet 750 mg PO Q6H PRN spasms #40 tabs 10/10/21 05/10/23 Rx tamsulosin 0.4 mg capsule See Rx Instructions .Route 10/21/22 05/10/23 Rx .COMPLEX #90 caps Allergies Allergy/AdvReac Type Severity Reaction Status Date / Time Sulfa (Sulfonamide Allergy Intermediate Rash Verified 01/26/23 07:50 Antibiotics) [SULFA (SULFONAMIDE ANTIBIOTICS)] Review of Systems Review of Systems Narrative: All 12 point systems reviewed with the patient and are negative except otherwise documented. Exam Vital Signs (past 8 hours): - 05/09/23 18:13 05/09/23 18:18 05/09/23 18:23 Temperature Pulse Rate 81 80 Respiratory Rate 20 20 Blood Pressure 75/45 L 71/46 L Pulse Oximetry 96 90 L Oxygen Delivery Method Room Air Oxygen Flow Rate 05/09/23 18:23 05/09/23 18:24 05/09/23 18:24 Temperature Pulse Rate 77 78 Respiratory Rate 18 19 Blood Pressure 71/48 L Pulse Oximetry 95 96 Oxygen Delivery Method Oxygen Flow Rate 05/09/23 18:27 05/09/23 18:27 05/09/23 18:30 Temperature Pulse Rate 73 Respiratory Rate 17 Blood Pressure 77/50 L 88/54 L Pulse Oximetry 97 Oxygen Delivery Method Oxygen Flow Rate 05/09/23 18:30 05/09/23 18:41 05/09/23 18:41 Temperature Pulse Rate 74 69 Respiratory Rate 26 H 20 Blood Pressure 103/58 L Pulse Oximetry 97 99 Oxygen Delivery Method Oxygen Flow Rate 05/09/23 18:42 05/09/23 18:42 05/09/23 18:45 Temperature Pulse Rate 65 Respiratory Rate 18 Blood Pressure 97/54 L 100/53 L Pulse Oximetry 99 Oxygen Delivery Method Oxygen Flow Rate 05/09/23 18:45 05/09/23 18:15 05/09/23 18:46 Temperature Pulse Rate 63 81 63 Respiratory Rate 18 20 18 Blood Pressure 75/45 L Pulse Oximetry 99 100 Oxygen Delivery Method Oxygen Flow Rate 05/09/23 18:48 05/09/23 18:48 05/09/23 18:20 Temperature Pulse Rate 61 Respiratory Rate 22 Blood Pressure 93/54 L 74/39 L Pulse Oximetry 95 Oxygen Delivery Method Room Air Oxygen Flow Rate 05/09/23 18:25 05/09/23 18:35 05/09/23 18:52 Temperature Pulse Rate 77 75 74 Respiratory Rate 22 18 20 Blood Pressure 71/48 L 88/54 L 103/58 L Pulse Oximetry 96 96 Oxygen Delivery Method Room Air Room Air Oxygen Flow Rate 05/09/23 18:50 05/09/23 18:51 05/09/23 18:51 Temperature Pulse Rate 62 63 Respiratory Rate 20 22 Blood Pressure 93/51 L Pulse Oximetry 98 95 Oxygen Delivery Method Oxygen Flow Rate 05/09/23 18:52 05/09/23 18:53 05/09/23 18:54 Temperature Pulse Rate 61 62 Respiratory Rate 19 19 Blood Pressure 96/52 L Pulse Oximetry 96 93 Oxygen Delivery Method Oxygen Flow Rate 05/09/23 18:54 05/09/23 18:56 05/09/23 18:57 Temperature Pulse Rate 63 63 64 Respiratory Rate 18 17 19 Blood Pressure Pulse Oximetry 93 94 95 Oxygen Delivery Method Oxygen Flow Rate 05/09/23 18:57 05/09/23 18:58 05/09/23 19:00 Temperature Pulse Rate 65 64 Respiratory Rate 21 17 Blood Pressure 98/53 L Pulse Oximetry 90 L 94 Oxygen Delivery Method Oxygen Flow Rate 05/09/23 19:02 05/09/23 19:04 05/09/23 19:04 Temperature Pulse Rate 62 66 Respiratory Rate 14 19 Blood Pressure 94/51 L Pulse Oximetry 97 98 Oxygen Delivery Method Oxygen Flow Rate 05/09/23 19:06 05/09/23 19:06 05/09/23 19:08 Temperature Pulse Rate 65 Respiratory Rate 20 Blood Pressure 78/43 L 87/52 L Pulse Oximetry 94 Oxygen Delivery Method Oxygen Flow Rate 05/09/23 19:08 05/09/23 19:09 05/09/23 19:09 Temperature Pulse Rate 62 64 Respiratory Rate 20 20 Blood Pressure 100/53 L Pulse Oximetry 90 L 97 Oxygen Delivery Method Oxygen Flow Rate 05/09/23 19:10 05/09/23 19:12 05/09/23 19:12 Temperature Pulse Rate 64 63 Respiratory Rate 20 21 Blood Pressure 120/51 L Pulse Oximetry 96 96 Oxygen Delivery Method Oxygen Flow Rate 05/09/23 19:14 05/09/23 19:15 05/09/23 19:15 Temperature Pulse Rate 64 64 Respiratory Rate 17 16 Blood Pressure 100/55 L Pulse Oximetry 98 94 Oxygen Delivery Method Oxygen Flow Rate 05/09/23 19:16 05/09/23 19:18 05/09/23 19:18 Temperature Pulse Rate 66 66 Respiratory Rate 17 20 Blood Pressure 92/50 L Pulse Oximetry 96 Oxygen Delivery Method Oxygen Flow Rate 05/09/23 19:20 05/09/23 19:21 05/09/23 19:21 Temperature 97.4 F L Pulse Rate 68 70 Respiratory Rate 21 21 Blood Pressure 96/54 L Pulse Oximetry 94 Oxygen Delivery Method Oxygen Flow Rate 05/09/23 19:22 05/09/23 19:24 05/09/23 19:24 Temperature Pulse Rate 68 68 Respiratory Rate 18 17 Blood Pressure 97/53 L Pulse Oximetry 99 77 L Oxygen Delivery Method Oxygen Flow Rate 05/09/23 19:26 05/09/23 19:27 05/09/23 19:27 Temperature Pulse Rate 69 69 Respiratory Rate 18 17 Blood Pressure 87/52 L Pulse Oximetry 83 L 78 L Oxygen Delivery Method Oxygen Flow Rate 05/09/23 19:28 05/09/23 19:30 05/09/23 19:30 Temperature Pulse Rate 69 67 Respiratory Rate 16 18 Blood Pressure 103/56 L Pulse Oximetry 83 L 75 L Oxygen Delivery Method Oxygen Flow Rate 05/09/23 19:32 05/09/23 19:33 05/09/23 19:33 Temperature Pulse Rate 70 71 Respiratory Rate 23 24 Blood Pressure 114/59 L Pulse Oximetry 100 100 Oxygen Delivery Method Oxygen Flow Rate 05/09/23 19:34 05/09/23 19:36 05/09/23 19:36 Temperature Pulse Rate 71 72 Respiratory Rate 23 22 Blood Pressure 120/59 L Pulse Oximetry 100 100 Oxygen Delivery Method Oxygen Flow Rate 05/09/23 19:38 05/09/23 19:39 05/09/23 19:39 Temperature Pulse Rate 71 70 Respiratory Rate 27 H 27 H Blood Pressure 124/63 Pulse Oximetry 97 98 Oxygen Delivery Method Oxygen Flow Rate 05/09/23 19:40 05/09/23 19:42 05/09/23 19:42 Temperature Pulse Rate 70 73 Respiratory Rate 25 H 24 Blood Pressure 129/76 Pulse Oximetry 97 100 Oxygen Delivery Method Nasal Cannula Oxygen Flow Rate 2 05/09/23 19:44 05/09/23 19:46 05/09/23 19:46 Temperature Pulse Rate 74 73 Respiratory Rate 22 27 H Blood Pressure 117/76 Pulse Oximetry 100 98 Oxygen Delivery Method Oxygen Flow Rate 05/09/23 19:48 05/09/23 19:50 05/09/23 19:52 Temperature Pulse Rate 71 79 Respiratory Rate 24 29 H Blood Pressure 134/104 H Pulse Oximetry 100 97 Oxygen Delivery Method Oxygen Flow Rate 05/09/23 19:52 05/09/23 19:54 05/09/23 19:55 Temperature Pulse Rate 82 77 74 Respiratory Rate 28 H 26 H 25 H Blood Pressure Pulse Oximetry 99 100 100 Oxygen Delivery Method Oxygen Flow Rate 05/09/23 19:55 05/09/23 19:56 05/09/23 19:57 Temperature Pulse Rate 113 H Respiratory Rate 27 H Blood Pressure 141/63 H 115/56 L Pulse Oximetry 100 Oxygen Delivery Method Oxygen Flow Rate 05/09/23 19:57 05/09/23 19:58 05/09/23 19:30 Temperature 97.4 F L Pulse Rate 75 95 H Respiratory Rate 20 28 H Blood Pressure Pulse Oximetry 100 100 Oxygen Delivery Method Oxygen Flow Rate 05/09/23 21:03 05/09/23 20:00 05/09/23 20:02 Temperature 98 F Pulse Rate 127 H 76 Respiratory Rate 26 H 25 H Blood Pressure Pulse Oximetry 100 99 Oxygen Delivery Method Oxygen Flow Rate 05/09/23 20:03 05/09/23 20:03 05/09/23 20:04 Temperature Pulse Rate 72 72 Respiratory Rate 25 H 21 Blood Pressure 125/60 Pulse Oximetry 99 100 Oxygen Delivery Method Nasal Cannula Oxygen Flow Rate 2 05/09/23 20:06 05/09/23 20:06 05/09/23 20:08 Temperature Pulse Rate 73 79 Respiratory Rate 16 34 H Blood Pressure 129/56 L Pulse Oximetry 100 96 Oxygen Delivery Method Oxygen Flow Rate 05/09/23 20:09 05/09/23 20:09 05/09/23 20:10 Temperature Pulse Rate 74 73 Respiratory Rate 24 22 Blood Pressure 138/62 Pulse Oximetry 98 99 Oxygen Delivery Method Oxygen Flow Rate 05/09/23 20:12 05/09/23 20:13 05/09/23 20:13 Temperature Pulse Rate 71 72 Respiratory Rate 15 23 Blood Pressure 118/58 L Pulse Oximetry 98 98 Oxygen Delivery Method Oxygen Flow Rate 05/09/23 20:14 05/09/23 20:16 05/09/23 20:16 Temperature Pulse Rate 72 72 Respiratory Rate 21 20 Blood Pressure 123/57 L Pulse Oximetry 98 98 Oxygen Delivery Method Oxygen Flow Rate 05/09/23 20:18 05/09/23 20:18 05/09/23 20:20 Temperature Pulse Rate 71 71 Respiratory Rate 18 19 Blood Pressure 106/57 L Pulse Oximetry 98 98 Oxygen Delivery Method Oxygen Flow Rate 05/09/23 20:21 05/09/23 20:21 05/09/23 20:22 Temperature Pulse Rate 71 70 Respiratory Rate 17 14 Blood Pressure 115/58 L Pulse Oximetry 99 100 Oxygen Delivery Method Oxygen Flow Rate 05/09/23 20:24 05/09/23 20:24 05/09/23 20:26 Temperature Pulse Rate 70 70 Respiratory Rate 16 19 Blood Pressure 115/59 L Pulse Oximetry 99 100 Oxygen Delivery Method Oxygen Flow Rate 05/09/23 20:27 05/09/23 20:27 05/09/23 20:28 Temperature Pulse Rate 71 74 Respiratory Rate 18 16 Blood Pressure 115/57 L Pulse Oximetry 100 99 Oxygen Delivery Method Oxygen Flow Rate 05/09/23 20:30 05/09/23 20:34 05/09/23 20:36 Temperature Pulse Rate 72 74 75 Respiratory Rate 27 H Blood Pressure Pulse Oximetry 93 100 100 Oxygen Delivery Method Oxygen Flow Rate 05/09/23 20:38 05/09/23 20:40 05/09/23 20:42 Temperature Pulse Rate 75 75 74 Respiratory Rate 20 19 16 Blood Pressure Pulse Oximetry 95 95 Oxygen Delivery Method Oxygen Flow Rate 05/09/23 20:44 05/09/23 20:46 05/09/23 20:48 Temperature Pulse Rate 74 73 79 Respiratory Rate 17 16 18 Blood Pressure Pulse Oximetry 95 94 91 Oxygen Delivery Method Oxygen Flow Rate 05/09/23 20:50 05/09/23 20:52 05/09/23 20:53 Temperature Pulse Rate 82 81 81 Respiratory Rate 18 21 21 Blood Pressure Pulse Oximetry 89 L Oxygen Delivery Method Oxygen Flow Rate 05/09/23 20:53 05/09/23 20:54 05/09/23 20:54 Temperature Pulse Rate 82 Respiratory Rate 20 Blood Pressure 116/58 L 116/58 L Pulse Oximetry Oxygen Delivery Method Oxygen Flow Rate 05/09/23 20:55 05/09/23 20:55 05/09/23 20:56 Temperature Pulse Rate 82 82 Respiratory Rate 17 19 Blood Pressure 121/53 L Pulse Oximetry Oxygen Delivery Method Oxygen Flow Rate 05/09/23 20:58 05/09/23 21:00 05/09/23 21:00 Temperature Pulse Rate 80 79 Respiratory Rate 19 20 Blood Pressure 124/58 L Pulse Oximetry 99 Oxygen Delivery Method Oxygen Flow Rate 05/09/23 21:02 05/09/23 21:04 05/09/23 21:05 Temperature Pulse Rate 79 77 77 Respiratory Rate 13 16 17 Blood Pressure Pulse Oximetry 99 99 99 Oxygen Delivery Method Oxygen Flow Rate 05/09/23 21:05 05/09/23 21:06 05/09/23 21:08 Temperature Pulse Rate 77 78 Respiratory Rate 17 22 Blood Pressure 117/56 L Pulse Oximetry 99 99 Oxygen Delivery Method Oxygen Flow Rate 05/09/23 21:10 05/09/23 21:10 05/09/23 21:12 Temperature Pulse Rate 80 79 Respiratory Rate 19 18 Blood Pressure 115/57 L Pulse Oximetry 99 100 Oxygen Delivery Method Oxygen Flow Rate 05/09/23 21:14 05/09/23 21:15 05/09/23 21:15 Temperature Pulse Rate 77 77 Respiratory Rate 17 19 Blood Pressure 126/60 Pulse Oximetry 100 100 Oxygen Delivery Method Nasal Cannula Oxygen Flow Rate 2 05/09/23 21:16 05/09/23 21:18 05/09/23 21:20 Temperature Pulse Rate 76 75 Respiratory Rate 19 19 Blood Pressure 124/58 L Pulse Oximetry 99 100 Oxygen Delivery Method Oxygen Flow Rate 05/09/23 21:20 05/09/23 21:22 05/09/23 21:24 Temperature Pulse Rate 75 77 77 Respiratory Rate 18 19 17 Blood Pressure Pulse Oximetry 100 100 100 Oxygen Delivery Method Oxygen Flow Rate 05/09/23 21:25 05/09/23 21:25 05/09/23 21:26 Temperature Pulse Rate 76 78 Respiratory Rate 19 17 Blood Pressure 121/59 L Pulse Oximetry 100 100 Oxygen Delivery Method Oxygen Flow Rate 05/09/23 21:28 05/09/23 21:30 05/09/23 21:30 Temperature Pulse Rate 96 H 97 H Respiratory Rate 22 20 Blood Pressure 149/68 H Pulse Oximetry 99 100 Oxygen Delivery Method Oxygen Flow Rate 05/09/23 21:32 05/09/23 21:34 05/09/23 21:35 Temperature Pulse Rate 92 H 90 Respiratory Rate 20 22 Blood Pressure 134/66 Pulse Oximetry 100 100 Oxygen Delivery Method Oxygen Flow Rate 05/09/23 21:35 05/09/23 21:36 05/09/23 21:38 Temperature Pulse Rate 87 85 83 Respiratory Rate 20 20 20 Blood Pressure Pulse Oximetry 100 100 100 Oxygen Delivery Method Oxygen Flow Rate 05/09/23 21:40 05/09/23 21:40 05/09/23 21:42 Temperature Pulse Rate 80 79 Respiratory Rate 20 18 Blood Pressure 105/55 L Pulse Oximetry 100 100 Oxygen Delivery Method Oxygen Flow Rate 05/09/23 21:44 05/09/23 21:45 05/09/23 21:45 Temperature Pulse Rate 77 76 Respiratory Rate 18 19 Blood Pressure 103/56 L Pulse Oximetry 100 100 Oxygen Delivery Method Oxygen Flow Rate 05/09/23 21:46 05/09/23 21:48 05/09/23 21:50 Temperature Pulse Rate 76 74 77 Respiratory Rate 18 18 23 Blood Pressure Pulse Oximetry 100 99 100 Oxygen Delivery Method Oxygen Flow Rate 05/09/23 21:51 05/09/23 21:51 05/09/23 21:52 Temperature Pulse Rate 77 80 Respiratory Rate 26 H 19 Blood Pressure 102/57 L Pulse Oximetry 100 100 Oxygen Delivery Method Oxygen Flow Rate 05/09/23 21:54 05/09/23 21:55 05/09/23 22:00 Temperature 98 F Pulse Rate 80 Respiratory Rate 17 Blood Pressure 99/54 L Pulse Oximetry 100 Oxygen Delivery Method Nasal Cannula Oxygen Flow Rate 05/09/23 21:55 05/09/23 21:56 05/09/23 21:58 Temperature Pulse Rate 80 81 80 Respiratory Rate 16 19 22 Blood Pressure Pulse Oximetry 100 100 100 Oxygen Delivery Method Oxygen Flow Rate 05/09/23 22:00 05/09/23 22:00 05/09/23 22:02 Temperature Pulse Rate 80 76 Respiratory Rate 16 14 Blood Pressure 106/56 L Pulse Oximetry 100 100 Oxygen Delivery Method Oxygen Flow Rate 05/09/23 22:04 05/09/23 22:05 05/09/23 22:05 Temperature Pulse Rate 75 74 Respiratory Rate 14 Blood Pressure 89/50 L Pulse Oximetry 100 100 Oxygen Delivery Method Oxygen Flow Rate 05/09/23 22:06 05/09/23 22:08 05/09/23 22:09 Temperature Pulse Rate 76 76 77 Respiratory Rate 14 13 Blood Pressure Pulse Oximetry 100 100 100 Oxygen Delivery Method Nasal Cannula Oxygen Flow Rate 2 05/09/23 22:10 05/09/23 22:10 05/09/23 22:12 Temperature Pulse Rate 76 79 Respiratory Rate 18 22 Blood Pressure 90/55 L Pulse Oximetry 100 100 Oxygen Delivery Method Oxygen Flow Rate 05/09/23 22:14 05/09/23 22:15 05/09/23 22:15 Temperature Pulse Rate 77 78 Respiratory Rate Blood Pressure 94/50 L Pulse Oximetry 100 100 Oxygen Delivery Method Oxygen Flow Rate 05/09/23 22:16 05/09/23 22:18 05/09/23 22:19 Temperature Pulse Rate 78 79 79 Respiratory Rate 17 15 Blood Pressure Pulse Oximetry 100 100 100 Oxygen Delivery Method Oxygen Flow Rate 05/09/23 22:20 05/09/23 22:20 05/09/23 22:22 Temperature Pulse Rate 79 79 Respiratory Rate 18 18 Blood Pressure 90/54 L Pulse Oximetry 100 100 Oxygen Delivery Method Oxygen Flow Rate 05/09/23 22:24 05/09/23 22:25 05/09/23 22:25 Temperature Pulse Rate 76 76 Respiratory Rate 19 17 Blood Pressure 95/50 L Pulse Oximetry 100 100 Oxygen Delivery Method Oxygen Flow Rate 05/09/23 22:26 05/09/23 22:28 05/09/23 22:30 Temperature Pulse Rate 76 76 Respiratory Rate 18 15 Blood Pressure 99/51 L Pulse Oximetry 100 100 Oxygen Delivery Method Oxygen Flow Rate 05/09/23 22:30 05/09/23 22:32 05/09/23 22:34 Temperature Pulse Rate 77 77 77 Respiratory Rate 20 18 17 Blood Pressure Pulse Oximetry 100 100 100 Oxygen Delivery Method Oxygen Flow Rate 05/09/23 22:35 05/09/23 22:35 05/09/23 22:36 Temperature Pulse Rate 76 76 Respiratory Rate 15 20 Blood Pressure 100/57 L Pulse Oximetry 100 100 Oxygen Delivery Method Oxygen Flow Rate 05/09/23 22:38 05/09/23 22:40 05/09/23 22:40 Temperature Pulse Rate 77 78 Respiratory Rate 21 Blood Pressure 104/59 L Pulse Oximetry 100 97 Oxygen Delivery Method Oxygen Flow Rate 05/09/23 22:42 05/09/23 22:44 05/09/23 22:45 Temperature Pulse Rate 74 74 73 Respiratory Rate 21 21 Blood Pressure Pulse Oximetry 98 98 98 Oxygen Delivery Method Nasal Cannula Oxygen Flow Rate 2 05/09/23 22:45 05/09/23 22:46 05/09/23 22:49 Temperature Pulse Rate 75 80 Respiratory Rate 22 24 Blood Pressure 106/56 L Pulse Oximetry 98 99 Oxygen Delivery Method Oxygen Flow Rate 05/09/23 22:50 05/09/23 22:50 05/09/23 22:52 Temperature Pulse Rate 77 75 Respiratory Rate 19 20 Blood Pressure 115/54 L Pulse Oximetry 98 99 Oxygen Delivery Method Oxygen Flow Rate 05/09/23 22:54 05/09/23 22:55 05/09/23 22:55 Temperature Pulse Rate 76 75 Respiratory Rate 21 20 Blood Pressure 121/59 L Pulse Oximetry 99 99 Oxygen Delivery Method Oxygen Flow Rate 05/09/23 22:56 05/09/23 22:58 05/09/23 23:00 Temperature Pulse Rate 75 77 Respiratory Rate 21 21 Blood Pressure 107/56 L Pulse Oximetry 99 99 Oxygen Delivery Method Oxygen Flow Rate 05/09/23 23:00 05/09/23 23:02 05/09/23 23:04 Temperature Pulse Rate 77 77 78 Respiratory Rate 21 21 21 Blood Pressure Pulse Oximetry 99 99 99 Oxygen Delivery Method Nasal Cannula Oxygen Flow Rate 2 05/09/23 23:05 05/09/23 23:05 05/09/23 23:06 Temperature Pulse Rate 79 79 Respiratory Rate 21 21 Blood Pressure 114/57 L Pulse Oximetry 99 100 Oxygen Delivery Method Oxygen Flow Rate 05/09/23 23:08 05/09/23 23:10 05/09/23 23:10 Temperature Pulse Rate 79 78 Respiratory Rate 15 22 Blood Pressure 108/53 L Pulse Oximetry 100 100 Oxygen Delivery Method Oxygen Flow Rate 05/09/23 23:12 05/09/23 23:14 05/09/23 23:15 Temperature Pulse Rate 78 77 Respiratory Rate 23 22 Blood Pressure 112/53 L Pulse Oximetry 100 100 Oxygen Delivery Method Oxygen Flow Rate 05/09/23 23:15 05/09/23 23:16 05/09/23 23:18 Temperature Pulse Rate 79 79 79 Respiratory Rate 21 14 Blood Pressure Pulse Oximetry 100 100 100 Oxygen Delivery Method Nasal Cannula Oxygen Flow Rate 2 05/09/23 23:20 05/09/23 23:20 05/09/23 23:22 Temperature Pulse Rate 80 83 Respiratory Rate Blood Pressure 117/56 L Pulse Oximetry 100 98 Oxygen Delivery Method Oxygen Flow Rate 05/09/23 23:24 05/09/23 23:25 05/09/23 23:25 Temperature Pulse Rate 92 H 93 H Respiratory Rate Blood Pressure 111/53 L Pulse Oximetry 100 100 Oxygen Delivery Method Oxygen Flow Rate 05/09/23 23:26 05/09/23 23:28 05/09/23 23:30 Temperature Pulse Rate 91 H 92 H Respiratory Rate Blood Pressure 100/56 L Pulse Oximetry 100 100 Oxygen Delivery Method Oxygen Flow Rate 05/09/23 23:30 05/09/23 23:32 Temperature Pulse Rate 93 H 87 Respiratory Rate Blood Pressure Pulse Oximetry 100 100 Oxygen Delivery Method Nasal Cannula Oxygen Flow Rate 2 Oxygen Delivery Method Nasal Cannula Oxygen Flow Rate 2 Narrative Exam Narrative: General: Patient is a well-developed, well-nourished male in mild discomfort, but in no acute distress at this time. HEENT: Normocephalic, atraumatic, extraocular muscles intact, oral pharynx is clear and mucous membranes are moist. Neck is supple and symmetric, trachea is midline, no adenopathy, no thyroid enlargement, nontender, no masses palpated. Negative for JVD Chest: Equal chest rise without nasal flaring, retractions, tachypneic or labored breathing. Lungs: Auscultation of all lung loredo are clear without adventitious sounds, wheezes, rhonchi, or rales. Cardio: regular rate and rhythm without murmur, rubs, or gallops, no carotid bruit, no cardiac pulsations present. Abdomen: Soft diffuse tenderness to even mild palpation, distended. Bowel sounds are present in all 4 quadrants without guarding or rebound, no CVA tenderness. Musculoskeletal: Muscle strength and tone are equal, no deformity, crepitus, effusions, cyanosis, clubbing or present. Trace right ankle nonpitting edema. Full range of motion intact radial and pedal pulses are normal. Skin: Patient appears slightly pale, Warm dry and intact without rashes, ulcerations or petechiae. Neuro: Alert and orientated x3, moves all extremities, sensation to touch intact, no gross deficits noted of cranial nerves. Psych: Patient has a well-kept appearance, appropriate affect, mental status attitude thought context and judgment are appropriate for age. Objective Labs 05/09/23 21:31 05/09/23 21:31 Labs: Laboratory Results - last 24 hr 05/09/23 05/09/23 05/09/23 19:19 19:19 19:19 WBC 18.0 H RBC 4.12 L Hgb 12.7 L Hct 38.8 L MCV 94.2 MCH 30.9 MCHC 32.8 RDW 15.2 H Plt Count 164 Neut % (Auto) 85.5 H Lymph % (Auto) 8.0 L [place] % (Auto) 4.7 Eos % (Auto) 1.3 L Baso % (Auto) 0.5 Neut # (Auto) 73389 H Lymph # (Auto) 1400 [place] # (Auto) 900 Eos # (Auto) 200 Baso # (Auto) 100 PT INR APTT Sodium 138 Potassium 3.7 Chloride 109 H Carbon Dioxide 20 L BUN 29 H Creatinine 1.72 H Estimated GFR 41 L BUN/Creatinine Ratio 16.9 Glucose 122 H Lactate 3.0 H Calcium 8.0 L Total Bilirubin 0.7 AST 22 ALT 25 Alkaline Phosphatase 114 Total Protein 5.8 L Albumin 3.3 L Globulin 2.5 Albumin/Globulin Ratio 1.3 Lipase 749 H Procalcitonin Urine Color Urine Appearance Urine pH Ur Specific [place] Urine Protein Urine Glucose (UA) Urine Ketones Urine Occult Blood Urine Nitrate Urine Bilirubin Urine Urobilinogen Ur Leukocyte Esterase Urine RBC Urine WBC Ur Squamous Epith Cells Ur Transition Epith Cell Urine Bacteria Hyaline Casts Urine Mucus Urine Sperm Stl C. cayetanensis PCR Stool Rotavirus (PCR) Stool Adenovirus (PCR) Stool Astrovirus (PCR) Stool Cryptosporidium PCR Stl E.coli Shiga Tox PCR St Sh/Enteroin Ecoli PCR Stool E coli O157 PCR Stl Enterotoxigenic E PCR Stool EPEC (PCR) Stl E. histolytica PCR Stool Giardia Lamblia PCR Stool Sapovirus (PCR) Stl P. shigelloides PCR St Y.enterocolitica PCR Stool Vibrio (PCR) Stl Vibrio cholerae PCR Stl Enteroaggr Ecoli PCR Stl Norovirus GI/GII PCR Campylobacter (PCR) C. difficile Tox (PCR) Salmonella (PCR) 05/09/23 05/09/23 05/09/23 19:19 19:19 19:34 WBC RBC Hgb Hct MCV MCH MCHC RDW Plt Count Neut % (Auto) Lymph % (Auto) [place] % (Auto) Eos % (Auto) Baso % (Auto) Neut # (Auto) Lymph # (Auto) [place] # (Auto) Eos # (Auto) Baso # (Auto) PT 12.0 INR 1.0 APTT 27 Sodium Potassium Chloride Carbon Dioxide BUN Creatinine Estimated GFR BUN/Creatinine Ratio Glucose Lactate Calcium Total Bilirubin AST ALT Alkaline Phosphatase Total Protein Albumin Globulin Albumin/Globulin Ratio Lipase Procalcitonin 0.16 Urine Color Urine Appearance Urine pH Ur Specific [place] Urine Protein Urine Glucose (UA) Urine Ketones Urine Occult Blood Urine Nitrate Urine Bilirubin Urine Urobilinogen Ur Leukocyte Esterase Urine RBC Urine WBC Ur Squamous Epith Cells Ur Transition Epith Cell Urine Bacteria Hyaline Casts Urine Mucus Urine Sperm Stl C. cayetanensis PCR Not detected Stool Rotavirus (PCR) Not detected Stool Adenovirus (PCR) Not detected Stool Astrovirus (PCR) Not detected Stool Cryptosporidium PCR Not detected Stl E.coli Shiga Tox PCR Not detected St Sh/Enteroin Ecoli PCR Not detected Stool E coli O157 PCR Not Reportable Stl Enterotoxigenic E PCR Not detected Stool EPEC (PCR) Not detected Stl E. histolytica PCR Not detected Stool Giardia Lamblia PCR Not detected Stool Sapovirus (PCR) Not detected Stl P. shigelloides PCR Not detected St Y.enterocolitica PCR Not detected Stool Vibrio (PCR) Not detected Stl Vibrio cholerae PCR Not detected Stl Enteroaggr Ecoli PCR Not detected Stl Norovirus GI/GII PCR Not detected Campylobacter (PCR) Not detected C. difficile Tox (PCR) Not detected Salmonella (PCR) Not detected 05/09/23 05/09/23 05/09/23 21:11 21:31 21:31 WBC 17.1 H RBC 4.03 L Hgb 12.8 L Hct 38.0 L MCV 94.3 MCH 31.8 MCHC 33.7 RDW 15.1 H Plt Count 185 Neut % (Auto) 88.6 H Lymph % (Auto) 5.0 L [place] % (Auto) 5.8 Eos % (Auto) 0.2 L Baso % (Auto) 0.4 Neut # (Auto) 97610 H Lymph # (Auto) 900 L [place] # (Auto) 1000 H Eos # (Auto) 0 Baso # (Auto) 100 PT INR APTT Sodium 137 Potassium 4.1 Chloride 107 Carbon Dioxide 21 L BUN 31 H Creatinine 1.73 H Estimated GFR 41 L BUN/Creatinine Ratio 17.9 Glucose 157 H Lactate Calcium 7.9 L Total Bilirubin AST ALT Alkaline Phosphatase Total Protein Albumin Globulin Albumin/Globulin Ratio Lipase Procalcitonin Urine Color Yellow Urine Appearance Clear Urine pH 5.5 Ur Specific [place] 1.010 Urine Protein 1+ H Urine Glucose (UA) Negative Urine Ketones Negative Urine Occult Blood Negative Urine Nitrate Negative Urine Bilirubin Negative Urine Urobilinogen 1.0 Ur Leukocyte Esterase Negative Urine RBC 0-1/hpf D Urine WBC None seen Ur Squamous Epith Cells 0-1 /hpf Ur Transition Epith Cell 1-5/hpf Urine Bacteria None seen Hyaline Casts 1-5/lpf Urine Mucus 1+ H Urine Sperm . Stl C. cayetanensis PCR Stool Rotavirus (PCR) Stool Adenovirus (PCR) Stool Astrovirus (PCR) Stool Cryptosporidium PCR Stl E.coli Shiga Tox PCR St Sh/Enteroin Ecoli PCR Stool E coli O157 PCR Stl Enterotoxigenic E PCR Stool EPEC (PCR) Stl E. histolytica PCR Stool Giardia Lamblia PCR Stool Sapovirus (PCR) Stl P. shigelloides PCR St Y.enterocolitica PCR Stool Vibrio (PCR) Stl Vibrio cholerae PCR Stl Enteroaggr Ecoli PCR Stl Norovirus GI/GII PCR Campylobacter (PCR) C. difficile Tox (PCR) Salmonella (PCR) 05/09/23 21:31 WBC RBC Hgb Hct MCV MCH MCHC RDW Plt Count Neut % (Auto) Lymph % (Auto) [place] % (Auto) Eos % (Auto) Baso % (Auto) Neut # (Auto) Lymph # (Auto) [place] # (Auto) Eos # (Auto) Baso # (Auto) PT INR APTT Sodium Potassium Chloride Carbon Dioxide BUN Creatinine Estimated GFR BUN/Creatinine Ratio Glucose Lactate 2.5 H Calcium Total Bilirubin AST ALT Alkaline Phosphatase Total Protein Albumin Globulin Albumin/Globulin Ratio Lipase Procalcitonin Urine Color Urine Appearance Urine pH Ur Specific [place] Urine Protein Urine Glucose (UA) Urine Ketones Urine Occult Blood Urine Nitrate Urine Bilirubin Urine Urobilinogen Ur Leukocyte Esterase Urine RBC Urine WBC Ur Squamous Epith Cells Ur Transition Epith Cell Urine Bacteria Hyaline Casts Urine Mucus Urine Sperm Stl C. cayetanensis PCR Stool Rotavirus (PCR) Stool Adenovirus (PCR) Stool Astrovirus (PCR) Stool Cryptosporidium PCR Stl E.coli Shiga Tox PCR St Sh/Enteroin Ecoli PCR Stool E coli O157 PCR Stl Enterotoxigenic E PCR Stool EPEC (PCR) Stl E. histolytica PCR Stool Giardia Lamblia PCR Stool Sapovirus (PCR) Stl P. shigelloides PCR St Y.enterocolitica PCR Stool Vibrio (PCR) Stl Vibrio cholerae PCR Stl Enteroaggr Ecoli PCR Stl Norovirus GI/GII PCR Campylobacter (PCR) C. difficile Tox (PCR) Salmonella (PCR) Assessment & Plan Assessment & Plan narrative: Jhoan Ch is a 72-year-old male with a past medical history HTN, gout, pancre atitis, CKD stage 3, GERALD with CPAP, neuropathy, peripheral edema, BPH with lower tract involvement and multiple vulvar urethral strictures, history of diverticulitis and colon resection, recent diagnosis of DVT right leg on Lovenox. Patient brought into the ED today via EMS following a syncopal episode while on the commode associated with GI bleed. Patient admitted with sepsis with septic shock secondary to blood loss from GI bleed, colitis. Patient admitted to the ICU on Levophed drip for hypotensive septic shock secondary to blood loss from GI bleed colitis, Dr. Mckinney will follow the patient's case determine when to perform EGD/Colon, continue IV fluid rehydration, IV antibiotics, abdominal ultrasound for further evaluation appendix mass, and possible chronic pancreatitis, and colitis. Sepsis with septic shock, (Hypotension) due to blood loss secondary to Upper GI bleed/Colitis, acute, present on admission * SOFA:3 admit: Temp 98?, 107/56 Levophed 4 mcg, 77, 21, 99% on 2 L. 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 * History of pancreatitis, diverticulitis, colon resection * Admitted to ICU- on Levaphed drip 4mcg MAP GOAL>65 * Zosyn, NS at 100 cc/HR * Patient NPO except for ice chips and sips with medication, may advance as tolerated. Upper GI bleed, acute, with ABD Pain, diffuse, acute, present on admission * History of pancreatitis * CT scan was obtained and his stool was noted to be loose and diarrheal and had the appearance of a GI bleed. * H&H /, MCV 94, MCH 31, PLT 185-Stable will continue to trend * Following large bloody bowel movement on admit: H&H: stable, replace as needed * Monitor for bleeding * Patient not to be up without assistance, use bedside commode * Dr. Mckinney general surgery consult-very generously offered to follow case. She inferred in her note that she did not wish to take the patient to the OR at this time for EGD, to be determined. * Protonix 40 mg given in ED, 20 mg IV b.i.d. Colitis, acute, present on admission * History of diverticulitis/colon resection * History of pancreatitis * CT scan: There was also colitis in the descending colon and rectum.? There is evidence of normal postsurgical anastomosis * Dr. Mckinney is to determine when pt to go to OR for scopes * Rocephin in ED * Initiated Zosyn * NS at 100 cc/HR * Abdominal ultrasound Lactic acidosis, with neutrophilic leukocytosis, acute, present on admission * Initial lactate 3, repeat 2.5-will continue to trend * WBC 18, repeat 17, neutrophils 1500, mono 1000 * CRP 1.1, procalcitonin normal Elevated lipase, acute, present on admission * Lipase 749 * Ordered abdominal ultrasound Mass, appendix, acute, present on admission * CT scan: relatively large 2.1 cm blind ending pouch coming off the cecum at the location where you would expect the appendix. * Abdominal ultrasound DVT, right leg, on Lovenox, acute, present on admission * Diagnosis 2 weeks ago Henrry Tristan * Patient was prescribed Lovenox 120 mg b.i.d.-holding in the face of acute upper GI bleed * Patient has no shortness of breath, stable and asymptomatic for PE. BRIANNE on CKD stage 3, acute, present on admission * chloride 109, CO2 20, BUN 29, creatinine 1.72, GFR 41 * Post fluid resuscitation:CO2 21, BUN 31, creatinine 1.73, GFR 41, blood sugar 127, * last ABRASIVE SAWYER 1.4 /GFR 49 * Continue to trend Hypertension, essential, present on admission * Hold while hypotensive- then Continue lisinopril BPH with lower urinary tract symptoms, multiple vulvar urethral strictures * Hold tamsulosin until patient is no longer hypotensive. Neuropathy, chronic, present on admission * Continue duloxetine as needed Code status:Full Surrogate decision maker: Chiquita Ch DVT/VTE prophylaxis: Holding prophylactic medication, SCDs only Disposition: Patient admitted to the ICU for septic shock secondary to blood loss from upper GI bleed, expected length of stay to exceed 2 midnights. I have utilized all available immediate resources to obtain, update, or review the patient's current medications. I confirmed that the patient's advanced care plan is present, Code status is documented and/or surrogate decision maker is listed in the patient's medical record. I have personally reviewed patient's chart notes from PCP, specialists, diagnostic imaging, and laboratory results.
[2023-05-09 23:51] LABS: Reflexed Lactate in 2 Hours Y
[2023-05-10] VITALS (60 sets, daily range): BP systolic 84–152; BP diastolic 50–67; PULSE 68–104; RESP 11–28; TEMP 36.2–37.8; O2SAT 98–100; BMI 35.6
[2023-05-10 00:06] LABS: C-Reactive Protein Quant 1.1 mg/dL (<1.0)
[2023-05-10] MEDS: ONDANSETRON 4 MG/2 ML INJ IV ×3 (00:12→16:42)
[2023-05-10 00:14] LABS: Magnesium 2.1 mg/dL (1.6-2.3)
[2023-05-10] MEDS: PIPERACILLIN/TAZO 3.375 GM in SODIUM CHLORIDE 0.9% 100 ML IV ×4 (00:44→23:32)
[2023-05-10 01:41] LABS: MRSA (Nasal) PCR Not Detected (Not Detect)
[2023-05-10 01:51] LABS: Hematocrit 36.9 % (41-53); Hemoglobin 12.5 g/dL (13.5-17.5)
[2023-05-10 02:03] LABS: Lactate 2HR (Lactic Acid Rflx) 1.9 mmol/L (0.7-2.1)
[2023-05-10] MEDS: SODIUM CHLORIDE 0.9% 1,000 ML 100 ML IV ×3 (03:39→23:20)
[2023-05-10 05:17] LABS: Add Manual Diff / Slide Review NO; Basophils Absolute Auto 0 /uL (0-100); Basophils Percent Auto 0.1 % (0-2); Eosinophils Absolute Auto 0 /uL (0-450); Hematocrit 37.5 % (41-53); Hemoglobin 12.7 g/dL (13.5-17.5); Lymphocytes Absolute Auto 500 /uL (1100-4500); Lymphocytes Percent Auto 2.7 % (25-40); Mean Corpuscular HGB Conc 33.8 % (30-36); Mean Corpuscular Volume 94.5 fL (80-100); Monocytes Absolute Auto 1100 /uL (0-900); Monocytes Percent Auto 6.5 % (3-14); Neutrophils Absolute Auto 15000 /uL (1500-7000); Neutrophils Percent Auto 90.7 % (50-75); Platelet Count 175 X10^3/uL (150-400); Red Blood Cell Count 3.96 X10^6/uL (4.5-5.9); Red Cell Distribution Width 15.2 % (11.6-14.8); White Blood Cell Count 16.6 X10^3/uL (4.5-11.0)
[2023-05-10 05:28] LABS: Alanine Aminotransferase 30 IU/L (<50); Albumin 3.3 g/dL (3.5-5.0); Albumin Globulin Ratio 1.3 (1.0-2.8); Alkaline Phosphatase 84 U/L (38-126); Aspartate Aminotransferase 24 IU/L (17-59); BUN Creatinine Ratio 16.4 (6-22); Bilirubin Total 0.8 mg/dL (0.2-1.3); Blood Urea Nitrogen 29 mg/dL (9-20); Calcium 7.7 mg/dL (8.4-10.2); Carbon Dioxide 19 mmol/L (22-32); Chloride 109 mmol/L (98-107); Estimated Glomerular Filt Rate 40 mL/min (>60); Globulin 2.5 g/dL (1.7-4.1); Glucose 172 mg/dL (80-110); HEMOLYSIS < 15 (0-50); Lactate (Lactic Acid) 2.8 mmol/L (0.7-2.1); Potassium 4.2 mmol/L (3.4-5.1); Sodium 137 mmol/L (137-145); Total Protein 5.8 g/dL (6.3-8.2)
[2023-05-10 05:37] LABS: NT-proBNP (BNP-Adult 18+) 59 pg/mL (<125)
--- NOTE | 2023-05-10 06:41 | PC.NURSE ---
Admit/Night Note-Patient brought to ICU room 228 at 0030, A/Ox4, fatigued but able to transfer to bed and BSC with walker and 2 person SBA, denies dizziness. N/V with 50ml bile emesis upon arrival, IV Zofran given-effective. Had 2 moderately large maroon stools, hematuria. Abdominal tenderness to Rt mid side. Levophed at 0.03mcg/kg/min, decreased to 0.02mcg/kg/min at 0600. Wore hospital C-pap, otherwise on RA with SpO2 100%
[2023-05-10 07:14] LABS: Reflexed Lactate in 2 Hours Y
--- NOTE | 2023-05-10 07:48 | PC.NURSE ---
0745: Rec'd call from US ovi Montemayor-- advised that US would not be recommended imaging due to patient habitus as well as already having a CT scan. Spoke to Dr Ibarra who is in agreement. Verbal order to DC abd . Albina made aware.
--- NOTE | 2023-05-10 08:56 | PC.NURSE ---
Levophed paused for BP maintaining 130's systolic on 0.015 mcg/kg/min (2ml/hr). Pt AAOx3. OOB to commode with 1 assist. Pt with moderate amount of dark red watery stool. about 400ml dark jim urine.
[2023-05-10] MEDS: PANTOPRAZOLE 40 MG VIAL 20 MG IV (09:05)
[2023-05-10 09:30] LABS: Lactate 2HR (Lactic Acid Rflx) 2.1 mmol/L (0.7-2.1)
[2023-05-10] MEDS: MORPHINE 4 MG/ML INJ 3 MG IV ×2 (11:24→17:11)
--- NOTE | 2023-05-10 12:24 | PM.CN.EICU ---
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 Pt was been weaned of pressors, imaging was also suggestive of ? appendiceal mass. his stay has been complicated by brbpr and bloody stools PFSH Medical History BPH w urinary obs/LUTS Cardiac murmur CKD (chronic kidney disease), stage III Constipation Diverticulosis GERD (gastroesophageal reflux disease) Gout Hypertension Neuropathy GERALD on CPAP Peripheral edema Sepsis (08/2019) Tinnitus Urethral stricture in male Surgical History History of arthroscopy of both knees Hx of bilateral cataract extraction Social History household members: spouse Smoking Status: Former smoker alcohol intake: current Current Medications Current Medications Medications: Home Medications allopurinol 100 mg tablet 200 mg PO DAILY ##0 03/12/17 [History Confirmed 05/10/23] duloxetine 60 mg capsule,delayed release 60 mg PO BEDTIME 08/16/19 [History Confirmed 05/10/23] furosemide 20 mg tablet 20 mg PO DAILY 08/16/19 [History Confirmed 05/10/23] loratadine 10 mg capsule 10 mg PO DAILY PRN Seasonal allergies, itching 01/16/20 [History Confirmed 05/10/23] lisinopril 20 mg tablet 20 mg PO DAILY 04/23/20 [History Confirmed 05/10/23] methocarbamol 750 mg tablet 750 mg PO Q6H PRN spasms #40 tabs 10/10/21 [Rx Confirmed 05/10/23] tamsulosin 0.4 mg capsule See Rx Instructions .Route .COMPLEX #90 caps 10/21/22 [Rx Confirmed 05/10/23] Visit Medications (administered) Generic Name Dose Route Start Last Admin Trade Name Freq PRN Reason Stop Dose Admin NOREPINEPHRINE BITARTRATE/D5W 4 mg in 250 mls @ 48.478 mls/hr 05/09/23 19:08 05/10/23 08:55 Levophed IV 0 mcg/kg/min TITRATE MERA 0 mls/hr Titration Protocol 0.1 MCG/KG/MIN Piperacillin Sod/Tazobactam 100 mls @ 25 mls/hr 05/09/23 23:30 05/10/23 08:04 Sod 3.375 gm/ Sodium Chloride IV 25 mls/hr Q8H MERA Administration Sodium Chloride 1,000 mls @ 100 mls/hr 05/09/23 23:45 05/10/23 03:39 Normal Saline 0.9% IV 100 mls/hr CONT MERA Administration Morphine Sulfate 3 mg 05/09/23 23:37 05/10/23 11:24 Morphine 4 Mg/Ml Inj IV 3 mg Q4HR PRN Administration Pain, Severe (7-10) Ondansetron HCl 4 mg 05/09/23 23:37 05/10/23 11:25 Ondansetron 4 Mg/2 Ml Inj IV 4 mg Q4HR PRN Administration Nausea And Vomiting Pantoprazole Sodium 20 mg 05/10/23 09:00 05/10/23 09:05 Pantoprazole 40 Mg Vial IV 20 mg BID MERA Administration Exam Vital Signs (past 8 hours): - 05/10/23 04:30 05/10/23 04:30 05/10/23 05:00 Temperature Pulse Rate 92 H Respiratory Rate 19 Blood Pressure 121/63 126/59 L Pulse Oximetry 98 Oxygen Delivery Method Oxygen Flow Rate 05/10/23 05:00 05/10/23 05:00 05/10/23 05:30 Temperature Pulse Rate 93 H Respiratory Rate 21 Blood Pressure 122/58 L Pulse Oximetry 100 Oxygen Delivery Method Room Air CPAP Oxygen Flow Rate 0 05/10/23 05:30 05/10/23 06:00 05/10/23 06:00 Temperature Pulse Rate 90 89 Respiratory Rate 21 20 Blood Pressure 123/62 Pulse Oximetry 100 100 Oxygen Delivery Method Oxygen Flow Rate 0 05/10/23 07:00 05/10/23 07:00 05/10/23 07:30 Temperature Pulse Rate 88 Respiratory Rate 21 Blood Pressure 115/58 L 119/59 L Pulse Oximetry 99 Oxygen Delivery Method Oxygen Flow Rate 05/10/23 07:30 05/10/23 08:00 05/10/23 06:30 Temperature Pulse Rate 88 91 H Respiratory Rate 21 21 Blood Pressure 120/61 Pulse Oximetry 99 100 Oxygen Delivery Method Oxygen Flow Rate 05/10/23 06:30 05/10/23 08:36 05/10/23 08:00 Temperature Pulse Rate 88 Respiratory Rate 21 Blood Pressure 130/63 Pulse Oximetry 99 Oxygen Delivery Method Room Air CPAP Oxygen Flow Rate 05/10/23 08:30 05/10/23 08:30 05/10/23 09:00 Temperature Pulse Rate 89 Respiratory Rate 22 Blood Pressure 132/62 128/59 L Pulse Oximetry 100 Oxygen Delivery Method Oxygen Flow Rate 05/10/23 09:00 05/10/23 09:14 05/10/23 09:30 Temperature 97.1 F L Pulse Rate 96 H Respiratory Rate 28 H Blood Pressure 113/61 Pulse Oximetry 100 Oxygen Delivery Method Oxygen Flow Rate 05/10/23 09:30 05/10/23 10:00 05/10/23 10:00 Temperature Pulse Rate 86 87 Respiratory Rate 26 H 23 Blood Pressure 106/58 L Pulse Oximetry 100 100 Oxygen Delivery Method Oxygen Flow Rate 05/10/23 10:30 05/10/23 10:30 05/10/23 11:00 Temperature Pulse Rate 82 Respiratory Rate 21 Blood Pressure 113/59 L 125/56 L Pulse Oximetry 100 Oxygen Delivery Method Oxygen Flow Rate 05/10/23 11:00 05/10/23 11:30 05/10/23 11:30 Temperature 98.4 F Pulse Rate 84 83 Respiratory Rate 18 16 Blood Pressure 104/56 L Pulse Oximetry 100 99 Oxygen Delivery Method Oxygen Flow Rate 05/10/23 12:00 05/10/23 12:00 05/10/23 12:00 Temperature Pulse Rate 80 Respiratory Rate 15 Blood Pressure 95/51 L Pulse Oximetry 100 Oxygen Delivery Method Room Air CPAP Oxygen Flow Rate Oxygen Delivery Method Room Air,CPAP Oxygen Flow Rate 0 Narrative Exam Narrative: surrogate for full exam is priumary team otheresie pt is awake and conversive Resp Other: normal, unlabored GI Other: +ttp Objective Labs 05/10/23 05:05 05/10/23 05:05 Labs: Laboratory Results - last 24 hr 05/09/23 05/09/23 05/09/23 19:19 19:19 19:19 WBC 18.0 H RBC 4.12 L Hgb 12.7 L Hct 38.8 L MCV 94.2 MCH 30.9 MCHC 32.8 RDW 15.2 H Plt Count 164 Neut % (Auto) 85.5 H Lymph % (Auto) 8.0 L [place] % (Auto) 4.7 Eos % (Auto) 1.3 L Baso % (Auto) 0.5 Neut # (Auto) 29753 H Lymph # (Auto) 1400 [place] # (Auto) 900 Eos # (Auto) 200 Baso # (Auto) 100 PT INR APTT Sodium 138 Potassium 3.7 Chloride 109 H Carbon Dioxide 20 L BUN 29 H Creatinine 1.72 H Estimated GFR 41 L BUN/Creatinine Ratio 16.9 Glucose 122 H Lactate 3.0 H Calcium 8.0 L Magnesium Total Bilirubin 0.7 AST 22 ALT 25 Alkaline Phosphatase 114 C-Reactive Protein NT-Pro-B Natriuret Pep Total Protein 5.8 L Albumin 3.3 L Globulin 2.5 Albumin/Globulin Ratio 1.3 Lipase 749 H Procalcitonin Urine Color Urine Appearance Urine pH Ur Specific [place] Urine Protein Urine Glucose (UA) Urine Ketones Urine Occult Blood Urine Nitrate Urine Bilirubin Urine Urobilinogen Ur Leukocyte Esterase Urine RBC Urine WBC Ur Squamous Epith Cells Ur Transition Epith Cell Urine Bacteria Hyaline Casts Urine Mucus Urine Sperm Nasal Screen MRSA (PCR) Stl C. cayetanensis PCR Stool Rotavirus (PCR) Stool Adenovirus (PCR) Stool Astrovirus (PCR) Stool Cryptosporidium PCR Stl E.coli Shiga Tox PCR St Sh/Enteroin Ecoli PCR Stool E coli O157 PCR Stl Enterotoxigenic E PCR Stool EPEC (PCR) Stl E. histolytica PCR Stool Giardia Lamblia PCR Stool Sapovirus (PCR) Stl P. shigelloides PCR St Y.enterocolitica PCR Stool Vibrio (PCR) Stl Vibrio cholerae PCR Stl Enteroaggr Ecoli PCR Stl Norovirus GI/GII PCR Campylobacter (PCR) C. difficile Tox (PCR) Salmonella (PCR) 05/09/23 05/09/23 05/09/23 19:19 19:19 19:34 WBC RBC Hgb Hct MCV MCH MCHC RDW Plt Count Neut % (Auto) Lymph % (Auto) [place] % (Auto) Eos % (Auto) Baso % (Auto) Neut # (Auto) Lymph # (Auto) [place] # (Auto) Eos # (Auto) Baso # (Auto) PT 12.0 INR 1.0 APTT 27 Sodium Potassium Chloride Carbon Dioxide BUN Creatinine Estimated GFR BUN/Creatinine Ratio Glucose Lactate Calcium Magnesium Total Bilirubin AST ALT Alkaline Phosphatase C-Reactive Protein NT-Pro-B Natriuret Pep Total Protein Albumin Globulin Albumin/Globulin Ratio Lipase Procalcitonin 0.16 Urine Color Urine Appearance Urine pH Ur Specific [place] Urine Protein Urine Glucose (UA) Urine Ketones Urine Occult Blood Urine Nitrate Urine Bilirubin Urine Urobilinogen Ur Leukocyte Esterase Urine RBC Urine WBC Ur Squamous Epith Cells Ur Transition Epith Cell Urine Bacteria Hyaline Casts Urine Mucus Urine Sperm Nasal Screen MRSA (PCR) Stl C. cayetanensis PCR Not detected Stool Rotavirus (PCR) Not detected Stool Adenovirus (PCR) Not detected Stool Astrovirus (PCR) Not detected Stool Cryptosporidium PCR Not detected Stl E.coli Shiga Tox PCR Not detected St Sh/Enteroin Ecoli PCR Not detected Stool E coli O157 PCR Not Reportable Stl Enterotoxigenic E PCR Not detected Stool EPEC (PCR) Not detected Stl E. histolytica PCR Not detected Stool Giardia Lamblia PCR Not detected Stool Sapovirus (PCR) Not detected Stl P. shigelloides PCR Not detected St Y.enterocolitica PCR Not detected Stool Vibrio (PCR) Not detected Stl Vibrio cholerae PCR Not detected Stl Enteroaggr Ecoli PCR Not detected Stl Norovirus GI/GII PCR Not detected Campylobacter (PCR) Not detected C. difficile Tox (PCR) Not detected Salmonella (PCR) Not detected 05/09/23 05/09/23 05/09/23 21:11 21:31 21:31 WBC 17.1 H RBC 4.03 L Hgb 12.8 L Hct 38.0 L MCV 94.3 MCH 31.8 MCHC 33.7 RDW 15.1 H Plt Count 185 Neut % (Auto) 88.6 H Lymph % (Auto) 5.0 L [place] % (Auto) 5.8 Eos % (Auto) 0.2 L Baso % (Auto) 0.4 Neut # (Auto) 79447 H Lymph # (Auto) 900 L [place] # (Auto) 1000 H Eos # (Auto) 0 Baso # (Auto) 100 PT INR APTT Sodium 137 Potassium 4.1 Chloride 107 Carbon Dioxide 21 L BUN 31 H Creatinine 1.73 H Estimated GFR 41 L BUN/Creatinine Ratio 17.9 Glucose 157 H Lactate Calcium 7.9 L Magnesium Total Bilirubin AST ALT Alkaline Phosphatase C-Reactive Protein NT-Pro-B Natriuret Pep Total Protein Albumin Globulin Albumin/Globulin Ratio Lipase Procalcitonin Urine Color Yellow Urine Appearance Clear Urine pH 5.5 Ur Specific [place] 1.010 Urine Protein 1+ H Urine Glucose (UA) Negative Urine Ketones Negative Urine Occult Blood Negative Urine Nitrate Negative Urine Bilirubin Negative Urine Urobilinogen 1.0 Ur Leukocyte Esterase Negative Urine RBC 0-1/hpf D Urine WBC None seen Ur Squamous Epith Cells 0-1 /hpf Ur Transition Epith Cell 1-5/hpf Urine Bacteria None seen Hyaline Casts 1-5/lpf Urine Mucus 1+ H Urine Sperm . Nasal Screen MRSA (PCR) Stl C. cayetanensis PCR Stool Rotavirus (PCR) Stool Adenovirus (PCR) Stool Astrovirus (PCR) Stool Cryptosporidium PCR Stl E.coli Shiga Tox PCR St Sh/Enteroin Ecoli PCR Stool E coli O157 PCR Stl Enterotoxigenic E PCR Stool EPEC (PCR) Stl E. histolytica PCR Stool Giardia Lamblia PCR Stool Sapovirus (PCR) Stl P. shigelloides PCR St Y.enterocolitica PCR Stool Vibrio (PCR) Stl Vibrio cholerae PCR Stl Enteroaggr Ecoli PCR Stl Norovirus GI/GII PCR Campylobacter (PCR) C. difficile Tox (PCR) Salmonella (PCR) 05/09/23 05/09/23 05/09/23 21:31 21:31 21:31 WBC RBC Hgb Hct MCV MCH MCHC RDW Plt Count Neut % (Auto) Lymph % (Auto) [place] % (Auto) Eos % (Auto) Baso % (Auto) Neut # (Auto) Lymph # (Auto) [place] # (Auto) Eos # (Auto) Baso # (Auto) PT INR APTT Sodium Potassium Chloride Carbon Dioxide BUN Creatinine Estimated GFR BUN/Creatinine Ratio Glucose Lactate 2.5 H Calcium Magnesium 2.1 Total Bilirubin AST ALT Alkaline Phosphatase C-Reactive Protein 1.1 H NT-Pro-B Natriuret Pep Total Protein Albumin Globulin Albumin/Globulin Ratio Lipase Procalcitonin Urine Color Urine Appearance Urine pH Ur Specific [place] Urine Protein Urine Glucose (UA) Urine Ketones Urine Occult Blood Urine Nitrate Urine Bilirubin Urine Urobilinogen Ur Leukocyte Esterase Urine RBC Urine WBC Ur Squamous Epith Cells Ur Transition Epith Cell Urine Bacteria Hyaline Casts Urine Mucus Urine Sperm Nasal Screen MRSA (PCR) Stl C. cayetanensis PCR Stool Rotavirus (PCR) Stool Adenovirus (PCR) Stool Astrovirus (PCR) Stool Cryptosporidium PCR Stl E.coli Shiga Tox PCR St Sh/Enteroin Ecoli PCR Stool E coli O157 PCR Stl Enterotoxigenic E PCR Stool EPEC (PCR) Stl E. histolytica PCR Stool Giardia Lamblia PCR Stool Sapovirus (PCR) Stl P. shigelloides PCR St Y.enterocolitica PCR Stool Vibrio (PCR) Stl Vibrio cholerae PCR Stl Enteroaggr Ecoli PCR Stl Norovirus GI/GII PCR Campylobacter (PCR) C. difficile Tox (PCR) Salmonella (PCR) 05/10/23 05/10/23 05/10/23 00:05 01:44 01:44 WBC RBC Hgb 12.5 L Hct 36.9 L MCV MCH MCHC RDW Plt Count Neut % (Auto) Lymph % (Auto) [place] % (Auto) Eos % (Auto) Baso % (Auto) Neut # (Auto) Lymph # (Auto) [place] # (Auto) Eos # (Auto) Baso # (Auto) PT INR APTT Sodium Potassium Chloride Carbon Dioxide BUN Creatinine Estimated GFR BUN/Creatinine Ratio Glucose Lactate 1.9 Calcium Magnesium Total Bilirubin AST ALT Alkaline Phosphatase C-Reactive Protein NT-Pro-B Natriuret Pep Total Protein Albumin Globulin Albumin/Globulin Ratio Lipase Procalcitonin Urine Color Urine Appearance Urine pH Ur Specific [place] Urine Protein Urine Glucose (UA) Urine Ketones Urine Occult Blood Urine Nitrate Urine Bilirubin Urine Urobilinogen Ur Leukocyte Esterase Urine RBC Urine WBC Ur Squamous Epith Cells Ur Transition Epith Cell Urine Bacteria Hyaline Casts Urine Mucus Urine Sperm Nasal Screen MRSA (PCR) Not detected Stl C. cayetanensis PCR Stool Rotavirus (PCR) Stool Adenovirus (PCR) Stool Astrovirus (PCR) Stool Cryptosporidium PCR Stl E.coli Shiga Tox PCR St Sh/Enteroin Ecoli PCR Stool E coli O157 PCR Stl Enterotoxigenic E PCR Stool EPEC (PCR) Stl E. histolytica PCR Stool Giardia Lamblia PCR Stool Sapovirus (PCR) Stl P. shigelloides PCR St Y.enterocolitica PCR Stool Vibrio (PCR) Stl Vibrio cholerae PCR Stl Enteroaggr Ecoli PCR Stl Norovirus GI/GII PCR Campylobacter (PCR) C. difficile Tox (PCR) Salmonella (PCR) 05/10/23 05/10/23 05/10/23 05:05 05:05 05:05 WBC 16.6 H RBC 3.96 L Hgb 12.7 L Hct 37.5 L MCV 94.5 MCH 32.0 MCHC 33.8 RDW 15.2 H Plt Count 175 Neut % (Auto) 90.7 H Lymph % (Auto) 2.7 L [place] % (Auto) 6.5 Eos % (Auto) 0.0 L Baso % (Auto) 0.1 Neut # (Auto) 22441 H Lymph # (Auto) 500 L [place] # (Auto) 1100 H Eos # (Auto) 0 Baso # (Auto) 0 PT INR APTT Sodium 137 Potassium 4.2 Chloride 109 H Carbon Dioxide 19 L BUN 29 H Creatinine 1.77 H Estimated GFR 40 L BUN/Creatinine Ratio 16.4 Glucose 172 H Lactate 2.8 H Calcium 7.7 L Magnesium Total Bilirubin 0.8 AST 24 ALT 30 Alkaline Phosphatase 84 C-Reactive Protein NT-Pro-B Natriuret Pep 59 Total Protein 5.8 L Albumin 3.3 L Globulin 2.5 Albumin/Globulin Ratio 1.3 Lipase Procalcitonin Urine Color Urine Appearance Urine pH Ur Specific [place] Urine Protein Urine Glucose (UA) Urine Ketones Urine Occult Blood Urine Nitrate Urine Bilirubin Urine Urobilinogen Ur Leukocyte Esterase Urine RBC Urine WBC Ur Squamous Epith Cells Ur Transition Epith Cell Urine Bacteria Hyaline Casts Urine Mucus Urine Sperm Nasal Screen MRSA (PCR) Stl C. cayetanensis PCR Stool Rotavirus (PCR) Stool Adenovirus (PCR) Stool Astrovirus (PCR) Stool Cryptosporidium PCR Stl E.coli Shiga Tox PCR St Sh/Enteroin Ecoli PCR Stool E coli O157 PCR Stl Enterotoxigenic E PCR Stool EPEC (PCR) Stl E. histolytica PCR Stool Giardia Lamblia PCR Stool Sapovirus (PCR) Stl P. shigelloides PCR St Y.enterocolitica PCR Stool Vibrio (PCR) Stl Vibrio cholerae PCR Stl Enteroaggr Ecoli PCR Stl Norovirus GI/GII PCR Campylobacter (PCR) C. difficile Tox (PCR) Salmonella (PCR) 05/10/23 08:16 WBC RBC Hgb Hct MCV MCH MCHC RDW Plt Count Neut % (Auto) Lymph % (Auto) [place] % (Auto) Eos % (Auto) Baso % (Auto) Neut # (Auto) Lymph # (Auto) [place] # (Auto) Eos # (Auto) Baso # (Auto) PT INR APTT Sodium Potassium Chloride Carbon Dioxide BUN Creatinine Estimated GFR BUN/Creatinine Ratio Glucose Lactate 2.1 Calcium Magnesium Total Bilirubin AST ALT Alkaline Phosphatase C-Reactive Protein NT-Pro-B Natriuret Pep Total Protein Albumin Globulin Albumin/Globulin Ratio Lipase Procalcitonin Urine Color Urine Appearance Urine pH Ur Specific [place] Urine Protein Urine Glucose (UA) Urine Ketones Urine Occult Blood Urine Nitrate Urine Bilirubin Urine Urobilinogen Ur Leukocyte Esterase Urine RBC Urine WBC Ur Squamous Epith Cells Ur Transition Epith Cell Urine Bacteria Hyaline Casts Urine Mucus Urine Sperm Nasal Screen MRSA (PCR) Stl C. cayetanensis PCR Stool Rotavirus (PCR) Stool Adenovirus (PCR) Stool Astrovirus (PCR) Stool Cryptosporidium PCR Stl E.coli Shiga Tox PCR St Sh/Enteroin Ecoli PCR Stool E coli O157 PCR Stl Enterotoxigenic E PCR Stool EPEC (PCR) Stl E. histolytica PCR Stool Giardia Lamblia PCR Stool Sapovirus (PCR) Stl P. shigelloides PCR St Y.enterocolitica PCR Stool Vibrio (PCR) Stl Vibrio cholerae PCR Stl Enteroaggr Ecoli PCR Stl Norovirus GI/GII PCR Campylobacter (PCR) C. difficile Tox (PCR) Salmonella (PCR) Assessment & Plan Assessment and plan (1) Mass of appendix: Status: Acute (2) Hypotension: Status: Acute (3) Colitis: Status: Acute (4) Septic shock: Status: Acute (5) Acute kidney injury: Status: Acute (6) Gross hematuria: Status: Acute Plan supplemental o2 as needed - currently on RA map goal >65 off levophed adat trend bmp monitor UO trend cbc - hgb stable empirc abx f/u [place] cx scd I suspect this this porbabale infectious vs ishcmic colitis. leaning towards infectious and septic shock as his hgb has been realtively stbale and would better explain his shock. Imaging picked up what may be a mass i nthe appendix, I would not consider prep or colonoscopy for some time - at least a few weeks given the high risk of perforation due to his colitis. total critical care time = 35 min Time Spent With Patient Time with patient: 30 to 49 minutes with 50% spent counseling/coordinating care
--- NOTE | 2023-05-10 13:03 | P.PN_ITS ---
Subjective Subjective Interval history: 72 M admitted with presumed septic shock, secondary to possibe colitis with GI bleeding, possible appendiceal mass or appendicitis based on CT imaging. Stool PCR negative. Continue to have some bloody bowel movements but h/h has remained stable thus far. He is being weaned from levophed today. He continues to have abdominal pain as well, no real change in symptoms thus far. Exam Vital Signs (past 8 hours): - 05/10/23 05:30 05/10/23 05:30 05/10/23 06:00 Temperature Pulse Rate 90 Respiratory Rate 21 Blood Pressure 122/58 L 123/62 Pulse Oximetry 100 Oxygen Delivery Method Oxygen Flow Rate 05/10/23 06:00 05/10/23 07:00 05/10/23 07:00 Temperature Pulse Rate 89 88 Respiratory Rate 20 21 Blood Pressure 115/58 L Pulse Oximetry 100 99 Oxygen Delivery Method Oxygen Flow Rate 0 05/10/23 07:30 05/10/23 07:30 05/10/23 08:00 Temperature Pulse Rate 88 91 H Respiratory Rate 21 21 Blood Pressure 119/59 L Pulse Oximetry 99 100 Oxygen Delivery Method Oxygen Flow Rate 05/10/23 06:30 05/10/23 06:30 05/10/23 08:36 Temperature Pulse Rate 88 Respiratory Rate 21 Blood Pressure 120/61 Pulse Oximetry 99 Oxygen Delivery Method Room Air CPAP Oxygen Flow Rate 05/10/23 08:00 05/10/23 08:30 05/10/23 08:30 Temperature Pulse Rate 89 Respiratory Rate 22 Blood Pressure 130/63 132/62 Pulse Oximetry 100 Oxygen Delivery Method Oxygen Flow Rate 05/10/23 09:00 05/10/23 09:00 05/10/23 09:14 Temperature 97.1 F L Pulse Rate 96 H Respiratory Rate 28 H Blood Pressure 128/59 L Pulse Oximetry 100 Oxygen Delivery Method Oxygen Flow Rate 05/10/23 09:30 05/10/23 09:30 05/10/23 10:00 Temperature Pulse Rate 86 Respiratory Rate 26 H Blood Pressure 113/61 106/58 L Pulse Oximetry 100 Oxygen Delivery Method Oxygen Flow Rate 05/10/23 10:00 05/10/23 10:30 05/10/23 10:30 Temperature Pulse Rate 87 82 Respiratory Rate 23 21 Blood Pressure 113/59 L Pulse Oximetry 100 100 Oxygen Delivery Method Oxygen Flow Rate 05/10/23 11:00 05/10/23 11:00 05/10/23 11:30 Temperature 98.4 F Pulse Rate 84 Respiratory Rate 18 Blood Pressure 125/56 L 104/56 L Pulse Oximetry 100 Oxygen Delivery Method Oxygen Flow Rate 05/10/23 11:30 05/10/23 12:00 05/10/23 12:00 Temperature Pulse Rate 83 Respiratory Rate 16 Blood Pressure 95/51 L Pulse Oximetry 99 Oxygen Delivery Method Room Air CPAP Oxygen Flow Rate 05/10/23 12:00 Temperature Pulse Rate 80 Respiratory Rate 15 Blood Pressure Pulse Oximetry 100 Oxygen Delivery Method Oxygen Flow Rate Oxygen Delivery Method Room Air,CPAP Oxygen Flow Rate 0 Narrative Exam Narrative: General: Patient is a well-developed, well-nourished male in mild discomfort, but in no acute distress HEENT: Normocephalic, atraumatic, extraocular muscles intact, oral pharynx is clear and mucous membranes are moist. Neck is supple and symmetric, trachea is midline Chest: Equal chest rise without nasal flaring, retractions, tachypneic or lab ored breathing. Lungs: Auscultation of all lung loredo are clear without adventitious sounds, wheezes, rhonchi, or rales. Cardio: regular rate and rhythm without murmur, rubs, or gallops, no carotid bruit, no cardiac pulsations present. Abdomen: Soft, mild distension with RLQ tenderness most prominent, lesser extent LLQ as well. Musculoskeletal: Muscle strength and tone are equal, no deformity, crepitus, effusions, cyanosis, clubbing or present. Trace right ankle nonpitting edema. Full range of motion intact radial and pedal pulses are normal. Skin: Patient appears slightly pale, Warm dry and intact without rashes, ulcerations or petechiae. Neuro: Alert and orientated x3, moves all extremities, sensation to touch intact, no gross deficits noted of cranial nerves. Psych: Patient has a well-kept appearance, appropriate affect, mental status attitude thought context and judgment are appropriate for age. Objective Labs 05/10/23 05:05 05/10/23 05:05 Labs: Laboratory Results - last 24 hr 05/09/23 05/09/23 05/09/23 19:19 19:19 19:19 WBC 18.0 H RBC 4.12 L Hgb 12.7 L Hct 38.8 L MCV 94.2 MCH 30.9 MCHC 32.8 RDW 15.2 H Plt Count 164 Neut % (Auto) 85.5 H Lymph % (Auto) 8.0 L Schley % (Auto) 4.7 Eos % (Auto) 1.3 L Baso % (Auto) 0.5 Neut # (Auto) 65975 H Lymph # (Auto) 1400 Schley # (Auto) 900 Eos # (Auto) 200 Baso # (Auto) 100 PT INR APTT Sodium 138 Potassium 3.7 Chloride 109 H Carbon Dioxide 20 L BUN 29 H Creatinine 1.72 H Estimated GFR 41 L BUN/Creatinine Ratio 16.9 Glucose 122 H Lactate 3.0 H Calcium 8.0 L Magnesium Total Bilirubin 0.7 AST 22 ALT 25 Alkaline Phosphatase 114 C-Reactive Protein NT-Pro-B Natriuret Pep Total Protein 5.8 L Albumin 3.3 L Globulin 2.5 Albumin/Globulin Ratio 1.3 Lipase 749 H Procalcitonin Urine Color Urine Appearance Urine pH Ur Specific [place] Urine Protein Urine Glucose (UA) Urine Ketones Urine Occult Blood Urine Nitrate Urine Bilirubin Urine Urobilinogen Ur Leukocyte Esterase Urine RBC Urine WBC Ur Squamous Epith Cells Ur Transition Epith Cell Urine Bacteria Hyaline Casts Urine Mucus Urine Sperm Nasal Screen MRSA (PCR) Stl C. cayetanensis PCR Stool Rotavirus (PCR) Stool Adenovirus (PCR) Stool Astrovirus (PCR) Stool Cryptosporidium PCR Stl E.coli Shiga Tox PCR St Sh/Enteroin Ecoli PCR Stool E coli O157 PCR Stl Enterotoxigenic E PCR Stool EPEC (PCR) Stl E. histolytica PCR Stool Giardia Lamblia PCR Stool Sapovirus (PCR) Stl P. shigelloides PCR St Y.enterocolitica PCR Stool Vibrio (PCR) Stl Vibrio cholerae PCR Stl Enteroaggr Ecoli PCR Stl Norovirus GI/GII PCR Campylobacter (PCR) C. difficile Tox (PCR) Salmonella (PCR) 05/09/23 05/09/23 05/09/23 19:19 19:19 19:34 WBC RBC Hgb Hct MCV MCH MCHC RDW Plt Count Neut % (Auto) Lymph % (Auto) Schley % (Auto) Eos % (Auto) Baso % (Auto) Neut # (Auto) Lymph # (Auto) Schley # (Auto) Eos # (Auto) Baso # (Auto) PT 12.0 INR 1.0 APTT 27 Sodium Potassium Chloride Carbon Dioxide BUN Creatinine Estimated GFR BUN/Creatinine Ratio Glucose Lactate Calcium Magnesium Total Bilirubin AST ALT Alkaline Phosphatase C-Reactive Protein NT-Pro-B Natriuret Pep Total Protein Albumin Globulin Albumin/Globulin Ratio Lipase Procalcitonin 0.16 Urine Color Urine Appearance Urine pH Ur Specific [place] Urine Protein Urine Glucose (UA) Urine Ketones Urine Occult Blood Urine Nitrate Urine Bilirubin Urine Urobilinogen Ur Leukocyte Esterase Urine RBC Urine WBC Ur Squamous Epith Cells Ur Transition Epith Cell Urine Bacteria Hyaline Casts Urine Mucus Urine Sperm Nasal Screen MRSA (PCR) Stl C. cayetanensis PCR Not detected Stool Rotavirus (PCR) Not detected Stool Adenovirus (PCR) Not detected Stool Astrovirus (PCR) Not detected Stool Cryptosporidium PCR Not detected Stl E.coli Shiga Tox PCR Not detected St Sh/Enteroin Ecoli PCR Not detected Stool E coli O157 PCR Not Reportable Stl Enterotoxigenic E PCR Not detected Stool EPEC (PCR) Not detected Stl E. histolytica PCR Not detected Stool Giardia Lamblia PCR Not detected Stool Sapovirus (PCR) Not detected Stl P. shigelloides PCR Not detected St Y.enterocolitica PCR Not detected Stool Vibrio (PCR) Not detected Stl Vibrio cholerae PCR Not detected Stl Enteroaggr Ecoli PCR Not detected Stl Norovirus GI/GII PCR Not detected Campylobacter (PCR) Not detected C. difficile Tox (PCR) Not detected Salmonella (PCR) Not detected 05/09/23 05/09/23 05/09/23 21:11 21:31 21:31 WBC 17.1 H RBC 4.03 L Hgb 12.8 L Hct 38.0 L MCV 94.3 MCH 31.8 MCHC 33.7 RDW 15.1 H Plt Count 185 Neut % (Auto) 88.6 H Lymph % (Auto) 5.0 L Schley % (Auto) 5.8 Eos % (Auto) 0.2 L Baso % (Auto) 0.4 Neut # (Auto) 87291 H Lymph # (Auto) 900 L Schley # (Auto) 1000 H Eos # (Auto) 0 Baso # (Auto) 100 PT INR APTT Sodium 137 Potassium 4.1 Chloride 107 Carbon Dioxide 21 L BUN 31 H Creatinine 1.73 H Estimated GFR 41 L BUN/Creatinine Ratio 17.9 Glucose 157 H Lactate Calcium 7.9 L Magnesium Total Bilirubin AST ALT Alkaline Phosphatase C-Reactive Protein NT-Pro-B Natriuret Pep Total Protein Albumin Globulin Albumin/Globulin Ratio Lipase Procalcitonin Urine Color Yellow Urine Appearance Clear Urine pH 5.5 Ur Specific [place] 1.010 Urine Protein 1+ H Urine Glucose (UA) Negative Urine Ketones Negative Urine Occult Blood Negative Urine Nitrate Negative Urine Bilirubin Negative Urine Urobilinogen 1.0 Ur Leukocyte Esterase Negative Urine RBC 0-1/hpf D Urine WBC None seen Ur Squamous Epith Cells 0-1 /hpf Ur Transition Epith Cell 1-5/hpf Urine Bacteria None seen Hyaline Casts 1-5/lpf Urine Mucus 1+ H Urine Sperm . Nasal Screen MRSA (PCR) Stl C. cayetanensis PCR Stool Rotavirus (PCR) Stool Adenovirus (PCR) Stool Astrovirus (PCR) Stool Cryptosporidium PCR Stl E.coli Shiga Tox PCR St Sh/Enteroin Ecoli PCR Stool E coli O157 PCR Stl Enterotoxigenic E PCR Stool EPEC (PCR) Stl E. histolytica PCR Stool Giardia Lamblia PCR Stool Sapovirus (PCR) Stl P. shigelloides PCR St Y.enterocolitica PCR Stool Vibrio (PCR) Stl Vibrio cholerae PCR Stl Enteroaggr Ecoli PCR Stl Norovirus GI/GII PCR Campylobacter (PCR) C. difficile Tox (PCR) Salmonella (PCR) 05/09/23 05/09/23 05/09/23 21:31 21:31 21:31 WBC RBC Hgb Hct MCV MCH MCHC RDW Plt Count Neut % (Auto) Lymph % (Auto) Schley % (Auto) Eos % (Auto) Baso % (Auto) Neut # (Auto) Lymph # (Auto) Schley # (Auto) Eos # (Auto) Baso # (Auto) PT INR APTT Sodium Potassium Chloride Carbon Dioxide BUN Creatinine Estimated GFR BUN/Creatinine Ratio Glucose Lactate 2.5 H Calcium Magnesium 2.1 Total Bilirubin AST ALT Alkaline Phosphatase C-Reactive Protein 1.1 H NT-Pro-B Natriuret Pep Total Protein Albumin Globulin Albumin/Globulin Ratio Lipase Procalcitonin Urine Color Urine Appearance Urine pH Ur Specific [place] Urine Protein Urine Glucose (UA) Urine Ketones Urine Occult Blood Urine Nitrate Urine Bilirubin Urine Urobilinogen Ur Leukocyte Esterase Urine RBC Urine WBC Ur Squamous Epith Cells Ur Transition Epith Cell Urine Bacteria Hyaline Casts Urine Mucus Urine Sperm Nasal Screen MRSA (PCR) Stl C. cayetanensis PCR Stool Rotavirus (PCR) Stool Adenovirus (PCR) Stool Astrovirus (PCR) Stool Cryptosporidium PCR Stl E.coli Shiga Tox PCR St Sh/Enteroin Ecoli PCR Stool E coli O157 PCR Stl Enterotoxigenic E PCR Stool EPEC (PCR) Stl E. histolytica PCR Stool Giardia Lamblia PCR Stool Sapovirus (PCR) Stl P. shigelloides PCR St Y.enterocolitica PCR Stool Vibrio (PCR) Stl Vibrio cholerae PCR Stl Enteroaggr Ecoli PCR Stl Norovirus GI/GII PCR Campylobacter (PCR) C. difficile Tox (PCR) Salmonella (PCR) 05/10/23 05/10/23 05/10/23 00:05 01:44 01:44 WBC RBC Hgb 12.5 L Hct 36.9 L MCV MCH MCHC RDW Plt Count Neut % (Auto) Lymph % (Auto) Schley % (Auto) Eos % (Auto) Baso % (Auto) Neut # (Auto) Lymph # (Auto) Schley # (Auto) Eos # (Auto) Baso # (Auto) PT INR APTT Sodium Potassium Chloride Carbon Dioxide BUN Creatinine Estimated GFR BUN/Creatinine Ratio Glucose Lactate 1.9 Calcium Magnesium Total Bilirubin AST ALT Alkaline Phosphatase C-Reactive Protein NT-Pro-B Natriuret Pep Total Protein Albumin Globulin Albumin/Globulin Ratio Lipase Procalcitonin Urine Color Urine Appearance Urine pH Ur Specific [place] Urine Protein Urine Glucose (UA) Urine Ketones Urine Occult Blood Urine Nitrate Urine Bilirubin Urine Urobilinogen Ur Leukocyte Esterase Urine RBC Urine WBC Ur Squamous Epith Cells Ur Transition Epith Cell Urine Bacteria Hyaline Casts Urine Mucus Urine Sperm Nasal Screen MRSA (PCR) Not detected Stl C. cayetanensis PCR Stool Rotavirus (PCR) Stool Adenovirus (PCR) Stool Astrovirus (PCR) Stool Cryptosporidium PCR Stl E.coli Shiga Tox PCR St Sh/Enteroin Ecoli PCR Stool E coli O157 PCR Stl Enterotoxigenic E PCR Stool EPEC (PCR) Stl E. histolytica PCR Stool Giardia Lamblia PCR Stool Sapovirus (PCR) Stl P. shigelloides PCR St Y.enterocolitica PCR Stool Vibrio (PCR) Stl Vibrio cholerae PCR Stl Enteroaggr Ecoli PCR Stl Norovirus GI/GII PCR Campylobacter (PCR) C. difficile Tox (PCR) Salmonella (PCR) 05/10/23 05/10/23 05/10/23 05:05 05:05 05:05 WBC 16.6 H RBC 3.96 L Hgb 12.7 L Hct 37.5 L MCV 94.5 MCH 32.0 MCHC 33.8 RDW 15.2 H Plt Count 175 Neut % (Auto) 90.7 H Lymph % (Auto) 2.7 L Schley % (Auto) 6.5 Eos % (Auto) 0.0 L Baso % (Auto) 0.1 Neut # (Auto) 73677 H Lymph # (Auto) 500 L Schley # (Auto) 1100 H Eos # (Auto) 0 Baso # (Auto) 0 PT INR APTT Sodium 137 Potassium 4.2 Chloride 109 H Carbon Dioxide 19 L BUN 29 H Creatinine 1.77 H Estimated GFR 40 L BUN/Creatinine Ratio 16.4 Glucose 172 H Lactate 2.8 H Calcium 7.7 L Magnesium Total Bilirubin 0.8 AST 24 ALT 30 Alkaline Phosphatase 84 C-Reactive Protein NT-Pro-B Natriuret Pep 59 Total Protein 5.8 L Albumin 3.3 L Globulin 2.5 Albumin/Globulin Ratio 1.3 Lipase Procalcitonin Urine Color Urine Appearance Urine pH Ur Specific [place] Urine Protein Urine Glucose (UA) Urine Ketones Urine Occult Blood Urine Nitrate Urine Bilirubin Urine Urobilinogen Ur Leukocyte Esterase Urine RBC Urine WBC Ur Squamous Epith Cells Ur Transition Epith Cell Urine Bacteria Hyaline Casts Urine Mucus Urine Sperm Nasal Screen MRSA (PCR) Stl C. cayetanensis PCR Stool Rotavirus (PCR) Stool Adenovirus (PCR) Stool Astrovirus (PCR) Stool Cryptosporidium PCR Stl E.coli Shiga Tox PCR St Sh/Enteroin Ecoli PCR Stool E coli O157 PCR Stl Enterotoxigenic E PCR Stool EPEC (PCR) Stl E. histolytica PCR Stool Giardia Lamblia PCR Stool Sapovirus (PCR) Stl P. shigelloides PCR St Y.enterocolitica PCR Stool Vibrio (PCR) Stl Vibrio cholerae PCR Stl Enteroaggr Ecoli PCR Stl Norovirus GI/GII PCR Campylobacter (PCR) C. difficile Tox (PCR) Salmonella (PCR) 05/10/23 08:16 WBC RBC Hgb Hct MCV MCH MCHC RDW Plt Count Neut % (Auto) Lymph % (Auto) Schley % (Auto) Eos % (Auto) Baso % (Auto) Neut # (Auto) Lymph # (Auto) Schley # (Auto) Eos # (Auto) Baso # (Auto) PT INR APTT Sodium Potassium Chloride Carbon Dioxide BUN Creatinine Estimated GFR BUN/Creatinine Ratio Glucose Lactate 2.1 Calcium Magnesium Total Bilirubin AST ALT Alkaline Phosphatase C-Reactive Protein NT-Pro-B Natriuret Pep Total Protein Albumin Globulin Albumin/Globulin Ratio Lipase Procalcitonin Urine Color Urine Appearance Urine pH Ur Specific [place] Urine Protein Urine Glucose (UA) Urine Ketones Urine Occult Blood Urine Nitrate Urine Bilirubin Urine Urobilinogen Ur Leukocyte Esterase Urine RBC Urine WBC Ur Squamous Epith Cells Ur Transition Epith Cell Urine Bacteria Hyaline Casts Urine Mucus Urine Sperm Nasal Screen MRSA (PCR) Stl C. cayetanensis PCR Stool Rotavirus (PCR) Stool Adenovirus (PCR) Stool Astrovirus (PCR) Stool Cryptosporidium PCR Stl E.coli Shiga Tox PCR St Sh/Enteroin Ecoli PCR Stool E coli O157 PCR Stl Enterotoxigenic E PCR Stool EPEC (PCR) Stl E. histolytica PCR Stool Giardia Lamblia PCR Stool Sapovirus (PCR) Stl P. shigelloides PCR St Y.enterocolitica PCR Stool Vibrio (PCR) Stl Vibrio cholerae PCR Stl Enteroaggr Ecoli PCR Stl Norovirus GI/GII PCR Campylobacter (PCR) C. difficile Tox (PCR) Salmonella (PCR) PFSH Medical History BPH w urinary obs/LUTS Cardiac murmur CKD (chronic kidney disease), stage III Constipation Diverticulosis GERD (gastroesophageal reflux disease) Gout Hypertension Neuropathy GERALD on CPAP Peripheral edema Sepsis (08/2019) Tinnitus Urethral stricture in male Surgical History History of arthroscopy of both knees Hx of bilateral cataract extraction Social History household members: spouse Smoking Status: Former smoker alcohol intake: current Assessment & Plan Assessment & Plan narrative: Jhoan Ch is a 72-year-old male with a past medical history HTN, gout, pancreatitis, CKD stage 3, GERALD with CPAP, neuropathy, peripheral edema, BPH with lower tract involvement and multiple urethral strictures, history of diverticulitis and colon resection, recent diagnosis of DVT right leg on Lovenox admitted with sepsis with septic shock secondary to blood loss from GI bleed, colitis. Unclear if this is appendicitis, or appendiceal mass or ischemic colitis at this time. Sepsis with septic shock, (Hypotension) due to blood loss secondary to Upper GI bleed/Colitis, acute, present on admission * SOFA:3 on admittions * Source is likely colitis, unclear on imaging if appendicitis or colonic mass. May be ischemic, autoimmune, or infectious in nature. Continue IV antibiotics for now, general surgery consulted. Discussed with surgery today. General surgery would like to do c-scope for possible appendiceal mass. In review of his prior colonic resection had crypt atrophy, ischemic changes on pathology. Plan tenatively for prep tomorrow if remains stable and off levophed, with Colonoscopy for Wednesday. * Continue zosyn and fluids * Patient NPO except for ice chips and sips with medication, may advance as tolerated. GI bleed, acute, with ABD Pain, diffuse, acute, present on admission * Unclear if upper but more likely lower source given colitis on imaging * h/h stable, suspect acute bleeding * will continue to follow h/h. goal Hg >7. * Start on PPI IV BID in case of upper source. Colitis, acute, present on admission * History of diverticulitis/colon resection due to diverticulitis * History of pancreatitis * CT scan: There was also colitis in the descending colon and rectum.? There is evidence of normal postsurgical anastomosis. Appendix very thick walled, cannot rule out mass or if there is appendicitis. * general surgery consulted and plan as above for colonoscopy in 2 days after more stable from sepsis picture. * continue antibiotics * NS at 100 cc/HR Lactic acidosis, with neutrophilic leukocytosis, acute, present on admission * Initial lactate 3, repeat 2.5-will continue to trend * WBC 18, repeat 17, neutrophils 1500, mono 1000 * CRP 1.1, procalcitonin normal Elevated lipase, acute, present on admission * Lipase 749, unclear meaning of this, doubt pancreatitis based on presentation Mass, appendix, acute, present on admission * CT scan: relatively large 2.1 cm blind ending pouch coming off the cecum at the location where you would expect the appendix. Unclear if appendicitis or possible mass. DVT, right leg, on Lovenox, acute, present on admission * Diagnosis 2 weeks ago Henrry Tristan * Patient was prescribed Lovenox 120 mg b.i.d.-holding in the face of acute upper GI bleed * Patient has no shortness of breath, stable and asymptomatic for PE. * Given bleeding, holding lovenox for now. * When more stable, consider transfer for IVC filter. BRIANNE on CKD stage 3, acute, present on admission * Admit Cr above 1.7, baseline appears around 1.4. Hypertension, essential, present on admission * Hold while hypotensive- then Continue lisinopril BPH with lower urinary tract symptoms, multiple vulvar urethral strictures * Hold tamsulosin until patient is no longer hypotensive. Neuropathy, chronic, present on admission * Continue duloxetine as needed Code status:Full Surrogate decision maker: Chiquita Ch DVT/VTE prophylaxis: Holding prophylactic medication, SCDs only Disposition: Remains ICU I spent 40 minutes providing critical care management this patient. This excludes time spent in performing separately billed procedures. Quality VTE Deep Vein Thrombosis/Pulmonary Embolism Present on Admission: No
[2023-05-10] MEDS: LIDOCAINE 2% (GLYDO) 6 ML GEL TOP (15:08)
--- NOTE | 2023-05-10 15:23 | PC.NURSE ---
Pt's has CPAP machine from home at bedside. CPAP in place while pt dozing. Levophed remains off at this time. Pt noted to be in NSR with frequent PAC's. BP labile-- lowest 90's/systolic with MAP maintained at 65 to 150/systolic after ambulation. Pt denies dizziness, CP, SOB, or NV. OOB to bathroom with RN assist and ambulating well with walker. AM rounds with Dr Diaz. Discussed holding on any colon prep for atleast 6 weeks until colitis and GI bleeding subsides. Pt to remain on IV ABX. Pt reports unsatiated thirst throughout shift and asking for multiple reyes at a time. Glucose [address] history[address] Iabrra made aware. Consult with Dr Mckinney. Verbal order to bladder scan and place rizzo for bladder distention on CT and acute urinary retention. Bladder scan showed 700mL+ in bladder, pt voided about 375mL. Rizzo placed and 350ml initial output. Pt reports feeling less full. Family at bedside, needs met at this time.
--- NOTE | 2023-05-10 15:42 | CM.DANOTE ---
Met with patient, and son at bedside to discuss care coordination and discharge planning. They agree to assessment. Patient relays that he was previously hospitalized in 2019 then again in 2020 with colitis, diverticulitis resulting in izabella colectomy. Dr. Mckinney in to visit now for surgical eval. CM assessment evolving dependant upon further patient surgical needs. PCP: [facility] assigned PCP Dr. Eric Ba in [place] DCP: home with supportive family. Discharge Planning/Care Management CM Discharge Assessment Start: 05/10/23 15:39 Freq: Status: Active Protocol: Document 05/10/23 15:40 BQ (Rec: 05/10/23 15:42 BQ [id number]) Discharge Planning Assessment Assigned Helicopter Specialist Marni Nation RNCM DPOA/Assigned Designee Name Chiquita, Advance Directives? Yes Advance Directives on File No History Provided By Patient,Medical Record Has Patient been admitted in last 30 No days? Prior Living Arrangements House Household Members spouse Type of transporation used prior to Drives own vehicle admit Independent with ADL's Yes Is patient alert and oriented? Yes Caregiver for Another No DME Already Rented / Owned Other Comment Home CPAP in use now Barriers to Discharge No Comment Has supportive at home. Discharge Plan Home Transportation Arrangement Spouse Referrals Initiated None needed Whiteboard Updated in Patient Room with Yes name and ext. # of Helicopter Specialist Review Status In Process Next Review Type Continued Stay Review
[2023-05-10] MEDS: ACETAMINOPHEN 325 MG TABLET 650 MG PO (16:44)
--- NOTE | 2023-05-10 17:04 | DI.RAD.S_ITS ---
PROCEDURE: XR ABDOMEN 1V INDICATIONS: nausea, vomiting colitis TECHNIQUE: One view of the abdomen acquired. COMPARISON: [facility], CT, CT ABDOMEN PELVIS W CON, 05/09/2023, 20:47. FINDINGS: Surgical changes and devices: None. Bowel: Moderate to large fecal and gas burden. Overall bowel gas pattern is nonspecific. Soft tissues: No suspicious calcifications. Bones: There are degenerative changes. IMPRESSION: Moderate to large fecal and gas burden. Consider CT follow-up for the previously described CT findings depending on clinical context. Dictated by: Axel Keyes M.D. on 05/10/2023 at 17:53 Approved by: Axel Keyes M.D. on 05/10/2023 at 17:54
--- NOTE | 2023-05-10 17:19 | PC.NURSE ---
1700: change in pt status. alerted RN pt was feeling nauseated. Noted to have temp 100.0 orally, zofran IVP and PO tylenol given. Pt BP decreased to 88/54, holding lower abd and dry heaving. PRN morphine given and Dr Ibarra notified and at bedside. Orders for repeat KUB. Cold cloth on pt's head. After 20 min pt states he is still having nausea and pain however mildly better. Advised pt to stop drinking water due to nausea. Few ice chips provided. No new orders at this time.
[2023-05-10 17:27] LABS: Hematocrit 34.2 % (41-53); Hemoglobin 11.7 g/dL (13.5-17.5)
[2023-05-10 17:50] LABS: BUN Creatinine Ratio 14.2 (6-22); Blood Urea Nitrogen 23 mg/dL (9-20); Calcium 7.1 mg/dL (8.4-10.2); Carbon Dioxide 21 mmol/L (22-32); Chloride 105 mmol/L (98-107); Estimated Glomerular Filt Rate 44 mL/min (>60); Glucose 120 mg/dL (80-110); HEMOLYSIS < 15 (0-50); Potassium 3.8 mmol/L (3.4-5.1); Sodium 133 mmol/L (137-145)
--- NOTE | 2023-05-10 18:42 | PC.NURSE ---
Per Dr Ibarra, pt NPO at this time. Potential plan for surgical intervention sometime tomorrow.
--- NOTE | 2023-05-10 18:51 | PM.EVENT ---
Event Note Date Patient Seen: 05/10/23 Time Patient Seen: 18:51 Event Note (Rapid Response, Code, or fall): Patient developed worsening nausea, with emesis and worsened abdominal pain. Abdominal XR with colonic distension. Discussed with surgery. No CT recommended at this time. Will start steroids for possible inflammatory disorder given crypt atrophy on previous pathology. Labs with improving renal function, hg down 1 point from this morning but no longer on levophed. Will make NPO for now.
[2023-05-10] MEDS: methylPREDNISolone 125 MG/2 ML VIAL 60 MG IV (20:00)
--- NOTE | 2023-05-10 20:37 | PM.ICURNDS ---
- :: This patient was seen via real time interactive two-way audiovisual telecommunication. pt remains of pressors with MAP > 65, but still has abdominal pain. Continue abx for now and f/u cx. continue to trend MAP, and will consider albumin bolus if it drops further. I do not recommend a colonoscopy in this patient at this time. Given he has was admitted with septic shock from colitis, he is at high risk for perforation, and would delay the procedure. would restart clear liquid diet
[2023-05-10] MEDS: PANTOPRAZOLE 40 MG VIAL IV (21:00)
[2023-05-10] MEDS: DULOXETINE 30 MG CAPSULE 60 MG PO (21:00)
[2023-05-11] VITALS (25 sets, daily range): BP systolic 104–130; BP diastolic 59–69; PULSE 62–75; RESP 10–21; TEMP 36.8–37; O2SAT 99–100
[2023-05-11 05:34] LABS: Add Manual Diff / Slide Review NO; Basophils Absolute Auto 0 /uL (0-100); Basophils Percent Auto 0.1 % (0-2); Eosinophils Absolute Auto 0 /uL (0-450); Hematocrit 33.5 % (41-53); Hemoglobin 11.4 g/dL (13.5-17.5); Lymphocytes Absolute Auto 400 /uL (1100-4500); Lymphocytes Percent Auto 3.2 % (25-40); Mean Corpuscular HGB Conc 33.9 % (30-36); Mean Corpuscular Hemoglobin 31.9 PG (26-34); Mean Corpuscular Volume 94.1 fL (80-100); Monocytes Absolute Auto 200 /uL (0-900); Neutrophils Absolute Auto 11400 /uL (1500-7000); Neutrophils Percent Auto 94.7 % (50-75); Platelet Count 139 X10^3/uL (150-400); Red Blood Cell Count 3.56 X10^6/uL (4.5-5.9); Red Cell Distribution Width 15.6 % (11.6-14.8)
[2023-05-11 05:46] LABS: Alanine Aminotransferase 26 IU/L (<50); Albumin Globulin Ratio 1.2 (1.0-2.8); Alkaline Phosphatase 65 U/L (38-126); Aspartate Aminotransferase 19 IU/L (17-59); BUN Creatinine Ratio 14.6 (6-22); Bilirubin Total 0.8 mg/dL (0.2-1.3); Blood Urea Nitrogen 22 mg/dL (9-20); Calcium 7.3 mg/dL (8.4-10.2); Carbon Dioxide 20 mmol/L (22-32); Chloride 107 mmol/L (98-107); Estimated Glomerular Filt Rate 48 mL/min (>60); Globulin 2.6 g/dL (1.7-4.1); Glucose 171 mg/dL (80-110); HEMOLYSIS < 15 (0-50); Potassium 4.1 mmol/L (3.4-5.1); Sodium 135 mmol/L (137-145); Total Protein 5.6 g/dL (6.3-8.2)
--- NOTE | 2023-05-11 06:08 | PC.NURSE ---
Medical Engineer Note-Patient slept throughout the night with his own C-pap in place, SpO2 100%, no O2 bleed-in. BP stable, lowest was 90/51(64) at 1930, otherwise MAP 70s-80s, remained off Levophed. NSR, afebrile. No N/V or melana stools, denies abdominal pain.
[2023-05-11] MEDS: PIPERACILLIN/TAZO 3.375 GM in SODIUM CHLORIDE 0.9% 100 ML IV ×3 (07:36→23:34)
[2023-05-11] MEDS: methylPREDNISolone 125 MG/2 ML VIAL 60 MG IV (08:31)
[2023-05-11] MEDS: PANTOPRAZOLE 40 MG VIAL IV ×2 (08:31→20:18)
[2023-05-11] MEDS: SODIUM CHLORIDE 0.9% 1,000 ML 100 ML IV ×2 (09:04→18:19)
--- NOTE | 2023-05-11 09:23 | P.TELICUPN_ITS ---
Subjective Subjective IF CAMERA ACTIVATED, patient seen via real-time interactive audiovisual communication: Camera activated Consent obtained for tele-director of professional services care: Yes Patient Location: ICU Provider location (State): [place] Other participants/roles: RN Current Medications Current Medications Medications: Home Medications allopurinol 100 mg tablet 200 mg PO DAILY ##0 03/12/17 [History Confirmed 05/10/23] duloxetine 60 mg capsule,delayed release 60 mg PO BEDTIME 08/16/19 [History Confirmed 05/10/23] furosemide 20 mg tablet 20 mg PO DAILY 08/16/19 [History Confirmed 05/10/23] loratadine 10 mg capsule 10 mg PO DAILY PRN Seasonal allergies, itching 01/16/20 [History Confirmed 05/10/23] lisinopril 20 mg tablet 20 mg PO DAILY 04/23/20 [History Confirmed 05/10/23] methocarbamol 750 mg tablet 750 mg PO Q6H PRN spasms #40 tabs 10/10/21 [Rx Confirmed 05/10/23] tamsulosin 0.4 mg capsule See Rx Instructions .Route .COMPLEX #90 caps 10/21/22 [Rx Confirmed 05/10/23] Visit Medications (administered) Generic Name Dose Route Start Last Admin Trade Name Freq PRN Reason Stop Dose Admin Acetaminophen 650 mg 05/09/23 23:37 05/10/23 16:44 Acetaminophen 325 Mg Tablet PO 650 mg Q6H PRN Administration Fever/Mild Pain (1-3) Duloxetine HCl 60 mg 05/10/23 21:00 05/10/23 21:00 Duloxetine 30 Mg Capsule PO 60 mg BEDTIME MERA Administration NOREPINEPHRINE BITARTRATE/D5W 4 mg in 250 mls @ 48.478 mls/hr 05/09/23 19:08 05/10/23 08:55 Levophed IV 0 mcg/kg/min TITRATE MERA 0 mls/hr Titration Protocol 0.1 MCG/KG/MIN Piperacillin Sod/Tazobactam 100 mls @ 25 mls/hr 05/09/23 23:30 05/11/23 07:36 Sod 3.375 gm/ Sodium Chloride IV 25 mls/hr Q8H MERA Administration Sodium Chloride 1,000 mls @ 100 mls/hr 05/09/23 23:45 05/11/23 09:04 Normal Saline 0.9% IV 100 mls/hr CONT MERA Administration Methylprednisolone 60 mg 05/10/23 18:45 05/11/23 08:31 Methylprednisolone 125 Mg/2 Ml Vial IV 60 mg DAILY MERA Administration Morphine Sulfate 3 mg 05/09/23 23:37 05/10/23 17:11 Morphine 4 Mg/Ml Inj IV 3 mg Q4HR PRN Administration Pain, Severe (7-10) Ondansetron HCl 4 mg 05/09/23 23:37 05/10/23 16:42 Ondansetron 4 Mg/2 Ml Inj IV 4 mg Q4HR PRN Administration Nausea And Vomiting Pantoprazole Sodium 40 mg 05/10/23 21:00 05/11/23 08:31 Pantoprazole 40 Mg Vial IV 40 mg BID MERA Administration Tamsulosin HCl 0.4 mg 05/10/23 21:00 05/10/23 21:00 Tamsulosin 0.4 Mg Capsule PO Not Given BEDTIME [facility] Objective Labs 05/12/23 04:45 05/12/23 04:45 Labs: Laboratory Results - last 24 hr 05/10/23 05/10/23 05/10/23 08:16 16:11 17:27 WBC RBC Hgb 11.7 L Hct 34.2 L MCV MCH MCHC RDW Plt Count Neut % (Auto) Lymph % (Auto) [place] % (Auto) Eos % (Auto) Baso % (Auto) Neut # (Auto) Lymph # (Auto) [place] # (Auto) Eos # (Auto) Baso # (Auto) Sodium 133 L Potassium 3.8 Chloride 105 Carbon Dioxide 21 L BUN 23 H Creatinine 1.62 H Estimated GFR 44 L BUN/Creatinine Ratio 14.2 Glucose 120 H Lactate 2.1 Calcium 7.1 L Total Bilirubin AST ALT Alkaline Phosphatase Total Protein Albumin Globulin Albumin/Globulin Ratio 05/11/23 05/11/23 05:25 05:25 WBC 12.0 H RBC 3.56 L Hgb 11.4 L Hct 33.5 L MCV 94.1 MCH 31.9 MCHC 33.9 RDW 15.6 H Plt Count 139 L Neut % (Auto) 94.7 H Lymph % (Auto) 3.2 L [place] % (Auto) 2.0 L Eos % (Auto) 0.0 L Baso % (Auto) 0.1 Neut # (Auto) 66506 H Lymph # (Auto) 400 L [place] # (Auto) 200 Eos # (Auto) 0 Baso # (Auto) 0 Sodium 135 L Potassium 4.1 Chloride 107 Carbon Dioxide 20 L BUN 22 H Creatinine 1.51 H Estimated GFR 48 L BUN/Creatinine Ratio 14.6 Glucose 171 H Lactate Calcium 7.3 L Total Bilirubin 0.8 AST 19 ALT 26 Alkaline Phosphatase 65 Total Protein 5.6 L Albumin 3.0 L Globulin 2.6 Albumin/Globulin Ratio 1.2 Exam Vital Signs (past 8 hours): - 05/11/23 01:30 05/11/23 01:30 05/11/23 01:30 Temperature 98.3 F Pulse Rate 75 Respiratory Rate 13 Blood Pressure 114/65 Pulse Oximetry 100 Oxygen Delivery Method CPAP 05/11/23 02:00 05/11/23 02:00 05/11/23 02:30 Temperature Pulse Rate 68 Respiratory Rate 11 L Blood Pressure 117/65 111/61 Pulse Oximetry 100 Oxygen Delivery Method 05/11/23 02:30 05/11/23 03:00 05/11/23 03:00 Temperature Pulse Rate 68 69 Respiratory Rate 13 13 Blood Pressure 105/59 L Pulse Oximetry 100 100 Oxygen Delivery Method 05/11/23 03:30 05/11/23 03:30 05/11/23 04:00 Temperature Pulse Rate 68 Respiratory Rate 13 Blood Pressure 104/61 107/64 Pulse Oximetry 100 Oxygen Delivery Method 05/11/23 04:00 05/11/23 04:30 05/11/23 04:30 Temperature Pulse Rate 66 66 Respiratory Rate 13 13 Blood Pressure 105/61 Pulse Oximetry 100 100 Oxygen Delivery Method 05/11/23 05:00 05/11/23 05:00 05/11/23 05:30 Temperature Pulse Rate 65 Respiratory Rate 13 Blood Pressure 106/63 119/69 Pulse Oximetry 100 Oxygen Delivery Method 05/11/23 05:30 05/11/23 05:30 05/11/23 06:30 Temperature 98.6 F Pulse Rate 67 Respiratory Rate 13 Blood Pressure 110/67 Pulse Oximetry 100 Oxygen Delivery Method Room Air CPAP 05/11/23 06:30 05/11/23 07:00 05/11/23 07:00 Temperature Pulse Rate 63 64 Respiratory Rate 11 L 14 Blood Pressure 109/65 Pulse Oximetry 100 100 Oxygen Delivery Method 05/11/23 07:30 05/11/23 07:30 05/11/23 08:00 Temperature Pulse Rate 65 Respiratory Rate 13 Blood Pressure 106/59 L 116/67 Pulse Oximetry 100 Oxygen Delivery Method 05/11/23 08:00 05/11/23 08:30 05/11/23 08:30 Temperature Pulse Rate 64 62 Respiratory Rate 12 13 Blood Pressure 125/64 Pulse Oximetry 100 100 Oxygen Delivery Method 05/11/23 09:00 05/11/23 09:00 05/11/23 09:00 Temperature Pulse Rate 66 Respiratory Rate 12 Blood Pressure 130/69 Pulse Oximetry 100 Oxygen Delivery Method Room Air CPAP Oxygen Delivery Method Room Air,CPAP Oxygen Flow Rate 0 Narrative Exam Narrative: Surrogate for full exam is primary team Quality TeleICU VTE Deep Vein Thrombosis/Pulmonary Embolism Present on Admission: No Assessment & Plan Assessment and plan (1) Mass of appendix: Status: Acute (2) Hypotension: Status: Acute (3) Colitis: Status: Acute (4) Septic shock: Status: Acute (5) Acute kidney injury: Status: Acute (6) Gross hematuria: Status: Acute Plan supplemental o2 as needed - currently on RA map goal >65 off levophed would restart clear liquid diet trend bmp monitor UO trend cbc - hgb stable empirc abx f/u [place] cx scd I suspect this this probable infectious vs ischemic colitis. leaning towards infectious and septic shock as his hgb has been relatively stbale and would bett er explain his shock. Imaging picked up what may be a mass in the appendix, I would not consider prep or colonoscopy for some time - at least a few weeks given the high risk of perforation due to his colitis. total critical care time = 35 min Time Spent With Patient Time with patient: 30 to 49 minutes with 50% spent counseling/coordinating care
--- NOTE | 2023-05-11 12:29 | P.PN_ITS ---
Subjective Subjective Interval history: Patient is much improved this morning from yesterday evening. No further nausea or vomiting and abdominal pain is much improved. Exam Vital Signs (past 8 hours): - 05/11/23 04:30 05/11/23 04:30 05/11/23 05:00 Temperature Pulse Rate 66 Respiratory Rate 13 Blood Pressure 105/61 106/63 Pulse Oximetry 100 Oxygen Delivery Method 05/11/23 05:00 05/11/23 05:30 05/11/23 05:30 Temperature 98.6 F Pulse Rate 65 67 Respiratory Rate 13 13 Blood Pressure 119/69 Pulse Oximetry 100 100 Oxygen Delivery Method 05/11/23 05:30 05/11/23 06:30 05/11/23 06:30 Temperature Pulse Rate 63 Respiratory Rate 11 L Blood Pressure 110/67 Pulse Oximetry 100 Oxygen Delivery Method Room Air CPAP 05/11/23 07:00 05/11/23 07:00 05/11/23 07:30 Temperature Pulse Rate 64 Respiratory Rate 14 Blood Pressure 109/65 106/59 L Pulse Oximetry 100 Oxygen Delivery Method 05/11/23 07:30 05/11/23 08:00 05/11/23 08:00 Temperature Pulse Rate 65 64 Respiratory Rate 13 12 Blood Pressure 116/67 Pulse Oximetry 100 100 Oxygen Delivery Method 05/11/23 08:30 05/11/23 08:30 05/11/23 09:00 Temperature Pulse Rate 62 Respiratory Rate 13 Blood Pressure 125/64 130/69 Pulse Oximetry 100 Oxygen Delivery Method 05/11/23 09:00 05/11/23 09:00 05/11/23 09:30 Temperature Pulse Rate 66 Respiratory Rate 12 Blood Pressure 118/65 Pulse Oximetry 100 Oxygen Delivery Method Room Air CPAP 05/11/23 09:30 05/11/23 10:00 05/11/23 10:00 Temperature 98.4 F Pulse Rate 71 66 Respiratory Rate 21 18 Blood Pressure 114/63 Pulse Oximetry 100 99 Oxygen Delivery Method 05/11/23 10:30 05/11/23 10:30 05/11/23 11:00 Temperature Pulse Rate 64 Respiratory Rate 14 Blood Pressure 120/69 121/66 Pulse Oximetry 100 Oxygen Delivery Method 05/11/23 11:00 05/11/23 11:30 05/11/23 11:30 Temperature Pulse Rate 65 62 Respiratory Rate 16 12 Blood Pressure 116/66 Pulse Oximetry 99 100 Oxygen Delivery Method 05/11/23 12:00 05/11/23 12:00 Temperature Pulse Rate 62 Respiratory Rate 10 L Blood Pressure 120/65 Pulse Oximetry 100 Oxygen Delivery Method Oxygen Delivery Method Room Air,CPAP Oxygen Flow Rate 0 Narrative Exam Narrative: General: Patient is a well-developed, well-nourished male in mild discomfort, but in no acute distress HEENT: Normocephalic, atraumatic, extraocular muscles intact, oral pharynx is clear and mucous membranes are moist. Neck is supple and symmetric, trachea is midline Chest: Equal chest rise without nasal flaring, retractions, tachypneic or labored breathing. Lungs: Auscultation of all lung loredo are clear without adventitious sounds, wheezes, rhonchi, or rales. Cardio: regular rate and rhythm without murmur, rubs, or gallops, no carotid bruit, no cardiac pulsations present. Abdomen: Soft, non distended, minimal tenderness b/l lower quadrants Musculoskeletal: Muscle strength and tone are equal, no deformity, crepitus, effusions, cyanosis, clubbing or present. Trace right ankle nonpitting edema. Full range of motion intact radial and pedal pulses are normal. Skin: Patient appears slightly pale, Warm dry and intact without rashes, ulcerations or petechiae. Neuro: Alert and orientated x3, moves all extremities, sensation to touch intact, no gross deficits noted of cranial nerves. Psych: Patient has a well-kept appearance, appropriate affect, mental status attitude thought context and judgment are appropriate for age. Objective Labs 05/11/23 05:25 05/11/23 05:25 Labs: Laboratory Results - last 24 hr 05/10/23 05/10/23 05/11/23 16:11 17:27 05:25 WBC 12.0 H RBC 3.56 L Hgb 11.7 L 11.4 L Hct 34.2 L 33.5 L MCV 94.1 MCH 31.9 MCHC 33.9 RDW 15.6 H Plt Count 139 L Neut % (Auto) 94.7 H Lymph % (Auto) 3.2 L [place] % (Auto) 2.0 L Eos % (Auto) 0.0 L Baso % (Auto) 0.1 Neut # (Auto) 18189 H Lymph # (Auto) 400 L [place] # (Auto) 200 Eos # (Auto) 0 Baso # (Auto) 0 Sodium 133 L Potassium 3.8 Chloride 105 Carbon Dioxide 21 L BUN 23 H Creatinine 1.62 H Estimated GFR 44 L BUN/Creatinine Ratio 14.2 Glucose 120 H Calcium 7.1 L Total Bilirubin AST ALT Alkaline Phosphatase Total Protein Albumin Globulin Albumin/Globulin Ratio 05/11/23 05:25 WBC RBC Hgb Hct MCV MCH MCHC RDW Plt Count Neut % (Auto) Lymph % (Auto) [place] % (Auto) Eos % (Auto) Baso % (Auto) Neut # (Auto) Lymph # (Auto) [place] # (Auto) Eos # (Auto) Baso # (Auto) Sodium 135 L Potassium 4.1 Chloride 107 Carbon Dioxide 20 L BUN 22 H Creatinine 1.51 H Estimated GFR 48 L BUN/Creatinine Ratio 14.6 Glucose 171 H Calcium 7.3 L Total Bilirubin 0.8 AST 19 ALT 26 Alkaline Phosphatase 65 Total Protein 5.6 L Albumin 3.0 L Globulin 2.6 Albumin/Globulin Ratio 1.2 PFSH Medical History BPH w urinary obs/LUTS Cardiac murmur CKD (chronic kidney disease), stage III Constipation Diverticulosis GERD (gastroesophageal reflux disease) Gout Hypertension Neuropathy GERALD on CPAP Peripheral edema Sepsis (08/2019) Tinnitus Urethral stricture in male Surgical History History of arthroscopy of both knees Hx of bilateral cataract extraction Social History household members: spouse Smoking Status: Former smoker alcohol intake: current Assessment & Plan Assessment & Plan narrative: Jhoan Ch is a 72-year-old male with a past medical history HTN, gout, pancreatitis, CKD stage 3, GERALD with CPAP, neuropathy, peripheral edema, BPH with lower tract involvement and multiple urethral strictures, history of diverticulitis and colon resection, recent diagnosis of DVT right leg on Lovenox admitted with sepsis with septic shock secondary to blood loss from GI bleed, colitis. Unclear if this is appendicitis, colitis, or appendical mass or a combination of the above. Sepsis with septic shock, (Hypotension) due to blood loss secondary to Upper GI bleed/Colitis, acute, present on admission * SOFA:3 on admission * Source is likely colitis, unclear on imaging if there is possible underlying appendiceal mass as well. Colitits May be ischemic, autoimmune, or infectious in nature. Continue IV antibiotics for now, general surgery consulted. Discussed with surgery previously and awaiting updated recommendations today. It remains unclear as to the etiology at this time of his coliitis. This is particularly difficult case to determine the best method of moving forward, needing to balance perforation risk with endoscopy, possibility of an appendiceal mass (don't want to delay diagnosis potentially if malignant), and that an etiology for his colitis is not entirely clear. * Continue zosyn and fluids * Patient NPO except for ice chips and sips with medication, pending discussion with surgery today likely advance to at least clears. GI bleed, acute, with ABD Pain, diffuse, acute, present on admission * Unclear if upper but more likely lower source given colitis on imaging * h/h stable, suspect acute bleeding * will continue to follow h/h. goal Hg >7. * Start on PPI IV BID in case of upper source. Colitis, acute, present on admission * History of diverticulitis/colon resection due to diverticulitis * History of pancreatitis * CT scan: There was also colitis in the descending colon and rectum.? There is evidence of normal postsurgical anastomosis. Appendix very thick walled, c annot rule out mass or if there is appendicitis. * general surgery consulted and discussed above * continue antibiotics * NS at 100 cc/HR * started methylprednisolone 60 mg daily after acute worsening on 05/10 that was much improved the following morning. Lactic acidosis, with neutrophilic leukocytosis, acute, present on admission * Initial lactate 3, repeat 2.5-will continue to trend * WBC 18, repeat 17, neutrophils 1500, mono 1000 * CRP 1.1, procalcitonin normal Elevated lipase, acute, present on admission * Lipase 749, unclear meaning of this, doubt pancreatitis based on presentation Mass, appendix, acute, present on admission * CT scan: relatively large 2.1 cm blind ending pouch coming off the cecum at the location where you would expect the appendix. Unclear if appendicitis or possible mass. DVT, right leg, on Lovenox, acute, present on admission * Diagnosis 2 weeks ago Henrry Tristan * Patient was prescribed Lovenox 120 mg b.i.d.-holding in the face of acute upper GI bleed * Patient has no shortness of breath, stable and asymptomatic for PE. * Given bleeding, holding lovenox for now. * When more stable, consider transfer for IVC filter or depending on methodology of treatment of colitis may be able to restart anticoagulation. BRIANNE on CKD stage 3, acute, present on admission * Admit Cr above 1.7, baseline appears around 1.4. Hypertension, essential, present on admission * Hold while hypotensive- then Continue lisinopril BPH with lower urinary tract symptoms, multiple vulvar urethral strictures * Hold tamsulosin until patient is no longer hypotensive. Neuropathy, chronic, present on admission * Continue duloxetine as needed Code status:Full Surrogate decision maker: Chiquita Ch DVT/VTE prophylaxis: Holding prophylactic medication, SCDs only Disposition: Downgraded to acute care from ICU today. Probably discharge home, timing unclear but most likely in a couple of days. Time Spent With Patient Time with patient: 30 to 49 minutes with 50% spent counseling/coordinating care Quality VTE Deep Vein Thrombosis/Pulmonary Embolism Present on Admission: No
--- NOTE | 2023-05-11 13:00 | PM.PN.1 ---
Subjective Subjective Date Patient Seen: 05/10/23 Time Patient Seen: 15:00 Interval history: Jing states that he is still having diarrhea and really still does not have much memory of what has occurred. His is at the bedside and a younger man who I presume might be his son. They had several questions about the CT scan and the possible diagnoses that would explain these findings. I answered these questions and continue to recommend a colonoscopy at the next possible time. Did explain that renal function was an issue that we are keeping an eye on before we were going to give him a colonoscopy prep. Exam Vital Signs (past 8 hours): - 05/11/23 05:30 05/11/23 05:30 05/11/23 05:30 Temperature 98.6 F Pulse Rate 67 Respiratory Rate 13 Blood Pressure 119/69 Pulse Oximetry 100 Oxygen Delivery Method Room Air CPAP 05/11/23 06:30 05/11/23 06:30 05/11/23 07:00 Temperature Pulse Rate 63 Respiratory Rate 11 L Blood Pressure 110/67 109/65 Pulse Oximetry 100 Oxygen Delivery Method 05/11/23 07:00 05/11/23 07:30 05/11/23 07:30 Temperature Pulse Rate 64 65 Respiratory Rate 14 13 Blood Pressure 106/59 L Pulse Oximetry 100 100 Oxygen Delivery Method 05/11/23 08:00 05/11/23 08:00 05/11/23 08:30 Temperature Pulse Rate 64 Respiratory Rate 12 Blood Pressure 116/67 125/64 Pulse Oximetry 100 Oxygen Delivery Method 05/11/23 08:30 05/11/23 09:00 05/11/23 09:00 Temperature Pulse Rate 62 66 Respiratory Rate 13 12 Blood Pressure 130/69 Pulse Oximetry 100 100 Oxygen Delivery Method 05/11/23 09:00 05/11/23 09:30 05/11/23 09:30 Temperature Pulse Rate 71 Respiratory Rate 21 Blood Pressure 118/65 Pulse Oximetry 100 Oxygen Delivery Method Room Air CPAP 05/11/23 10:00 05/11/23 10:00 05/11/23 10:30 Temperature 98.4 F Pulse Rate 66 Respiratory Rate 18 Blood Pressure 114/63 120/69 Pulse Oximetry 99 Oxygen Delivery Method 05/11/23 10:30 05/11/23 11:00 05/11/23 11:00 Temperature Pulse Rate 64 65 Respiratory Rate 14 16 Blood Pressure 121/66 Pulse Oximetry 100 99 Oxygen Delivery Method 05/11/23 11:30 05/11/23 11:30 05/11/23 12:00 Temperature Pulse Rate 62 Respiratory Rate 12 Blood Pressure 116/66 120/65 Pulse Oximetry 100 Oxygen Delivery Method 05/11/23 12:00 Temperature Pulse Rate 62 Respiratory Rate 10 L Blood Pressure Pulse Oximetry 100 Oxygen Delivery Method Oxygen Delivery Method Room Air,CPAP Oxygen Flow Rate 0 Const General: cooperative, comfortable and ill appearing Nutritional Appearance: obese HENMT Other: O2 nasal respiratory support device in place Eyes General: appearance normal, both eyes and all related structures GI Palpation: soft and tender (Mild tenderness to palpation with some distention.) Extrem Other: Mild bilateral lower extremity edema without tenderness. Objective Labs 05/11/23 05:25 05/11/23 05:25 Labs: Laboratory Results - last 24 hr 05/10/23 05/10/23 05/11/23 16:11 17:27 05:25 WBC 12.0 H RBC 3.56 L Hgb 11.7 L 11.4 L Hct 34.2 L 33.5 L MCV 94.1 MCH 31.9 MCHC 33.9 RDW 15.6 H Plt Count 139 L Neut % (Auto) 94.7 H Lymph % (Auto) 3.2 L [place] % (Auto) 2.0 L Eos % (Auto) 0.0 L Baso % (Auto) 0.1 Neut # (Auto) 68933 H Lymph # (Auto) 400 L [place] # (Auto) 200 Eos # (Auto) 0 Baso # (Auto) 0 Sodium 133 L Potassium 3.8 Chloride 105 Carbon Dioxide 21 L BUN 23 H Creatinine 1.62 H Estimated GFR 44 L BUN/Creatinine Ratio 14.2 Glucose 120 H Calcium 7.1 L Total Bilirubin AST ALT Alkaline Phosphatase Total Protein Albumin Globulin Albumin/Globulin Ratio 05/11/23 05:25 WBC RBC Hgb Hct MCV MCH MCHC RDW Plt Count Neut % (Auto) Lymph % (Auto) [place] % (Auto) Eos % (Auto) Baso % (Auto) Neut # (Auto) Lymph # (Auto) [place] # (Auto) Eos # (Auto) Baso # (Auto) Sodium 135 L Potassium 4.1 Chloride 107 Carbon Dioxide 20 L BUN 22 H Creatinine 1.51 H Estimated GFR 48 L BUN/Creatinine Ratio 14.6 Glucose 171 H Calcium 7.3 L Total Bilirubin 0.8 AST 19 ALT 26 Alkaline Phosphatase 65 Total Protein 5.6 L Albumin 3.0 L Globulin 2.6 Albumin/Globulin Ratio 1.2 [facility] Medical History BPH w urinary obs/LUTS Cardiac murmur CKD (chronic kidney disease), stage III Constipation Diverticulosis GERD (gastroesophageal reflux disease) Gout Hypertension Neuropathy GERALD on CPAP Peripheral edema Sepsis (08/2019) Tinnitus Urethral stricture in male Surgical History History of arthroscopy of both knees Hx of bilateral cataract extraction Social History household members: spouse Smoking Status: Former smoker alcohol intake: current Assessment & Plan Assessment and plan (1) Mass of appendix: Status: Acute (2) Melena: Status: Acute (3) Abdominal pain: Status: Acute (4) BPH w urinary obs/LUTS: Status: Acute (5) Urethral stricture in male: Qualifiers: Urethral stricture type: unspecified stricture type Qualified Code(s): N35.919 - Unspecified urethral stricture, male, unspecified site Status: Acute Assessment & Plan narrative: I reviewed the CT scan imaging and I have recommended a bladder scan and possibly a urinary catheter to the bedside nurse today. I also discussed this case with Dr. Ibarra extensively. I think the best next step here will be to proceed with a colonoscopy as soon as possible. That will give us the most diagnostic information. Please do not hesitate to call me on my cell phone at [phone] as needed when you think that he is ready tolerate a prep and his renal function is improved we will book him as soon as possible. I think would prefer to do it as an inpatient but if there is a compelling reason to have him scheduled outpatient and he is stable then we could do that. Quality VTE Deep Vein Thrombosis/Pulmonary Embolism Present on Admission: No
[2023-05-11] MEDS: PEG3350/SOD SULF,BICARB,CL/KCL 4,000 ML SOLUTION 4000 ML PO (17:21)
--- NOTE | 2023-05-11 19:04 | PC.NURSE ---
Pt doing bowel prep for colonoscopy tomorrow, it was noted that there was a quarter size blood in the toilet after BM, Dr Ibarra updated on status, no changes in orders at this time, will continue to monitor.
[2023-05-11] MEDS: DULOXETINE 30 MG CAPSULE 60 MG PO (20:17)
[2023-05-11] MEDS: TAMSULOSIN 0.4 MG CAPSULE PO (20:18)
[2023-05-12] VITALS (11 sets, daily range): BP systolic 94–128; BP diastolic 51–67; PULSE 58–85; RESP 16–21; TEMP 36.2–36.7; O2SAT 95–99; BMI 35.6
[2023-05-12 04:54] LABS: Add Manual Diff / Slide Review NO; Basophils Absolute Auto 0 /uL (0-100); Basophils Percent Auto 0.3 % (0-2); Eosinophils Absolute Auto 0 /uL (0-450); Hematocrit 30.7 % (41-53); Hemoglobin 10.5 g/dL (13.5-17.5); Lymphocytes Absolute Auto 1200 /uL (1100-4500); Lymphocytes Percent Auto 9.7 % (25-40); Mean Corpuscular HGB Conc 34.4 % (30-36); Mean Corpuscular Hemoglobin 31.9 PG (26-34); Mean Corpuscular Volume 92.8 fL (80-100); Monocytes Absolute Auto 900 /uL (0-900); Monocytes Percent Auto 7.2 % (3-14); Neutrophils Absolute Auto 9800 /uL (1500-7000); Neutrophils Percent Auto 82.8 % (50-75); Platelet Count 129 X10^3/uL (150-400); Red Cell Distribution Width 15.2 % (11.6-14.8); White Blood Cell Count 11.9 X10^3/uL (4.5-11.0)
[2023-05-12 05:02] LABS: Alanine Aminotransferase 27 IU/L (<50); Albumin 2.8 g/dL (3.5-5.0); Albumin Globulin Ratio 1.1 (1.0-2.8); Alkaline Phosphatase 59 U/L (38-126); Aspartate Aminotransferase 19 IU/L (17-59); BUN Creatinine Ratio 17.5 (6-22); Bilirubin Total 0.5 mg/dL (0.2-1.3); Blood Urea Nitrogen 22 mg/dL (9-20); Calcium 7.2 mg/dL (8.4-10.2); Carbon Dioxide 23 mmol/L (22-32); Chloride 108 mmol/L (98-107); Estimated Glomerular Filt Rate 60 mL/min (>60); Globulin 2.5 g/dL (1.7-4.1); Glucose 132 mg/dL (80-110); HEMOLYSIS < 15 (0-50); Potassium 3.4 mmol/L (3.4-5.1); Sodium 136 mmol/L (137-145); Total Protein 5.3 g/dL (6.3-8.2)
--- NOTE | 2023-05-12 07:46 | PM.PREOP ---
Pre-operative Note COVID-19 COVID-19 status: Negative Interval Note History & Physical reviewed/Exam performed by Physician: Yes Changes to H&P: Yes H&P completed within 30 days and has changed as indicated here:: Sepsis abated, Pt is hemodynamically stable now.
--- NOTE | 2023-05-12 08:58 | PM.OP.COLON ---
Operative Date/Time/Diagnoses Date of procedure: 05/12/23 Time of procedure: 08:59 Pre-op diagnosis: Sepsis and abnormal CT scan showing thickening of the appendix and thickening of the descending colon. Status post sigmoid colectomy for diverticulitis Post-op diagnosis: same Procedure & Clinicians Study performed: Colonoscopy under MAC Same procedure as scheduled: Yes Indications: Diagnostic colonoscopy for abnormal CT scan with questionable cecal mass and thickening of descending colon Surgeon: Chiquita Mixon Procedure Notes Procedure in detail: Preop diagnosis: Sepsis, abnormal CT Postop diagnosis: Same Operative procedure: Colonoscopy with MAC Surgeon: Kimmy Mixon MD Findings: Normal rectum and distal descending colon. 10 cm stretch of proximal descending colon from splenic flexure with evidence of ischemic colitis small areas of necrotic mucosa, no full-thickness. Cecum reached no evidence of cecal mass however it was a poor prep and there was a very small pool in cecum that could not be evacuated fully but I am not concerned for hidden mass. No inflammation or mucosal change of the cecum noted Procedure: Patient placed in lateral position. Rectal exam performed showing decreased tone no masses. Colonoscope inserted into the rectum and advanced to ileocecal valve with minimal difficulty. Insufflation extraction scope and the above findings. No biopsies taken due to his anticoagulation. Impression: Ischemic colitis that should resolve without complication. No significant cecal mass identified or mucosal changes of the cecum. I feel this is less likely an inflammatory bowel disease and more likely uncomplicated acute appendicitis along with ischemic colitis. Plan: Given the ischemic colitis and propensity for bleeding once the mucosal slough patient will be transferred to a center where he can receive an IVC filter in treatment of his DVT. He apparently is responding to appendicitis under medical management alone with clearing of sepsis and near normal white count today. My recommendations would be to continue with medical management of what is likely acute appendicitis, follow-up with repeat CT scan in 4-6 weeks to determine if the appendix remains abnormal in appearance and if there is concern remaining of mass in the appendix. Interval appy would be recommended at that time otherwise if the appendix is normal in appearance and medical management has worked he is certainly too high risk to proceed with interval appendectomy without significant education for the patient. Also considering the significantly poor quality of prep in the acute setting he would qualify for a repeat colonoscopy under better conditions if his health allows. Findings: colitis Specimen(s): none sent Complications: none Post-procedure Follow up: as needed Disposition: PACU
[2023-05-12] MEDS: PIPERACILLIN/TAZO 3.375 GM in SODIUM CHLORIDE 0.9% 100 ML IV ×2 (09:31→15:00)
[2023-05-12] MEDS: PANTOPRAZOLE 40 MG VIAL IV (09:32)
[2023-05-12] MEDS: methylPREDNISolone 125 MG/2 ML VIAL 60 MG IV (09:32)
--- NOTE | 2023-05-12 11:15 | CM.DPC ---
DCP Continued: SUPERVISOR SPEECH reviewed EMR. Per provider in rounds, patient needs an IV C filter and will need to transfer to another facility. Provider is waiting on [facility] input of where to send him for care. Provider said there are three hospitals that can accept him. Plan: patient will transfer to another facility for care. CM team will continue to follow as needed. STANTON Ellis
--- NOTE | 2023-05-12 12:09 | PC.NURSE ---
I have reviewed all of the assessments and charting by ZAIRA Valle and agree with all charting
[2023-05-12] MEDS: POTASSIUM CHLORIDE 20 MEQ TAB 40 MEQ PO (12:52)
--- NOTE | 2023-05-12 13:05 | PC.NURSE ---
SCDs removed per provider order, communicated to data acquisition technician and will hand-off to retail shift supervisor nurse.
--- NOTE | 2023-05-12 15:02 | PM.DS.1 ---
History of Present Illness History of Present Illness Date Patient Seen: 05/12/23 Time Patient Seen: 15:15 Chief complaint: Sepsis w/shock, upper GI Bleed, Colitis Narrative: Per admitting provider, Jhoan Ch is a 72-year-old male with a past medical history HTN, gout, pancreatitis, CKD stage 3, GERALD with CPAP, neuropathy, peripheral edema, BPH with lower tract involvement and multiple vulvar urethral strictures, history of diverticulitis and colon resection, DVT x2 1-2 weeks ago on Lovenox. Patient brought into the ED today via EMS following a syncopal episode while on the commode. Patient had no recall of the events prior to arrival. Patient was hypotensive in the field systolics in the 40s, in ED systolics in the 70s, temp 97.4?, HR 70, 21, 94% on 2L NC. B/P did not improve with fluid resuscitation patient was subsequently placed on Levophed via Central line placed. Patient had multiple large melena bowel movements in ED, hemoccult was positive, on-going Nausea & vomiting,complains of generalized abdominal tenderness on exam. He denies any prodromal symptoms. CT scan was obtained and his stool was noted to be loose and diarrheal and had the appearance of a GI bleed, relatively large 2.1 cm blind ending pouch coming off the cecum at the location where you would expect the appendix.? There was also colitis in the descending colon and rectum.? There is evidence of normal postsurgical anastomosis. Dr. Mckinney general surgery was called to consult in ED. On admit patient reports that he was DX with DVT x2 at [facility] in [place] proximally 1- 2 weeks ago and is currently on Lovenox 120 mg b.i.d.. He has also had WISEMAN on & off for the past 2 weeks His hematuria, nausea vomiting and melena with diarrhea started today he is unable to recall how many large bloody bowel movements he is had. At the time of admit he had a 100cc bright red bloody BM, his diffuse abd pain with distention continues, sensative to very mild palpation. He is alert & orientated x3. He denies chest pain, shortness in breath, changes in vision, difficulty swallowing, speech impairment, weakness, numbness, tingling, difficulty with ambulation, recent falls, head injury, fever, body aches, chills, cough, recent exposure to illness, urinary incontinence/retention, dysuria, frequency, urgency, hematuria, rashes, recent changes to medication, illness, injury, or trauma. Initial vitals at time of admit: Temp 98?, 107/56 Levophed 4 mcg, 77, 21, 99% on 2 L. initial labs prior to fluid resuscitation & levaphed: WBC 18,neut 15,400, H&H 12/38 lactate 3, chloride 109, CO2 20, BUN 29, creatinine 1.72, GFR 41. CXR: Negative for acute process, central line in place. I personally reviewed imaging and EKG: NS at a rate of 83 with PACs, low-voltage QRS. Patient admitted with sepsis with septic shock secondary to blood loss from GI bleed, colitis. Discharge Providers Provider Date of admission: 05/09/23 23:23 Discharge Date: 05/12/23 Primary care physician: Sarahy Kebede MD Consults: 05/09/23 23:41 Consult to Physician Routine Comment: Consulting Provider: Rhonda Mckinney Reason for consultation: Upper GI Bleed, Colitis Has provider been notified: Yes Discharge provider: Bao Ibarra DO Summary Hospital Course Discharge Diagnosis: Septic vs hypovolemic shock, with hypotension, pressor requirement, BRIANNE secondary to Colitis and/or appendicitis, acute, present on admission, improved Colitis, present on admission, presumed ischemic with acute blood loss anemia Lactic acidosis, acute, present on admission, resolved DVT, right leg, on Lovenox, present prior to admission BRIANNE on CKD stage 3, acute, present on admission Hypertension, essential, chronic, present on admission BPH with lower urinary tract symptoms, with prior ureteral strictures and prior stent placement Hospital Course: Jhoan Ch is a 72-year-old male with a past medical history HTN, gout,prior pancreatitis, CKD stage 3, GERALD with CPAP, neuropathy, peripheral edema, BPH with lower tract involvement and multiple ureteral strictures requiring stent placement and subsequent removal (placed during lap sigmoidectomy), history of diverticulitis and prior laparoscopic sigmoidectomy for such, recent diagnosis of DVT right leg on Lovenox 2 weeks ago who presented to the hospital with abdominal pain and hematochezia. He was admitted with septic vs hypovolemic shock, required levophed administration for <24 hours on presentation. Lovenox was discontinued. He was started on fluids and zoysn empirically after initial CT showed diffuse colitis, but also a Thick-walled blind-ending tubular structure arising from the cecum is suggestive of a markedly thick-walled appendix, though mass cannot be ruled out. GI panel was negative for infectious etiologies. He was started on IV protonix as well given inability to completely rule out upper source, though this is less likely. He initially began to improve quickly with regards to his hemodynamics and was weaned quickly from levophed. He also has a prior colonic resection (lap sigmoidectomy per operative notes) at this hospital with prior admission for presumed diverticulitis or ischemic colitis, with pathology showing elements of ischemia, crypt atrophy, and diverticular disease. Also in the emergency room, patient had urinary retention and rizzo catheter was placed. This may be due to the inflammatory process going on in his abdomen and his prior BPH with urethral strictures. In the evening of HD#1, patient had worsened abdominal pain, with nausea and vomiting despite no pressor requirement at the time (had been weaned off as noted above). Abdominal xray showed colonic distension without perforation. After discussion with general surgery given his prior pathology results he was also started on methylprednisolone for possible inflammatory bowel disease. By HD#2 he had markedly improved again and remained hemodynamically stable. It is still not clear if this was due to NPO diet, improvement with regards to possible appendicitis on antibiotics, or if the steroids were effective. In consultation with general surgery, decision was made to prep for colonoscopy to better understand the etiology for his colitis and to evaluate for possible appendiceal mass. He had mild hematochezia during the prep, and colonoscopy done morning of 05/12 showed appearance of ischemic colitis, no appendiceal mass or fecolith. Surgery recommended medical management of appendicitis and given ischemic colitis no anticoagulation for his DVT given the high probability of repeat bleeding. No biopsies were taken due to concern for bleeding by the surgeon. With regards to his colitis, plan was to advance diet as tolerated and the hope is that he could follow up as an outpatient for further discussion of management and further workup of his either ischmic or inflammatory bowel. Repeat CT imaging is recommended after treatment of appendicitis medically to ensure resolution and to further rule out malignant cause and consider appendectomy. At this time I would recommend a CT angiogram as patient has never had one to evaluate for atherosclerotic disease possibly contributing to his bowel ischmia. Hemoglobin has steadily downtrended throughout his admission, from 13.9 to 10.5 today, with a drop from 11.4 yesterday. His most recent bleeding was during prep, and has not had a bloody bowel movement since. He tolerated liquid diet this afternoon, with some abdominal distension and nausea but no overt abdominal pain reported. With his DVT, and inability to tolerate anticoagulation, he is recommended for transfer to higher level facility to have IVC filter placed. [facility] Rizzo catheter remains in place at transfer, plan here was to attempt trial of void when nearing discharge. When BP improves tamsulosin should be restarted. Code status:Full Surrogate decision maker:? Chiquita BravoKeon DVT/VTE prophylaxis:? Holding prophylactic medication, SCDs only [facility] Time Spent with Patient Time spent: Greater than 30 minutes Exam Vital Signs (past 8 hours): - 05/12/23 07:16 05/12/23 08:38 05/12/23 08:43 Temperature 97.8 F 97.1 F L Pulse Rate 85 73 73 Respiratory Rate 21 20 18 Blood Pressure 122/63 94/51 L 111/58 L Pulse Oximetry 98 95 95 Oxygen Delivery Method Room Air Room Air Room Air Oxygen Flow Rate 05/12/23 08:48 05/12/23 08:52 05/12/23 09:05 Temperature 97.8 F 98.1 F Pulse Rate 72 72 76 Respiratory Rate 16 18 19 Blood Pressure 99/54 L 103/57 L 117/58 L Pulse Oximetry 95 95 95 Oxygen Delivery Method Room Air Room Air Oxygen Flow Rate 0 05/12/23 09:35 05/12/23 10:05 05/12/23 10:27 Temperature 97.9 F 97.2 F L Pulse Rate 69 64 Respiratory Rate 18 16 Blood Pressure 128/67 125/61 Pulse Oximetry 98 99 Oxygen Delivery Method Room Air Oxygen Flow Rate 0 0 05/12/23 11:05 05/12/23 12:08 Temperature Pulse Rate 58 L 61 Respiratory Rate 18 18 Blood Pressure 117/64 128/67 Pulse Oximetry 98 98 Oxygen Delivery Method Oxygen Flow Rate 0 0 Oxygen Delivery Method Room Air Oxygen Flow Rate 0 Narrative Exam Narrative: General: Patient is a well-developed, well-nourished male in mild discomfort, but in no acute distress HEENT: Normocephalic, atraumatic, extraocular muscles intact, oral pharynx is clear and mucous membranes are moist. Neck is supple and symmetric, trachea is midline Chest: Equal chest rise without nasal flaring, retractions, tachypneic or labored breathing. Lungs: Auscultation of all lung loredo are clear without adventitious sounds, wheezes, rhonchi, or rales. Cardio: regular rate and rhythm without murmur, rubs, or gallops, no carotid bruit, no cardiac pulsations present. Abdomen: Soft, non distended, minimal tenderness b/l lower quadrants Musculoskeletal: Muscle strength and tone are equal, no deformity, crepitus, effusions, cyanosis, clubbing or present. Trace right ankle nonpitting edema. Full range of motion intact radial and pedal pulses are normal. Skin: Patient appears slightly pale, Warm dry and intact without rashes, ulcerations or petechiae. Neuro: Alert and orientated x3, moves all extremities, sensation to touch intact, no gross deficits noted of cranial nerves. Psych: Patient has a well-kept appearance, appropriate affect, mental status attitude thought context and judgment are appropriate for age. Objective Labs 05/12/23 04:45 05/12/23 04:45 Labs: Laboratory Results - last 24 hr 05/12/23 05/12/23 04:45 04:45 WBC 11.9 H RBC 3.30 L Hgb 10.5 L Hct 30.7 L MCV 92.8 MCH 31.9 MCHC 34.4 RDW 15.2 H Plt Count 129 L Neut % (Auto) 82.8 H Lymph % (Auto) 9.7 L [place] % (Auto) 7.2 Eos % (Auto) 0.0 L Baso % (Auto) 0.3 Neut # (Auto) 9800 H Lymph # (Auto) 1200 [place] # (Auto) 900 Eos # (Auto) 0 Baso # (Auto) 0 Sodium 136 L Potassium 3.4 Chloride 108 H Carbon Dioxide 23 BUN 22 H Creatinine 1.26 H Estimated GFR 60 BUN/Creatinine Ratio 17.5 Glucose 132 H Calcium 7.2 L Total Bilirubin 0.5 AST 19 ALT 27 Alkaline Phosphatase 59 Total Protein 5.3 L Albumin 2.8 L Globulin 2.5 Albumin/Globulin Ratio 1.1 [facility] Medical History BPH w urinary obs/LUTS Cardiac murmur CKD (chronic kidney disease), stage III Constipation Diverticulosis GERD (gastroesophageal reflux disease) Gout Hypertension Neuropathy GERALD on CPAP Peripheral edema Sepsis (08/2019) Tinnitus Urethral stricture in male Surgical History History of arthroscopy of both knees Hx of bilateral cataract extraction Social History household members: spouse Smoking Status: Former smoker alcohol intake: current Discharge Plan Discharge Plan Patient Disposition: Xfer Acute Care Hospital Discharge Health Status Multidrug resistant organism: No MDRO Precautions: [place] Diet/Activity/Treatments Diet: Diet as Tolerated Liquid consistency: Normal/Thin Food texture: Regular Activity: As tolerated with no restrictions Discharge Data Primary Care Provider: Sarahy Kebede VTE Deep Vein Thrombosis/Pulmonary Embolism Present on Admission: No
[2023-05-12 15:56] LABS: COVID19 -Nasal RAPID Negative (Negative)
--- NOTE | 2023-05-12 17:01 | PC.NURSE ---
Addendum entered by Tori Dailey R.N. 05/12/23 17:03: Per provider instruction, pt transferred with Schroeder, IV in R AC and IJ central line. Original Note: Called report to ZAIRA Yancey at [facility] at 1630. Prior to transfer, RN and PCT performed urinary catheter care, full CHG bed bath and skin check and emptied Schroeder Catheter.
== END 2023-05-12 16:58 | disposition short-term general hospital (02) | DRG 871 ==
LOC: ED 23:02 → AC 23:24 → ICU 05-10 00:02
PROVIDERS: Internal Medicine; Surgery; Admitting Provider Nurse Practitioner Family; Emergency Provider Emergency Medicine; PCP Family Medicine; Referring Provider Emergency Medicine; Visit Provider Nurse Practitioner Family
PROC: 0DJD8ZZ Inspection of Lower Intestinal Tract, Via Natural or Artificial Opening Endoscopic (ICD-10-PCS; CPT 45378; principal; 2023-05-12 15:30)
DX: A41.9 Sepsis, unspecified organism (principal); R65.21 Severe sepsis with septic shock; K92.2 Gastrointestinal hemorrhage, unspecified; E87.21 Acute metabolic acidosis; I82.401 Acute embolism and thrombosis of unspecified deep veins of right lower extremity; N17.9 Acute kidney failure, unspecified; K55.9 Vascular disorder of intestine, unspecified; D62 Acute posthemorrhagic anemia; K35.80 Unspecified acute appendicitis; I12.9 Hypertensive chronic kidney disease with stage 1 through stage 4 chronic kidney disease, or unspecified chronic kidney disease; N18.30 Chronic kidney disease, stage 3 unspecified; N40.1 Benign prostatic hyperplasia with lower urinary tract symptoms; N35.819 Other urethral stricture, male, unspecified site; G62.9 Polyneuropathy, unspecified; G47.33 Obstructive sleep apnea (adult) (pediatric); Z87.891 Personal history of nicotine dependence
CPT/HCPCS: 36415; 36592; 45378; 71045; 74018; 74177; 80048; 80053; 81001; 82272; 82962; 83605; 83690; 83735; 83880; 84145; 85014; 85018; 85025; 85610; 85730; 86140; 87040; 87086; 87507; 87635; 87797; 93005; 96365; 96366; 96368; 96375; 96376; 99232; 99233; 99285; 99291; C9803; C9113; J0696; J2270; J2405; J2543; J2704; J2930; Q9967

== ENCOUNTER → 2023-12-31 08:58 | Outpatient (CLI) | payer OTHER, SELFPAY ==
[2023-05-10 00:28] VITALS: BMI 35.6
[2023-12-31 11:10] LABS: Prostate Specific Antigen 3.03 ng/mL (0.10-4.00)
== END ==
PROVIDERS: PCP Family Medicine; Referring Provider Specialist; Visit Provider Specialist
DX: N40.1 Benign prostatic hyperplasia with lower urinary tract symptoms (principal); N13.8 Other obstructive and reflux uropathy
CPT/HCPCS: 36415; 84153

== ENCOUNTER → 2024-07-24 16:07 | Outpatient (CLI) | payer OTHER, SELFPAY ==
[2023-05-10 00:28] VITALS: BMI 35.6
[2024-07-24 18:29] LABS: Prostate Specific Antigen 3.47 ng/mL (0.10-4.00)
== END ==
LOC: LAB 16:07
PROVIDERS: PCP Family Medicine; Referring Provider Specialist; Visit Provider Specialist
DX: N40.1 Benign prostatic hyperplasia with lower urinary tract symptoms (principal); N13.8 Other obstructive and reflux uropathy
CPT/HCPCS: 36415; 84153

== ENCOUNTER 2025-01-28 18:09 | Observation (INO) | payer OTHER, SELFPAY ==
[2023-05-10 00:28] VITALS: BMI 35.6
[2025-01-28 18:14] VITALS: BP 140/66; PULSE 96; RESP 18; TEMP 36.6; O2SAT 98
--- NOTE | 2025-01-28 18:19 | ED_ITS ---
HPI - Neuro Symptoms/Deficit General Chief Complaint: Neuro Symptoms/Deficit Stated Complaint: stroke symptoms Time Seen by Provider: 01/28/25 18:15 History of Present Illness HPI Narrative: Patient is a 74-year-old male past medical history of hypertension diverticulitis not currently on any blood thinners presents to the emergency department from home for evaluation of left hand weakness. Patient states that at approximately 5:50 p.m. he was watching TV felt his left hand become numb and weak he said specifically was to his thumb and index finger. States it lasted approximately 15 minutes at time of evaluation he is without any symptoms however he states he does feel a little bit weak with his checkroom attendant. On exam NIH of 0 however patient does have slightly weaker checkroom attendant to his left hand. Patient denies any other symptoms such as headache visual disturbances chest pain shortness of breath fever chills nausea vomiting abdominal pain or any other GI/ symptoms at this time. Related Data Home Medications Medication Instructions Recorded Confirmed allopurinol 100 mg tablet 200 mg PO DAILY ##0 03/12/17 07/25/24 duloxetine 60 mg capsule,delayed 60 mg PO BEDTIME 08/16/19 07/25/24 release furosemide 20 mg tablet 20 mg PO DAILY 08/16/19 07/25/24 loratadine 10 mg capsule 10 mg PO DAILY PRN Seasonal 01/16/20 07/25/24 allergies, itching lisinopril 20 mg tablet 20 mg PO DAILY 04/23/20 07/25/24 Previous Rx's Medication Instructions Recorded tamsulosin 0.4 mg capsule 0.4 mg PO ONCE PM #90 caps 08/08/24 Allergies Allergy/AdvReac Type Severity Reaction Status Date / Time Sulfa (Sulfonamide Allergy Intermediate Rash Verified 07/25/24 09:08 Antibiotics) [SULFA (SULFONAMIDE ANTIBIOTICS)] Review of Systems Review of Systems Narrative: General: Denies fever, chills, weight loss HEENT: Denies headache, eye drainage, eye irritation, head trauma, sore throat, voice change Cardiovascular: Denies any chest pain, palpitations, tachycardia Respiratory: Denies any shortness of breath, cough, wheeze, stridor GI/: Denies any abdominal pain, nausea, vomiting, diarrhea, bright red blood per rectum, melanotic stools, urinary frequency, urinary retention, dysuria, hematuria MSK: Denies any joint pain, muscle pains, swelling Skin: Denies any rashes, lesions, discoloration Neuro: positive left hand weakness Denies any headache, lightheadedness, dizziness, fainting, weakness Psych: Denies SI/HI Patient History Medical History Urethral stricture in male BPH w urinary obs/LUTS Constipation GERD (gastroesophageal reflux disease) Sepsis (08/2019) Tinnitus CKD (chronic kidney disease), stage III GERALD on CPAP Diverticulosis Peripheral edema Cardiac murmur Gout Neuropathy Hypertension Surgical History Hx of bilateral cataract extraction History of arthroscopy of both knees Social History household members: spouse Smoking Status: Former smoker alcohol intake: current Smoking Status: Former smoker alcohol intake frequency: holidays/special occasions only Exam Narrative Exam Narrative: General: Cooperative, comfortable, well-developed, not in acute distress HEENT: Normocephalic, atraumatic, PERRLA, normal sclera, eyelids normal, Neck: Active full range of motion, atraumatic Chest: Normal to inspection, negative crepitus, no overlying erythema ecchymosis Respiratory: Normal respiratory effort, not in acute respiratory distress, clear to auscultation bilaterally negative cough, wheeze, tachypnea, rhonchi, rales Cardiology: Regular rate rhythm negative gallop, murmur, rubs GI/: Normal to inspection, soft, nonrigid, no tenderness to palpation, exam deferred MSK: Full range of active range of motion of all 4 extremities, atraumatic Skin: No rashes lesions noted Neuro: NIH of 0, patient does have slightly weaker checkroom attendant strength his left hand otherwise strength normally in all 4 extremities, he does have baseline bilateral lower extremity neuropathy and weakness Alert awake oriented x3, moves all 4 extremities spontaneously, cranial nerves intact, able to answer all questions appropriately follows commands appropriately Psych: Cooperative, negative suicidal or homicidal ideations Initial Vital Signs Initial Vital Signs: Vital Signs Temperature 97.9 F 01/28/25 18:14 Pulse Rate 96 H 01/28/25 18:14 Respiratory Rate 18 01/28/25 18:14 Blood Pressure 140/66 01/28/25 18:14 Pulse Oximetry 98 01/28/25 18:14 Oxygen Delivery Method Room Air 01/28/25 18:14 Scores NIH Stroke Scale Level of Conciousness: Alert, keenly responsive Ask month/age: Answers both questions correctly. Open/close eyes, close hand: Performs both tasks correctly Best gaze horizontal: Normal Visual loredo: No visual loss Facial palsy: Normal symetrical movement Left arm drift: No drift for full 10 sec Right arm drift: No drift for full 10 sec Left leg drift: No drift for full 5 sec Right leg drift: No drift for full 5 sec Limb ataxia: Absent Sensory on face/arms/legs: Normal, no sensory loss Best language: No aphasia, normal Dysarthria: Normal Extinction or inattention: No abnormality Total NIH Stroke scale score: 0 Course Orders Ordered: ED Orders 01/28/25 18:[address] angio head and neck Stat Urinalysis and Microscopic Stat Urine Drug Screen, Rapid Stat EKG-12 Lead Stat 01/28/25 18:22 Complete Blood Count AUTO DIFF Stat Comprehensive Metabolic Panel Stat Ethanol (ETOH) Stat PTT Partial Thromboplastin Sammy Stat Prothrombin Time INR Stat Troponin & CK Cardiac Panel Stat 01/28/25 18:32 CXR [XR chest 1V] Stat Discontinued Medications Sodium Chloride (Normal Saline 0.9%) 1,000 mls @ 1,000 mls/hr IV BOLUS ONE Stop: 01/28/25 19:22 Last Admin: 01/28/25 18:49 Dose: 1,000 mls/hr Vital Signs Vital signs: Vital Signs - 8 hr 01/28/25 18:14 01/28/25 18:36 01/28/25 18:36 Temperature 97.9 F Pulse Rate 96 H 88 Respiratory Rate 18 20 Blood Pressure 140/66 133/63 Pulse Oximetry 98 96 Oxygen Delivery Method Room Air 01/28/25 19:00 01/28/25 19:00 Temperature Pulse Rate 82 Respiratory Rate 20 Blood Pressure 119/61 Pulse Oximetry 96 Oxygen Delivery Method MDM - Neuro Symptoms/Deficit Differential Diagnosis Differential diagnosis: Likely other ( electrolyte abnormality, CVA, TIA,) Lab Data 01/28/25 18:22 01/28/25 18:22 Labs: Lab Results 01/28/25 Range/Units 18:22 WBC 8.3 (4.5-11.0) X10^3/uL RBC 4.20 L (4.5-5.9) X10^6/uL Hgb 13.5 (13.5-17.5) g/dL Hct 39.5 L (41-53) % MCV 94.2 (80-100) fL MCH 32.2 (26-34) PG MCHC 34.2 (30-36) % RDW 15.7 H (11.6-14.8) % Plt Count 174 (150-400) X10^3/uL Neut % (Auto) 68.2 (50-75) % Lymph % (Auto) 23.2 L (25-40) % Eddy % (Auto) 5.2 (3-14) % Eos % (Auto) 2.8 (2-4) % Baso % (Auto) 0.6 (0-2) % Neut # (Auto) 5700 (5172-9923) /uL Lymph # (Auto) 1900 (8404-1950) /uL Eddy # (Auto) 400 (0-900) /uL Eos # (Auto) 200 (0-450) /uL Baso # (Auto) 0 (0-100) /uL PT 10.9 (9.4-12.5) SECONDS INR 1.0 (0.9-1.3) APTT 31 (25.1-36.5) SECONDS Sodium 136 L (137-145) mmol/L Potassium 3.9 (3.4-5.1) mmol/L Chloride 103 (98-107) mmol/L Carbon Dioxide 22 (22-32) mmol/L BUN 34 H (9-20) mg/dL Creatinine 1.39 H (0.66-1.25) mg/dL Estimated GFR 53 L (>60) mL/min BUN/Creatinine Ratio 24.5 H (6-22) Glucose 198 H (80-110) mg/dL Calcium 8.9 (8.4-10.2) mg/dL Total Bilirubin 0.8 (0.2-1.3) mg/dL AST 30 (17-59) IU/L ALT 40 (<50) IU/L Alkaline Phosphatase 97 (38-126) U/L Total Creatine Kinase 108 (55-170) U/L Troponin I < 0.012 (0.01-0.034) ng/mL Total Protein 6.5 (6.3-8.2) g/dL Albumin 4.0 (3.5-5.0) g/dL Globulin 2.5 (1.7-4.1) g/dL Albumin/Globulin Ratio 1.6 (1.0-2.8) Ethyl Alcohol < 10 ( - 10) mg/dL Point of Care Testing Glucose POC [address] scan - head: Radiologist's Impression: [address] [address] [address] Scan Report Signed Patient: Jhoan Ch MR#: [id number] : 1950 Acct:[id number] Age/Sex: 74 / M Date of Service: 01/28/25 Loc: ED Accession Number: [id number] Procedure: CT Stroke Ordering Provider: Bao Chen D.O. PROCEDURE: CT STROKE INDICATIONS: left arm weakness TECHNIQUE: Noncontrast 4.5 mm thick angled axial sections acquired from the foramen magnum to the vertex, with coronal reformats. For radiation dose reduction, the following was used: automated exposure control, adjustment of mA and/or kV according to patient size. COMPARISON: [facility], CT, CT ANGIO HEAD AND NECK, 01/28/2025, 18:26. FINDINGS: Image quality: Streak artifact can be seen through the skull base. CSF spaces: Basal cisterns are patent. No extra-axial fluid collections. The ventricles are symmetric in size and shape. Brain: No intracranial bleeds or masses. There is cerebral volume loss for age, with resultant ventricular and sulcal prominence. There are periventricular and deep white matter chronic small vessel ischemic changes. There is intracranial internal carotid artery atherosclerosis. Pineal region calcification is seen, which is not regarded to be pathologic. Skull and face: Calvarium and visualized facial bones appear intact, without suspicious lesions. Sinuses: Visualized sinuses and mastoids are clear. IMPRESSION: No acute intracranial hemorrhage is seen. No acute intracranial pathology. Note: Case discussed by telephone with Dr. Chen at 6:38 p.m. [place] time on January 28, 2025. CTA - brain/neck: Radiologist's Impression: [address] [address] [address] Scan Report Signed Patient: Jhoan Ch MR#: [id number] : 1950 Acct:[id number] Age/Sex: 74 / M Date of Service: 01/28/25 Loc: ED Accession Number: [id number] Procedure: CT angio head and neck Ordering Provider: Bao Chen D.O. PROCEDURE: CT ANGIO HEAD AND NECK INDICATIONS: left arm weakness TECHNIQUE: After the administration of intravenous contrast, 1 mm thick sections acquired from the aortic arch through the [place] of [place]. 3-dimensional zdwcfdy-sdupkjnmr-fuubinccam (MIP) and/or volume rendering reformats were acquired of the central intracranial vasculature and neck separately. For radiation dose reduction, the following was used: automated exposure control, adjustment of mA and/or kV according to patient size. COMPARISON: [facility], CR, XR CHEST 1V, 01/28/2025, 18:28. [facility], CT, CT STROKE, 01/28/2025, 18:26. FINDINGS: Image quality: Limited by bolus timing, with venous contamination. There is artifact associated with the metallic hardware. Artifact from the metallic hardware is reduced by metal reconstruction algorithm. There is streak artifact seen through the level of the shoulders. BRAIN: CSF spaces: Ventricles are normal in size and shape. Basal cisterns are patent. No extra-axial fluid collections. Brain: No significant abnormality of the brain can be seen. Skull and face: Calvarium and facial bones appear intact, without suspicious lesions. Orbits appear normal. Sinuses: Sinuses and mastoids are clear. HEAD CT ANGIOGRAPHY: Anterior circulation: Intracranial internal carotid arteries are normal in size and flow. The flow within the paired anterior cerebral arteries is normal and symmetric. The flow within the middle cerebral arteries is normal and symmetric. The anterior communicating artery is seen. No aneurysms are seen. Posterior circulation: Visualized portions of the vertebral arteries demonstrate normal caliber, and join to form a normal appearing basilar artery. Flow within the posterior cerebral arteries is normal and symmetric. No aneurysms are seen. NECK CT ANGIOGRAPHY: Carotid system: The great vessels demonstrate a conventional anatomy as they arise from the aortic arch. The origins of the common carotid arteries appear patent. The common carotid arteries demonstrate normal caliber and courses. The bifurcation regions are both widely patent. The internal carotid arteries demonstrate normal calibers and courses. Posterior circulation: The origins of the vertebral arteries both appear widely patent. The more superior extracranial portions of both vertebral arteries also demonstrate normal courses and calibers. The left vertebral artery is dominant to the right. Soft tissues: Visualized neck soft tissues demonstrate no suspicious abnormalities. Bones: No suspicious bony lesions. Visualized cervical spine appears normally aligned. Age-appropriate bony degenerative changes are seen. IMPRESSION: No significant intracranial arterial abnormality is seen. No significant abnormality is seen within the arteries of the neck. Note: Case discussed by telephone with Dr. Chen at 6:38 p.m. [place] time on January 28, 2025. Any quantitative measurements of stenosis were performed using NASCET criteria. Chest x-ray: Radiologist's Impression: [address] [address] XRay Report Signed Patient: Jhoan Ch MR#: [id number] : 1950 Acct:[id number] Age/Sex: 74 / M Date of Service: 01/28/25 Loc: ED Accession Number: [id number] Procedure: XR chest 1V Ordering Provider: Bao Chen D.O. PROCEDURE: XR CHEST 1V INDICATIONS: left hand weakness TECHNIQUE: One view of the chest was acquired. COMPARISON: [facility], CR, XR CHEST 1V, 08/16/2019, 1:35. [facility], CT, CT ANGIO HEAD AND NECK, 01/28/2025, 18:26. [facility], CT, CT STROKE, 01/28/2025, 18:26. [facility], CR, XR CHEST 1V, 05/09/2023, 18:58. FINDINGS: Surgical changes and devices: None. Lungs and pleura: An incomplete inspiratory result is noted, causing a crowded appearance to the lung markings. No focal infiltrates are seen. No pneumothorax or significant pleural effusions are seen. Mediastinum: Mediastinal contours appear normal. Heart size is normal. Bones and chest wall: Age-appropriate bony degenerative changes are seen. No suspicious bony lesions. Overlying soft tissues appear unremarkable. IMPRESSION: Limited portable chest study, without a sundar acute abnormality. ECG Data Interpretation: EKG interpreted by ED physician sinus 87 beats per minute QTC [address] changes no STEMI MDM Narrative Medical decision making narrative: 74-year-old male with a past medical history of hypertension diverticulitis comes into the ED from home for evaluation of left hand weakness states it started at around 5:50 p.m. lasted for 15 minutes states that he felt weakness and inability to move/ feel his 1st 2 digits no trauma no falls. Not on any blood thinners at time of evaluation patient NIH of 0 but does have slightly weaker checkroom attendant strength of the left hand otherwise strength intact normally, patient does have bilateral lower extremity neuropathy and weakness at baseline. Otherwise neurological exam normal. Patient glucose upon arrival 190. Stroke alert was called immediately given more likely possible TIA. patient's CT scans without any acute findings. Patient's symptoms resolved at time of re- evaluation. EKG nonischemic in nature, lab work unremarkable. however given patient with possible TIA symptoms we will admit patient for further workup. 183: received call from radiologist Dr. Rey, states CT head negative, states currently reading of the CTA head and neck states that he does not see any obvious abnormalities but we will give a call back if this changes. 1933: had discussion with neurologist Dr. VERDUZCO, reviewed the images personally she states that she would recommend patient be admitted get an MRI would state to start aspirin continue his statin and to start Plavix loading dose 300 and then 75 starting tomorrow, recommends to continue the Plavix for 21 days. did discuss admission with patient he understands and agrees with this plan The patient's management plan was discussed Dr. De La Cruz, who agrees to admit the patient to their service and assumes care of this patient at this time. Full admission orders will be placed by the primary team. Discharge Plan Departure Patient Disposition: Home Clinical Impression: Brain TIA Prescriptions: No Action allopurinol 100 MG tablet 200 mg PO DAILY Qty: 0 tamsulosin 0.4 mg capsule 0.4 mg PO ONCE PM Qty: 90 3RF duloxetine 60 mg Capsule,Delayed Release(Dr/Ec) 60 mg PO BEDTIME furosemide 20 mg Tablet 20 mg PO DAILY loratadine 10 mg Capsule 10 mg PO DAILY PRN (Reason: Seasonal allergies, itching) lisinopril 20 mg Tablet 20 mg PO DAILY Referrals: Eric Ba MD [Primary Care Provider] - Stand Alone Forms: Patient Portal/API/Survey
--- NOTE | 2025-01-28 18:20 | EKG_ITS ---
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
--- NOTE | 2025-01-28 18:25 | PC.NURSE ---
Patient came to ED with reports of sudden loss of left hand usage while sitting at home. Upon arrival he reported feeling like his symptoms were resolved. 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 Code stroke called since symptoms improved but did not totally resolve. Provider notified verbally as well
[2025-01-28 18:27] LABS: Add Manual Diff / Slide Review NO; Basophils Absolute Auto 0 /uL (0-100); Basophils Percent Auto 0.6 % (0-2); Eosinophils Absolute Auto 200 /uL (0-450); Eosinophils Percent Auto 2.8 % (2-4); Hematocrit 39.5 % (41-53); Hemoglobin 13.5 g/dL (13.5-17.5); Lymphocytes Absolute Auto 1900 /uL (1100-4500); Lymphocytes Percent Auto 23.2 % (25-40); Mean Corpuscular HGB Conc 34.2 % (30-36); Mean Corpuscular Hemoglobin 32.2 PG (26-34); Mean Corpuscular Volume 94.2 fL (80-100); Monocytes Absolute Auto 400 /uL (0-900); Monocytes Percent Auto 5.2 % (3-14); Neutrophils Absolute Auto 5700 /uL (1500-7000); Neutrophils Percent Auto 68.2 % (50-75); Platelet Count 174 X10^3/uL (150-400); Red Cell Distribution Width 15.7 % (11.6-14.8); White Blood Cell Count 8.3 X10^3/uL (4.5-11.0)
--- NOTE | 2025-01-28 18:32 | DI.RAD.S_ITS ---
PROCEDURE: XR CHEST 1V INDICATIONS: left hand weakness TECHNIQUE: One view of the chest was acquired. COMPARISON: [facility], CR, XR CHEST 1V, 08/16/2019, 1:35. [facility], CT, CT ANGIO HEAD AND NECK, 01/28/2025, 18:26. [facility], CT, CT STROKE, 01/28/2025, 18:26. [facility], CR, XR CHEST 1V, 05/09/2023, 18:58. FINDINGS: Surgical changes and devices: None. Lungs and pleura: An incomplete inspiratory result is noted, causing a crowded appearance to the lung markings. No focal infiltrates are seen. No pneumothorax or significant pleural effusions are seen. Mediastinum: Mediastinal contours appear normal. Heart size is normal. Bones and chest wall: Age-appropriate bony degenerative changes are seen. No suspicious bony lesions. Overlying soft tissues appear unremarkable. IMPRESSION: Limited portable chest study, without a sundar acute abnormality. Dictated by: Mack Rey M.D. on 01/28/2025 at 18:20 Approved by: Mack Rey M.D. on 01/28/2025 at 18:21
[2025-01-28 18:36] VITALS: BP 133/63; PULSE 88; RESP 20; O2SAT 96
[2025-01-28 18:36] LABS: Prothrombin Time 10.9 SECONDS (9.4-12.5)
[2025-01-28 18:38] LABS: PTT Partial Thromboplastin Tim 31 SECONDS (25.1-36.5)
[2025-01-28 18:40] LABS: Alanine Aminotransferase 40 IU/L (<50); Albumin Globulin Ratio 1.6 (1.0-2.8); Alkaline Phosphatase 97 U/L (38-126); Aspartate Aminotransferase 30 IU/L (17-59); BUN Creatinine Ratio 24.5 (6-22); Bilirubin Total 0.8 mg/dL (0.2-1.3); Blood Urea Nitrogen 34 mg/dL (9-20); Calcium 8.9 mg/dL (8.4-10.2); Carbon Dioxide 22 mmol/L (22-32); Chloride 103 mmol/L (98-107); Creatine Kinase 108 U/L (55-170); Estimated Glomerular Filt Rate 53 mL/min (>60); Ethanol (ETOH) < 10 mg/dL; Globulin 2.5 g/dL (1.7-4.1); Glucose 198 mg/dL (80-110); HEMOLYSIS < 15 (0-50); Potassium 3.9 mmol/L (3.4-5.1); Sodium 136 mmol/L (137-145); Total Protein 6.5 g/dL (6.3-8.2)
[2025-01-28] MEDS: SODIUM CHLORIDE 0.9% 1,000 ML 1000 ML IV (18:49)
--- NOTE | 2025-01-28 18:50 | PC.NURSE ---
pt states he has been seen by his doctor for his blood sugar and was told this his A1c was normal for himself. He states that his current chronic issue has been fatigue after trying to be active. He states that can not tolerate much activity before feeling pressure in his upper body. He also states that he feels fatigued after eating and trying to work. He state that he eat a usual [place] style diet and last ate tacos. He does not keep track of his glucose as he has never had a dx of DM. He has had neuropathy in his feet for 15 years now and wears ankle braces.
[2025-01-28 18:51] LABS: Troponin I < 0.012 ng/mL (0.01-0.034)
[2025-01-28 19:00] VITALS: BP 119/61; PULSE 82; RESP 20; O2SAT 96
[2025-01-28] MEDS: CLOPIDOGREL 75 MG TABLET 300 MG PO (19:52)
[2025-01-28] MEDS: ASPIRIN 81 MG CHEW TAB 324 MG PO (19:52)
[2025-01-28 20:19] VITALS: BP 126/64; PULSE 77; RESP 18; TEMP 36; O2SAT 95
[2025-01-28 21:13] VITALS: BMI 36.7
[2025-01-28] MEDS: HEPARIN 5,000 UNIT/ML VIAL 5000 UNIT SUBCUT (22:35)
[2025-01-28 23:01] LABS: Ur Creatinine Normal (Normal); Ur Specific Gravity Normal (Normal); Urine Amphetamines Negative (Negative); Urine Barbiturates Negative (Negative); Urine Benzodiazepines Negative (Negative); Urine Cocaine Negative (Negative); Urine MDMA Negative (Negative); Urine Methadone Negative (Negative); Urine Methamphetamines Negative (Negative); Urine Opiates Negative (Negative); Urine Oxycodone Negative (Negative); Urine Phencyclidine Negative (Negative); Urine THC Negative (Negative); Urine Tricyclic Antidepressant Negative (Negative); Urine pH Normal (Normal)
[2025-01-28 23:25] LABS: Appearance Urine UA CLEAR; Bilirubin Urine UA NEGATIVE (NEGATIVE); Color Urine UA YELLOW; Glucose Urine UA NEGATIVE (Negative); Ketones Urine UA NEGATIVE (NEGATIVE); Leukocyte Esterase Urine UA NEGATIVE (NEGATIVE); Nitrite Urine UA NEGATIVE (Negative); Occult Blood Urine UA NEGATIVE (Negative); Protein Urine UA NEGATIVE (Negative); pH Urine UA 5.5 (4.5-8.0)
[2025-01-28 23:27] LABS: Urine Volume 10mL (spun)
[2025-01-28 23:29] LABS: Bacteria Urine None Seen; Culture Indicated Urine Cult Not Indicated; RBC Urine None Seen (0-5/HPF); Squamous Epithelial Cell Urine 0-1 /HPF (0-5/HPF); WBC Urine None Seen (0-5/HPF)
[2025-01-29] VITALS: BP 113/57; PULSE 74; RESP 18; TEMP 36; O2SAT 95
--- NOTE | 2025-01-29 02:09 | PM.HP.1 ---
History of Present Illness History of Present Illness Chief complaint: stroke symptoms Narrative: 74-year-old male with past medical history of hypertension, diverticular disease, gout, depression, BPH, CKD stage III, neuropathy and GERD presents with left hand weakness. Of note the patient reports that he does have chronic left leg weakness in which she has to use a cane. It is unclear if he had a prior stroke or not per the. Patient. However today the patient started to notice acute onset of left hand weakness around 5:50 PM when he was watching TV. The patient states that his left hand felt numb and weak and it was difficult for him to make if this. The patient states that this lasted about 15 minutes and started to have improvement. At this time the patient arrived to our ER the patient states that he has almost normal strength in his left hand. The patient otherwise denies any slurred speech, facial drooping, other new focal deficit, nausea, vomiting, diarrhea, chest pain or shortness of breath. In our emergency room, the patient was hemodynamically stable. NIH score was reported to be 0. The patient had a CT and CT angio of the head and neck which shows no acute sign of stroke. Neurology was consulted and recommended to start patient on dual antiplatelet therapy with loading of Plavix. He recommended to admit the patient to monitor the patient overnight and also obtain an brain MRI in the morning. Note labs shows a creatinine 1.3 glucose of 198. CBC relatively benign. PFSH Medical History Urethral stricture in male BPH w urinary obs/LUTS Constipation GERD (gastroesophageal reflux disease) Sepsis (08/2019) Tinnitus CKD (chronic kidney disease), stage III GERALD on CPAP Diverticulosis Peripheral edema Cardiac murmur Gout Neuropathy Hypertension Surgical History Hx of bilateral cataract extraction History of arthroscopy of both knees Social History household members: spouse Smoking Status: Former smoker alcohol intake: current Meds Home Medications and Allergies Home Medications Medication Instructions Recorded Confirmed Type allopurinol 100 mg tablet 200 mg PO DAILY ##0 03/12/17 01/28/25 History duloxetine 60 mg capsule,delayed 60 mg PO BEDTIME 08/16/19 01/28/25 History release furosemide 20 mg tablet 20 mg PO DAILY 08/16/19 01/28/25 History loratadine 10 mg capsule 10 mg PO DAILY PRN Seasonal 01/16/20 01/28/25 History allergies, itching lisinopril 20 mg tablet 20 mg PO DAILY 04/23/20 01/28/25 History tamsulosin 0.4 mg capsule 0.4 mg PO ONCE PM #90 caps 08/08/24 01/28/25 Rx atorvastatin 40 mg tablet 40 mg PO DAILY 01/28/25 01/28/25 History betamethasone dipropionate 0.05 % 1 applic topical BID PRN Rash 01/28/25 01/28/25 History topical cream Allergies Allergy/AdvReac Type Severity Reaction Status Date / Time Sulfa (Sulfonamide Allergy Intermediate Rash Verified 07/25/24 09:08 Antibiotics) [SULFA (SULFONAMIDE ANTIBIOTICS)] Review of Systems Review of Systems ROS: Yes All systems reviewed with the patient and are negative except as otherwise documented Exam Vital Signs (past 8 hours): - 01/28/25 18:14 01/28/25 18:36 01/28/25 18:36 Temperature 97.9 F Pulse Rate 96 H 88 Respiratory Rate 18 20 Blood Pressure 140/66 133/63 Pulse Oximetry 98 96 Oxygen Delivery Method Room Air Oxygen Flow Rate 01/28/25 19:00 01/28/25 19:00 01/28/25 20:19 Temperature 96.8 F L Pulse Rate 82 77 Respiratory Rate 20 18 Blood Pressure 119/61 126/64 Pulse Oximetry 96 95 Oxygen Delivery Method Oxygen Flow Rate 0 01/28/25 22:00 01/29/25 00:00 Temperature 96.8 F L Pulse Rate 74 Respiratory Rate 18 Blood Pressure 113/57 L Pulse Oximetry 95 Oxygen Delivery Method CPAP Oxygen Flow Rate 0 Oxygen Delivery Method CPAP Oxygen Flow Rate 0 Narrative Exam Narrative: Physical Exam: GENERAL: The patient is not in any acute distressed. Awake and alert. HEENT: Nonicteric sclerae, PERRLA, EOMI. Oropharynx clear. Moist mucous membranes. Conjunctivae appear well perfused. HEART: Regular rate and rhythm without murmurs. No lower extremities edema. LUNGS: Clear to auscultation bilaterally. No wheezing, crackles or rhonchi ABDOMEN: Soft, positive bowel sounds, nontender. SKIN: No rash, no excessive bruising, petechiae, or purpura. NEUROLOGIC: AxO x 3. 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 Cranial nerves II-XII intact without motor/sensory deficit. Objective Labs 01/28/25 18:22 01/28/25 18:22 Labs: Laboratory Results - last 24 hr 01/28/25 01/28/25 01/28/25 18:22 22:50 22:50 WBC 8.3 RBC 4.20 L Hgb 13.5 Hct 39.5 L MCV 94.2 MCH 32.2 MCHC 34.2 RDW 15.7 H Plt Count 174 Neut % (Auto) 68.2 Lymph % (Auto) 23.2 L [place] % (Auto) 5.2 Eos % (Auto) 2.8 Baso % (Auto) 0.6 Neut # (Auto) 5700 Lymph # (Auto) 1900 [place] # (Auto) 400 Eos # (Auto) 200 Baso # (Auto) 0 PT 10.9 INR 1.0 APTT 31 Sodium 136 L Potassium 3.9 Chloride 103 Carbon Dioxide 22 BUN 34 H Creatinine 1.39 H Estimated GFR 53 L BUN/Creatinine Ratio 24.5 H Glucose 198 H Calcium 8.9 Total Bilirubin 0.8 AST 30 ALT 40 Alkaline Phosphatase 97 Total Creatine Kinase 108 Troponin I < 0.012 Total Protein 6.5 Albumin 4.0 Globulin 2.5 Albumin/Globulin Ratio 1.6 Urine Color Yellow Urine Appearance Clear Urine pH 5.5 Normal Ur Specific [place] 1.010 Urine Protein Negative Urine Glucose (UA) Negative Urine Ketones Negative Urine Occult Blood Negative Urine Nitrate Negative Urine Bilirubin Negative Urine Urobilinogen 1.0 Ur Leukocyte Esterase Negative Urine RBC None seen Urine WBC None seen Ur Squamous Epith Cells 0-1 /hpf Urine Bacteria None seen Ur Culture Indicated? Cult not indicated Vol Urine Centrifuged 10ml (spun) U Opiates 300ng/mL cut Negative Ur Oxycodone Screen Negative Urine Methadone Screen Negative Ur Barbiturates Screen Negative U Tricyclic Antidepress Negative Ur Phencyclidine Scrn Negative Ur Amphetamines Screen Negative U Methamphetamines Scrn Negative Ur MDMA Scrn (Ecstasy) Negative U Benzodiazepines Scrn Negative Urine Cocaine Screen Negative U Marijuana (THC) Screen Negative Urine Specific [place] Normal Ethyl Alcohol < 10 Ur Creatinine Normal Assessment & Plan Assessment & Plan narrative: Possible TIA versus CVA with left hand weakness. Admit the patient to medical telemetry under observation. Of note the patient is weakness now has resolved and NIH score is 0. CT and CTA of the head and neck shows no acute stroke. Neurology recommended dual antiplatelet therapy and patient was loaded with Plavix in the ER. Continue aspirin and Plavix daily. PT OT. Obtain brain MRI in the morning. Check lipid panel and A1c. Hyperlipidemia. As above check lipid panel and resume home statin. Depression. Resume home duloxetine. Hypertension. Monitor blood pressure and resume home medication. BPH. Resume home Flomax. DVT prophylaxis heparin subcu. CODE STATUS full code. Disposition likely home in 1 to 2 days. - As the provider of this telehealth evaluation, requested by the patient's evaluating physician, I attest that I introduced myself to the patient, provided my credentials and determined that telemedicine via a real-time, 2 way interactive audio and video platform is an appropriate and effective means of providing this service. - I reviewed the patient's chart and had a discussion with the member of the patient's treatment team. - The patient and I mutually agreed with continuation of this evaluation via telemedicine. The patient consented for the telemedicine evaluation. - This virtual encounter was taken place from [place]. The encounter was approximately 35 minutes. The nurse was present during the entire time of the encounter and was able to move the stethoscope in appropriate directions. The patient was evaluated at [facility]. Time-Based Coding :: [TOTAL MINUTES] spent with patient and on the chart (including review of chart, obtaining history, exam, reviewing outside data, placing orders, documenting exam and treatment plan, and counseling patient) on [DATE].
[2025-01-29 04:00] VITALS: BP 113/55; PULSE 71; RESP 20; TEMP 35.8; O2SAT 96
[2025-01-29 05:32] LABS: Add Manual Diff / Slide Review NO; Basophils Absolute Auto 100 /uL (0-100); Basophils Percent Auto 0.8 % (0-2); Eosinophils Absolute Auto 300 /uL (0-450); Eosinophils Percent Auto 3.6 % (2-4); Hematocrit 36.8 % (41-53); Hemoglobin 12.5 g/dL (13.5-17.5); Lymphocytes Absolute Auto 1900 /uL (1100-4500); Lymphocytes Percent Auto 26.6 % (25-40); Mean Corpuscular Volume 94.2 fL (80-100); Monocytes Absolute Auto 700 /uL (0-900); Monocytes Percent Auto 9.4 % (3-14); Neutrophils Absolute Auto 4200 /uL (1500-7000); Neutrophils Percent Auto 59.6 % (50-75); Platelet Count 173 X10^3/uL (150-400); Red Blood Cell Count 3.91 X10^6/uL (4.5-5.9); Red Cell Distribution Width 15.4 % (11.6-14.8)
[2025-01-29 05:39] LABS: BUN Creatinine Ratio 24.2 (6-22); Blood Urea Nitrogen 31 mg/dL (9-20); Calcium 8.7 mg/dL (8.4-10.2); Carbon Dioxide 21 mmol/L (22-32); Chloride 107 mmol/L (98-107); Estimated Glomerular Filt Rate 58 mL/min (>60); Glucose 112 mg/dL (80-110); HEMOLYSIS < 15 (0-50); Potassium 4.2 mmol/L (3.4-5.1); Sodium 137 mmol/L (137-145)
[2025-01-29 05:53] LABS: Cholesterol 119 mg/dL (140-199); HDL Cholesterol 45 mg/dL (40-60); LDL Cholesterol Calculated 51 mg/dL (<100); Triglycerides 113 mg/dL (35-150)
[2025-01-29 05:56] LABS: Hemoglobin A1C% w Est Avg Glu 5.6 % (4.0-6.0)
--- NOTE | 2025-01-29 06:23 | PC.NURSE ---
Pt NIH upon admission to acute care was 4. pt is unable to lift left leg off the bed. Per patient this has been going on for some time and it isn't something new. hourly shift awared.
[2025-01-29 08:00] VITALS: BP 116/58; PULSE 71; RESP 16; TEMP 36.4; O2SAT 99
[2025-01-29] MEDS: HEPARIN 5,000 UNIT/ML VIAL 5000 UNIT SUBCUT (09:08)
[2025-01-29] MEDS: ASPIRIN EC 81 MG TABLET PO (09:08)
[2025-01-29] MEDS: FUROSEMIDE 20 MG TABLET PO (09:08)
[2025-01-29] MEDS: CLOPIDOGREL 75 MG TABLET PO (09:08)
[2025-01-29] MEDS: lisinopriL 20 MG TABLET PO (09:08)
[2025-01-29] MEDS: SODIUM CHLORIDE 0.9% FLUSH 10 ML IV (09:08)
--- NOTE | 2025-01-29 11:08 | PT.IIE ---
Surgical History (Last Reviewed 07/25/24 @ 10:09 by Christiano Head DO) History of arthroscopy of both knees Hx of bilateral cataract extraction Medical History (Last Reviewed 07/25/24 @ 10:09 by Christiano Head DO) BPH w urinary obs/LUTS Cardiac murmur CKD (chronic kidney disease), stage III Constipation Diverticulosis GERD (gastroesophageal reflux disease) Gout Hypertension Neuropathy GERALD on CPAP Peripheral edema Sepsis (08/2019) Tinnitus Urethral stricture in male Physical Therapy Inpatient Evaluation/Re-Eval M1 PT/OT-IP Prior Functional Status Start: 01/29/25 10:23 Freq: NEEDED Status: Active Protocol: Document 01/29/25 10:38 MB (Rec: 01/29/25 11:08 MB [id number]) Medical Review Prior Functional Status Medical History Reviewed Yes Diet/Fluid Consistency Regular Communication [place] and hearing aides not available Mobility and Gait Mod I with B ankle braces and low walking stick in right hand, reports some falls Activities of Daily Living and IADL's I, drives Social History Household Members spouse Living Arrangements House Number of Floors (Floors) Two Floors Number of Stairs To Enter/Railing? No steps to enter and flight up steps to basement, left rail ascend Employment Status Retired Additional Social History Comment Walking stick and see OT note for other home environment comments. Pt sleeps in adjustable bed M2 PT-IP Current Condition Start: 01/29/25 10:23 Freq: NEEDED Status: Active Protocol: Document 01/29/25 10:38 MB (Rec: 01/29/25 11:08 MB [id number]) Physical Therapy Current Condition Current Condition Evaluation Date 01/29/25 Treatment Diagnosis TIA, resolved left hand symptoms M3 PT-IP Subjective Start: 01/29/25 10:23 Freq: NEEDED Status: Active Protocol: Document 01/29/25 10:38 MB (Rec: 01/29/25 11:08 MB [id number]) Subjective Physical Therapy Visit Type Type Initial Evaluation Visit Start Time 10:38 Visit Stop Time 10:53 Number of ELECTRIC TRACK SWITCH MAINTAINER Visits 0 Physical Therapy Visit Comments Patient Comments Pt resting in bed with nearby. He is [place] and no hearing aides available. He is agreeable to PT. Patient Goals To go home Therapy Pain Assessment Pain When Pain Assessed At Rest Pain Present Pain Present Denied Pain M4 PT-IP Mobility and Gait Start: 01/29/25 10:23 Freq: NEEDED Status: Active Protocol: Document 01/29/25 10:38 MB (Rec: 01/29/25 11:08 MB [id number]) PT-Bed Mobility Assessment Rolling Type of Rolling Roll to Right Level of Assist Independent Supine to Sit Supine to Sit Independent Scooting Scooting to Edge of Bed Independent Scooting Up and Down in Bed Independent PT-Transfer Assessment Sit to and From Stand Sit to and from Stand Independent Equipment Transfer Assistive Device Gait Belt Orthotic/Prosthetic Devices or Brace: Yes Transfer Ability Level of Assist Independent,Standby Assistance Comments Mobility Comments Pt uses his walking stick in right hand for transfers and gait. He denies light- headedness with mobility. He is I with [facility] socks and donning compression socks and B AFOs and shoes sitting EOB. Gait Assessment Gait Gait Assistance Required: Independent,Standby Assistance Distance (Feet) 150 Assistive Devices Assistive Device Gait Belt Orthotic/Prosthetic Devices or Brace: Yes Gait Deviations General Gait Pattern Decreased Stride Length,Flexed Trunk Factors Limiting Gait Function Factors Limiting Gait Function Limited Range of Motion Comments Gait Comments Pt with LLE functional weakness more than the right that he reports is baseline and he carries an adjustable walking stick in right hand to assist with left foot and he gait trains well with this with some decreased step- length on the left compared to the right. Stair Climbing Assessment Evaluation Level of Assist On Stairs Standby Assistance Technique/Endurance Stair Climbing Direction Ascend and Descend Stair Climbing Technique Step Over Step,Step to Step Number of Steps Climbed 3 Query Text: Stair Climbing Set # Repetitions (reps) 1 Comments Stair Climbing Comments Walking stick right hand and left rail ascend and occ step over step and occ step to step gait and he tends to lean on rail heavily and states this is his baseline for getting down to the basement: he leans into the wall PT-Balance Assessment Sitting Balance and Reactions Static Sitting Balance Ability Normal Dynamic Sitting Balance Ability Normal Standing Balance and Reactions Static Standing Balance Ability Good Dynamic Standing Balance Ability Good Device Used Walking stick left hand M5 PT-IP Objective Assessments Start: 01/29/25 10:23 Freq: NEEDED Status: Active Protocol: Document 01/29/25 10:38 MB (Rec: 01/29/25 11:08 MB [id number]) Orientation Orientation/Cognition Level of Alertness Alert Orientation Name,Age,Birthday,Month,Year, Place,Situation Language Function Ability Hard of Hearing Safety Awareness Understands Safety Issues Memory Description No Deficits Noted Gross Range of Motion Upper Extremity ROM Impairments Defer to OT Lower Extremity ROM Assessment Bilaterally Impaired Impairments LLE with much more weakness than the right and he has some trembling/ataxic-type movement in left leg with attempted SLR in supine and he has trace ankle DF and great toe extension on the left in supine. He denies history of stroke and reports he has had spinal injections. LLE weakness noted by OPPT 10 years ago. Strength Lower Extremity Strength Assessment Bilaterally Impaired Comments Strength Comments Pt does not follow ROM or MMT commands well and does have more weakness on the left compared to right in all LE joints. No clonus B with rapid passive DF. Coordination Assessment Gross Coordination Gross Coordination Impaired Assessment Coordination Comments Less coordination generally noted in LLE that is weaker and not moving well Sensation Assessment Sensation Gross Sensation Right LE Impaired,Left LE Impaired Comments Sensation Comments Pt [place] and does not answer sensory questions well and appears to have more changes in LLE M6 PT-IP Treatment Start: 01/29/25 10:23 Freq: NEEDED Status: Active Protocol: Document 01/29/25 10:38 MB (Rec: 01/29/25 11:08 MB [id number]) Physical Therapy Treatment Education Education Provided Safety M7 PT-IP Assessment and Plan Start: 01/29/25 10:23 Freq: NEEDED Status: Active Protocol: Document 01/29/25 10:38 MB (Rec: 01/29/25 11:08 MB [id number]) PT Summary Assessment and Plan Potential Rehabilitation Potential Good Status of Condition at Evaluation Evolving Summary Impairments ROM,Strength,Balance, Coordination,Sensation,Tone Assessment Summary Pt is a 74 y/o male presenting to hospital with left hand changes. He reports long history of B LE weakness that is worse on the left and LLE presents with trace DF and great toe extension in supine and he is unable to fully lift his left leg off the mattress and has shaking/ataxic-type movement in LLE with lifting it off the bed. Pt gait trains well with B AFOs and walking stick in right hand with some decreased step-length on the left and compensatory strategies with stair training . He and report he is close to baseline. He may benefit from OPPT for strengthening and balance if they are interested. No further acute PT needs. Frequency of Treatment Frequency Of Treatment Discharge Recommendations To Nursing Amount of Assist Needed Standby Assistance Discharge Recommendations PT Discharge Recommendations Outpatient PT Transportation Needs at Discharge Private Vehicle
--- NOTE | 2025-01-29 11:13 | OT.IP.EVAL ---
Past Medical History (Last Reviewed 07/25/24 @ 10:09 by Christiano Head DO) BPH w urinary obs/LUTS Cardiac murmur CKD (chronic kidney disease), stage III Constipation Diverticulosis GERD (gastroesophageal reflux disease) Gout Hypertension Neuropathy GERALD on CPAP Peripheral edema Sepsis (08/2019) Tinnitus Urethral stricture in male Surgical History (Last Reviewed 07/25/24 @ 10:09 by Christiano Head DO) History of arthroscopy of both knees Hx of bilateral cataract extraction Occupational Therapy Inpatient Evaluation/Re-Eval M1 PT/OT-IP Prior Functional Status Start: 01/29/25 10:23 Freq: NEEDED Status: Active Protocol: Document 01/29/25 11:17 CGR (Rec: 01/29/25 11:31 CGR [id number]) Medical Review Prior Functional Status Medical History Reviewed Yes Diet/Fluid Consistency Regular Communication [place] and hearing aides not available Mobility and Gait Mod I with B ankle braces and low walking stick in right hand, reports some falls Activities of Daily Living and IADL's I, drives Social History Household Members spouse Living Arrangements House Number of Floors (Floors) Two Floors Number of Stairs To Enter/Railing? No steps to enter and flight up steps to basement, left rail ascend Home Environment High Toilet,Walk in Shower Home Equipment Straight Cane,Shower Seat with Backrest,Hand Held Shower Employment Status Retired Additional Social History Comment Pt sleeps in adjustable bed. Pt just recently got a shower seat with backrest. M2 OT-IP Current Condition Start: 01/29/25 11:17 Freq: Status: Active Protocol: Document 01/29/25 11:17 CGR (Rec: 01/29/25 11:31 CGR [id number]) Occupational Therapy Current Condition Current Condition Evaluation Date 01/29/25 Treatment Diagnosis L sided weakness, MRI negative Diagnosis Onset Date 01/28/25 M3 OT- IP Subjective and Pain Start: 01/29/25 11:17 Freq: Status: Active Protocol: Document 01/29/25 11:17 CGR (Rec: 01/29/25 11:31 CGR [id number]) OT- Subjective Occupational Therapy Visit Type Type Initial Evaluation Visit Start Time 10:49 Visit Stop Time 11:13 Notes Pt working with PT in [place] when OT walked up, partial overlap with P.T. OT Pain Assessment Pain When Pain Assessed At Rest Pain Present Pain Present Denied Pain M4 OT- IP ADL's Start: 01/29/25 11:17 Freq: Status: Active Protocol: Document 01/29/25 11:17 CGR (Rec: 01/29/25 11:31 CGR [id number]) OT [id number] Comments OT Self-Feeding Comments not meal time OT ADL-Grooming Comments OT Grooming Comments not performed OT ADL-Oral Care Comments Oral Care Comments not performed OT ADL-Dressing Comments OT Dressing Comments Pt donned orthotics with P.T., not visualized by this video games storywriter . Per P.T. pt performed IND seated EOB. OT ADL-Toileting General Evaluation Toileting Ability Independent Comments OT Toileting Comments simulated OT ADL-Bathing Comments OT Bathing Comments not performed M5 OT- IP IADL's Start: 01/29/25 11:17 Freq: Status: Active Protocol: Document 01/29/25 11:17 CGR (Rec: 01/29/25 11:31 CGR [id number]) OT-Instrumental Activities of Daily Living Deficits IADL Deficits Identified No Deficits Home Safety Awareness Awareness of Need for Assistance at Home Good Awareness Ability to Problem Solve Emergency Able to Problem Solve Situations Medication Management Medication Management No Deficits Identified Money Management Money Management No Deficits Identified Meal Preparation Meal Preparation Caregiver Provides Assist Body Shop Worker Body Shop Worker Caregiver Provides Assist Driving Driving Comments 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 M6 OT- IP Functional Cognition Start: 01/29/25 11:17 Freq: Status: Active Protocol: Document 01/29/25 11:17 CGR (Rec: 01/29/25 11:31 CGR [id number]) Cognitive Factors Limiting Selfcare Function Cognitive Ability Level of Alertness Alert Patient Orientation Name,Age,Birthday,Month,Date, Year,Day of Week,Place, Situation Attention Span Ability Capable of Focused Attention, Capable of Sustained Attention Ability to Follow Commands Able to Follow Multi-Step Commands OT- Vision and Hearing OT- Hearing Assessment OT- Hearing Assessment Hearing Impaired,Use of Hearing Aids OT- Vision Assessment Visual Attentiveness WFL Occular Pursuits WFL Visual Convergence WFL M7 OT- IP Mobility and Balance Start: 01/29/25 11:17 Freq: Status: Active Protocol: Document 01/29/25 11:17 CGR (Rec: 03/31/25 11:31 CGR [id number]) OT-Transfer Assessment Sit to and From Stand Sit to and from Stand Independent Transfers Transfer Ability Independent Technique Transfer Destination Bed,Chair,Toilet Transfer Technique Stand Step Pivot Devices Transfer Assistive Devices Gait Belt,Straight Cane Comments Mobility Comments Mobiliy in hallway, room and bathroom. OT- Gait Assessment Gait Gait Assistance Required: Independent Assistive Devices Assistive Device Gait Belt,Straight Cane Comments Gait Ability Comments Mobility in room, [place], and bathroom. OT- Balance Assessment Sitting Balance and Reactions Static Sitting Balance Ability Normal Dynamic Sitting Balance Ability Normal M8 OT- IP Objective Assessments Start: 01/29/25 11:17 Freq: Status: Active Protocol: Document 01/29/25 11:17 CGR (Rec: 01/29/25 11:31 CGR [id number]) OT Gross Range of Motion Upper Extremity Range of Motion Assessment Within Functional Limits OT Strength Upper Extremity Strength Assessment Within Functional Limits Comments Strength Comments 5/5 throughout OT- Coordination Assessment Upper Extremity Finger to Nose Test Within Functional Limits Finger Tapping Test Within Functional Limits OT-Muscle Tone Assessment Muscle Tone WNL Yes OT Sensation Assessment Comments Summary Comments no sensation deficits. Edema Edema Absent M9 OT- IP Assessment and Plan Start: 01/29/25 11:17 Freq: Status: Active Protocol: Document 01/29/25 11:17 CGR (Rec: 01/29/25 11:31 CGR [id number]) OT Summary Assessment and Plan Potential Rehabilitation Potential Excellent Analytic Complexity at Evaluation Low Summary Progress Towards Goals Goals Met Assessment Summary Pt presents as a low complexity evaluation s/p admit for L sided weakness. Pt did well in todays session and appears to be at his baseline. Discussed home safety with the install of grab bars in the bathroom. Pt and agree to need. No further OT needs. Frequency of Treatment Frequency Of Treatment Discharge Discharge Recommendations OT Discharge Recommendations Home Transportation Needs at Discharge Private Vehicle
--- NOTE | 2025-01-29 11:42 | PM.DS.1 ---
History of Present Illness History of Present Illness Chief complaint: stroke symptoms Narrative: From H&P: 74-year-old male with past medical history of hypertension, diverticular disease, gout, depression, BPH, CKD stage III, neuropathy and GERD presents with left hand weakness. Of note the patient reports that he does have chronic left leg weakness in which she has to use a cane. It is unclear if he had a prior stroke or not per the. Patient. However today the patient started to notice acute onset of left hand weakness around 5:50 PM when he was watching TV. The patient states that his left hand felt numb and weak and it was difficult for him to make if this. The patient states that this lasted about 15 minutes and started to have improvement. At this time the patient arrived to our ER the patient states that he has almost normal strength in his left hand. The patient otherwise denies any slurred speech, facial drooping, other new focal deficit, nausea, vomiting, diarrhea, chest pain or shortness of breath. In our emergency room, the patient was hemodynamically stable. NIH score was reported to be 0. The patient had a CT and CT angio of the head and neck which shows no acute sign of stroke. Neurology was consulted and recommended to start patient on dual antiplatelet therapy with loading of Plavix. He recommended to admit the patient to monitor the patient overnight and also obtain an brain MRI in the morning. Note labs shows a creatinine 1.3 glucose of 198. CBC relatively benign. Discharge Providers Provider Date of admission: 01/28/25 20:04 Discharge Date: 01/29/25 Primary care physician: Eric Ba MD Consults: 01/28/25 20:14 Consult to Occupational Therapy Evaluate & Treat Comment: Physician Instructions: Evaluate and treat Consult to Physical Therapy Evaluate & Treat Comment: Physician Instructions: Evaluate and Treat Discharge provider: Dameon Sosa MD Summary Hospital Course Discharge Diagnosis: 1. TIA, present on admission and improved. 2. Hyperlipidemia. Present on admission and stable. 3. Depression. Present on admission and stable. 4. Hypertension. Present on admission and stable. 5. BPH. Present on admission and stable. 6. Chronic leg weakness with bilateral braces and neuropathy. Present on admission and stable. Hospital Course: He was admitted to the hospital with transient left hand weakness. He was chronic bilateral leg weakness. His symptoms resolved after a very short time. His NIH score was 0 in the ED. Initial imaging was unremarkable and tele neuro recommended dual antiplatelet therapy. He was on chronic aspirin. He had no further neurologic symptoms overnight and did well physical therapy the day of discharge. MRI of the brain was unremarkable. Recommendations are for discharge home with the addition dual antiplatelet therapy for 21 days and then consider changing from chronic aspirin to Plavix. Continue statin at 40 mg daily. 911 for neurologic symptoms. Status at Discharge Cognitive/behavioral status at discharge: oriented Functional status at discharge: uses cane/walker Overall status at discharge: patient is back to baseline Time Spent with Patient Time spent: Greater than 30 minutes Exam Vital Signs (past 8 hours): - 01/29/25 04:00 01/29/25 08:00 01/29/25 08:00 Temperature 96.5 F L 97.6 F Pulse Rate 71 71 Respiratory Rate 20 16 Blood Pressure 113/55 L 116/58 L Pulse Oximetry 96 99 Oxygen Delivery Method Room Air Oxygen Flow Rate 0 0 Oxygen Delivery Method Room Air Oxygen Flow Rate 0 Narrative Exam Narrative: NAD, alert and oriented. Fluent speech. Lungs are clear, normal rate and effort. Heart is regular, no murmur gallop or rub. Abdomen is soft, non distended. Extremities are free of edema. Normal arm strength and CN 2-12 intact. Objective ECG Impression: Normal sinus rhythm Low voltage QRS Inferior infarct , age undetermined Imaging Multiple studies:: Radiologist's impression: Brain MRI: No acute infarct. No intracranial hematoma. CXR: Limited portable chest study, without a sundar acute abnormality. Head and Neck CTA: No significant intracranial arterial abnormality is seen. No significant abnormality is seen within the arteries of the neck. Brain CT: No acute intracranial hemorrhage is seen. No acute intracranial pathology. Labs 01/29/25 04:50 01/29/25 04:50 Labs: Laboratory Results - last 24 hr 01/28/25 01/28/25 01/28/25 18:22 22:50 22:50 WBC 8.3 RBC 4.20 L Hgb 13.5 Hct 39.5 L MCV 94.2 MCH 32.2 MCHC 34.2 RDW 15.7 H Plt Count 174 Neut % (Auto) 68.2 Lymph % (Auto) 23.2 L [place] % (Auto) 5.2 Eos % (Auto) 2.8 Baso % (Auto) 0.6 Neut # (Auto) 5700 Lymph # (Auto) 1900 [place] # (Auto) 400 Eos # (Auto) 200 Baso # (Auto) 0 PT 10.9 INR 1.0 APTT 31 Sodium 136 L Potassium 3.9 Chloride 103 Carbon Dioxide 22 BUN 34 H Creatinine 1.39 H Estimated GFR 53 L BUN/Creatinine Ratio 24.5 H Glucose 198 H Hemoglobin A1c Calcium 8.9 Total Bilirubin 0.8 AST 30 ALT 40 Alkaline Phosphatase 97 Total Creatine Kinase 108 Troponin I < 0.012 Total Protein 6.5 Albumin 4.0 Globulin 2.5 Albumin/Globulin Ratio 1.6 Triglycerides Cholesterol LDL Cholesterol, Calc HDL Cholesterol Urine Color Yellow Urine Appearance Clear Urine pH 5.5 Normal Ur Specific [place] 1.010 Urine Protein Negative Urine Glucose (UA) Negative Urine Ketones Negative Urine Occult Blood Negative Urine Nitrate Negative Urine Bilirubin Negative Urine Urobilinogen 1.0 Ur Leukocyte Esterase Negative Urine RBC None seen Urine WBC None seen Ur Squamous Epith Cells 0-1 /hpf Urine Bacteria None seen Ur Culture Indicated? Cult not indicated Vol Urine Centrifuged 10ml (spun) U Opiates 300ng/mL cut Negative Ur Oxycodone Screen Negative Urine Methadone Screen Negative Ur Barbiturates Screen Negative U Tricyclic Antidepress Negative Ur Phencyclidine Scrn Negative Ur Amphetamines Screen Negative U Methamphetamines Scrn Negative Ur MDMA Scrn (Ecstasy) Negative U Benzodiazepines Scrn Negative Urine Cocaine Screen Negative U Marijuana (THC) Screen Negative Urine Specific [place] Normal Ethyl Alcohol < 10 Ur Creatinine Normal 01/29/25 04:50 WBC 7.0 RBC 3.91 L Hgb 12.5 L Hct 36.8 L MCV 94.2 MCH 32.0 MCHC 34.0 RDW 15.4 H Plt Count 173 Neut % (Auto) 59.6 Lymph % (Auto) 26.6 [place] % (Auto) 9.4 Eos % (Auto) 3.6 Baso % (Auto) 0.8 Neut # (Auto) 4200 Lymph # (Auto) 1900 [place] # (Auto) 700 Eos # (Auto) 300 Baso # (Auto) 100 PT INR APTT Sodium 137 Potassium 4.2 Chloride 107 Carbon Dioxide 21 L BUN 31 H Creatinine 1.28 H Estimated GFR 58 L BUN/Creatinine Ratio 24.2 H Glucose 112 H Hemoglobin A1c 5.6 Calcium 8.7 Total Bilirubin AST ALT Alkaline Phosphatase Total Creatine Kinase Troponin I Total Protein Albumin Globulin Albumin/Globulin Ratio Triglycerides 113 Cholesterol 119 L LDL Cholesterol, Calc 51 HDL Cholesterol 45 Urine Color Urine Appearance Urine pH Ur Specific [place] Urine Protein Urine Glucose (UA) Urine Ketones Urine Occult Blood Urine Nitrate Urine Bilirubin Urine Urobilinogen Ur Leukocyte Esterase Urine RBC Urine WBC Ur Squamous Epith Cells Urine Bacteria Ur Culture Indicated? Vol Urine Centrifuged U Opiates 300ng/mL cut Ur Oxycodone Screen Urine Methadone Screen Ur Barbiturates Screen U Tricyclic Antidepress Ur Phencyclidine Scrn Ur Amphetamines Screen U Methamphetamines Scrn Ur MDMA Scrn (Ecstasy) U Benzodiazepines Scrn Urine Cocaine Screen U Marijuana (THC) Screen Urine Specific [place] Ethyl Alcohol Ur Creatinine PFSH Medical History Urethral stricture in male BPH w urinary obs/LUTS Constipation GERD (gastroesophageal reflux disease) Sepsis (08/2019) Tinnitus CKD (chronic kidney disease), stage III GERALD on CPAP Diverticulosis Peripheral edema Cardiac murmur Gout Neuropathy Hypertension Surgical History Hx of bilateral cataract extraction History of arthroscopy of both knees Social History household members: spouse Smoking Status: Former smoker alcohol intake: current Discharge Assessment & Plan Assessment and Plan Assessment: 1. TIA, present on admission and improved. 2. Hyperlipidemia. Present on admission and stable. 3. Depression. Present on admission and stable. 4. Hypertension. Present on admission and stable. 5. BPH. Present on admission and stable. 6. Chronic leg weakness with bilateral braces and neuropathy. Present on admission and stable. Plan of Treatment: Stable for discharge home on dual antiplatelet therapy. This will be for 21 days. 911 for neurologic symptoms. PCP within 1 week. He has been taking chronic aspirin, O2 anticipate he will be switched to chronic Plavix after 21 days. Would stop aspirin at that point. No clear indication for his chronic aspirin preceding this event. Discharge Plan Discharge Plan Patient Disposition: Home Provider Discharge Comment: Stable for discharge home. Dual antiplatelet therapy for 21 days. Discharge orders & Medications Prescriptions: New aspirin 81 mg Tablet,Delayed Release (Dr/Ec) 81 mg PO DAILY Qty: 30 1RF clopidogrel 75 mg Tablet 75 mg PO DAILY Qty: 20 0RF Continued allopurinol 100 MG tablet 200 mg PO DAILY Qty: 0 tamsulosin 0.4 mg capsule 0.4 mg PO ONCE PM Qty: 90 3RF duloxetine 60 mg Capsule,Delayed Release(Dr/Ec) 60 mg PO BEDTIME furosemide 20 mg Tablet 20 mg PO DAILY loratadine 10 mg Capsule 10 mg PO DAILY PRN (Reason: Seasonal allergies, itching) lisinopril 20 mg Tablet 20 mg PO DAILY atorvastatin 40 mg tablet 40 mg PO DAILY betamethasone dipropionate 0.05 % cream 1 applic topical BID PRN (Reason: Rash) Rx Instructions: apply to groin area Follow up/Referrals: Eric Ba MD [Primary Care Provider] - Discharge Health Status Multidrug resistant organism: No MDRO Diet/Activity/Treatments Diet: Low-cholesterol Activity: As tolerated. Visit Report/Discharge Packet Instructions: DI for Transient Ischemic Attack, Clopidogrel Stand Alone Forms: Patient Portal/API, Stroke Signs & Symptoms, Patient Portal/API/Survey Discharge Data Primary Care Provider: Eric Ba Attending Provider: James De La Cruz Admit Date/Time: 01/28/25 20:04
[2025-01-29 12:00] VITALS: BP 139/69; PULSE 73; RESP 16; TEMP 36.4; O2SAT 100
--- NOTE | 2025-01-29 15:53 | CM.DANOTE ---
Patient is a 74 yo male who was admitted on 01/28/25 OBS Status for CVA vs TIA r/o. Pt has [facility] for insurance and his PCP is Eric Ba. EMR was reviewed. Per MD, pt's imaging and labs normal and medically stable to d/c home today after PT. Per PT/OT, recommending home with spouse and outpt PT. Patient lives with his in [place] and both are fairly active and independent at baseline and pt has canes with a hx of GLFs but no recent admissions and has chronic bilateral leg weakness from neuropathy. They confirm he is close to his baseline and preference is to discharge home today and do not anticipate any needs and spouse confirms she can provide transport. Per RN, discharge instructions provided and no concerns noted. STANTON Alonzo
--- NOTE | 2025-01-29 20:16 | DI.MRI.S_ITS ---
PROCEDURE: MR HEAD/BRAIN WO CON INDICATIONS: rule out CVA TECHNIQUE: Noncontrast axial T1 spin echo, axial T2 fast spin echo, sagittal and axial FLAIR, coronal T2 fast spin echo, axial gradient echo, axial diffusion and ADC through the brain. COMPARISON: [facility], CT, CT STROKE, 01/28/2025, 18:26. FINDINGS: Image quality: Diagnostic CSF spaces: Basal cisterns are patent. Lateral ventricles are symmetric. Volume: Volume loss. Periventricular white matter signal abnormality most commonly seen with small vessel disease. These findings are mild Brain: No acute diffusion restriction. No intracranial hematoma Craniofacial structures: No significant paranasal sinus opacity. IMPRESSION: No acute infarct. No intracranial hematoma. Dictated by: Axel Kyees M.D. on 01/29/2025 at 8:24 Approved by: Axel Keyes M.D. on 01/29/2025 at 8:26
== END 2025-01-29 13:00 | disposition home or self-care (01) ==
LOC: ED 20:04 → AC 20:04
PROVIDERS: Admitting Provider Internal Medicine; Emergency Provider Student in an Organized Health Care Education/Training Program; PCP Family Medicine; Visit Provider Internal Medicine
DX: G45.9 Transient cerebral ischemic attack, unspecified (principal); R29.700 NIHSS score 0; R53.1 Weakness; G62.9 Polyneuropathy, unspecified; E78.5 Hyperlipidemia, unspecified; F32.A Depression, unspecified; N40.0 Benign prostatic hyperplasia without lower urinary tract symptoms; I12.9 Hypertensive chronic kidney disease with stage 1 through stage 4 chronic kidney disease, or unspecified chronic kidney disease; N18.30 Chronic kidney disease, stage 3 unspecified
CPT/HCPCS: 36415; 70450; 70496; 70498; 70551; 71045; 80048; 80053; 80061; 80305; 80320; 81001; 82550; 82962; 83036; 84484; 85025; 85610; 85730; 93005; 96360; 96372; 97162; 97165; 97535; 99285; G0378; J1644; Q9967